=== PATIENT | male | born 1965 | race Caucasian/White ===

== ENCOUNTER 2016-10-11 07:44 | Day surgery (SDC) | payer OTHER ==
[~2016-10-11] VITALS: Ht 167.6 cm; Wt 70.7 kg
[~2016-10-11 07:44] MED LIST: AUG875 PO; INSU100I13 SC; Metformin Hcl PO; SULF1TAB31 PO
[2016-10-11 08:35] VITALS: Ht 167.6 cm; Wt 70.7 kg
[2016-10-11 08:39] VITALS: BP 126/76; PULSE 65; RESP 16
[2016-10-11] MEDS ORDERED: NOVO3I SC (09:07)
[2016-10-11] MEDS ORDERED: FENTAnyl 50 MCG/ML VIAL ONE (10:11)
[2016-10-11] MEDS ORDERED: MIDAZOLAM 1 MG/ML 2 ML INJ ONE (10:11)
[2016-10-11 10:30] VITALS: BP 101/63; PULSE 62; RESP 14
--- NOTE | 2016-10-12 05:00 | GILP ---
DATE OF PROCEDURE: 10/11/2016 NAME OF PROCEDURE: Colonoscopy. SURGEON: Cornelio Jacobo MD PREOPERATIVE DIAGNOSIS: Iron deficiency anemia. POSTOPERATIVE DIAGNOSES 1. Colonoscopy all the way to the cecum. 2. Internal hemorrhoids. 3. No colon neoplasm or any other bleeding lesion was identified. INDICATION FOR THE PROCEDURE: Mr. Adithya Orozco is a 51-year-old male patient who was noted to hav e iron deficiency anemia. The patient never had screening colonoscopy, so the patient was scheduled for colonoscopic examination for further evaluation. The procedure and possible complications were well explained to the patient, he understood and conse nted to the procedure. DESCRIPTION OF PROCEDURE: Under the influence of fentanyl and Versed, the colonoscope was carefully introduced in the rectum and under direct vision, it was advanced all the way to the cecum. FINDINGS: The patient had internal hemorrhoids. No colitis or neoplasm was identified. He tolerated the procedure very well and there was no complication from the procedure. At the end o f the procedure, he was awake with stable vital signs and he was discharged home to the care of his family. IMPRESSION: 1. Colonoscopy all the way to the cecum. 2. Internal hemorrhoids. 3. No colon neoplasm or any other bleeding lesion was identified. PLAN: Next screening colonoscopy in 10 years. Dictated By: CORNELIO BAILEY/KIKI Conf#: [id number] DID#: [id number]
== END 2016-10-11 10:46 | disposition home or self-care (01) ==
LOC: GIL 07:44
PROVIDERS: ATTEND Internal Medicine Gastroenterology
DX: D50.9 Iron deficiency anemia, unspecified (principal); K64.8 Other hemorrhoids; E11.9 Type 2 diabetes mellitus without complications
CPT/HCPCS: 45378; 82962; J2250; J3010

== ENCOUNTER 2017-01-16 19:32 | Inpatient (IN) | payer OTHER ==
[~2017-01-16] VITALS: Ht 170.2 cm; Wt 72.0 kg
[~2017-01-16 19:32] MED LIST changes: -AUG875 PO; -Metformin Hcl PO; +NOVO3I SC; -SULF1TAB31 PO
[2017-01-16 19:34] VITALS: Ht 170.2 cm; Wt 72.0 kg
[2017-01-16] MEDS ORDERED: PIPER-TAZO 3.375 GM IV (PMX) 100 ML IVPB STA (20:44)
[2017-01-16] MEDS ORDERED: SODIUM CHLORIDE 0.9% 1L BAG IV* STA (20:44)
[2017-01-16] MEDS ORDERED: VANCOMYCIN 1 GM (PMX) 250 ML IVPB ONE (21:00)
[2017-01-16 21:04] LABS: ADD SCAN DIFF NO
[2017-01-16 21:06] LABS: BASOPHILS % 0.4 % (0.0-2.0); EOSINOPHILS # 0.3 10^3/ul (0.0-0.5); EOSINOPHILS % 2.5 % (0.0-7.0); HEMATOCRIT 31.8 % (42.0-52.0); HEMOGLOBIN 10.6 g/dl (14.0-18.0); LYMPHOCYTES # 1.4 10^3/ul (0.8-2.9); LYMPHOCYTES % 13.3 % (15.0-51.0); MEAN CORPUSCULAR HEMOGLOBIN 28.1 pg (29.0-33.0); MEAN CORPUSCULAR HGB CONC 33.3 g/dl (32.0-37.0); MEAN CORPUSCULAR VOLUME 84.4 fl (82.0-101.0); MEAN PLATELET VOLUME 9.9 fl (7.4-10.4); MONOCYTE # 0.5 10^3/ul (0.3-0.9); MONOCYTES % 4.9 % (0.0-11.0); NEUTROPHIL # 8.2 10^3/ul (1.6-7.5); NEUTROPHILS % 78.5 % (39.0-77.0); PLATELET COUNT 385 10^3/UL (140-415); RED BLOOD COUNT 3.77 10^6/ul (4.70-6.10); RED CELL DISTRIBUTION WIDTH 12.8 % (11.5-14.5); WHITE BLOOD COUNT 10.4 10^3/ul (4.8-10.8)
[2017-01-16 21:13] LABS: ADD UMIC YES; URINE BILIRUBIN (Dip) NEGATIVE (NEGATIVE); URINE BLOOD (Dip) 2+ (NEGATIVE); URINE COLOR LT. YELLOW (YELLOW); URINE KETONES (Dip) NEGATIVE (NEGATIVE); URINE LEUKOCYTE ESTERASE (Dip) NEGATIVE (NEGATIVE); URINE NITRITE (Dip) NEGATIVE (NEGATIVE); URINE TOTAL PROTEIN (Dip) 1+ (NEGATIVE); URINE UROBILINOGEN (Dip) 0.2 E.U./dL (0.1-1.0)
[2017-01-16] MEDS ORDERED: METF500T4 PO (21:15)
[2017-01-16] MEDS ORDERED: INSU100I12 SQ (21:17)
[2017-01-16 21:19] LABS: INR 1.09; PARTIAL THROMBOPLASTIN TIME 35.9 Sec (25.0-35.0); PROTIME 14.1 Sec (12.2-14.2); PT RATIO 1.1
[2017-01-16 21:23] LABS: ALANINE AMINOTRANSFERASE 45 IU/L (13-69); ALBUMIN 3.9 g/dl (3.3-4.9); ALBUMIN/GLOBULIN RATIO 0.82; ALKALINE PHOSPHATASE 173 IU/L (42-121); ANION GAP 12 (8-16); ASPARTATE AMINO TRANSFERASE 25 IU/L (15-46); BILIRUBIN,INDIRECT 0.1 mg/dl (0-1.1); BILIRUBIN,TOTAL 0.1 mg/dl (0.2-1.3); BLOOD UREA NITROGEN 17 mg/dl (7-20); CALCIUM 9.4 mg/dl (8.4-10.2); CARBON DIOXIDE 29 mmol/L (21-31); CHLORIDE 96 mmol/L (97-110); CREATININE 0.79 mg/dl (0.61-1.24); GLUCOSE 226 mg/dl (70-220); POTASSIUM 4.3 mmol/L (3.5-5.1); SODIUM 133 mmol/L (135-144); TOTAL PROTEIN 8.6 g/dl (6.1-8.1); TRANSITIONAL EPI CELLS,URINE FEW
[2017-01-16] MEDS ORDERED: ACETAMINOPHEN 325 MG TAB PO PRN (21:30)
[2017-01-16] MEDS ORDERED: ONDANSETRON 4 MG INJ IV PRN (21:30)
[2017-01-16 21:35] LABS: TROPONIN-I < 0.012 ng/ml (0.00-0.12)
--- NOTE | 2017-01-16 21:41 | RADRPT ---
PROCEDURE: XR Chest. CLINICAL INDICATION: Possible sepsis TECHNIQUE: Single AP portable chest COMPARISON: 04/08/2015 Chest x-ray FINDINGS: The cardiomediastinal silhouette is within normal limits of size .. Atherosclerotic calcification of the aorta. The lungs are clear without pleural effusion or focal consolidation. No pneumothorax. The osseous structures and soft tissues are unremarkable. IMPRESSION: 1. No evidence for active cardiopulmonary disease. RPTAT:AAJJ Jenae Hernández Physician Date Time Electronically viewed and signed by Jenae Hernández Physician on 01/16/2017 21:40 SANTOSH/
--- NOTE | 2017-01-16 21:45 | RADRPT ---
PROCEDURE: XR Foot. CLINICAL INDICATION: Sepsis. Diabetic foot. TECHNIQUE: AP, lateral and oblique views of the right foot was obtained. The images were reviewed on a PACS workstation. COMPARISON: 03/07/2015 right foot FINDINGS: Amputation of the second toe at the proximal interphalangeal joint. Findings suggestive of chronic f racture deformity the base of the second proximal phalanx. Correlate clinically. Subcutaneous soft tissue lucency suggestive of ulcer at the first metatarsal phalangeal joint with deformity of the d istal phalanx and irregularity of the cortical margins of the joint suspicious for osteomyelitis. T he remaining bones and soft tissues of the right foot are unremarkable. IMPRESSION: 1. Degenerative changes in cortical irregularity of the first distal interphalangeal joint with subc utaneous soft tissue defect at this level suspicious for osteomyelitis. Correlate clinically. 2. Amputation of the second toe at the proximal interphalangeal joint with fracture deformity of th e base of the proximal phalanx which may be acute or chronic in nature. Correlate clinically. RPTAT:AAJJ Physician Constanza Date Time Electronically viewed and signed by Physician Constanza on 01/16/2017 21:45 SANTOSH/
--- NOTE | 2017-01-16 22:08 | ERA ---
ER Documentation Chief Complaint Date/Time DATE: 01/16/17 TIME: 22:05 Chief Complaint diabetic right and left foot HPI Patient is a 49-year-old male with diabetes who presents with a foot infection. The patient has bilateral ulcers to the feet as well as diabetes. He says "the right one is infected". He said that he has been on antibiotics since yesterday when his primary doctor gave him antibiotics. He does not know what antibiotic. He did see a glost kiln placer today Dr. De Los Santos who sent him to the emergency department for admission. He has redness to the top of the right foot as well which is warm to touch. Upon review of old medical records this is the patient's seventh visit to the ER since 2013. ROS All systems reviewed and are negative except as per history of present illness. Medications Home Meds Reported Medications Insulin Lispro (Humalog Kwikpen U-100) 100 Unit/1 Ml Insuln.pen, 10-12 UNIT SQ DAILY 01/16/17 Metformin* (Glucophage*) 500 Mg Tab, 500 MG PO WITH LUNCH DINNER, #60 TAB 01/16/17 Discontinued Reported Medications Insulin Aspart* (Novolog Insulin Pen*) 100 Unit/Ml Soln, 22 UNIT SC WITH BREAKFAST DINNE, EA 10/11/16 Discontinued Scripts Insuln Asp Prt/Insulin Aspart* (Novolog Mix 70-30 Flexpen*) 100 Unit/1 Ml Inj, 22 UNIT SC AC BREAKFAST DINNER, #1 BOT 4 Refills Prov:FEMI DESAI MD 04/11/15 Allergies Allergies: Coded Allergies: No Known Drug Allergies (Verified Allergy, Unknown, 01/16/17) PMhx/Soc History of Surgery: Yes (left big toe and right 2nd toe amputation) Anesthesia Reaction: No Hx Neurological Disorder: No Hx Respiratory Disorders: No Hx Cardiac Disorders: No Hx Psychiatric Problems: No Hx Miscellaneous Medical Probl: Yes (DIABETES) Hx Alcohol Use: No Hx Substance Use: No Hx Tobacco Use: No Smoking Status: Never smoker FmHx Family History: diabetes Physical Exam Vitals Vital Signs Date Time Temp Pulse Resp B/P Pulse Ox O2 Delivery O2 Flow Rate FiO2 01/16/17 19:34 99.3 104 20 129/63 98 Physical Exam Const: No acute distress Head: Atraumatic Eyes: Normal Conjunctiva ENT: Normal External Ears, Nose and Mouth. Neck: Full range of motion..~ No meningismus. Resp: Clear to auscultation bilaterally Cardio: Regular rate and rhythm, no murmurs Abd: Soft, non tender, non distended. Normal bowel sounds Skin: Multiple deep foot ulcers bilaterally with surrounding erythema to the right foot with cellulitis of the dorsum of the right foot Back: No midline or flank tenderness Ext: No cyanosis, or edema Neur: Awake and alert Psych: Normal Mood and Affect Result Diagram: 01/16/17204901/16/172049 Results 24 hrs Laboratory Tests Test 01/16/17 20:50 White Blood Count 10.410^3/ul Red Blood Count 3.7710^6/ul Hemoglobin 10.6g/dl Hematocrit 31.8% Mean Corpuscular Volume 84.4fl Mean Corpuscular Hemoglobin 28.1pg Mean Corpuscular Hemoglobin Concent 33.3g/dl Red Cell Distribution Width 12.8% Platelet Count 85500^3/UL Mean Platelet Volume 9.9fl Neutrophils % 78.5% Lymphocytes % 13.3% Monocytes % 4.9% Eosinophils % 2.5% Basophils % 0.4% Nucleated Red Blood Cells % 0.0/100WBC Neutrophils # 8.210^3/ul Lymphocytes # 1.410^3/ul Monocytes # 0.510^3/ul Eosinophils # 0.310^3/ul Basophils # 0.010^3/ul Nucleated Red Blood Cells # 0.010^3/ul Prothrombin Time 14.1Sec Prothrombin Time Ratio 1.1 INR International Normalized Ratio 1.09 Activated Partial Thromboplast Time 35.9Sec Urine Color LT. YELLOW Urine Clarity CLEAR Urine pH 5.5 Urine Specific [place] 1.025 Urine Ketones NEGATIVE Urine Nitrite NEGATIVE Urine Bilirubin NEGATIVE Urine Urobilinogen 0.2 E.U./dL Urine Leukocyte Esterase NEGATIVE Urine Microscopic RBC 5-10/HPF Urine Microscopic WBC 0-2/HPF Urine Transitional Epithelial Cells FEW Urine Hemoglobin 2+ Urine Glucose 0.25%% Urine Total Protein 1+ Sodium Level 133mmol/L Potassium Level 4.3mmol/L Chloride Level 96mmol/L Carbon Dioxide Level 29mmol/L Anion Gap 12 Blood Urea Nitrogen 17mg/dl Creatinine 0.79mg/dl Glucose Level 226mg/dl Lactic Acid Level 1.1mmol/L Calcium Level 9.4mg/dl Total Bilirubin 0.1mg/dl Direct Bilirubin 0.00mg/dl Indirect Bilirubin 0.1mg/dl Aspartate Amino Transf (AST/SGOT) 25IU/L Alanine Aminotransferase (ALT/SGPT) 45IU/L Alkaline Phosphatase 173IU/L Troponin I < 0.012ng/ml Total Protein 8.6g/dl Albumin 3.9g/dl Globulin 4.70g/dl Albumin/Globulin Ratio 0.82 Current Medications Medications (Trade) Dose Ordered Sig/Deisy Route PRN Reason Start Time Stop Time Status Last Admin Dose Admin Sodium Chloride 2230 ml 2,230 ml BOLUS OVER 2 HOURS STAT IV* 01/16/17 20:44 01/16/17 20:46 DC 01/16/17 21:12 Vancomycin HCl 250 ml @ 125 mls/hr ONCE ONCE IVPB 01/16/17 21:00 01/16/17 22:59 Piperacillin Sod/ Tazobactam Sod (Zosyn 3.375gm/ 100 ml (Pmx)) 100 ml @ 200 mls/hr ONCE STAT IVPB 01/16/17 20:44 01/16/17 21:13 DC 01/16/17 21:56 Ondansetron HCl (Zofran Inj) 4 mg BRIDGE ORDER PRN IV NAUSEA AND/OR VOMITING 01/16/17 21:30 01/17/17 21:29 Acetaminophen (Tylenol Tab) 650 mg ER BRIDGE PRN PO MILD PAIN/FEVER 01/16/17 21:30 01/17/17 21:29 Procedures/MDM X-ray shows osteomyelitis of the right foot per radiology. Chest x-ray shows no pneumonia per radiology. EKG read by me: Rate/Rhythm: Regular rate and rhythm at a rate of 93 Intervals: Normal Impression: No evidence of ischemia or arrhythmia Patient is a 51-year-old male with diabetes who presents with diabetic foot infection with cellulitis. The patient will need admission to the hospital and is at this point failed outpatient antibiotics. The patient will be given vancomycin and Zosyn empirically. The patient has anemia but no leukocytosis. At this point I doubt sepsis. I do believe the patient has osteomyelitis based on the x-ray and physical exam. The patient will be admitted to the care of Dr. Hsu from the panel team to a medical surgical bed. Departure Diagnosis: Primary Impression: Diabetic foot ulcer Qualified Code: E10.621 - Diabetic foot ulcer associated with type 1 diabetes mellitus, unspecified laterality, unspecified part of foot, unspecified ulcer stage Additional Impression: Osteomyelitis Qualified Code: M86.9 - Osteomyelitis of right foot, unspecified type Condition: LAURIE Mcfarlane MD Jan 16, 2017 22:08
[2017-01-17 10:30] VITALS: TEMP 97.1
[2017-01-17] MEDS ORDERED: INSULIN ASPART [NOVOLOG] 3 ML PEN SC SCH (12:00)
[2017-01-17 12:30] VITALS: PULSE 70
[2017-01-17] MEDS ORDERED: DEXTROSE 50% 50 ML SYRINGE IV PRN ×2 (12:30)
[2017-01-17] MEDS ORDERED: GLUCAGON 1 MG INJ IM PRN (12:30)
[2017-01-17] MEDS ORDERED: GLUCOSE GEL 15 GRAM TUBE BUCCAL PRN (12:30)
[2017-01-17] MEDS ORDERED: GLUCOSE GEL 15 GRAM TUBE PO PRN ×2 (12:30)
[2017-01-17] MEDS ORDERED: HYPOGLYCEMIA PROTOCOL when Glucose is <70 mg/dL or symptomatic <90 mg/dL. XX ONE (13:30)
[2017-01-17] MEDS ORDERED: BISACODYL 10 MG SUPP PR PRN (13:30)
[2017-01-17] MEDS ORDERED: ONDANSETRON 4 MG INJ IV PRN (13:30)
[2017-01-17] MEDS ORDERED: DOCUSATE SODIUM 100 MG CAP PO PRN (13:30)
[2017-01-17] MEDS ORDERED: HYDROCODONE/APAP (5/325) TAB PO PRN ×2 (13:30)
[2017-01-17] MEDS ORDERED: ACETAMINOPHEN 650 MG SUPP PR PRN (13:30)
[2017-01-17] MEDS ORDERED: Discontinue Glyburide, Glipizide, and/or Glimepiride prior to starting Insulin XX ONE (13:30)
[2017-01-17] MEDS ORDERED: ACETAMINOPHEN 325 MG TAB PO PRN (13:30)
[2017-01-17] MEDS ORDERED: NACL 0.9% 3 ML SYG IV SCH (13:30)
[2017-01-17] MEDS ORDERED: morphine 2 MG INJ IV PRN (13:30)
[2017-01-17] MEDS ORDERED: MAGNESIUM HYDROXIDE 30ML CUP PO PRN (13:30)
--- NOTE | 2017-01-17 16:50 | HP ---
Date/Time of Note Date/Time of Note DATE: 01/17/17 TIME: 16:43 Assessment/Plan VTE Prophylaxis VTE Prophylaxis Intervention: heparin Lines/Catheters IV [facility]from [facility] [place] [facility] Assessment/Plan Chief Complaint/Hosp Course Impression and plan 1. Suspect right foot first distal interphalangeal osteomyelitis. Infectious disease physician consulted. Continue on vancomycin for now. Camera Supervisor also consulted. Will get wound care consult to follow. 2. Uncontrolled diabetes. Follow-up on A1c. Will start patient on insulin regimen. Will get nurse informatics educator to follow. 3. Anemia. Likely of chronic disease. Follow-up on an iron level 4. Mild hyponatremia. Follow-up on level. Will start on fluids pending clinical course Admission process 40 minutes Discussed plan of care with Dr. Johnston transfer to Problems: HPI/ROS Admit Date/Time Admit Date/Time Jan 16, 2017 at 21:05 Hx of Present Illness Is a 51-year-old male with past medical history of diabetes as well as ulcerative wounds on bilateral lower extremities subsequently leading to left foot first toe amputation as well as right foot second toe amputation who is back again to [facility] secondary to ulceration of right foot first toe with suspicion of osteomyelitis. Patient is follow-up with his model maker fiberglass as outpatient Dr. De Los Santos who did refer him to [facility] for further evaluation. He of note was taking antibiotics with Keflex for 2 days duration with no improvement. He denies any pain or fevers associated with it. On further examination he did have further imaging of his right foot that did show him to have some degenerative changes in the cortical and first distal interphalangeal joint with subcutaneous soft tissue defect suspicious for osteomyelitis. Patient was noted with some anemia likely of chronic disease did have some hyponatremia with sodium 133. And also elevated glucose high as 241. Patient does report compliance to his home medication with his diabetic meds. He does report however her glucose levels are typically below 250. We will evaluate him for the aformentioned issues ROS 12 point review of systems obtained entirely negative except that mentioned in history present illness PMH/Family/Social Past Medical History Medical/surgical history diabetes as well as ulcerative wounds on bilateral lower extremities subsequently leading to left foot first toe amputation as well as right foot second toe amputation Family History Significant Family History: other (Mother and father: Diabetes) Social History Alcohol Use: none Smoking Status: Former smoker Drug Use: none Exam/Review of Systems Vital Signs Vitals Vital Signs Date Time Temp Pulse Resp B/P Pulse Ox O2 Delivery O2 Flow Rate FiO2 01/17/17 12:30 70 18 111/68 97 Room Air 01/17/17 10:30 97.1 Exam Constitutional: alert, oriented Psych: nl mood/affect Head: normocephalic Neck: non-tender, supple Respiratory: clear to auscultation, normal air movement Cardiovascular: regular rate and rhythm Gastrointestinal: non-tender, soft Extremities: other (Noted with amputation of left foot first toe and amputation of right foot second toe) Skin: other (Multiple ulcerations seen on bilateral feet and toes) Labs Result Diagram: 01/16/17204901/16/172049 Medications Medications Current Medications Miscellaneous Information 1 ea NOTE XX ; Start 01/17/17 at 12:30 Glucose (Glutose) 15 gm Q15M PRN PO DECREASED GLUCOSE; Start 01/17/17 at 12:30 Glucose (Glutose) 22.5 gm Q15M PRN PO DECREASED GLUCOSE; Start 01/17/17 at 12: 30 Dextrose (D50w Syringe) 25 ml Q15M PRN IV DECREASED GLUCOSE; Start 01/17/17 at 12:30 Dextrose (D50w Syringe) 50 ml Q15M PRN IV DECREASED GLUCOSE; Start 01/17/17 at 12:30 Glucagon (Glucagen) 1 mg Q15M PRN IM DECREASED GLUCOSE; Start 01/17/17 at 12:30 Glucose (Glutose) 15 gm Q15M PRN BUCCAL DECREASED GLUCOSE; Start 01/17/17 at 12 :30 Ondansetron HCl (Zofran Inj) 4 mg Q6H PRN IV NAUSEA AND/OR VOMITING; Start at 13:30 Acetaminophen (Tylenol Tab) 650 mg Q6H PRN PO PAIN LEVEL 1-3 OR FEVER; Start at 13:30 Acetaminophen (Tylenol Supp) 650 mg Q6H PRN [place] PAIN LEVEL 1-3 OR FEVER; Start 01/17/17 at 13:30 Acetaminophen/ Hydrocodone Bitart ([place] (5/325)) 1 tab Q6H PRN PO MODERATE PAIN LEVEL 4-6; Start 01/17/17 at 13:30 Acetaminophen/ Hydrocodone Bitart ([place] (5/325)) 2 tab Q6H PRN PO SEVERE PAIN LEVEL 7-10; Start 01/17/17 at 13:30 Morphine Sulfate (morphine) 2 mg Q4H PRN IV SEVERE PAIN LEVEL 7-10; Start 01/17 at 13:30 Docusate Sodium (Colace) 100 mg Q12H PRN PO CONSTIPATION; Start 01/17/17 at 13: 30 Magnesium Hydroxide (Milk Of Mag) 30 ml DAILY PRN PO CONSTIPATION; Start at 13:30 Bisacodyl (Dulcolax Supp) 10 mg DAILY PRN [place] CONSTIPATION; Start 01/17/17 at 13 :30 Heparin Sodium (Porcine) (Heparin (5000 Units/0.5 ml)) 5,000 unit Q12 SC ; Start 01/17/17 at 21:00 Insulin Glargine (Lantus) 10 unit DAILY@20 SC ; Start 01/17/17 at 20:00 Diagnostic Test (Pha) (Accu-Chek) 1 ea 02 XX ; Start 01/18/17 at 02:00 MANOHAR IZQUIERDO Jan 17, 2017 16:50
[2017-01-17] MEDS ORDERED: VANCOMYCIN IV PER PHARMACY XX SCH (17:00)
[2017-01-17] MEDS: INSULIN ASPART [NOVOLOG] 3 ML PEN SC SCH ×2 (17:25→20:37)
--- NOTE | 2017-01-17 17:43 | CONS ---
DATE OF ADMISSION: 01/16/2017 DATE OF CONSULTATION: 01/17/2017 TYPE OF CONSULTATION: Infectious Disease. REASON FOR CONSULTATION: Antibiotic management. HISTORY OF PRESENT ILLNESS: Adithya Orozco is a 51-year-old male with a history of diabetes mellitu s as well as ulcerative wounds on his lower extremities, which subsequently led to left foot first t oe amputation as well as right foot second toe amputation. The patient comes back to [facility] with ulceration of the right first toe with suspicion of osteomyelitis. He is followed by Dr. De Los Santos, his order fulfillment specialist, who referred him to [facility]. The patient was on Keflex for 2 day s' duration with no improvement. He denies any fever or chills. His right foot did show some degen erative changes at the cortical of his first distal interphalangeal joint with subcutaneous soft tis rosenda defects suspicious for osteomyelitis. The patient was noted to have anemia. He basically came in with a white count of 10.4, H and H of 10.6 and 31.8, platelet count 385,000. BUN and creatinine 17/0.79. Glucose of 226. PAST MEDICAL HISTORY: Operations as outlined. The patient is diabetic. He has ulcerative wounds o n his lower extremities. FAMILY HISTORY: Noncontributory. SOCIAL HISTORY: He is a former smoker. He does not drink or abuse drugs. ALLERGIES: NONE TO PENICILLIN, SULFA OR FOODS. MEDICATIONS: Per chart. REVIEW OF SYSTEMS: As per HPI. PHYSICAL EXAMINATION: GENERAL: The patient is a well-developed, well-nourished male, alert, responsive, in no acute distr ess. VITAL SIGNS: Stable. He is afebrile. SKIN: Without generalized rash. HEENT: Within normal limits. NECK: Supple. LYMPH NODES: None palpable. CHEST: Decreased breath sounds at the bases. HEART: Without murmur or gallop. ABDOMEN: Soft, nontender, without organosplenomegaly or masses. EXTREMITIES: Without cyanosis, clubbing. He has amputation of left first toe and amputation right second toe. He has multiple ulcerations on his feet bilaterally. IMPRESSION AND PLAN: A patient with diabetic feet and ulcerations. He is started on a combination of vancomycin and he also received 1 dose of Zosyn. We will continue him on vancomycin. Consider a dding Levaquin to his regimen. I will dictate my findings to the hospitalist. Dictated By: ROMI TAMAYO MD, JD/KIKI Conf#: [id number] DID#: [id number]
[2017-01-17] MEDS ORDERED: VANCOMYCIN 1.5 GM in SOD CHLORIDE 0.9% 250 ML IVPB SCH (18:30)
[2017-01-17] MEDS ORDERED: CEPH250C PO (19:07)
[2017-01-17] MEDS ORDERED: IBUP-1542 PO (19:08)
[2017-01-17 20:54] VITALS: BP 125/60; RESP 18
[2017-01-17] MEDS: INSULIN GLARGINE [LANtus] 3 ML PEN SC SCH (22:16)
[2017-01-17] MEDS: HEPARIN 5,000 UNIT/0.5 ML VIAL SC SCH (22:16)
[2017-01-18] MEDS: VANCOMYCIN 1 GM in NS 250 ML IVPB SCH ×4 (02:34→20:14)
[2017-01-18] MEDS: ACCUCHECK AT 2AM (Patients on SS coverage) XX SCH (02:34)
[2017-01-18 07:09] LABS: ALBUMIN/GLOBULIN RATIO 0.83; CALCIUM 9.1 mg/dl (8.4-10.2); CHOL/HDL RATIO 6.5 RATIO; CREATININE 0.64 mg/dl (0.61-1.24); MAGNESIUM 1.9 mg/dl (1.7-2.5); PHOSPHORUS 4.5 mg/dl (2.5-4.9); POTASSIUM 4.7 mmol/L (3.5-5.1); TOTAL PROTEIN 6.6 g/dl (6.1-8.1)
[2017-01-18 07:25] LABS: T3 UPTAKE 39.4 % (23.5-40.5)
[2017-01-18 07:39] LABS: THYROID STIMULATING HORMONE 1.01 MIU/L (0.465-4.680)
[2017-01-18] MEDS: INSULIN ASPART [NOVOLOG] 3 ML PEN SC SCH ×4 (08:00→20:53)
[2017-01-18] MEDS: HEPARIN 5,000 UNIT/0.5 ML VIAL SC SCH ×2 (08:41→20:52)
[2017-01-18 08:54] VITALS: BP 117/65; RESP 18
--- NOTE | 2017-01-18 10:25 | PN ---
Date/Time of Note Date/Time of Note DATE: 01/18/17 TIME: 10:20 Assessment/Plan VTE Prophylaxis VTE Prophylaxis Intervention: heparin Lines/Catheters IV C[facility]ter Type (from [facility]): Peripheral IV Assessment/Plan Chief Complaint/Hosp Course Impression and plan 1. Suspect right foot first distal interphalangeal osteomyelitis. Infectious disease physician consulted. Continue antibiotics. Await podiatry input. Wound care consult to follow 2. Uncontrolled diabetes. A1c noted at 10.5. Will start patient on insulin regimen. public health educator to follow 3. Anemia. Likely of chronic disease. Follow-up on an iron level 4. Mild hyponatremia. Follow-up on level. Will start on fluids pending clinical course Disposition and plan: Continue with analgesics. Continue on antibiotics. Await podiatry. Continue inpatient monitoring Discussed plan of care with Dr. Johnston Problems: Subjective 24 Hr Interval Summary Free Text/Dictation Patient resting at this time. No apparent distress. Comfortable at present Exam/Review of Systems Vital Signs Vitals Vital Signs Date Time Temp Pulse Resp B/P Pulse Ox O2 Delivery O2 Flow Rate FiO2 01/18/17 08:54 97.7 60 18 117/65 97 01/17/17 12:30 Room Air Intake and Output 01/17/17 01/17/17 01/18/17 15:00 23:00 07:00 Intake Total 850 ml 810 ml Output Total 450 ml 1200 ml Balance 400 ml -390 ml Exam Constitutional: alert, oriented, no apparent distress Psych: nl mood/affect Head: normocephalic Neck: non-tender, supple Respiratory: clear to auscultation, normal air movement Cardiovascular: regular rate and rhythm Gastrointestinal: non-tender, soft Extremities: other (Noted with amputation of left foot first toe and amputation of right foot second toe) unchanged. No apparent drainage seen Skin: other (Multiple ulcerations seen on bilateral feet and toes) slightly malodorous Results Result Diagram: 01/16/17204901/18/17 0535 Results 24 hrs Laboratory Tests Test 01/17/17 11:34 01/17/17 13:08 01/17/17 17:08 01/17/17 20:30 Bedside Glucose 229 H 220 183 192 Test 01/17/17 22:14 01/18/17 02:33 01/18/17 05:35 01/18/17 07:56 Bedside Glucose 187 123 95 Sodium Level 135 Potassium Level 4.7 Chloride Level 99 Carbon Dioxide Level 30 Anion Gap 11 Blood Urea Nitrogen 12 Creatinine 0.64 Glucose Level 107 # Hemoglobin A1c 10.5 H Calcium Level 9.1 Phosphorus Level 4.5 Magnesium Level 1.9 Total Bilirubin 0.0 L Direct Bilirubin 0.00 Indirect Bilirubin 0.0 Aspartate Amino Transf (AST/SGOT) 23 Alanine Aminotransferase (ALT/SGPT) 42 Alkaline Phosphatase 130 H Total Protein 6.6 # Albumin 3.0 L Globulin 3.60 H Albumin/Globulin Ratio 0.83 Triglycerides Level 104 Cholesterol Level 169 LDL Cholesterol, Calculated 122 HDL Cholesterol 26 L Cholesterol/HDL Ratio 6.5 Thyroid Stimulating Hormone (TSH) 1.010 Free Thyroxine Index 3.35 Thyroxine (T4) 8.5 Triiodothyronine (T3) Uptake 39.4 Medications Medications Current Medications Miscellaneous Information 1 ea NOTE XX ; Start 01/17/17 at 12:30 Glucose (Glutose) 15 gm Q15M PRN PO DECREASED GLUCOSE; Start 01/17/17 at 12:30 Glucose (Glutose) 22.5 gm Q15M PRN PO DECREASED GLUCOSE; Start 01/17/17 at 12: 30 Dextrose (D50w Syringe) 25 ml Q15M PRN IV DECREASED GLUCOSE; Start 01/17/17 at 12:30 Dextrose (D50w Syringe) 50 ml Q15M PRN IV DECREASED GLUCOSE; Start 01/17/17 at 12:30 Glucagon (Glucagen) 1 mg Q15M PRN IM DECREASED GLUCOSE; Start 01/17/17 at 12:30 Glucose (Glutose) 15 gm Q15M PRN BUCCAL DECREASED GLUCOSE; Start 01/17/17 at 12 :30 Ondansetron HCl (Zofran Inj) 4 mg Q6H PRN IV NAUSEA AND/OR VOMITING; Start at 13:30 Acetaminophen (Tylenol Tab) 650 mg Q6H PRN PO PAIN LEVEL 1-3 OR FEVER; Start at 13:30 Acetaminophen (Tylenol Supp) 650 mg Q6H PRN [place] PAIN LEVEL 1-3 OR FEVER; Start 01/17/17 at 13:30 Acetaminophen/ Hydrocodone Bitart ([place] (5/325)) 1 tab Q6H PRN PO MODERATE PAIN LEVEL 4-6; Start 01/17/17 at 13:30 Acetaminophen/ Hydrocodone Bitart ([place] (5/325)) 2 tab Q6H PRN PO SEVERE PAIN LEVEL 7-10; Start 01/17/17 at 13:30 Morphine Sulfate (morphine) 2 mg Q4H PRN IV SEVERE PAIN LEVEL 7-10; Start 01/17 at 13:30 Docusate Sodium (Colace) 100 mg Q12H PRN PO CONSTIPATION; Start 01/17/17 at 13: 30 Magnesium Hydroxide (Milk Of Mag) 30 ml DAILY PRN PO CONSTIPATION; Start at 13:30 Bisacodyl (Dulcolax Supp) 10 mg DAILY PRN [place] CONSTIPATION; Start 01/17/17 at 13 :30 Heparin Sodium (Porcine) (Heparin (5000 Units/0.5 ml)) 5,000 unit Q12 SC Last administered on 01/18/17 08:41; Admin Dose 5,000 UNIT; Start 01/17/17 at 21:00 Insulin Glargine (Lantus) 10 unit DAILY@20 SC Last administered on 01/17/17 22 :16; Admin Dose 10 UNIT; Start 01/17/17 at 20:00 Diagnostic Test (Pha) 1 ea 1 ea 02 XX Last administered on 01/18/17 02:34; Admin Dose 1 EA; Start 01/18/17 at 02:00 Vancomycin HCl (Vancocin) 250 ml @ 125 mls/hr Q8H IVPB Last administered on 02:34; Admin Dose 125 MLS/HR; Start 01/18/17 at 02:30 Miscellaneous Information (*Rx Drug Level Order Reminder*) VANCOMYCIN TROUGH AT 1,730 TODAY ONCE ONCE XX ; Start 01/18/17 at 17:30; Stop 01/18/17 at 17:31 MANOHAR IZQUIERDO Jan 18, 2017 10:25
[2017-01-18 11:33] LABS: IRON 29 ug/dl (35-150)
[2017-01-18 11:42] LABS: TOTAL IRON BINDING CAPACITY 191 ug/dl (241-421)
[2017-01-18 21:17] VITALS: BP 117/62; RESP 18
--- NOTE | 2017-01-18 21:19 | CONS ---
Date/Time of Note Date/Time of Note DATE: 01/18/17 TIME: 21:09 Assessment/Plan Assessment/Plan Chief Complaint/Hosp Course ID PROGRESS NOTE TOTAL ABX DAY #2 => Vanco IV #2 + Ceftriaxone #1 24H INTERVAL SUMMARY * No F/C/N/V/D BLEXT wounds failed OP PO ABX * XRAY: IMPRESSION: * 1. Degenerative changes in cortical irregularity of the first distal interphalangeal joint with subcutaneous soft tissue defect at this level suspicious for osteomyelitis. Correlate clinically. * 2. Amputation of the second toe at the proximal interphalangeal joint with fracture deformity of the base of the proximal phalanx which may be acute or chronic in nature. Correlate clinically. * 01/17/17 WOUND CX: GRAM STAIN Final POLYMORPH. LEUKOCYTE NONE SEEN GRAM POS COCCI IN PAIRS 1+ WOUND CULTURE Preliminary Culture too young to evaluate 01/16/17204901/18/17 0535 PHYSICAL EXAMINATION: GENERAL: 51 yo M, VSS, NAD, no fevers HEENT: Unremarkable NECK: Supple, trach midline CHEST: Equal chest rise bilaterally, without dyspnea on observation EXTREMITIES: Moves all extremities, BLEXT feet DSG C/D/I ID ASSESSMENT: 51 yo M admitted with: 1. Acute RIGHT diabetic foot cellulitis, ulcers, X-RAY w/ right foot first distal interphalangeal osteomyelitis. * GRAM STAIN Final POLYMORPH. LEUKOCYTE NONE SEEN GRAM POS COCCI IN PAIRS 1+ WOUND CULTURE Preliminary Culture too young to evaluate 2. Acute on chronic BLEXT diabetic foot wounds * Hx of left foot first toe amputation * Hx of right foot second toe amputation. 3. Diabetes 4. Diabetic neuropathy ()MRSA NARES -> Order pending INVASIVES: * PIV ABX ALLERGIES: KNDA CURRENT ABX: #2 => Vanco IV #2 + Ceftriaxone #1 ID RECOMMENDATIONS: 1. Started on Vanco + Cefrtriaxone for GPC pairs ?STREP ? 2. APC consult 3. He will need 6 weeks ABX to cover concern for osteomyelitis -> If MRSA, then 8 weeks . Problems: Consultation Date/Type/Reason Admit Date/Time Jan 16, 2017 at 21:05 Initial Consult Date Exam/Review of Systems Vital Signs Vitals Vital Signs Date Time Temp Pulse Resp B/P Pulse Ox O2 Delivery O2 Flow Rate FiO2 01/18/17 08:54 97.7 60 18 117/65 97 01/17/17 12:30 Room Air Intake and Output 01/17/17 01/17/17 01/18/17 15:00 23:00 07:00 Intake Total 850 ml 810 ml Output Total 450 ml 1200 ml Balance 400 ml -390 ml Results Result Diagram: 01/16/17204901/18/17 0535 Results 24 hrs Laboratory Tests Test 01/17/17 22:14 01/18/17 02:33 01/18/17 05:35 01/18/17 07:56 Bedside Glucose 187 123 95 Sodium Level 135 Potassium Level 4.7 Chloride Level 99 Carbon Dioxide Level 30 Anion Gap 11 Blood Urea Nitrogen 12 Creatinine 0.64 Glucose Level 107 # Hemoglobin A1c 10.5 H Calcium Level 9.1 Phosphorus Level 4.5 Magnesium Level 1.9 Iron Level 29 L Total Iron Binding Capacity 191 L Percent Iron Saturation 15 L Total Bilirubin 0.0 L Direct Bilirubin 0.00 Indirect Bilirubin 0.0 Aspartate Amino Transf (AST/SGOT) 23 Alanine Aminotransferase (ALT/SGPT) 42 Alkaline Phosphatase 130 H Total Protein 6.6 # Albumin 3.0 L Globulin 3.60 H Albumin/Globulin Ratio 0.83 Triglycerides Level 104 Cholesterol Level 169 LDL Cholesterol, Calculated 122 HDL Cholesterol 26 L Cholesterol/HDL Ratio 6.5 Thyroid Stimulating Hormone (TSH) 1.010 Free Thyroxine Index 3.35 Thyroxine (T4) 8.5 Triiodothyronine (T3) Uptake 39.4 Test 01/18/17 11:56 01/18/17 17:05 01/18/17 17:40 01/18/17 20:42 Bedside Glucose 179 152 183 Vancomycin Level Trough 13.8 Medications Medications Current Medications Miscellaneous Information 1 ea NOTE XX ; Start 01/17/17 at 12:30 Glucose (Glutose) 15 gm Q15M PRN PO DECREASED GLUCOSE; Start 01/17/17 at 12:30 Glucose (Glutose) 22.5 gm Q15M PRN PO DECREASED GLUCOSE; Start 01/17/17 at 12: 30 Dextrose (D50w Syringe) 25 ml Q15M PRN IV DECREASED GLUCOSE; Start 01/17/17 at 12:30 Dextrose (D50w Syringe) 50 ml Q15M PRN IV DECREASED GLUCOSE; Start 01/17/17 at 12:30 Glucagon (Glucagen) 1 mg Q15M PRN IM DECREASED GLUCOSE; Start 01/17/17 at 12:30 Glucose (Glutose) 15 gm Q15M PRN BUCCAL DECREASED GLUCOSE; Start 01/17/17 at 12 :30 Ondansetron HCl (Zofran Inj) 4 mg Q6H PRN IV NAUSEA AND/OR VOMITING; Start at 13:30 Acetaminophen (Tylenol Tab) 650 mg Q6H PRN PO PAIN LEVEL 1-3 OR FEVER; Start at 13:30 Acetaminophen (Tylenol Supp) 650 mg Q6H PRN [place] PAIN LEVEL 1-3 OR FEVER; Start 01/17/17 at 13:30 Acetaminophen/ Hydrocodone Bitart ([place] (5/325)) 1 tab Q6H PRN PO MODERATE PAIN LEVEL 4-6; Start 01/17/17 at 13:30 Acetaminophen/ Hydrocodone Bitart ([place] (5/325)) 2 tab Q6H PRN PO SEVERE PAIN LEVEL 7-10; Start 01/17/17 at 13:30 Morphine Sulfate (morphine) 2 mg Q4H PRN IV SEVERE PAIN LEVEL 7-10; Start 01/17 at 13:30 Docusate Sodium (Colace) 100 mg Q12H PRN PO CONSTIPATION; Start 01/17/17 at 13: 30 Magnesium Hydroxide (Milk Of Mag) 30 ml DAILY PRN PO CONSTIPATION; Start at 13:30 Bisacodyl (Dulcolax Supp) 10 mg DAILY PRN [place] CONSTIPATION; Start 01/17/17 at 13 :30 Heparin Sodium (Porcine) (Heparin (5000 Units/0.5 ml)) 5,000 unit Q12 SC Last administered on 01/18/17 20:52; Admin Dose 5,000 UNIT; Start 01/17/17 at 21:00 Insulin Glargine (Lantus) 10 unit DAILY@20 SC Last administered on 01/17/17 22 :16; Admin Dose 10 UNIT; Start 01/17/17 at 20:00 Diagnostic Test (Pha) 1 ea 1 ea 02 XX Last administered on 01/18/17 02:34; Admin Dose 1 EA; Start 01/18/17 at 02:00 Vancomycin HCl (Vancocin) 250 ml @ 125 mls/hr Q8H IVPB Last administered on 20:14; Admin Dose 125 MLS/HR; Start 01/18/17 at 02:30 JEANNETTE MOSLEY NP Jan 18, 2017 21:19
[2017-01-18] MEDS: INSULIN GLARGINE [LANtus] 3 ML PEN SC SCH (22:39)
[2017-01-18] MEDS: CEFTRIAXONE 2 GM/50 ML (PMX) 50 ML IVPB SCH (22:41)
[2017-01-19] MEDS: ACCUCHECK AT 2AM (Patients on SS coverage) XX SCH (02:00)
[2017-01-19] MEDS: VANCOMYCIN 1 GM in NS 250 ML IVPB SCH ×3 (04:05→20:06)
[2017-01-19 05:57] LABS: ADD SCAN DIFF NO
--- NOTE | 2017-01-19 06:10 | HP ---
DATE OF ADMISSION: 01/16/2017 VASCULAR SURGERY CONSULTATION Dear Doctors: Mr. Orozco is a 51-year-old gentleman with a history of bilateral diabetic foot ulcers in which jeremiah doe has undergone amputations of the right second toe at the tip and left first toe amputation. 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 Patient currently is being followed by our outpatient colleague, Dr. De Los Santos, who is his p odiatrist, and had sent him in for further evaluation. He has developed right lower extremity diabet ic foot infection and a first toe plantar ulcer with drainage. At the moment, the patient denies s hortness of breath, chest pain, nausea, vomiting, fever or chills. The patient has developed a Myra rcot foot of the bilateral lower extremities. Patient does mention that he is a bit limited with hi s lower extremities, that he is always on his feet and he feels that he has some limitations with hi s ambulation. REVIEW OF SYSTEMS: A 12-point review performed and negative except what is mentioned in the HPI. PAST MEDICAL HISTORY: Entails diabetes, hypertension, hypercholesterolemia, coronary artery disease , bilateral lower extremity atherosclerosis, bilateral nonhealing diabetic foot ulcers. PAST SURGICAL HISTORY: Left first toe amputation, right second toe amputation. FAMILY HISTORY: Diabetes and hypertension. SOCIAL HISTORY: Ex-smoker. Denies current tobacco, alcohol or illicit drug use. PHYSICAL EXAMINATION: GENERAL: Alert and oriented x3, no apparent distress. HEENT: Normocephalic, atraumatic. PERRLA, EOMI. Mucosa moist. Poor dentition. NECK: Supple. No carotid bruit. PULMONARY: Clear to auscultation bilaterally. No crackles. CARDIOVASCULAR: S1, S2 present. No murmurs. ABDOMEN: Soft, nontender, nondistended. Bowel sounds positive. LOWER EXTREMITIES: 1. Right lower extremity palpable femoral pulse, nonpalpable pedal pulse. Motor, sensory intact. Cap refill 3 seconds. There is a first toe plantar ulcer with surrounding erythema, Charcot foot a nd erythema on the dorsal aspect between the third and the fourth toes and second toe amputation of the tip aspect. 2. Left lower extremity palpable femoral pulse, nonpalpable pedal pulse. Motor, sensory intact. C apillary refill 3 seconds. First toe amputation. There is an ulcer of the second and third toe on the tips. There is Charcot foot. ASSESSMENT AND PLAN: Bilateral lower extremity atherosclerosis with bilateral foot ulcers. Right d iabetic foot infection. It seems the patient has a worsening of his diabetic foot ulcers with in li ght of his atherosclerotic disease, we will plan to obtain noninvasive vascular studies to evaluate his infrainguinal perfusion. Patient most likely has infrapopliteal disease as he has nonpalpable p edal pulses on the left and faint on the right. 1. Optimize vascular status (BP meds, diet, nutrition, exercise, sugar control, antiplatelets). 2. Continue our wound care per podiatry colleague's recommendation. 3. Patient will need to have eventual diabetic fitted shoes with offloading on his pressure points. 4. Discussed findings, plan and management with the patient and the daughter at the bedside with a certified econometrician and they understand. Thank you for allowing us to partake in the care of your patient. Please call with any questions. We will need case management to be involved as the patient will need some time off from work as to a llow his diabetic foot ulcers to heal. Dictated By: PNEG DIAZ/KIKI Conf#: [id number] DID#: [id number]
[2017-01-19 06:13] LABS: BASOPHILS % 0.4 % (0.0-2.0); EOSINOPHILS # 0.2 10^3/ul (0.0-0.5); EOSINOPHILS % 3.2 % (0.0-7.0); HEMATOCRIT 31.6 % (42.0-52.0); HEMOGLOBIN 10.3 g/dl (14.0-18.0); LYMPHOCYTES # 1.6 10^3/ul (0.8-2.9); LYMPHOCYTES % 22.6 % (15.0-51.0); MEAN CORPUSCULAR HEMOGLOBIN 27.5 pg (29.0-33.0); MEAN CORPUSCULAR HGB CONC 32.6 g/dl (32.0-37.0); MEAN CORPUSCULAR VOLUME 84.3 fl (82.0-101.0); MEAN PLATELET VOLUME 10.2 fl (7.4-10.4); MONOCYTE # 0.4 10^3/ul (0.3-0.9); MONOCYTES % 5.7 % (0.0-11.0); NEUTROPHIL # 4.6 10^3/ul (1.6-7.5); NEUTROPHILS % 67.8 % (39.0-77.0); PLATELET COUNT 372 10^3/UL (140-415); RED BLOOD COUNT 3.75 10^6/ul (4.70-6.10); RED CELL DISTRIBUTION WIDTH 12.8 % (11.5-14.5); WHITE BLOOD COUNT 6.9 10^3/ul (4.8-10.8)
[2017-01-19 06:35] LABS: CALCIUM 9.4 mg/dl (8.4-10.2); CREATININE 0.69 mg/dl (0.61-1.24); POTASSIUM 4.4 mmol/L (3.5-5.1)
[2017-01-19 08:00] VITALS: BP 109/61; RESP 20
[2017-01-19] MEDS: INSULIN ASPART [NOVOLOG] 3 ML PEN SC SCH ×4 (08:20→20:09)
[2017-01-19] MEDS: HEPARIN 5,000 UNIT/0.5 ML VIAL SC SCH ×2 (08:21→20:09)
--- NOTE | 2017-01-19 09:28 | PN ---
Date/Time of Note Date/Time of Note DATE: 01/19/17 TIME: 09:24 Assessment/Plan Lines/Catheters IV Catheter Type (from [facility]): Saline Lock [place] in Place (from [facility]): No Assessment/Plan Chief Complaint/Hosp Course -Bilateral lower extremity atherosclerosis with bilateral foot ulcer & Right diabetic foot infection. It seems the patient has developed worsening of his diabetic foot ulcers, we will plan to obtain noninvasive vascular studies to evaluate his infrainguinal perfusion. Patient most likely has infrapopliteal disease as he has nonpalpable pedal pulses on the left and faint on the right. -Optimize vascular status (BP meds, diet, nutrition, exercise, sugar control, antiplatelets). -Continue our wound care per podiatry colleague's recommendation. -Patient will need to have eventual diabetic fitted shoes with offloading on his pressure points. -We will need case management to be involved as the patient will need some time off from work as to allow his diabetic foot ulcers to heal. -Discussed findings, plan and management with the patient and the daughter at the bedside with a certified offensive coordinator and they understand. -Thank you for allowing us to partake in the care of your patient. Please call with any questions. Problems: Subjective 24 Hr Interval Summary no new vascular events overnight Exam/Review of Systems Vital Signs Vitals Vital Signs Date Time Temp Pulse Resp B/P Pulse Ox O2 Delivery O2 Flow Rate FiO2 01/19/17 08:00 97.5 68 20 109/61 98 01/17/17 12:30 Room Air Intake and Output 01/18/17 01/18/17 01/19/17 15:00 23:00 07:00 Intake Total 250 ml 690 ml 300 ml Output Total 1600 ml Balance 250 ml -910 ml 300 ml Exam Free Text/Dictation GENERAL: Alert and oriented x3, PULMONARY: Clear to auscultation bilaterally CARDIOVASCULAR: S1, S2 present ABDOMEN: Soft, nontender, nondistended. Bowel sounds positive. LOWER EXTREMITIES: -Right lower extremity palpable femoral pulse, nonpalpable pedal pulse. Motor, sensory intact. Cap refill 3 seconds. First toe plantar ulcer with surrounding erythema, Charcot foot and erythema on the dorsal aspect between the third and the fourth toes, second toe amputation of the distal aspect. -Left lower extremity palpable femoral pulse, nonpalpable pedal pulse. Motor, sensory intact. Capillary refill 3 seconds. First toe amputation site well healed. Ulcer of the second and third toe on the tips. Charcot foot. Results Result Diagram: 01/19/17 0440 01/19/17 0440 PENG GALARZA MD Jan 19, 2017 09:28
--- NOTE | 2017-01-19 13:57 | PN ---
Date/Time of Note Date/Time of Note DATE: 01/19/17 TIME: 13:53 Assessment/Plan VTE Prophylaxis VTE Prophylaxis Intervention: heparin Lines/Catheters [facility] Saline Lock Urinary Cath still in place: No Assessment/Plan Chief Complaint/Hosp Course Impression and plan 1. Suspect right foot first distal interphalangeal osteomyelitis. Infectious disease physician consulted. Continue antibiotics. cont with podiatry recs 2. Uncontrolled diabetes. A1c noted at 10.5. on insulin regimen. will adjust as needed 3. Anemia. with iron deficiency. start on iron 4. Mild hyponatremia. stable Disposition and plan: Continue with analgesics. Continue on antibiotics. follow up with podiatry recs. continue inpatient monitoring Discussed plan of care with Dr. Johnston Problems: Subjective 24 Hr Interval Summary Free Text/Dictation comfortable at present. no s/s of distress Exam/Review of Systems Vital Signs Vitals Vital Signs Date Time Temp Pulse Resp B/P Pulse Ox O2 Delivery O2 Flow Rate FiO2 01/19/17 08:00 97.5 68 20 109/61 98 01/17/17 12:30 Room Air Intake and Output 01/18/17 01/18/17 01/19/17 15:00 23:00 07:00 Intake Total 250 ml 690 ml 300 ml Output Total 1600 ml Balance 250 ml -910 ml 300 ml Exam Constitutional: no s/s of distress Psych: nl mood/affect Head: normocephalic Neck: non-tender, supple Respiratory: clear to auscultation, normal air movement Cardiovascular: regular rate and rhythm Gastrointestinal: non-tender, soft Extremities: other (Noted with amputation of left foot first toe and amputation of right foot second toe) unchanged. No apparent drainage seen Skin: other (Multiple ulcerations seen on bilateral feet and toes) unchanged Results Result Diagram: 01/19/17 0440 01/19/17 0440 Results 24 hrs Laboratory Tests Test 01/18/17 17:05 01/18/17 17:40 01/18/17 20:42 01/18/17 22:36 Bedside Glucose 152 183 209 Vancomycin Level Trough 13.8 Test 01/19/17 02:03 01/19/17 04:40 01/19/17 08:00 01/19/17 12:30 Bedside Glucose 209 157 238 H White Blood Count 6.9 # Red Blood Count 3.75 L Hemoglobin 10.3 L Hematocrit 31.6 L Mean Corpuscular Volume 84.3 Mean Corpuscular Hemoglobin 27.5 L Mean Corpuscular Hemoglobin Concent 32.6 Red Cell Distribution Width 12.8 Platelet Count 372 Mean Platelet Volume 10.2 Neutrophils % 67.8 Lymphocytes % 22.6 Monocytes % 5.7 Eosinophils % 3.2 Basophils % 0.4 Nucleated Red Blood Cells % 0.0 Neutrophils # 4.6 Lymphocytes # 1.6 Monocytes # 0.4 Eosinophils # 0.2 Basophils # 0.0 Nucleated Red Blood Cells # 0.0 Sodium Level 135 Potassium Level 4.4 Chloride Level 96 L Carbon Dioxide Level 30 Anion Gap 13 Blood Urea Nitrogen 15 Creatinine 0.69 Glucose Level 209 # Calcium Level 9.4 Medications Medications Current Medications Miscellaneous Information 1 ea NOTE XX ; Start 01/17/17 at 12:30 Glucose (Glutose) 15 gm Q15M PRN PO DECREASED GLUCOSE; Start 01/17/17 at 12:30 Glucose (Glutose) 22.5 gm Q15M PRN PO DECREASED GLUCOSE; Start 01/17/17 at 12: 30 Dextrose (D50w Syringe) 25 ml Q15M PRN IV DECREASED GLUCOSE; Start 01/17/17 at 12:30 Dextrose (D50w Syringe) 50 ml Q15M PRN IV DECREASED GLUCOSE; Start 01/17/17 at 12:30 Glucagon (Glucagen) 1 mg Q15M PRN IM DECREASED GLUCOSE; Start 01/17/17 at 12:30 Glucose (Glutose) 15 gm Q15M PRN BUCCAL DECREASED GLUCOSE; Start 01/17/17 at 12 :30 Ondansetron HCl (Zofran Inj) 4 mg Q6H PRN IV NAUSEA AND/OR VOMITING; Start at 13:30 Acetaminophen (Tylenol Tab) 650 mg Q6H PRN PO PAIN LEVEL 1-3 OR FEVER; Start at 13:30 Acetaminophen (Tylenol Supp) 650 mg Q6H PRN [place] PAIN LEVEL 1-3 OR FEVER; Start 01/17/17 at 13:30 Acetaminophen/ Hydrocodone Bitart ([place] (5/325)) 1 tab Q6H PRN PO MODERATE PAIN LEVEL 4-6; Start 01/17/17 at 13:30 Acetaminophen/ Hydrocodone Bitart ([place] (5/325)) 2 tab Q6H PRN PO SEVERE PAIN LEVEL 7-10; Start 01/17/17 at 13:30 Morphine Sulfate (morphine) 2 mg Q4H PRN IV SEVERE PAIN LEVEL 7-10; Start 01/17 at 13:30 Docusate Sodium (Colace) 100 mg Q12H PRN PO CONSTIPATION; Start 01/17/17 at 13: 30 Magnesium Hydroxide (Milk Of Mag) 30 ml DAILY PRN PO CONSTIPATION; Start at 13:30 Bisacodyl (Dulcolax Supp) 10 mg DAILY PRN [place] CONSTIPATION; Start 01/17/17 at 13 :30 Heparin Sodium (Porcine) (Heparin (5000 Units/0.5 ml)) 5,000 unit Q12 SC Last administered on 01/19/17 08:21; Admin Dose 5,000 UNIT; Start 01/17/17 at 21:00 Insulin Glargine (Lantus) 10 unit DAILY@20 SC Last administered on 01/18/17 22 :39; Admin Dose 10 UNIT; Start 01/17/17 at 20:00 Diagnostic Test (Pha) 1 ea 1 ea 02 XX Last administered on 01/19/17 02:00; Admin Dose 1 EA; Start 01/18/17 at 02:00 Ceftriaxone Sodium 50 ml @ 100 mls/hr Q24H IVPB Last administered on 22:41; Admin Dose 100 MLS/HR; Start 01/18/17 at 22:00 Vancomycin HCl (Vancocin) 250 ml @ 125 mls/hr Q8H IVPB Last administered on 12:37; Admin Dose 125 MLS/HR; Start 01/19/17 at 04:00 MANOHAR IZQUIERDO Jan 19, 2017 13:57
[2017-01-19] MEDS: INSULIN GLARGINE [LANtus] 3 ML PEN SC SCH (20:08)
[2017-01-19 20:12] VITALS: BP 108/56; RESP 21
--- NOTE | 2017-01-19 20:14 | RADRPT ---
PROCEDURE: US bilateral lower extremity arteries. CLINICAL INDICATION: Bilateral leg pain. Diabetic foot ulcer. Claudication that interferes signi ficantly with the patient's lifestyle. TECHNIQUE: Multiple longitudinal and transverse images of the bilateral lower extremity arteries w ere obtained with almaraz scale, pulsed Doppler, and color Doppler imaging. COMPARISON: No prior studies are available for comparison. FINDINGS: Right ANDROID PLATFORM DEVELOPER:68 cm/sec PSFA:77 cm/sec MSFA:64 cm/sec DSFA:82 cm/sec POP:65 cm/sec NEWSPAPER WRITER:133 cm/sec DPA:76 cm/sec Left ANDROID PLATFORM DEVELOPER:83 cm/sec PSFA:90 cm/sec MSFA:70 cm/sec DSFA:59 cm/sec POP:49 cm/sec NEWSPAPER WRITER:104 cm/sec DPA:106 cm/sec The right ankle-brachial index is 1.2 and the left ankle-brachial index is 1.2. There is normal triphasic flow throughout bilaterally. There is no plaque, stenosis, or occlusion. IMPRESSION: 1. Normal bilateral lower extremity arterial Doppler. RPTAT: QQ .Antwan Stallings MD, MD Date Time Electronically viewed and signed by .Antwan Stallings MD, on 01/19/2017 20:14 .R/
[2017-01-19] MEDS: FERROUS SULFATE (EC) 325 MG TAB PO SCH (21:04)
--- NOTE | 2017-01-19 21:09 | CONS ---
Date/Time of Note Date/Time of Note DATE: 01/18/17 TIME: 21:03 Assessment/Plan Assessment/Plan Problems: (1) Diabetes, polyneuropathy (2) Acquired absence of left great toe (3) Diabetic foot ulcer Status: Acute Qualifiers: Qualified Code: E10.621 - Diabetic foot ulcer associated with type 1 diabetes mellitus, unspecified laterality, unspecified part of foot, unspecified ulcer stage (4) Toe ulcer Status: Acute (5) Foot pain Status: Acute (6) Osteomyelitis Status: Acute Qualifiers: Qualified Code: M86.9 - Osteomyelitis of right foot, unspecified type Additional Assessment/Plan An MRI of the right foot is recommended. It will be reviewed when available. Thank you very much for the consultation. I will follow patient in-house. Consultation Date/Type/Reason Admit Date/Time Jan 16, 2017 at 21:05 Date of Consultation: Jan 11, 2017 Type of Consultation: Foot and ankle surgery Reason for Consultation Multiple open wounds of the right foot; suspicious for osteomyelitis Hx of Present Illness Thank you very much for involving me in the care of this patient. As you very well know this is a 51-year-old male patient with past medical history significant for diabetes, multiple ulcerations of both feet, status post left big toe amputation, right second toe amputation presents to [facility] emergency room and is admitted secondary to ulcerations of the right foot. There is suspicion for osteomyelitis and I have been contacted to consult on this patient. So far, is been on Keflex IV for 2-3 days with no improvement apparently patient apparently has been on Keflex for a couple of days with no improvement. Patient reports no fever, chills, nausea or vomiting. Patient denies trauma to his feet. Currently he is on IV antibiotics. Psychological: nl mood/affect Past Medical History As per history of present illness. Past Surgical History As per history of present illness. Social History As per history of present illness. Alcohol Use: none Smoking Status: Former smoker Drug Use: none Exam/Review of Systems Vital Signs Vitals Vital Signs Date Time Temp Pulse Resp B/P Pulse Ox O2 Delivery O2 Flow Rate FiO2 01/19/17 20:12 97.5 72 21 108/56 96 01/17/17 12:30 Room Air Intake and Output 01/18/17 01/18/17 01/19/17 15:00 23:00 07:00 Intake Total 250 ml 690 ml 300 ml Output Total 1600 ml Balance 250 ml -910 ml 300 ml Exam Patient is in no acute distress laying supine in bed. Multiple open wounds noted on the plantar aspect of right foot. Left foot is status post hallux amputation. There is no active pus and no bleeding noted from the right foot. The wound is 1.5 x 1 cm on the plantar aspect of the hallux with no foul odor. There is no surrounding erythema. There is forefoot edema noted. Labs reviewed. Protective sensation is decreased bilateral lower extremity. Foot x- ray shows degenerative changes and cortical irregularity of the first distal interphalangeal joint with subcutaneous soft tissue defect at this level suspicious for osteomyelitis. Date of x-ray is 01/16/2017. Results Result Diagram: 01/19/17 0440 01/19/17 0440 Results 24 hrs Laboratory Tests Test 01/18/17 22:36 01/19/17 02:03 01/19/17 04:40 01/19/17 08:00 Bedside Glucose 209 209 157 White Blood Count 6.9 # Red Blood Count 3.75 L Hemoglobin 10.3 L Hematocrit 31.6 L Mean Corpuscular Volume 84.3 Mean Corpuscular Hemoglobin 27.5 L Mean Corpuscular Hemoglobin Concent 32.6 Red Cell Distribution Width 12.8 Platelet Count 372 Mean Platelet Volume 10.2 Neutrophils % 67.8 Lymphocytes % 22.6 Monocytes % 5.7 Eosinophils % 3.2 Basophils % 0.4 Nucleated Red Blood Cells % 0.0 Neutrophils # 4.6 Lymphocytes # 1.6 Monocytes # 0.4 Eosinophils # 0.2 Basophils # 0.0 Nucleated Red Blood Cells # 0.0 Sodium Level 135 Potassium Level 4.4 Chloride Level 96 L Carbon Dioxide Level 30 Anion Gap 13 Blood Urea Nitrogen 15 Creatinine 0.69 Glucose Level 209 # Calcium Level 9.4 Test 01/19/17 12:30 01/19/17 17:20 01/19/17 20:03 Bedside Glucose 238 H 209 240 H Medications Medications Current Medications Miscellaneous Information 1 ea NOTE XX ; Start 01/17/17 at 12:30 Glucose (Glutose) 15 gm Q15M PRN PO DECREASED GLUCOSE; Start 01/17/17 at 12:30 Glucose (Glutose) 22.5 gm Q15M PRN PO DECREASED GLUCOSE; Start 01/17/17 at 12: 30 Dextrose (D50w Syringe) 25 ml Q15M PRN IV DECREASED GLUCOSE; Start 01/17/17 at 12:30 Dextrose (D50w Syringe) 50 ml Q15M PRN IV DECREASED GLUCOSE; Start 01/17/17 at 12:30 Glucagon (Glucagen) 1 mg Q15M PRN IM DECREASED GLUCOSE; Start 01/17/17 at 12:30 Glucose (Glutose) 15 gm Q15M PRN BUCCAL DECREASED GLUCOSE; Start 01/17/17 at 12 :30 Ondansetron HCl (Zofran Inj) 4 mg Q6H PRN IV NAUSEA AND/OR VOMITING; Start at 13:30 Acetaminophen (Tylenol Tab) 650 mg Q6H PRN PO PAIN LEVEL 1-3 OR FEVER; Start at 13:30 Acetaminophen (Tylenol Supp) 650 mg Q6H PRN [place] PAIN LEVEL 1-3 OR FEVER; Start 01/17/17 at 13:30 Acetaminophen/ Hydrocodone Bitart ([place] (5/325)) 1 tab Q6H PRN PO MODERATE PAIN LEVEL 4-6; Start 01/17/17 at 13:30 Acetaminophen/ Hydrocodone Bitart ([place] (5/325)) 2 tab Q6H PRN PO SEVERE PAIN LEVEL 7-10; Start 01/17/17 at 13:30 Morphine Sulfate (morphine) 2 mg Q4H PRN IV SEVERE PAIN LEVEL 7-10; Start 01/17 at 13:30 Docusate Sodium (Colace) 100 mg Q12H PRN PO CONSTIPATION; Start 01/17/17 at 13: 30 Magnesium Hydroxide (Milk Of Mag) 30 ml DAILY PRN PO CONSTIPATION; Start at 13:30 Bisacodyl (Dulcolax Supp) 10 mg DAILY PRN [place] CONSTIPATION; Start 01/17/17 at 13 :30 Heparin Sodium (Porcine) (Heparin (5000 Units/0.5 ml)) 5,000 unit Q12 SC Last administered on 01/19/17 20:09; Admin Dose 5,000 UNIT; Start 01/17/17 at 21:00 Insulin Glargine (Lantus) 10 unit DAILY@20 SC Last administered on 01/19/17 20 :08; Admin Dose 10 UNIT; Start 4/27/17 at 20:00 Diagnostic Test (Pha) 1 ea 1 ea 02 XX Last administered on 01/19/17 02:00; Admin Dose 1 EA; Start 01/18/17 at 02:00 Ceftriaxone Sodium 50 ml @ 100 mls/hr Q24H IVPB Last administered on 22:41; Admin Dose 100 MLS/HR; Start 01/18/17 at 22:00 Vancomycin HCl (Vancocin) 250 ml @ 125 mls/hr Q8H IVPB Last administered on 20:06; Admin Dose 125 MLS/HR; Start 01/19/17 at 04:00 Ferrous Sulfate (Ferrous Sulfate (Ec)) 325 mg TID PO ; Start 01/19/17 at 21:00 STEFANIA GARICA DPM Jan 19, 2017 21:09
[2017-01-19] MEDS: CEFTRIAXONE 2 GM/50 ML (PMX) 50 ML IVPB SCH (22:24)
--- NOTE | 2017-01-19 22:35 | CONS ---
Date/Time of Note Date/Time of Note DATE: 01/19/17 TIME: 22:29 Assessment/Plan Assessment/Plan Chief Complaint/Hosp Course ID PROGRESS NOTE TOTAL ABX DAY #3 => Vanco IV #3 + Ceftriaxone #2 24H INTERVAL SUMMARY * Resting comfortably listening to music, no c/o, No F/C/N/V/D => Admitted for BLEXT wounds failed OP PO ABX * Arterial Duplex BLEXT 01/19/17 IMPRESSION:1. Normal bilateral lower extremity arterial Doppler. * XRAY: IMPRESSION: * 1. Degenerative changes in cortical irregularity of the first distal interphalangeal joint with subcutaneous soft tissue defect at this level suspicious for osteomyelitis. Correlate clinically. * 2. Amputation of the second toe at the proximal interphalangeal joint with fracture deformity of the base of the proximal phalanx which may be acute or chronic in nature. Correlate clinically. * 01/17/17 WOUND CX: WOUND CULTURE Preliminary Organism 1 STAPHYLOCOCCUS AUREUS QUANTITY 1+ Organism 2 ENTEROCOCCUS SPECIES QUANTITY 1+ Organism 3 ALPHA HEMOLYTIC STREP SPP QUANTITY 2+ . VIRIDANS GROUP * 01/19/17 0440 01/19/17 0440 PHYSICAL EXAMINATION: GENERAL: 51 yo M, VSS, NAD, no fevers HEENT: Unremarkable NECK: Supple, trach midline CHEST: Equal chest rise bilaterally, without dyspnea on observation EXTREMITIES: Moves all extremities, BLEXT feet DSG C/D/I ID ASSESSMENT: 51 yo M admitted with: 1. Acute RIGHT diabetic foot cellulitis, ulcers, X-RAY w/ right foot first distal interphalangeal osteomyelitis. WOUND CULTURE Preliminary Organism 1 STAPHYLOCOCCUS AUREUS QUANTITY 1+ Organism 2 ENTEROCOCCUS SPECIES QUANTITY 1+ Organism 3 ALPHA HEMOLYTIC STREP SPP QUANTITY 2+ . VIRIDANS GROUP 2. Acute on chronic BLEXT diabetic foot wounds * Hx of left foot first toe amputation * Hx of right foot second toe amputation. 3. Diabetes 4. Diabetic neuropathy ()MRSA NARES -> Order pending INVASIVES: * PIV ABX ALLERGIES: KNDA CURRENT ABX: #3 => Vanco IV #3 + Ceftriaxone #2 ID RECOMMENDATIONS: 1. Started on Vanco + Cefrtriaxone -- f/u on final Enterococcus to ensure sensitive to Vanco 2. APC consult 3. He will need 6 weeks ABX to cover concern for osteomyelitis -> If MRSA, then 8 weeks . Problems: Consultation Date/Type/Reason Admit Date/Time Jan 16, 2017 at 21:05 Type of Consultation: ID Exam/Review of Systems Vital Signs Vitals Vital Signs Date Time Temp Pulse Resp B/P Pulse Ox O2 Delivery O2 Flow Rate FiO2 01/19/17 20:12 97.5 72 21 108/56 96 01/17/17 12:30 Room Air Intake and Output 01/18/17 01/18/17 01/19/17 15:00 23:00 07:00 Intake Total 250 ml 690 ml 300 ml Output Total 1600 ml Balance 250 ml -910 ml 300 ml Results Result Diagram: 01/19/17 0440 01/19/17 0440 Results 24 hrs Laboratory Tests Test 01/18/17 22:36 01/19/17 02:03 01/19/17 04:40 01/19/17 08:00 Bedside Glucose 209 209 157 White Blood Count 6.9 # Red Blood Count 3.75 L Hemoglobin 10.3 L Hematocrit 31.6 L Mean Corpuscular Volume 84.3 Mean Corpuscular Hemoglobin 27.5 L Mean Corpuscular Hemoglobin Concent 32.6 Red Cell Distribution Width 12.8 Platelet Count 372 Mean Platelet Volume 10.2 Neutrophils % 67.8 Lymphocytes % 22.6 Monocytes % 5.7 Eosinophils % 3.2 Basophils % 0.4 Nucleated Red Blood Cells % 0.0 Neutrophils # 4.6 Lymphocytes # 1.6 Monocytes # 0.4 Eosinophils # 0.2 Basophils # 0.0 Nucleated Red Blood Cells # 0.0 Sodium Level 135 Potassium Level 4.4 Chloride Level 96 L Carbon Dioxide Level 30 Anion Gap 13 Blood Urea Nitrogen 15 Creatinine 0.69 Glucose Level 209 # Calcium Level 9.4 Test 01/19/17 12:30 01/19/17 17:20 01/19/17 20:03 Bedside Glucose 238 H 209 240 H Medications Medications Current Medications Miscellaneous Information 1 ea NOTE XX ; Start 01/17/17 at 12:30 Glucose (Glutose) 15 gm Q15M PRN PO DECREASED GLUCOSE; Start 01/17/17 at 12:30 Glucose (Glutose) 22.5 gm Q15M PRN PO DECREASED GLUCOSE; Start 01/17/17 at 12: 30 Dextrose (D50w Syringe) 25 ml Q15M PRN IV DECREASED GLUCOSE; Start 01/17/17 at 12:30 Dextrose (D50w Syringe) 50 ml Q15M PRN IV DECREASED GLUCOSE; Start 01/17/17 at 12:30 Glucagon (Glucagen) 1 mg Q15M PRN IM DECREASED GLUCOSE; Start 01/17/17 at 12:30 Glucose (Glutose) 15 gm Q15M PRN BUCCAL DECREASED GLUCOSE; Start 01/17/17 at 12 :30 Ondansetron HCl (Zofran Inj) 4 mg Q6H PRN IV NAUSEA AND/OR VOMITING; Start at 13:30 Acetaminophen (Tylenol Tab) 650 mg Q6H PRN PO PAIN LEVEL 1-3 OR FEVER; Start at 13:30 Acetaminophen (Tylenol Supp) 650 mg Q6H PRN IN PAIN LEVEL 1-3 OR FEVER; Start 01/17/17 at 13:30 Acetaminophen/ Hydrocodone Bitart ([place] (5/325)) 1 tab Q6H PRN PO MODERATE PAIN LEVEL 4-6; Start 01/17/17 at 13:30 Acetaminophen/ Hydrocodone Bitart ([place] (5/325)) 2 tab Q6H PRN PO SEVERE PAIN LEVEL 7-10; Start 01/17/17 at 13:30 Morphine Sulfate (morphine) 2 mg Q4H PRN IV SEVERE PAIN LEVEL 7-10; Start 01/17 at 13:30 Docusate Sodium (Colace) 100 mg Q12H PRN PO CONSTIPATION; Start 01/17/17 at 13: 30 Magnesium Hydroxide (Milk Of Mag) 30 ml DAILY PRN PO CONSTIPATION; Start at 13:30 Bisacodyl (Dulcolax Supp) 10 mg DAILY PRN IN CONSTIPATION; Start 01/17/17 at 13 :30 Heparin Sodium (Porcine) (Heparin (5000 Units/0.5 ml)) 5,000 unit Q12 SC Last administered on 01/19/17 20:09; Admin Dose 5,000 UNIT; Start 01/17/17 at 21:00 Insulin Glargine (Lantus) 10 unit DAILY@20 SC Last administered on 01/19/17 20 :08; Admin Dose 10 UNIT; Start 01/17/17 at 20:00 Diagnostic Test (Pha) 1 ea 1 ea 02 XX Last administered on 01/19/17 02:00; Admin Dose 1 EA; Start 01/18/17 at 02:00 Ceftriaxone Sodium 50 ml @ 100 mls/hr Q24H IVPB Last administered on 22:24; Admin Dose 100 MLS/HR; Start 01/18/17 at 22:00 Vancomycin HCl (Vancocin) 250 ml @ 125 mls/hr Q8H IVPB Last administered on 20:06; Admin Dose 125 MLS/HR; Start 01/19/17 at 04:00 Ferrous Sulfate (Ferrous Sulfate (Ec)) 325 mg TID PO Last administered on 21:04; Admin Dose 325 MG; Start 01/19/17 at 21:00 JEANNETTE MOSLEY NP Jan 19, 2017 22:35
[2017-01-20] MEDS: ACCUCHECK AT 2AM (Patients on SS coverage) XX SCH (02:43)
[2017-01-20] MEDS: VANCOMYCIN 1 GM in NS 250 ML IVPB SCH ×3 (04:10→20:22)
[2017-01-20 06:08] LABS: ADD SCAN DIFF NO
[2017-01-20 06:14] LABS: BASOPHILS % 0.4 % (0.0-2.0); EOSINOPHILS # 0.3 10^3/ul (0.0-0.5); EOSINOPHILS % 3.8 % (0.0-7.0); HEMATOCRIT 33.4 % (42.0-52.0); HEMOGLOBIN 10.8 g/dl (14.0-18.0); LYMPHOCYTES # 1.7 10^3/ul (0.8-2.9); LYMPHOCYTES % 22.7 % (15.0-51.0); MEAN CORPUSCULAR HEMOGLOBIN 27.3 pg (29.0-33.0); MEAN CORPUSCULAR HGB CONC 32.3 g/dl (32.0-37.0); MEAN CORPUSCULAR VOLUME 84.6 fl (82.0-101.0); MEAN PLATELET VOLUME 10.1 fl (7.4-10.4); MONOCYTE # 0.5 10^3/ul (0.3-0.9); MONOCYTES % 6.8 % (0.0-11.0); NEUTROPHIL # 4.8 10^3/ul (1.6-7.5); NEUTROPHILS % 65.9 % (39.0-77.0); PLATELET COUNT 367 10^3/UL (140-415); RED BLOOD COUNT 3.95 10^6/ul (4.70-6.10); RED CELL DISTRIBUTION WIDTH 12.7 % (11.5-14.5); WHITE BLOOD COUNT 7.3 10^3/ul (4.8-10.8)
[2017-01-20 06:30] LABS: POTASSIUM 4.4 mmol/L (3.5-5.1)
[2017-01-20 06:33] LABS: CREATININE 0.82 mg/dl (0.61-1.24)
[2017-01-20 06:34] LABS: CALCIUM 9.4 mg/dl (8.4-10.2)
[2017-01-20 08:00] VITALS: BP 124/75; RESP 20
[2017-01-20] MEDS: FERROUS SULFATE (EC) 325 MG TAB PO SCH ×3 (08:17→20:22)
[2017-01-20] MEDS: INSULIN ASPART [NOVOLOG] 3 ML PEN SC SCH ×4 (08:18→20:27)
[2017-01-20] MEDS: HEPARIN 5,000 UNIT/0.5 ML VIAL SC SCH ×2 (08:19→20:25)
--- NOTE | 2017-01-20 10:52 | PN ---
Date/Time of Note Date/Time of Note DATE: 01/20/17 TIME: 10:50 Assessment/Plan VTE Prophylaxis VTE Prophylaxis Intervention: heparin Lines/Catheters IV [facility]ter Type (from [facility]): Saline Lock Urinary Cath still in place: No Assessment/Plan Chief Complaint/Hosp Course Impression and plan 1. Suspect right foot first distal interphalangeal osteomyelitis. Continue antibiotics. MRI of right lower extremity pending 2. Uncontrolled diabetes. A1c noted at 10.5. on insulin regimen. will adjust as needed 3. Anemia. with iron deficiency. start on iron 4. Mild hyponatremia. stable Disposition and plan: Continue with antibiotics. Follow-up on MRI. Continue in -house monitoring Discussed plan of care with Dr. Johnston Problems: Subjective 24 Hr Interval Summary Free Text/Dictation Resting at this time. No apparent distress seen. Exam/Review of Systems Vital Signs Vitals Vital Signs Date Time Temp Pulse Resp B/P Pulse Ox O2 Delivery O2 Flow Rate FiO2 01/20/17 08:00 97.6 61 20 124/75 97 01/17/17 12:30 Room Air Intake and Output 01/19/17 01/19/17 01/20/17 15:00 23:00 07:00 Intake Total 250 ml 1180 ml 690 ml Output Total 1100 ml 800 ml Balance 250 ml 80 ml -110 ml Exam Constitutional: no s/s of distress comfortable at present. Denies any pain Psych: nl mood/affect, no change Head: normocephalic Neck: non-tender, supple Respiratory: No wheezing or rhonchi Cardiovascular: Remains with regular rate Gastrointestinal: non-tender, soft Extremities: other (Noted with amputation of left foot first toe and amputation of right foot second toe) unchanged. No apparent drainage seen Skin: other (Multiple ulcerations seen on bilateral feet and toes) unchanged Results Result Diagram: 01/20/17 0530 01/20/17 0530 Results 24 hrs Laboratory Tests Test 01/19/17 12:30 01/19/17 17:20 01/19/17 20:03 01/20/17 01:49 Bedside Glucose 238 H 209 240 H 237 H Test 01/20/17 05:30 01/20/17 07:57 White Blood Count 7.3 Red Blood Count 3.95 L Hemoglobin 10.8 L Hematocrit 33.4 L Mean Corpuscular Volume 84.6 Mean Corpuscular Hemoglobin 27.3 L Mean Corpuscular Hemoglobin Concent 32.3 Red Cell Distribution Width 12.7 Platelet Count 367 Mean Platelet Volume 10.1 Neutrophils % 65.9 Lymphocytes % 22.7 Monocytes % 6.8 Eosinophils % 3.8 Basophils % 0.4 Nucleated Red Blood Cells % 0.0 Neutrophils # 4.8 Lymphocytes # 1.7 Monocytes # 0.5 Eosinophils # 0.3 Basophils # 0.0 Nucleated Red Blood Cells # 0.0 Sodium Level 137 Potassium Level 4.4 Chloride Level 95 L Carbon Dioxide Level 32 H Anion Gap 14 Blood Urea Nitrogen 17 Creatinine 0.82 Glucose Level 208 Calcium Level 9.4 Bedside Glucose 165 Medications Medications Current Medications Miscellaneous Information 1 ea NOTE XX ; Start 01/17/17 at 12:30 Glucose (Glutose) 15 gm Q15M PRN PO DECREASED GLUCOSE; Start 01/17/17 at 12:30 Glucose (Glutose) 22.5 gm Q15M PRN PO DECREASED GLUCOSE; Start 01/17/17 at 12: 30 Dextrose (D50w Syringe) 25 ml Q15M PRN IV DECREASED GLUCOSE; Start 01/17/17 at 12:30 Dextrose (D50w Syringe) 50 ml Q15M PRN IV DECREASED GLUCOSE; Start 01/17/17 at 12:30 Glucagon (Glucagen) 1 mg Q15M PRN IM DECREASED GLUCOSE; Start 01/17/17 at 12:30 Glucose (Glutose) 15 gm Q15M PRN BUCCAL DECREASED GLUCOSE; Start 01/17/17 at 12 :30 Ondansetron HCl (Zofran Inj) 4 mg Q6H PRN IV NAUSEA AND/OR VOMITING; Start at 13:30 Acetaminophen (Tylenol Tab) 650 mg Q6H PRN PO PAIN LEVEL 1-3 OR FEVER; Start at 13:30 Acetaminophen (Tylenol Supp) 650 mg Q6H PRN [place] PAIN LEVEL 1-3 OR FEVER; Start 01/17/17 at 13:30 Acetaminophen/ Hydrocodone Bitart ([place] (5/325)) 1 tab Q6H PRN PO MODERATE PAIN LEVEL 4-6; Start 01/17/17 at 13:30 Acetaminophen/ Hydrocodone Bitart ([place] (5/325)) 2 tab Q6H PRN PO SEVERE PAIN LEVEL 7-10; Start 01/17/17 at 13:30 Morphine Sulfate (morphine) 2 mg Q4H PRN IV SEVERE PAIN LEVEL 7-10; Start 01/17 at 13:30 Docusate Sodium (Colace) 100 mg Q12H PRN PO CONSTIPATION; Start 01/17/17 at 13: 30 Magnesium Hydroxide (Milk Of Mag) 30 ml DAILY PRN PO CONSTIPATION; Start at 13:30 Bisacodyl (Dulcolax Supp) 10 mg DAILY PRN [place] CONSTIPATION; Start 01/17/17 at 13 :30 Heparin Sodium (Porcine) (Heparin (5000 Units/0.5 ml)) 5,000 unit Q12 SC Last administered on 01/20/17 08:19; Admin Dose 5,000 UNIT; Start 01/17/17 at 21:00 Insulin Glargine (Lantus) 10 unit DAILY@20 SC Last administered on 01/19/17 20 :08; Admin Dose 10 UNIT; Start 01/17/17 at 20:00 Diagnostic Test (Pha) 1 ea 1 ea 02 XX Last administered on 01/20/17 02:43; Admin Dose 1 EA; Start 01/18/17 at 02:00 Ceftriaxone Sodium 50 ml @ 100 mls/hr Q24H IVPB Last administered on 22:24; Admin Dose 100 MLS/HR; Start 01/18/17 at 22:00 Vancomycin HCl (Vancocin) 250 ml @ 125 mls/hr Q8H IVPB Last administered on 04:10; Admin Dose 125 MLS/HR; Start 01/19/17 at 04:00 Ferrous Sulfate (Ferrous Sulfate (Ec)) 325 mg TID PO Last administered on 08:17; Admin Dose 325 MG; Start 01/19/17 at 21:00 MANOHAR IZQUIERDO Jan 20, 2017 10:52
--- NOTE | 2017-01-20 17:50 | CONS ---
Date/Time of Note Date/Time of Note DATE: 01/20/17 TIME: 17:45 Assessment/Plan Assessment/Plan Chief Complaint/Hosp Course ID PROGRESS NOTE TOTAL ABX DAY #4 => Vanco IV #4 + Ceftriaxone #3 24H INTERVAL SUMMARY * Resting comfortably listening to music, no c/o, No F/C/N/V/D => Admitted for BLEXT wounds failed OP PO ABX * Arterial Duplex BLEXT 01/19/17 IMPRESSION:1. Normal bilateral lower extremity arterial Doppler. * XRAY: IMPRESSION: * 1. Degenerative changes in cortical irregularity of the first distal interphalangeal joint with subcutaneous soft tissue defect at this level suspicious for osteomyelitis. Correlate clinically. * 2. Amputation of the second toe at the proximal interphalangeal joint with fracture deformity of the base of the proximal phalanx which may be acute or chronic in nature. Correlate clinically. * 01/17/17 WOUND CX: WOUND CULTURE WOUND CULTURE Final Organism 1 STAPHYLOCOCCUS AUREUS QUANTITY 1+ Organism 2 ENTEROCOCCUS SPECIES QUANTITY 1+ Organism 3 ALPHA HEMOLYTIC STREP SPP QUANTITY 2+ . VIRIDANS GROUP S AUREUS ENT SPS ALPHA HEMO M.I.C. RX M.I.C. RX M.I.C. RX --------- --- --------- --- --------- --- AMPICILLIN <=2 S CEFAZOLIN S CEFOTAXIME 0.19 S CEFOXITIN SCREEN NEG CIPROFLOXACIN <=0.5 S CLINDAMYCIN <=0.25 S DOXYCYCLINE S ERYTHROMYCIN <=0.25 S LEVOFLOXACIN <=0.12 S OXACILLIN 0.5 S PENICILLIN 0.064 S PENICILLIN-G >=0.5 R 2 S RIFAMPIN <=0.5 S VANCOMYCIN <=0.5 S 1 S <=0.5 S TRIMETHOPRIM/SULFAMETHOXAZOLE <=10 S PHYSICAL EXAMINATION: GENERAL: 51 yo M, VSS, NAD, no fevers HEENT: Unremarkable NECK: Supple, trach midline CHEST: Equal chest rise bilaterally, without dyspnea on observation EXTREMITIES: Moves all extremities, R-foot plantar ulcer, left foot ID ASSESSMENT: 51 yo M admitted with: 1. Acute RIGHT diabetic foot cellulitis, ulcers, X-RAY w/ right foot first distal interphalangeal osteomyelitis. WOUND CULTURE Preliminary Organism 1 STAPHYLOCOCCUS AUREUS QUANTITY 1+ Organism 2 ENTEROCOCCUS SPECIES QUANTITY 1+ Organism 3 ALPHA HEMOLYTIC STREP SPP QUANTITY 2+ . VIRIDANS GROUP 2. Acute on chronic BLEXT diabetic foot wounds * Hx of left foot first toe amputation * Hx of right foot second toe amputation. 3. Diabetes 4. Diabetic neuropathy ()MRSA NARES -> Order pending INVASIVES: * PIV ABX ALLERGIES: KNDA CURRENT ABX: #4 => Vanco IV #4 + Ceftriaxone #3 ID RECOMMENDATIONS: 1. Started on Vanco + Cefrtriaxone -- f/u on final Enterococcus sensitive to Vanco 2. APC consult 3. He will need 6 weeks ABX to cover concern for osteomyelitis . Problems: Consultation Date/Type/Reason Admit Date/Time Jan 16, 2017 at 21:05 Type of Consultation: ID Exam/Review of Systems Vital Signs Vitals Vital Signs Date Time Temp Pulse Resp B/P Pulse Ox O2 Delivery O2 Flow Rate FiO2 01/20/17 08:00 97.6 61 20 124/75 97 01/17/17 12:30 Room Air Intake and Output 01/19/17 01/19/17 01/20/17 15:00 23:00 07:00 Intake Total 250 ml 1180 ml 690 ml Output Total 1100 ml 800 ml Balance 250 ml 80 ml -110 ml Results Result Diagram: 01/20/1752901/20/1730 Results 24 hrs Laboratory Tests Test 01/19/17 20:03 01/20/17 01:49 01/20/17 05:30 01/20/17 07:57 Bedside Glucose 240 H 237 H 165 White Blood Count 7.3 Red Blood Count 3.95 L Hemoglobin 10.8 L Hematocrit 33.4 L Mean Corpuscular Volume 84.6 Mean Corpuscular Hemoglobin 27.3 L Mean Corpuscular Hemoglobin Concent 32.3 Red Cell Distribution Width 12.7 Platelet Count 367 Mean Platelet Volume 10.1 Neutrophils % 65.9 Lymphocytes % 22.7 Monocytes % 6.8 Eosinophils % 3.8 Basophils % 0.4 Nucleated Red Blood Cells % 0.0 Neutrophils # 4.8 Lymphocytes # 1.7 Monocytes # 0.5 Eosinophils # 0.3 Basophils # 0.0 Nucleated Red Blood Cells # 0.0 Sodium Level 137 Potassium Level 4.4 Chloride Level 95 L Carbon Dioxide Level 32 H Anion Gap 14 Blood Urea Nitrogen 17 Creatinine 0.82 Glucose Level 208 Calcium Level 9.4 Test 01/20/17 11:47 01/20/17 17:33 Bedside Glucose 204 208 Medications Medications Current Medications Miscellaneous Information 1 ea NOTE XX ; Start 01/17/17 at 12:30 Glucose (Glutose) 15 gm Q15M PRN PO DECREASED GLUCOSE; Start 01/17/17 at 12:30 Glucose (Glutose) 22.5 gm Q15M PRN PO DECREASED GLUCOSE; Start 01/17/17 at 12: 30 Dextrose (D50w Syringe) 25 ml Q15M PRN IV DECREASED GLUCOSE; Start 01/17/17 at 12:30 Dextrose (D50w Syringe) 50 ml Q15M PRN IV DECREASED GLUCOSE; Start 01/17/17 at 12:30 Glucagon (Glucagen) 1 mg Q15M PRN IM DECREASED GLUCOSE; Start 01/17/17 at 12:30 Glucose (Glutose) 15 gm Q15M PRN BUCCAL DECREASED GLUCOSE; Start 01/17/17 at 12 :30 Ondansetron HCl (Zofran Inj) 4 mg Q6H PRN IV NAUSEA AND/OR VOMITING; Start at 13:30 Acetaminophen (Tylenol Tab) 650 mg Q6H PRN PO PAIN LEVEL 1-3 OR FEVER; Start at 13:30 Acetaminophen (Tylenol Supp) 650 mg Q6H PRN [place] PAIN LEVEL 1-3 OR FEVER; Start 01/17/17 at 13:30 Acetaminophen/ Hydrocodone Bitart ([place] (5/325)) 1 tab Q6H PRN PO MODERATE PAIN LEVEL 4-6; Start 01/17/17 at 13:30 Acetaminophen/ Hydrocodone Bitart ([place] (5/325)) 2 tab Q6H PRN PO SEVERE PAIN LEVEL 7-10; Start 01/17/17 at 13:30 Morphine Sulfate (morphine) 2 mg Q4H PRN IV SEVERE PAIN LEVEL 7-10; Start 01/17 at 13:30 Docusate Sodium (Colace) 100 mg Q12H PRN PO CONSTIPATION; Start 01/17/17 at 13: 30 Magnesium Hydroxide (Milk Of Mag) 30 ml DAILY PRN PO CONSTIPATION; Start at 13:30 Bisacodyl (Dulcolax Supp) 10 mg DAILY PRN [place] CONSTIPATION; Start 01/17/17 at 13 :30 Heparin Sodium (Porcine) (Heparin (5000 Units/0.5 ml)) 5,000 unit Q12 SC Last administered on 01/20/17 08:19; Admin Dose 5,000 UNIT; Start 01/17/17 at 21:00 Insulin Glargine (Lantus) 10 unit DAILY@20 SC Last administered on 01/19/17 20 :08; Admin Dose 10 UNIT; Start 01/17/17 at 20:00 Diagnostic Test (Pha) 1 ea 1 ea 02 XX Last administered on 01/20/17 02:43; Admin Dose 1 EA; Start 01/18/17 at 02:00 Ceftriaxone Sodium 50 ml @ 100 mls/hr Q24H IVPB Last administered on 22:24; Admin Dose 100 MLS/HR; Start 01/18/17 at 22:00 Vancomycin HCl (Vancocin) 250 ml @ 125 mls/hr Q8H IVPB Last administered on 11:55; Admin Dose 125 MLS/HR; Start 01/19/17 at 04:00 Ferrous Sulfate (Ferrous Sulfate (Ec)) 325 mg TID PO Last administered on 11:56; Admin Dose 325 MG; Start 01/19/17 at 21:00 JEANNETTE MOSLEY NP Jan 20, 2017 17:50
[2017-01-20] MEDS: INSULIN GLARGINE [LANtus] 3 ML PEN SC SCH (20:26)
[2017-01-20 21:45] VITALS: BP 115/65; RESP 20
[2017-01-20] MEDS: CEFTRIAXONE 2 GM/50 ML (PMX) 50 ML IVPB SCH (22:39)
[2017-01-21] MEDS: ACCUCHECK AT 2AM (Patients on SS coverage) XX SCH (02:00)
[2017-01-21] MEDS: VANCOMYCIN 1 GM in NS 250 ML IVPB SCH ×3 (04:05→21:28)
[2017-01-21 06:14] LABS: ADD SCAN DIFF NO
[2017-01-21 06:31] LABS: BASOPHILS % 0.6 % (0.0-2.0); EOSINOPHILS # 0.2 10^3/ul (0.0-0.5); EOSINOPHILS % 3.2 % (0.0-7.0); HEMATOCRIT 32.9 % (42.0-52.0); HEMOGLOBIN 10.6 g/dl (14.0-18.0); LYMPHOCYTES # 1.7 10^3/ul (0.8-2.9); MEAN CORPUSCULAR HEMOGLOBIN 27.2 pg (29.0-33.0); MEAN CORPUSCULAR HGB CONC 32.2 g/dl (32.0-37.0); MEAN CORPUSCULAR VOLUME 84.6 fl (82.0-101.0); MEAN PLATELET VOLUME 9.9 fl (7.4-10.4); MONOCYTE # 0.4 10^3/ul (0.3-0.9); MONOCYTES % 5.5 % (0.0-11.0); NEUTROPHIL # 4.6 10^3/ul (1.6-7.5); NEUTROPHILS % 66.3 % (39.0-77.0); PLATELET COUNT 367 10^3/UL (140-415); RED BLOOD COUNT 3.89 10^6/ul (4.70-6.10); RED CELL DISTRIBUTION WIDTH 12.9 % (11.5-14.5); WHITE BLOOD COUNT 6.9 10^3/ul (4.8-10.8)
[2017-01-21 06:53] LABS: POTASSIUM 4.2 mmol/L (3.5-5.1)
[2017-01-21 06:55] LABS: CREATININE 0.75 mg/dl (0.61-1.24)
[2017-01-21 06:56] LABS: CALCIUM 9.3 mg/dl (8.4-10.2)
[2017-01-21 07:15] VITALS: BP 102/62; RESP 18
--- NOTE | 2017-01-21 07:50 | PN ---
Date/Time of Note Date/Time of Note DATE: 01/21/17 TIME: 07:47 Assessment/Plan Lines/Catheters IV C[facility]ter Type (from [facility]): Saline Lock [place] in Place (from [facility]): No Assessment/Plan Chief Complaint/Hosp Course -Bilateral lower extremity atherosclerosis with bilateral foot ulcer & Right diabetic foot infection. It seems the patient has developed worsening of his diabetic foot ulcers, we will plan to obtain noninvasive vascular studies to evaluate his infrainguinal perfusion demonstrated triphasic flow, however doesn' t necessarily correlate with the pedal pulses. Will plan to follow the wound healing closely and discuss with podiatry. If any concerns with delayed wound healing would recommend an Angiogram -Optimize vascular status (BP meds, diet, nutrition, exercise, sugar control, antiplatelets). -Continue our wound care per podiatry colleague's recommendation. -Patient will need to have eventual diabetic fitted shoes with offloading on his pressure points. -We will need case management to be involved as the patient will need some time off from work as to allow his diabetic foot ulcers to heal. -Discussed findings, plan and management with the patient and the daughter at the bedside with a certified sock ironer and they understand. -Thank you for allowing us to partake in the care of your patient. Please call with any questions. Problems: Subjective 24 Hr Interval Summary no new vascular events overnight Exam/Review of Systems Vital Signs Vitals Vital Signs Date Time Temp Pulse Resp B/P Pulse Ox O2 Delivery O2 Flow Rate FiO2 01/20/17 23:56 67 01/20/17 21:45 98.0 20 115/65 98 01/17/17 12:30 Room Air Intake and Output 01/20/17 01/20/17 01/21/17 15:00 23:00 07:00 Intake Total 250 ml 1210 ml 660 ml Output Total 700 ml Balance 250 ml 1210 ml -40 ml Exam Free Text/Dictation GENERAL: Alert and oriented x3, PULMONARY: Clear to auscultation bilaterally CARDIOVASCULAR: S1, S2 present ABDOMEN: Soft, nontender, nondistended. Bowel sounds positive. LOWER EXTREMITIES: -Right lower extremity palpable femoral pulse, nonpalpable pedal pulse. Motor, sensory intact. Cap refill 3 seconds. First toe plantar ulcer with surrounding erythema improving, Charcot foot and erythema on the dorsal aspect between the third and the fourth toes improving, second toe amputation of the distal aspect. -Left lower extremity palpable femoral pulse, nonpalpable pedal pulse. Motor, sensory intact. Capillary refill 3 seconds. First toe amputation site well healed. Ulcer of the second and third toe on the tips. Charcot foot. Results Result Diagram: 01/21/17 0533 01/21/17 0533 PENG GALARZA MD January 21, 2017 07:50
[2017-01-21] MEDS: INSULIN ASPART [NOVOLOG] 3 ML PEN SC SCH ×4 (08:00→21:30)
[2017-01-21] MEDS: FERROUS SULFATE (EC) 325 MG TAB PO SCH ×3 (08:40→21:25)
[2017-01-21] MEDS: HEPARIN 5,000 UNIT/0.5 ML VIAL SC SCH ×2 (08:45→21:29)
--- NOTE | 2017-01-21 09:01 | RADRPT ---
PROCEDURE: MRI OF THE RIGHT FOOT CLINICAL INDICATION: Right foot pain and swelling at first and second toe, concern for osteomyelitis TECHNIQUE: Multiple MRI images were obtained utilizing multiple sequences in multiple planes. Image s were interpreted on a high-resolution PACS system. COMPARISON: Radiographs of the right foot January 16, 2017 and radiographs of the right foot Septemb 2014 FINDINGS: There is extensive osteomyelitis of the residual second proximal phalanx as well as in the head of t he second metatarsal (axial 15 and sagittal 18) with the second metatarsophalangeal joint effusion, extensive surrounding cellulitic changes and phlegmon, and adjacent soft tissue gas. The second midd le and distal phalanges have been amputated. There is also osteomyelitis at the first proximal phalanx (sagittal 11) in the base of the first dis domenica phalanx (sagittal 13) with an adjacent skin ulceration and dorsal lateral subluxation of the dis domenica phalanx. There are moderate to severe degenerative changes at the first metatarsophalangeal join t. There is no evidence of osteomyelitis of the third, fourth, or fifth digits at this time. There is intrinsic foot muscle edema. There is high-grade tearing of the second flexor tendon (sagittal 16) with tendon retraction to the level of the metatarsal shaft. IMPRESSION: 1. Extensive osteomyelitis of the residual second proximal phalanx and second metatarsal head with s urrounding soft tissue swelling, phlegmonous changes, and soft tissue gas. 2. Osteomyelitis of the first proximal phalanx and base of the first distal phalanx with dorsal - la teral subluxation at the interphalangeal joint. 3. High-grade tearing of the second flexor digitorum tendon with retraction to the mid metatarsal. 4. Nonspecific intrinsic foot muscle atrophy and edema, query diabetic microangiopathy. 5. 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 RPTAT: UU .Daniel Zendejas MD, Date Time Electronically viewed and signed by .Daniel Zendejas MD, on 01/21/2017 09:01 .Pankaj/
--- NOTE | 2017-01-21 16:27 | PN ---
DATE: 01/21/2017 SUBJECTIVE: The patient is alert, sitting comfortably in bed. No fevers, no pain. WBC 6.9, no shift, no bands. BUN 16, creatinine 0.75. MICROBIOLOGY: Right foot wound culture growing Staphylococcus aureus, alpha hemolytic strep species and Enterococcus species. ANTIMICROBIALS: The patient is on: 1. Vancomycin. 2. Rocephin. PHYSICAL EXAMINATION: GENERAL: Well-developed, middle-aged man who is alert, in no distress. HEENT: Head atraumatic, normocephalic. Sclerae anicteric. Buccal mucosa dry. NECK: Supple, trachea midline. CHEST: Rise symmetrical. Breath sounds clear. HEART: S1, S2. ABDOMEN: Soft. Bowel tones present. EXTREMITIES: With right foot wounds on the sole and drainage present. ASSESSMENT: 1. Bilateral lower extremities diabetic ulceration with right foot osteomyelitis. 2. Diabetic neuropathy. 3. History of left big toe amputation right second toe amputation. PLAN: The patient is clinically stable. He is being followed by vascular and podiatry teams. His vancomycin level on January 18 was 13.8. We are going to discontinue Rocephin and keep him on vancomy rosalee as it covers all 3 bacteria that he is growing in his wound. Dictated By: OBINNA MIRAMONTES DRY CLEANER HAND for ROMI SMITH/KIKI Conf#: [id number] DID#: [id number]
--- NOTE | 2017-01-21 19:24 | PN ---
DATE: 01/21/2017 TIME: 12:30 p.m. SUBJECTIVE DATA: The patient complains of right lower extremity pain. OBJECTIVE DATA: VITAL SIGNS: Temperature 98.2, pulse is 60, respiratory rate 18, blood pressure 102/62, oxygen saturation 97% on room air. GENERAL: This is a well-built, well-nourished male patient lying in bed in no apparent distress. HEENT: Head normocephalic and atraumatic. Eyes: Anicteric sclerae. Conjunctivae clear. ENT: Nasal septum is midline. Oral mucosa is moist. NECK: Supple. No JVD noticed. RESPIRATORY: Bilaterally clear to auscultation. No adventitious breath sounds. No use of accessory muscles of respiration. CARDIAC: Regular rate and rhythm. S1, S2 heard. ABDOMEN: Soft, nontender and nondistended. Bowel sounds positive in all 4 quadrants. GENITOURINARY: Deferred. EXTREMITIES: No cyanosis, no clubbing. Right lower extremity, status post partial amputation of the second digit. Edema of the stump of the second digit with tenderness to touch. Bilateral lower extremity pedal pulses nonpalpable. There is an ulcer of the second and third toe on the tips with Charcot foot. NEUROLOGIC: The patient is awake, alert and oriented. Cranial nerves are grossly intact. LABORATORY AND DIAGNOSTIC DATA: WBC 6.9, hemoglobin 10.6, hematocrit 32.9, platelet count 367. Sodium 130, potassium 4.2, chloride 96, carbon dioxide 32, anion gap 14, BUN 16, creatinine 0.75, glucose 111, calcium 9.3. ASSESSMENT: 1. Right foot cellulitis with the foot MRI showing extensive osteomyelitis of the rest of the second proximal phalanx and second metatarsal head with surrounding soft tissue swelling along with osteomyelitis of the first proximal phalanx and base of the first distal phalanx with a dorsal-lateral subluxation at the interphalangeal joint. Continue antibiotics as per infectious disease. The patient being followed by podiatry and vascular surgery. Await further recommendations. 2. Type 2 diabetes mellitus. Uncontrolled. Hemoglobin A1c 10.5. Continue sliding scale insulin along with Lantus insulin. 3. Iron deficiency anemia. Continue iron supplements. 4. Fluid, electrolytes and nutrition. Carbohydrate controlled diet. 5. Deep venous thrombosis prophylaxis. Subcutaneous heparin. 6. Gastrointestinal prophylaxis. Not indicated. PLAN: Continue current management. Await further recommendations from consultants. The case was discussed with Dr. Johnston. JASMINA JOHNSTON MD, AM/KIKI Conf#: [id number] DID#: [id number] MTDD
[2017-01-21 20:29] VITALS: BP 103/61; RESP 18
[2017-01-21] MEDS: INSULIN GLARGINE [LANtus] 3 ML PEN SC SCH (21:30)
--- NOTE | 2017-01-21 23:31 | PN ---
Date/Time of Note Date/Time of Note DATE: 01/21/17 TIME: 23:30 Assessment/Plan Lines/Catheters IV [facility] (from [facility]): Saline Lock [place] in Place (from Nrs): No Assessment/Plan Problems: (1) Foot pain Status: Acute (2) Toe ulcer Status: Acute (3) Diabetic foot ulcer Status: Acute Qualifiers: Diabetic foot ulcer location: unspecified part of foot Diabetes mellitus type: type 1 Laterality: unspecified laterality Non-pressure ulcer stage: unspecified non-pressure ulcer stage Qualified Code: E10.621 - Diabetic foot ulcer associated with type 1 diabetes mellitus, unspecified laterality, unspecified part of foot, unspecified ulcer stage (4) Osteomyelitis Status: Acute Qualifiers: Osteomyelitis type: unspecified type Osteomyelitis location: foot Laterality: right Qualified Code: M86.9 - Osteomyelitis of right foot, unspecified type (5) Diabetes, polyneuropathy (6) Acquired absence of left great toe Assessment/Plan Patient will require IV antibiotics. I recommend hyperbaric oxygen treatment for the patient. May require surgery in the near future. A PICC line will be necessary with home health and IV antibiotic administration at home. Daily dressing changes is important and paramount. Patient must follow-up at the amputation prevention center. Exam/Review of Systems Vital Signs Vitals Vital Signs Date Time Temp Pulse Resp B/P Pulse Ox O2 Delivery O2 Flow Rate FiO2 01/21/17 20:29 98.0 69 18 103/61 97 01/17/17 12:30 Room Air Intake and Output 01/20/17 01/20/17 01/21/17 15:00 23:00 07:00 Intake Total 250 ml 1210 ml 660 ml Output Total 700 ml Balance 250 ml 1210 ml -40 ml Results Result Diagram: 01/21/17 0533 01/21/17 0533 STEFANIA GARCIA DPM January 21, 2017 23:31
[2017-01-22] MEDS: CEFTRIAXONE 2 GM/50 ML (PMX) 50 ML IVPB SCH (00:06)
[2017-01-22] MEDS: ACCUCHECK AT 2AM (Patients on SS coverage) XX SCH (02:00)
[2017-01-22] MEDS: VANCOMYCIN 1 GM in NS 250 ML IVPB SCH ×3 (04:16→20:35)
[2017-01-22 05:38] LABS: ADD SCAN DIFF NO
[2017-01-22 05:53] LABS: BASOPHILS % 0.4 % (0.0-2.0); EOSINOPHILS # 0.2 10^3/ul (0.0-0.5); HEMATOCRIT 34.8 % (42.0-52.0); HEMOGLOBIN 11.3 g/dl (14.0-18.0); LYMPHOCYTES # 1.7 10^3/ul (0.8-2.9); LYMPHOCYTES % 23.1 % (15.0-51.0); MEAN CORPUSCULAR HEMOGLOBIN 27.6 pg (29.0-33.0); MEAN CORPUSCULAR HGB CONC 32.5 g/dl (32.0-37.0); MEAN CORPUSCULAR VOLUME 84.9 fl (82.0-101.0); MEAN PLATELET VOLUME 10.1 fl (7.4-10.4); MONOCYTE # 0.4 10^3/ul (0.3-0.9); NEUTROPHIL # 5.2 10^3/ul (1.6-7.5); PLATELET COUNT 382 10^3/UL (140-415); WHITE BLOOD COUNT 7.5 10^3/ul (4.8-10.8)
[2017-01-22 06:17] LABS: CALCIUM 9.4 mg/dl (8.4-10.2); CREATININE 0.74 mg/dl (0.61-1.24); POTASSIUM 4.8 mmol/L (3.5-5.1)
[2017-01-22] MEDS: INSULIN ASPART [NOVOLOG] 3 ML PEN SC SCH ×5 (08:00→20:39)
[2017-01-22] MEDS: FERROUS SULFATE (EC) 325 MG TAB PO SCH ×3 (08:46→20:37)
[2017-01-22] MEDS: HEPARIN 5,000 UNIT/0.5 ML VIAL SC SCH ×2 (08:48→20:39)
[2017-01-22 08:49] VITALS: BP 101/59; RESP 20
--- NOTE | 2017-01-22 13:25 | PN ---
DATE: 01/22/2017 SUBJECTIVE: The patient is alert, feels good, looks comfortable, no fevers. MICROBIOLOGY: Wound culture growing alpha hemolytic strep species, Staphylococcus aureus and Entero coccus species. ANTIMICROBIALS: He is on IV vancomycin. PHYSICAL EXAMINATION: GENERAL: Well-developed, middle-aged man who is alert, in no distress. HEENT: Head atraumatic, normocephalic. Sclerae anicteric. Buccal mucosa pink. NECK: Supple. CHEST: Rise symmetrical. Breath sounds clear. HEART: S1, S2. ABDOMEN: Soft, bowel tones present. EXTREMITIES: Bilateral lower extremity chronic wounds with right foot drainage of the wound on his sole. ASSESSMENT: 1. Bilateral lower extremity diabetic ulcerations. 2. Right foot osteomyelitis. 3. Diabetic neuropathy. 4. History of left big toe and right second toe amputation. PLAN: The patient remains stable, podiatry on case. He is on appropriate antimicrobials. He will need a PICC line for long-term IV antibiotics, 6 to 8 weeks and follow with Am[facility] Prevention Ce nter. Dictated By: OBINNA MIRAMONTES PACKING TRACTOR MACHINE OPERATOR for ROMI SMITH/KIKI Conf#: [id number] DID#: [id number]
[2017-01-22] MEDS ORDERED: LIDOCAINE 1% (MPF) 5 ML VIAL SC ONE ×2 (13:30→18:00)
--- NOTE | 2017-01-22 14:53 | PN ---
Date/Time of Note Date/Time of Note DATE: 01/22/17 TIME: 14:47 Assessment/Plan VTE Prophylaxis VTE Prophylaxis Intervention: heparin Lines/Catheters IV [facility] Type (from [facility]): Saline Lock Urinary Cath still in place: No Assessment/Plan Assessment/Plan 1. Right foot cellulitis with the foot MRI showing extensive osteomyelitis of the rest of the second proximal phalanx and second metatarsal head with surrounding soft tissue swelling along with osteomyelitis of the first proximal phalanx and base of the first distal phalanx with a dorsal-lateral subluxation at the interphalangeal joint. Continue antibiotics as per infectious disease. The patient being followed by podiatry and vascular surgery. Await further recommendations. 2. Type 2 diabetes mellitus. adjust insulins 3. Iron deficiency anemia. Continue iron supplements. 4. Deep venous thrombosis prophylaxis. Subcutaneous heparin. Subjective 24 Hr Interval Summary Free Text/Dictation afebrile Exam/Review of Systems Vital Signs Vitals Vital Signs Date Time Temp Pulse Resp B/P Pulse Ox O2 Delivery O2 Flow Rate FiO2 01/22/17 08:49 97.8 65 20 101/59 98 Intake and Output 01/21/17 01/21/17 01/22/17 15:00 23:00 07:00 Intake Total 250 ml 810 ml 700 ml Output Total 1000 ml 950 ml Balance 250 ml -190 ml -250 ml Exam Constitutional: alert, oriented, well developed Psych: nl mood/affect, no complaints Head: atraumatic, normocephalic Eyes: EOMI, PERRL, nl conjunctiva, nl lids ENMT: nl external ears & nose, nl lips & teeth, nl nasal mucosa & septum Neck: non-tender, supple Respiratory: clear to auscultation, normal air movement, No congested cough, No crackles/rales, No diminished breath sounds, No intercostal retraction, No labored breathing, No other, No respirations, No tactile fremitus, No wheezing Cardiovascular: nl pulses, regular rate and rhythm, No S3, No S4, No bruits, No diastolic murmur, No edema, No gallop, No irregular rhythm, No jugular venous distention (JVD), No murmurs/extra sounds, No other, No rub, No systolic murmur Gastrointestinal: nl liver, spleen, non-tender, soft, No ascites, No bowel sounds, No distended, No firm, No hepatomegaly, No mass , No other, No rebound or guarding, No splenomegaly, No surgical scars, No tender Musculoskeletal: nl extremities to inspection Extremities: other (Status post partial amputation of the second digit. Edema of the stump of the second digit with tenderness to touch. Bilateral lower extremity pedal pulses nonpalpable. There is an ulcer of the second and third toe on the tips with Charcot foot. ) Neurological: FIRE SPRINKLER FITTER II-XII intact, nl mental status, nl speech, nl strength Results Result Diagram: 01/22/17 0435 01/22/17 0435 Results 24 hrs Laboratory Tests Test 01/21/17 17:08 01/21/17 18:52 01/21/17 21:24 01/22/17 03:03 Bedside Glucose 166 231 H 244 H Vancomycin Level Trough 17.2 Test 01/22/17 04:35 01/22/17 07:41 01/22/17 12:01 White Blood Count 7.5 Red Blood Count 4.10 L Hemoglobin 11.3 L Hematocrit 34.8 L Mean Corpuscular Volume 84.9 Mean Corpuscular Hemoglobin 27.6 L Mean Corpuscular Hemoglobin Concent 32.5 Red Cell Distribution Width 13.0 Platelet Count 382 Mean Platelet Volume 10.1 Neutrophils % 69.0 Lymphocytes % 23.1 Monocytes % 5.0 Eosinophils % 2.0 Basophils % 0.4 Nucleated Red Blood Cells % 0.0 Neutrophils # 5.2 Lymphocytes # 1.7 Monocytes # 0.4 Eosinophils # 0.2 Basophils # 0.0 Nucleated Red Blood Cells # 0.0 Sodium Level 135 Potassium Level 4.8 Chloride Level 97 Carbon Dioxide Level 32 H Anion Gap 11 Blood Urea Nitrogen 18 Creatinine 0.74 Glucose Level 173 Calcium Level 9.4 Magnesium Level 1.9 Vitamin D 1,25-Dihydroxy 14.7 L Bedside Glucose 130 206 Medications Medications Current Medications Miscellaneous Information 1 ea NOTE XX ; Start 01/17/17 at 12:30 Glucose (Glutose) 15 gm Q15M PRN PO DECREASED GLUCOSE; Start 01/17/17 at 12:30 Glucose (Glutose) 22.5 gm Q15M PRN PO DECREASED GLUCOSE; Start 01/17/17 at 12: 30 Dextrose (D50w Syringe) 25 ml Q15M PRN IV DECREASED GLUCOSE; Start 01/17/17 at 12:30 Dextrose (D50w Syringe) 50 ml Q15M PRN IV DECREASED GLUCOSE; Start 01/17/17 at 12:30 Glucagon (Glucagen) 1 mg Q15M PRN IM DECREASED GLUCOSE; Start 01/17/17 at 12:30 Glucose (Glutose) 15 gm Q15M PRN BUCCAL DECREASED GLUCOSE; Start 01/17/17 at 12 :30 Ondansetron HCl (Zofran Inj) 4 mg Q6H PRN IV NAUSEA AND/OR VOMITING; Start at 13:30 Acetaminophen (Tylenol Tab) 650 mg Q6H PRN PO PAIN LEVEL 1-3 OR FEVER; Start at 13:30 Acetaminophen (Tylenol Supp) 650 mg Q6H PRN [place] PAIN LEVEL 1-3 OR FEVER; Start 01/17/17 at 13:30 Acetaminophen/ Hydrocodone Bitart ([place] (5/325)) 1 tab Q6H PRN PO MODERATE PAIN LEVEL 4-6; Start 01/17/17 at 13:30 Acetaminophen/ Hydrocodone Bitart ([place] (5/325)) 2 tab Q6H PRN PO SEVERE PAIN LEVEL 7-10; Start 01/17/17 at 13:30 Morphine Sulfate (morphine) 2 mg Q4H PRN IV SEVERE PAIN LEVEL 7-10; Start 01/17 at 13:30 Docusate Sodium (Colace) 100 mg Q12H PRN PO CONSTIPATION; Start 01/17/17 at 13: 30 Magnesium Hydroxide (Milk Of Mag) 30 ml DAILY PRN PO CONSTIPATION; Start at 13:30 Bisacodyl (Dulcolax Supp) 10 mg DAILY PRN [place] CONSTIPATION; Start 01/17/17 at 13 :30 Heparin Sodium (Porcine) (Heparin (5000 Units/0.5 ml)) 5,000 unit Q12 SC Last administered on 01/22/17 08:48; Admin Dose 5,000 UNIT; Start 01/17/17 at 21:00 Insulin Glargine (Lantus) 10 unit DAILY@20 SC Last administered on 01/21/17 21: 30; Admin Dose 10 UNIT; Start 01/17/17 at 20:00 Diagnostic Test (Pha) 1 ea 1 ea 02 XX Last administered on 01/20/17 02:43; Admin Dose 1 EA; Start 01/18/17 at 02:00 Vancomycin HCl (Vancocin) 250 ml @ 125 mls/hr Q8H IVPB Last administered on 12:49; Admin Dose 125 MLS/HR; Start 01/19/17 at 04:00 Ferrous Sulfate (Ferrous Sulfate (Ec)) 325 mg TID PO Last administered on 12:49; Admin Dose 325 MG; Start 01/19/17 at 21:00 DAVID POE MD January 22, 2017 14:53
[2017-01-22] MEDS: SOD CHLORIDE 0.9% 100 ML ONE (18:15)
[2017-01-22 20:15] VITALS: BP 121/76; RESP 18
--- NOTE | 2017-01-22 20:19 | RADRPT ---
PROCEDURE: Ultrasound guidance for placement of needle in left upper extremity vein. CLINICAL INDICATION: PICC placement. TECHNIQUE: Limited sonography of the left upper extremity was performed. Ultrasound images were recorded and st ored in the patient's medical record. COMPARISON: Chest radiograph of the same day. FINDINGS: The ultrasound images demonstrate a patent left upper extremity vein. The PICC line was inserted by the PICC line nurse. IMPRESSION: 1. Ultrasound guidance for a needle placement in a left upper extremity vein. 2. The visualized left upper extremity vein is patent. RPTAT: QQ .Massiel Emery MD, Date Time Electronically viewed and signed by .Massiel Emery MD, on 01/22/2017 20:18 .N/
--- NOTE | 2017-01-22 20:22 | RADRPT ---
PROCEDURE: XR Chest. CLINICAL INDICATION: PICC line placement. TECHNIQUE: Frontal view chest x-ray. COMPARISON: 04/08/2017. FINDINGS: Left-sided upper extremity PICC is in place, terminating at the atria-caval junction. The cardiomediastinal silhouette is unremarkable. No pneumothorax, pleural effusion or consolidation is seen. No acute osseous abnormality is noted. IMPRESSION: 1. Left-sided upper extremity PICC is in place, terminating at the atria-caval junction. 2. No acute cardiopulmonary abnormality. RPTAT: QQ .Massiel Emery MD, Date Time Electronically viewed and signed by .Massiel Emery MD, on 01/22/2017 20:22 .N/
[2017-01-22] MEDS: INSULIN GLARGINE [LANtus] 3 ML PEN SC SCH (20:38)
[2017-01-23] MEDS: ACCUCHECK AT 2AM (Patients on SS coverage) XX SCH ×2 (02:00→20:24)
[2017-01-23] MEDS: VANCOMYCIN 1 GM in NS 250 ML IVPB SCH ×3 (04:26→20:24)
[2017-01-23 05:03] LABS: ADD SCAN DIFF NO
[2017-01-23 05:24] LABS: BASOPHILS % 0.6 % (0.0-2.0); EOSINOPHILS # 0.1 10^3/ul (0.0-0.5); EOSINOPHILS % 2.1 % (0.0-7.0); HEMATOCRIT 32.3 % (42.0-52.0); HEMOGLOBIN 10.6 g/dl (14.0-18.0); LYMPHOCYTES # 1.9 10^3/ul (0.8-2.9); MEAN CORPUSCULAR HEMOGLOBIN 27.7 pg (29.0-33.0); MEAN CORPUSCULAR HGB CONC 32.8 g/dl (32.0-37.0); MEAN CORPUSCULAR VOLUME 84.3 fl (82.0-101.0); MEAN PLATELET VOLUME 9.8 fl (7.4-10.4); MONOCYTE # 0.4 10^3/ul (0.3-0.9); MONOCYTES % 5.4 % (0.0-11.0); NEUTROPHIL # 4.2 10^3/ul (1.6-7.5); NEUTROPHILS % 62.4 % (39.0-77.0); PLATELET COUNT 362 10^3/UL (140-415); RED BLOOD COUNT 3.83 10^6/ul (4.70-6.10); WHITE BLOOD COUNT 6.7 10^3/ul (4.8-10.8)
[2017-01-23 05:47] LABS: POTASSIUM 4.1 mmol/L (3.5-5.1)
[2017-01-23 05:50] LABS: CREATININE 0.7 mg/dl (0.61-1.24)
[2017-01-23 05:51] LABS: CALCIUM 9.2 mg/dl (8.4-10.2)
[2017-01-23 07:20] VITALS: BP 109/67; RESP 16
[2017-01-23] MEDS: INSULIN ASPART [NOVOLOG] 3 ML PEN SC SCH ×7 (08:00→20:24)
[2017-01-23] MEDS: FERROUS SULFATE (EC) 325 MG TAB PO SCH ×3 (08:39→20:24)
[2017-01-23] MEDS: HEPARIN 5,000 UNIT/0.5 ML VIAL SC SCH ×2 (08:41→20:26)
--- NOTE | 2017-01-23 13:50 | CONS ---
Date/Time of Note Date/Time of Note DATE: 01/23/17 TIME: 13:49 Assessment/Plan Assessment/Plan Chief Complaint/Hosp Course SUBJECTIVE: The patient is alert, feels good, looks comfortable, no fevers. MICROBIOLOGY: Wound culture growing alpha hemolytic strep species, Staphylococcus aureus and Enterococcus species. ANTIMICROBIALS: IV vancomycin. PHYSICAL EXAMINATION: GENERAL: Well-developed, middle-aged man who is alert, in no distress. HEENT: Head atraumatic, normocephalic. Sclerae anicteric. Buccal mucosa pink. NECK: Supple. CHEST: Rise symmetrical. Breath sounds clear. HEART: S1, S2. ABDOMEN: Soft, bowel tones present. EXTREMITIES: Bilateral lower extremity chronic wounds with right foot drainage of the wound on his sole. ASSESSMENT: 1. Bilateral lower extremity diabetic ulcerations. 2. Right foot osteomyelitis. 3. Diabetic neuropathy. 4. History of left big toe and right second toe amputation. PLAN: The patient remains stable, s/p PICC, continue antibiotics for 6 to 8 weeks and follow with [facility]. [facility] staff Problems: Consultation Date/Type/Reason Admit Date/Time Jan 16, 2017 at 21:05 Initial Consult Date 01/11/17 Type of Consultation: ID Exam/Review of Systems Vital Signs Vitals Vital Signs Date Time Temp Pulse Resp B/P Pulse Ox O2 Delivery O2 Flow Rate FiO2 01/23/17 07:20 97.8 69 16 109/67 95 Intake and Output 01/22/17 01/22/17 01/23/17 15:00 23:00 07:00 Intake Total 250 ml 850 ml 720 ml Output Total 1000 ml 500 ml Balance 250 ml -150 ml 220 ml Results Result Diagram: 01/23/17 0430 01/23/17 0430 Results 24 hrs Laboratory Tests Test 01/22/17 16:58 01/22/17 20:32 01/23/17 02:37 01/23/17 04:30 Bedside Glucose 163 196 186 White Blood Count 6.7 Red Blood Count 3.83 L Hemoglobin 10.6 L Hematocrit 32.3 L Mean Corpuscular Volume 84.3 Mean Corpuscular Hemoglobin 27.7 L Mean Corpuscular Hemoglobin Concent 32.8 Red Cell Distribution Width 13.0 Platelet Count 362 Mean Platelet Volume 9.8 Neutrophils % 62.4 Lymphocytes % 29.0 Monocytes % 5.4 Eosinophils % 2.1 Basophils % 0.6 Nucleated Red Blood Cells % 0.0 Neutrophils # 4.2 Lymphocytes # 1.9 Monocytes # 0.4 Eosinophils # 0.1 Basophils # 0.0 Nucleated Red Blood Cells # 0.0 Sodium Level 137 Potassium Level 4.1 Chloride Level 96 L Carbon Dioxide Level 29 Anion Gap 16 Blood Urea Nitrogen 21 H Creatinine 0.70 Glucose Level 191 Calcium Level 9.2 Magnesium Level 1.8 Test 01/23/17 08:04 01/23/17 12:03 Bedside Glucose 137 160 Medications Medications Current Medications Miscellaneous Information 1 ea NOTE XX ; Start 01/17/17 at 12:30 Glucose (Glutose) 15 gm Q15M PRN PO DECREASED GLUCOSE; Start 01/17/17 at 12:30 Glucose (Glutose) 22.5 gm Q15M PRN PO DECREASED GLUCOSE; Start 01/17/17 at 12: 30 Dextrose (D50w Syringe) 25 ml Q15M PRN IV DECREASED GLUCOSE; Start 01/17/17 at 12:30 Dextrose (D50w Syringe) 50 ml Q15M PRN IV DECREASED GLUCOSE; Start 01/17/17 at 12:30 Glucagon (Glucagen) 1 mg Q15M PRN IM DECREASED GLUCOSE; Start 01/17/17 at 12:30 Glucose (Glutose) 15 gm Q15M PRN BUCCAL DECREASED GLUCOSE; Start 01/17/17 at 12 :30 Ondansetron HCl (Zofran Inj) 4 mg Q6H PRN IV NAUSEA AND/OR VOMITING; Start at 13:30 Acetaminophen (Tylenol Tab) 650 mg Q6H PRN PO PAIN LEVEL 1-3 OR FEVER; Start at 13:30 Acetaminophen (Tylenol Supp) 650 mg Q6H PRN [place] PAIN LEVEL 1-3 OR FEVER; Start 01/17/17 at 13:30 Acetaminophen/ Hydrocodone Bitart ([place] (5/325)) 1 tab Q6H PRN PO MODERATE PAIN LEVEL 4-6; Start 01/17/17 at 13:30 Acetaminophen/ Hydrocodone Bitart ([place] (5/325)) 2 tab Q6H PRN PO SEVERE PAIN LEVEL 7-10; Start 01/17/17 at 13:30 Morphine Sulfate (morphine) 2 mg Q4H PRN IV SEVERE PAIN LEVEL 7-10; Start 01/17 at 13:30 Docusate Sodium (Colace) 100 mg Q12H PRN PO CONSTIPATION; Start 01/17/17 at 13: 30 Magnesium Hydroxide (Milk Of Mag) 30 ml DAILY PRN PO CONSTIPATION; Start at 13:30 Bisacodyl (Dulcolax Supp) 10 mg DAILY PRN [place] CONSTIPATION; Start 01/17/17 at 13 :30 Heparin Sodium (Porcine) (Heparin (5000 Units/0.5 ml)) 5,000 unit Q12 SC Last administered on 01/23/17 08:41; Admin Dose 5,000 UNIT; Start 01/17/17 at 21:00 Diagnostic Test (Pha) 1 ea 1 ea 02 XX Last administered on 01/20/17 02:43; Admin Dose 1 EA; Start 01/18/17 at 02:00 Vancomycin HCl (Vancocin) 250 ml @ 125 mls/hr Q8H IVPB Last administered on 12:15; Admin Dose 125 MLS/HR; Start 01/19/17 at 04:00 Ferrous Sulfate (Ferrous Sulfate (Ec)) 325 mg TID PO Last administered on 12:14; Admin Dose 325 MG; Start 01/19/17 at 21:00 Insulin Glargine (Lantus) 16 unit DAILY@20 SC Last administered on 01/22/17 20: 38; Admin Dose 16 UNIT; Start 01/22/17 at 20:00 IV Flush (NS 10 ml) 10 ml PRN PRN IV IV PROTOCOL; Start 01/22/17 at 19:00 Miscellaneous Information (*Rx Drug Level Order Reminder*) VANCOMYCIN TROUGH 01/23 AT 1900 ONCE ONCE XX ; Start 01/23/17 at 19:00; Stop 01/23/17 at 19:01 OBINNA MIRAMONTES NP January 23, 2017 13:50
[2017-01-23] MEDS ORDERED: NOVO3I SC ×2 (15:26)
[2017-01-23] MEDS ORDERED: FER325 PO (15:26)
[2017-01-23] MEDS ORDERED: LANT3I SC (15:26)
[2017-01-23] MEDS ORDERED: VANC1.5P12 IV (15:52)
--- NOTE | 2017-01-23 15:55 | DS ---
Date/Time of Note Date/Time of Note DATE: 01/23/17 TIME: 15:53 Discharge Summary Admission/Discharge Info Admit Date/Time Jan 16, 2017 at 21:05 Discharge Date/Time Final Diagnosis 1. Right foot cellulitis with the foot MRI showing extensive osteomyelitis of the rest of the second proximal phalanx and second metatarsal head with surrounding soft tissue swelling along with osteomyelitis of the first proximal phalanx and base of the first distal phalanx with a dorsal-lateral subluxation at the interphalangeal joint. vancomycin iv for 4-6 weeks, follow up with podiatry 2. Type 2 diabetes mellitus. on insulins 3. Iron deficiency anemia. Continue iron supplements. Patient Condition: Stable Hx of Present Illness 51-year-old male with past medical history of diabetes as well as ulcerative wounds on bilateral lower extremities subsequently leading to left foot first toe amputation as well as right foot second toe amputation who is back again to [facility] secondary to ulceration of right foot first toe with suspicion of osteomyelitis. Patient is follow-up with his costuming supervisor as outpatient Dr. De Los Santos who did refer him to [facility] for further evaluation. He of note was taking antibiotics with Keflex for 2 days duration with no improvement. He denies any pain or fevers associated with it. On further examination he did have further imaging of his right foot that did show him to have some degenerative changes in the cortical and first distal interphalangeal joint with subcutaneous soft tissue defect suspicious for osteomyelitis. Patient was noted with some anemia likely of chronic disease did have some hyponatremia with sodium 133. And also elevated glucose high as 241. Patient does report compliance to his home medication with his diabetic meds. He does report however her glucose levels are typically below 250. We will evaluate him for the aformentioned issues Hospital Course Right foot cellulitis with the foot MRI showing extensive osteomyelitis of the rest of the second proximal phalanx and second metatarsal head with surrounding soft tissue swelling along with osteomyelitis of the first proximal phalanx and base of the first distal phalanx with a dorsal-lateral subluxation at the interphalangeal joint. vancomycin iv for 4-6 weeks with home health. Pharmacy to adjust dosage. Follow up with podiatry Home Meds Active Scripts Vancomycin HCl in Dextrose 5 % (Vancomycin 1.5 Gram/250 ml-D5w) 1.5 Gm/250 Ml Plast..bag, 1.5 GM IV BID for 42 Days Prov:DAVID POE MD 01/23/17 Ferrous Sulfate* (Ferrous Sulfate*) 325 Mg Tabec, 325 MG PO TID for 30 Days, TAB Prov:DAVID POE MD 01/23/17 Insulin Aspart* (Novolog Insulin Pen*) 100 Unit/Ml Soln, 5 UNIT SC WITH MEALS for 30 Days Prov:DAVID POE MD 01/23/17 Insulin Aspart* (Novolog Insulin Pen*) 100 Unit/Ml Soln, 0 UNIT SC WITH MEALS BEDTIME for 30 Days Prov:DAVID POE MD 01/23/17 Insulin Glargine* (Lantus*) 100 Unit/Ml Soln, 16 UNIT SC DAILY@20 for 30 Days Prov:DAVID POE MD 01/23/17 Reported Medications Ibuprofen* (Ibuprofen*) 600 Mg Tablet, 600 MG PO Q8 Y for PAIN, TAB 01/17/17 Metformin* (Glucophage*) 500 Mg Tab, 500 MG PO BID, TAB 01/16/17 Discontinued Reported Medications Cephalexin* (Cephalexin*) 250 Mg Capsule, 500 MG PO TID, #28 CAP 01/17/17 Insulin Lispro (Humalog Kwikpen U-100) 100 Unit/1 Ml Insuln.pen, 10-12 UNIT SQ DAILY 01/16/17 Insulin Aspart* (Novolog Insulin Pen*) 100 Unit/Ml Soln, 22 UNIT SC WITH BREAKFAST DINNE, EA 10/11/16 Discontinued Scripts Insuln Asp Prt/Insulin Aspart* (Novolog Mix 70-30 Flexpen*) 100 Unit/1 Ml Inj, 22 UNIT SC AC BREAKFAST DINNER, #1 BOT 4 Refills Prov:FEMI DESAI MD 04/11/15 Follow-up Plan Dr. Welch in 1-2 weeks Pending Labs Laboratory Tests Test 01/22/17 16:58 01/22/17 20:32 01/23/17 02:37 01/23/17 04:30 Bedside Glucose 163mg/dL (70-220) 196mg/dL (70-220) 186mg/dL (70-220) White Blood Count 6.710^3/ul (4.8-10.8) Red Blood Count 3.8310^6/ul (4.70-6.10) Hemoglobin 10.6g/dl (14.0-18.0) Hematocrit 32.3% (42.0-52.0) Mean Corpuscular Volume 84.3fl (82.0-101.0) Mean Corpuscular Hemoglobin 27.7pg (29.0-33.0) Mean Corpuscular Hemoglobin Concent 32.8g/dl (32.0-37.0) Red Cell Distribution Width 13.0% (11.5-14.5) Platelet Count 12569^3/UL (140-415) Mean Platelet Volume 9.8fl (7.4-10.4) Neutrophils % 62.4% (39.0-77.0) Lymphocytes % 29.0% (15.0-51.0) Monocytes % 5.4% (0.0-11.0) Eosinophils % 2.1% (0.0-7.0) Basophils % 0.6% (0.0-2.0) Nucleated Red Blood Cells % 0.0/100WBC (0.0-0.0) Neutrophils # 4.210^3/ul (1.6-7.5) Lymphocytes # 1.910^3/ul (0.8-2.9) Monocytes # 0.410^3/ul (0.3-0.9) Eosinophils # 0.110^3/ul (0.0-0.5) Basophils # 0.010^3/ul (0.0-0.1) Nucleated Red Blood Cells # 0.010^3/ul (0.0-0.0) Sodium Level 137mmol/L (135-144) Potassium Level 4.1mmol/L (3.5-5.1) Chloride Level 96mmol/L (97-110) Carbon Dioxide Level 29mmol/L (21-31) Anion Gap 16 (8-16) Blood Urea Nitrogen 21mg/dl (7-20) Creatinine 0.70mg/dl (0.61-1.24) Glucose Level 191mg/dl (70-220) Calcium Level 9.2mg/dl (8.4-10.2) Magnesium Level 1.8mg/dl (1.7-2.5) Test 01/23/17 08:04 01/23/17 12:03 Bedside Glucose 137mg/dL (70-220) 160mg/dL (70-220) DAVID POE MD January 23, 2017 15:55
[2017-01-23] MEDS: SOD CHLORIDE 0.9% 100 ML ONE (16:09)
[2017-01-23 19:50] VITALS: BP 114/72; RESP 19
[2017-01-23] MEDS: INSULIN GLARGINE [LANtus] 3 ML PEN SC SCH (20:26)
[2017-01-23] MEDS ORDERED: VANCOMYCIN 1.5 GM in SOD CHLORIDE 0.9% 250 ML IVPB SCH (21:00)
[2017-01-24] MEDS ORDERED: VANCOMYCIN 1.5 GM in SOD CHLORIDE 0.9% 250 ML IVPB SCH (09:00)
== END 2017-01-23 23:02 | disposition home health service (06) | DRG 540 ==
LOC: E/R 19:32 → PP2 21:05
PROVIDERS: ADMIT Internal Medicine; ATTEND Internal Medicine
PROC: 02HV33Z Insertion of Infusion Device into Superior Vena Cava, Percutaneous Approach (ICD-10-PCS; principal; 2017-01-22)
DX: M86.8X7 Other osteomyelitis, ankle and foot (principal); L97.419 Non-pressure chronic ulcer of right heel and midfoot with unspecified severity; A52.16 Charcot's arthropathy (tabetic); E11.40 Type 2 diabetes mellitus with diabetic neuropathy, unspecified; E11.65 Type 2 diabetes mellitus with hyperglycemia; E87.1 Hypo-osmolality and hyponatremia; E11.621 Type 2 diabetes mellitus with foot ulcer; D50.9 Iron deficiency anemia, unspecified; Z89.412 Acquired absence of left great toe; Z87.891 Personal history of nicotine dependence; E78.00 Pure hypercholesterolemia, unspecified; I25.10 Atherosclerotic heart disease of native coronary artery without angina pectoris; Z22.322 Carrier or suspected carrier of Methicillin resistant Staphylococcus aureus; Z79.4 Long term (current) use of insulin
CPT/HCPCS: 36415; 36569; 71010; 73630; 73718; 76937; 80048; 80053; 80061; 80202; 81001; 81003; 82306; 82652; 82962; 83036; 83540; 83605; 83735; 84100; 84436; 84443; 84479; 84484; 85025; 85610; 85730; 87040; 87070; 87081; 87086; 93005; 93922; 96372; 96374; 96375; J1644; J1815; J2543; J3370; J7030; J7050

== ENCOUNTER 2017-07-03 20:56 | Inpatient (IN) | payer MEDICAID, OTHER ==
[~2017-07-03] VITALS: Ht 172.7 cm; Wt 76.3 kg
[~2017-07-03 20:56] MED LIST changes: +FER325 PO; +IBUP-1542 PO; -INSU100I13 SC; +LANT3I SC; +METF500T4 PO; +VANC1.5P12 IV
[2017-07-04 01:15] LABS: BASOPHILS % 0.4 % (0.0-2.0); EOSINOPHILS # 0.2 10^3/ul (0.0-0.5); HEMATOCRIT 32.4 % (42.0-52.0); HEMOGLOBIN 11.2 g/dl (14.0-18.0); LYMPHOCYTES # 2.2 10^3/ul (0.8-2.9); LYMPHOCYTES % 29.3 % (15.0-51.0); MEAN CORPUSCULAR HEMOGLOBIN 29.8 pg (29.0-33.0); MEAN CORPUSCULAR HGB CONC 34.6 g/dl (32.0-37.0); MEAN CORPUSCULAR VOLUME 86.2 fl (82.0-101.0); MONOCYTE # 0.5 10^3/ul (0.3-0.9); MONOCYTES % 6.2 % (0.0-11.0); NEUTROPHIL # 4.7 10^3/ul (1.6-7.5); NEUTROPHILS % 61.8 % (39.0-77.0); PLATELET COUNT 222 10^3/UL (140-415); RED BLOOD COUNT 3.76 10^6/ul (4.70-6.10); WHITE BLOOD COUNT 7.6 10^3/ul (4.8-10.8)
[2017-07-04 01:48] LABS: ALBUMIN 4.5 g/dl (3.3-4.9); ALBUMIN/GLOBULIN RATIO 1.25; BILIRUBIN,INDIRECT 0.2 mg/dl (0-1.1); BILIRUBIN,TOTAL 0.2 mg/dl (0.2-1.3); CALCIUM 9.2 mg/dl (8.4-10.2); CREATININE 1.1 mg/dl (0.61-1.24); POTASSIUM 4.7 mmol/L (3.5-5.1); TOTAL PROTEIN 8.1 g/dl (6.1-8.1)
--- NOTE | 2017-07-04 02:30 | RADRPT ---
PROCEDURE: X-ray bilateral feet. CLINICAL INDICATION: Bilateral foot pain. TECHNIQUE: 3 views right foot and 3 views left foot COMPARISON: 03/07/2015. FINDINGS: RIGHT FOOT: Deformity in the distal phalanx of the right great toe and interval resorption of the s econd toe of the right foot, and these findings compatible with chronic osteomyelitis. Recommend MRI examination to exclude active osteomyelitis. LEFT FOOT: Resorption at the proximal phalanx of the left great toe, resorption at the tip of the le ft second toe, resorption of the distal left third toe and resorption of the tip of the left fifth t oe. IMPRESSION: 1. Osseous deformities and resorption at the first and second toes of the right foot, suggesting ost eomyelitis, and recommend MRI examination to exclude active osteomyelitis. 2. Osseous deformities and resorption at the toes of the left foot, suggesting osteomyelitis, and re commend MRI examination to exclude active osteomyelitis. RPTAT: [facility] Physician Hanny Date Time Electronically viewed and signed by Physician Hanny on 07/04/2017 02:30 /
[2017-07-04] MEDS ORDERED: SODIUM CHLORIDE 0.9% 1L BAG IV* STA (02:39)
[2017-07-04] MEDS ORDERED: CEFTRIAXONE 1 GM/50 ML (PMX) 50 ML IVPB ONE (02:39)
[2017-07-04] MEDS ORDERED: SOD CHLORIDE 0.9% 1,000 ML IV SCH (02:43)
--- NOTE | 2017-07-04 02:47 | ERA ---
ER Documentation Chief Complaint Date/Time DATE: 07/04/17 TIME: 02:45 Chief Complaint RIGHT BIG TOE WOUND. HX DIABETES HPI This is a 51-year-old male with history of diabetes and previous osteomyelitis who presents to the emergency room for evaluation of right foot pain. The patient states that he has had an ulcer on the right foot and denies any fevers but came to the ER for evaluation of the pain. Denies any aggravating or relieving factors for her symptoms at this time he does state that his grocery clerk selling is Dr. Welch. ROS All systems reviewed and are negative except as per history of present illness. Medications Home Meds Active Scripts Vancomycin HCl in Dextrose 5 % (Vancomycin 1.5 Gram/250 ml-D5w) 1.5 Gm/250 Ml Plast..bag, 1.5 GM IV BID for 42 Days Prov:DAVID POE MD 01/23/17 Ferrous Sulfate* (Ferrous Sulfate*) 325 Mg Tabec, 325 MG PO TID for 30 Days, TAB Prov:DAVID POE MD 01/23/17 Insulin Aspart* (Novolog Insulin Pen*) 100 Unit/Ml Soln, 5 UNIT SC WITH MEALS for 30 Days Prov:DAVID POE MD 01/23/17 Insulin Aspart* (Novolog Insulin Pen*) 100 Unit/Ml Soln, 0 UNIT SC WITH MEALS BEDTIME for 30 Days Prov:DAVID POE MD 01/23/17 Insulin Glargine* (Lantus*) 100 Unit/Ml Soln, 16 UNIT SC DAILY@20 for 30 Days Prov:DAVID POE MD 01/23/17 Reported Medications Ibuprofen* (Ibuprofen*) 600 Mg Tablet, 600 MG PO Q8 Y for PAIN, TAB 01/17/17 Metformin* (Glucophage*) 500 Mg Tab, 500 MG PO BID, TAB 01/16/17 Allergies Allergies: Coded Allergies: No Known Drug Allergies (Verified Allergy, Unknown, 01/16/17) PMhx/Soc History of Surgery: Yes (right 2nd toe amputation 2015,left great toe amputation 2011) Anesthesia Reaction: No Hx Neurological Disorder: No Hx Respiratory Disorders: No Hx Cardiac Disorders: No Hx Psychiatric Problems: No Hx Miscellaneous Medical Probl: Yes (DM, diabetic foot ulcers) Hx Alcohol Use: No Hx Substance Use: No Hx Tobacco Use: No Smoking Status: Never smoker Physical Exam Vitals Vital Signs Date Time Temp Pulse Resp B/P Pulse Ox O2 Delivery O2 Flow Rate FiO2 07/03/17 21:11 79 20 123/64 99 Physical Exam INITIAL VITAL SIGNS: Reviewed by me GENERAL: The patient is well developed and appropriate for usual state of health in no apparent distress HEENT: Pupils equal, round, and reactive to light. EOMI. There is no scleral icterus. NECK: C-spine is soft and supple, there is no meningismus. There is no cervical lymphadenopathy. LUNGS: Clear to auscultation bilaterally. There are no rales, wheezes or rhonchi. HEART: Regular rate and rhythm, no murmurs, clicks, rubs or gallops. ABDOMEN: Soft, non-tender, non-distended. There are bowel sounds in all four quadrants. No rebound or guarding. EXTREMITIES: There is no peripheral cyanosis or edema. No focal swelling or erythema. NEUROLOGICAL: The patient moves all four extremities with 5/5 strength. Cranial nerves II - XII are intact. Normal gait. Alert and oriented SKIN: Lesion on right toe, mild erythema, there is no apparent rash or petechiae. HEME/LYMPHATIC: There is no evidence of excessive bruising or lymphedema. PSYCHIATRIC: The patient does not appear anxious or depressed. Result Diagram: 07/04/175 07/04/175 Results 24 hrs Laboratory Tests Test 07/04/17 00:45 White Blood Count 7.610^3/ul Red Blood Count 3.7610^6/ul Hemoglobin 11.2g/dl Hematocrit 32.4% Mean Corpuscular Volume 86.2fl Mean Corpuscular Hemoglobin 29.8pg Mean Corpuscular Hemoglobin Concent 34.6g/dl Red Cell Distribution Width 13.0% Platelet Count 21173^3/UL Mean Platelet Volume 10.0fl Neutrophils % 61.8% Lymphocytes % 29.3% Monocytes % 6.2% Eosinophils % 2.0% Basophils % 0.4% Nucleated Red Blood Cells % 0.0/100WBC Neutrophils # 4.710^3/ul Lymphocytes # 2.210^3/ul Monocytes # 0.510^3/ul Eosinophils # 0.210^3/ul Basophils # 0.010^3/ul Nucleated Red Blood Cells # 0.010^3/ul Sodium Level 136mmol/L Potassium Level 4.7mmol/L Chloride Level 97mmol/L Carbon Dioxide Level 31mmol/L Anion Gap 13 Blood Urea Nitrogen 26mg/dl Creatinine 1.10mg/dl Glucose Level 290mg/dl Calcium Level 9.2mg/dl Total Bilirubin 0.2mg/dl Direct Bilirubin 0.00mg/dl Indirect Bilirubin 0.2mg/dl Aspartate Amino Transf (AST/SGOT) 20IU/L Alanine Aminotransferase (ALT/SGPT) 36IU/L Alkaline Phosphatase 100IU/L Total Protein 8.1g/dl Albumin 4.5g/dl Globulin 3.60g/dl Albumin/Globulin Ratio 1.25 Current Medications Medications (Trade) Dose Ordered Sig/Deisy Route PRN Reason Start Time Stop Time Status Last Admin Dose Admin Sodium Chloride 2000 ml 2,000 ml BOLUS OVER 2 HOURS STAT IV* 07/04/17 02:39 07/04/17 02:40 UNV Vancomycin HCl 250 ml @ 125 mls/hr ONCE ONCE IVPB 07/04/17 03:00 07/04/17 04:59 UNV Ceftriaxone Sodium 50 ml @ 100 mls/hr ONCE STAT IVPB 07/04/17 02:39 07/04/17 03:08 UNV Sodium Chloride (NS) 1,000 ml @ 80 mls/hr [id number] IV 07/04/17 02:43 07/04/17 15:12 Ondansetron HCl (Zofran Inj) 4 mg BRIDGE ORDER PRN IV NAUSEA AND/OR VOMITING 07/04/17 03:00 07/05/17 02:59 Acetaminophen (Tylenol Tab) 650 mg ER BRIDGE PRN PO MILD PAIN/FEVER 07/04/17 03:00 07/05/17 02:59 Procedures/MDM X-ray Foot 3V Interpreted by me: Bones: Osteomyelitis Joints: No dislocation Foreign body: None This 51-year-old male presents to the ER for evaluation of right foot pain. He does have a history of chronic osteomyelitis. The patient had an ulcerative lesion on the foot and lab work was obtained. He is afebrile with no white count. I did contact his grocery clerk selling who states this patient should be admitted with IV antibiotics. Blood cultures obtained and the patient was started on vancomycin and Rocephin. He will be admitted on the [facility] floor under the care of her panel physician Dr. welch Departure Diagnosis: Primary Impression: Osteomyelitis Additional Impressions: Non-pressure chronic ulcer of other part of right foot with necrosis of bone Foot pain Diabetic foot ulcer Condition: Stable KATHIA DALLAS DO Jul 04, 2017 02:47
[2017-07-04] MEDS ORDERED: ONDANSETRON 4 MG INJ IV PRN ×2 (03:00→06:00)
[2017-07-04] MEDS ORDERED: VANCOMYCIN 1 GM (PMX) 250 ML IVPB ONE (03:00)
[2017-07-04] MEDS ORDERED: ACETAMINOPHEN 325 MG TAB PO PRN ×2 (03:00→06:00)
[2017-07-04 04:28] VITALS: TEMP 97.5
[2017-07-04 05:39] VITALS: Ht 172.7 cm; Wt 76.3 kg
[2017-07-04] MEDS ORDERED: NACL 0.9% 3 ML SYG IV SCH (06:00)
[2017-07-04] MEDS ORDERED: morphine 2 MG INJ IV PRN (06:00)
[2017-07-04] MEDS ORDERED: VANCOMYCIN IV PER PHARMACY XX SCH (06:00)
[2017-07-04] MEDS ORDERED: GLUCAGON 1 MG INJ IM PRN (06:15)
[2017-07-04] MEDS ORDERED: GLUCOSE GEL 15 GRAM TUBE BUCCAL PRN (06:15)
[2017-07-04] MEDS ORDERED: GLUCOSE GEL 15 GRAM TUBE PO PRN ×2 (06:15)
[2017-07-04] MEDS ORDERED: DEXTROSE 50% 50 ML SYRINGE IV PRN ×2 (06:15)
[2017-07-04] MEDS ORDERED: INSULIN ASPART [NOVOLOG] 3 ML PEN SC SCH (07:50)
--- NOTE | 2017-07-04 07:57 | HP ---
Date/Time of Note Date/Time of Note DATE: 07/04/17 TIME: 07:52 Assessment/Plan VTE Prophylaxis VTE Prophylaxis Intervention: heparin Lines/Catheters IV Catheter Type (from Nrs): Saline Lock Assessment/Plan Assessment/Plan 1. Bilateral foot diabetic foot ulcer with osteomyelitis -IV antibiotic -Consider MRI, but will leave the decision up to his street superintendent 2. Type 2 diabetes -Insulin while in-house 3. History of iron deficiency anemia -Hemoglobin stable -Continue ferrous sulfate HPI/ROS Admit Date/Time Admit Date/Time Jul 04, 2017 at 02:44 Hx of Present Illness This is a 51-year-old male with a history of type 2 diabetes, iron deficiency anemia, bilateral foods osteo-. Patient stated that he noted progressively worsening ulcer on the right great toe as well as on the left second and fifth toes. Patient has a history of left great toe amputation about 4 5 years ago. He denies pain on his fluids saying that it is actually pretty much numb. Per ER physician, his street superintendent Dr. Welch he wanted him to be admitted for IV antibiotic and further workup. Bilateral x-ray of the food in the ER showed likely osteomyelitis of the right first and second toe as well as the left toes as well PMH/Family/Social Social History Smoking Status: Never smoker Exam/Review of Systems Vital Signs Vitals Vital Signs Date Time Temp Pulse Resp B/P Pulse Ox O2 Delivery O2 Flow Rate FiO2 07/04/17 04:28 97.5 74 16 108/62 98 Room Air Exam Constitutional: alert, oriented, well developed Head: atraumatic, normocephalic Eyes: EOMI, PERRL Respiratory: clear to auscultation, normal air movement Cardiovascular: nl pulses, regular rate and rhythm Gastrointestinal: non-tender, soft Extremities: other (There is an open ulcer on the plantar aspect of the right great toe and the left fifth toe. There is also probable dry ulcer on the left second toe. Left great toe is amputated) Labs Result Diagram: 07/04/175 07/04/17 0045 Medications Medications Current Medications Sodium Chloride (NS) 1,000 ml @ 80 mls/hr [id number] IV Last administered on t 05:54; Admin Dose 80 MLS/HR; Start 07/04/17 at 02:43; Stop 07/04/17 at 15:12 Ondansetron HCl (Zofran Inj) 4 mg Q6H PRN IV NAUSEA AND/OR VOMITING; Start 09/08 at 06:00 Acetaminophen (Tylenol Tab) 650 mg Q6H PRN PO PAIN LEVEL 1-3 OR FEVER; Start 07/04/17 at 06:00 Morphine Sulfate (morphine) 2 mg Q4H PRN IV PAIN LEVEL 7-10; Start 07/04/17 at 06:00 Heparin Sodium (Porcine) 5000 unit 5,000 unit Q12 SC ; Start 07/04/17 at 09:00 Cefepime HCl (Maxipime 1gm/50 ml (Pmx)) 50 ml @ 100 mls/hr Q12 IVPB ; Start at 09:00 Ferrous Sulfate (Ferrous Sulfate (Ec)) 325 mg TID PO ; Start 07/04/17 at 09:00 Insulin Glargine (Lantus) 16 unit DAILY@20 SC ; Start 07/04/17 at 20:00 Diagnostic Test (Pha) (Accu-Chek) 1 ea 02 XX ; Start 07/05/17 at 02:00 Miscellaneous Information 1 ea NOTE XX ; Start 07/04/17 at 06:15 Glucose (Glutose) 15 gm Q15M PRN PO DECREASED GLUCOSE; Start 07/04/17 at 06:15 Glucose (Glutose) 22.5 gm Q15M PRN PO DECREASED GLUCOSE; Start 07/04/17 at 06: 15 Dextrose (D50w Syringe) 25 ml Q15M PRN IV DECREASED GLUCOSE; Start 07/04/17 at 06:15 Dextrose (D50w Syringe) 50 ml Q15M PRN IV DECREASED GLUCOSE; Start 07/04/17 at 06:15 Glucagon (Glucagen) 1 mg Q15M PRN IM DECREASED GLUCOSE; Start 07/04/17 at 06: 15 Glucose 15 gm 15 gm Q15M PRN BUCCAL DECREASED GLUCOSE; Start 07/04/17 at 06:15 Vancomycin HCl/ Sodium Chloride (Vancocin/NS) 250 ml @ 83.333 mls/ hr Q12H IVPB ; Start 07/04/17 at 15:00 MARY MAGALLANES MD Jul 04, 2017 07:57
[2017-07-04 08:00] VITALS: BP 119/70; RESP 16
[2017-07-04] MEDS: INSULIN ASPART [NOVOLOG] 3 ML PEN SC SCH ×6 (08:00→21:00)
[2017-07-04] MEDS: FERROUS SULFATE (EC) 325 MG TAB PO SCH ×3 (08:21→20:29)
[2017-07-04] MEDS: CEFEPIME 1GM/50 ML (PMX) 50 ML IVPB SCH ×2 (08:21→20:34)
[2017-07-04] MEDS: HEPARIN 5,000 UNIT/0.5 ML VIAL SC SCH ×2 (08:27→20:32)
[2017-07-04 13:06] VITALS: BP 116/68; RESP 1
--- NOTE | 2017-07-04 13:38 | CONS ---
Date/Time of Note Date/Time of Note DATE: 07/04/17 TIME: 13:27 Assessment/Plan Assessment/Plan Additional Assessment/Plan Osteomyelitis bilateral lower extremities AODM Peripheral neuropathy ASCVD Anemia Will follow for now continue current rx and adjust if/when interventions Consultation Date/Type/Reason Admit Date/Time Jul 04, 2017 at 02:44 Type of Consultation: Pain Management Hx of Present Illness Pleasant 51 yo male with a history of type 2 diabetes and bilateral lower extremity osteo. Patient states he has very little pain at this time decreasing as his diabetes progressed. He does not take any opioids at home or in the recent past. There is no history of drug abuse in the past, he does not drink alcohol, appears unkempt or insists on any pain meds at this time. However he may haev some surgical intervention therefore I was asked to see patient before the fact. Constitutional: No chills, No diaphoresis, No disoriented, No febrile, No improved, No no complaints, No other, No poor po, No requiring IVF, No requiring O2 Eyes: No discharge, No no complaints, No other, No pain, No redness, No visual change ENT: No bleeding, No congestion, No discharge, No dysphagia, No no complaints, No other, No pain, No sore throat Cardiovascular: No chest pain, No edema, No lightheadedness, No no complaints, No orthopenea, No other, No palpitations, No paroxysmal nocturnal dyspnea Gastrointestinal: No blood, No constipation, No decreased appetite, No diarrhea , No flatus, No nausea, No no complaints, No other, No pain, No passing stool, No vomiting Social History Smoking Status: Never smoker Exam/Review of Systems Vital Signs Vitals Vital Signs Date Time Temp Pulse Resp B/P Pulse Ox O2 Delivery O2 Flow Rate FiO2 07/04/17 08:00 98.3 66 16 119/70 98 07/04/17 04:28 Room Air Exam Constitutional: alert, oriented, well developed Psych: No anxiety, No confusion, No depression, No nl mood/affect, No no complaints, No other, No suicidal Head: atraumatic, normocephalic Neck: non-tender, supple Respiratory: clear to auscultation, normal air movement Cardiovascular: nl pulses, regular rate and rhythm Neurological: SLURRY CONTROL TENDER II-XII intact, nl mental status, nl speech, nl strength Results Result Diagram: 10/12/17 0045 07/04/17 0045 Results 24 hrs Laboratory Tests Test 07/04/17 00:45 07/04/17 12:27 White Blood Count 7.6 Red Blood Count 3.76 L Hemoglobin 11.2 L Hematocrit 32.4 L Mean Corpuscular Volume 86.2 Mean Corpuscular Hemoglobin 29.8 Mean Corpuscular Hemoglobin Concent 34.6 Red Cell Distribution Width 13.0 Platelet Count 222 # Mean Platelet Volume 10.0 Neutrophils % 61.8 Lymphocytes % 29.3 Monocytes % 6.2 Eosinophils % 2.0 Basophils % 0.4 Nucleated Red Blood Cells % 0.0 Neutrophils # 4.7 Lymphocytes # 2.2 Monocytes # 0.5 Eosinophils # 0.2 Basophils # 0.0 Nucleated Red Blood Cells # 0.0 Sodium Level 136 Potassium Level 4.7 Chloride Level 97 Carbon Dioxide Level 31 Anion Gap 13 Blood Urea Nitrogen 26 H Creatinine 1.10 Glucose Level 290 H Calcium Level 9.2 Total Bilirubin 0.2 Direct Bilirubin 0.00 Indirect Bilirubin 0.2 Aspartate Amino Transf (AST/SGOT) 20 Alanine Aminotransferase (ALT/SGPT) 36 Alkaline Phosphatase 100 Total Protein 8.1 Albumin 4.5 Globulin 3.60 H Albumin/Globulin Ratio 1.25 Bedside Glucose 186 Medications Medications Current Medications Sodium Chloride (NS) 1,000 ml @ 80 mls/hr [id number] IV Last administered on 05:54; Admin Dose 80 MLS/HR; Start 07/04/17 at 02:43; Stop 07/04/17 at 15:12 Ondansetron HCl (Zofran Inj) 4 mg Q6H PRN IV NAUSEA AND/OR VOMITING; Start 09/08 at 06:00 Acetaminophen (Tylenol Tab) 650 mg Q6H PRN PO PAIN LEVEL 1-3 OR FEVER; Start 07/04/17 at 06:00 Morphine Sulfate (morphine) 2 mg Q4H PRN IV PAIN LEVEL 7-10; Start 07/04/17 at 06:00 Heparin Sodium (Porcine) 5000 unit 5,000 unit Q12 SC Last administered on 07/04 08:27; Admin Dose 5,000 UNIT; Start 07/04/17 at 09:00 Cefepime HCl (Maxipime 1gm/50 ml (Pmx)) 50 ml @ 100 mls/hr Q12 IVPB Last administered on 07/04/17t 08:21; Admin Dose 100 MLS/HR; Start 07/04/17 at 09: 00 Ferrous Sulfate (Ferrous Sulfate (Ec)) 325 mg TID PO Last administered on 07/04t 12:28; Admin Dose 325 MG; Start 07/04/17 at 09:00 Insulin Glargine (Lantus) 16 unit DAILY@20 SC ; Start 07/04/17 at 20:00 Diagnostic Test (Pha) (Accu-Chek) 1 ea 02 XX ; Start 07/05/17 at 02:00 Miscellaneous Information 1 ea NOTE XX ; Start 07/04/17 at 06:15 Glucose (Glutose) 15 gm Q15M PRN PO DECREASED GLUCOSE; Start 07/04/17 at 06:15 Glucose (Glutose) 22.5 gm Q15M PRN PO DECREASED GLUCOSE; Start 07/04/17 at 06: 15 Dextrose (D50w Syringe) 25 ml Q15M PRN IV DECREASED GLUCOSE; Start 07/04/17 at 06:15 Dextrose (D50w Syringe) 50 ml Q15M PRN IV DECREASED GLUCOSE; Start 07/04/17 at 06:15 Glucagon (Glucagen) 1 mg Q15M PRN IM DECREASED GLUCOSE; Start 07/04/17 at 06: 15 Glucose 15 gm 15 gm Q15M PRN BUCCAL DECREASED GLUCOSE; Start 07/04/17 at 06:15 Vancomycin HCl/ Sodium Chloride (Vancocin/NS) 250 ml @ 83.333 mls/ hr Q12H IVPB ; Start 07/04/17 at 15:00 Influenza Virus Vaccine (Fluzone) 0.5 ml ONCE ONCE IM* ; Start 07/05/17 at 09: 00; Stop 07/05/17 at 09:01 KATIANA SALTER Jul 04, 2017 13:38
--- NOTE | 2017-07-04 14:55 | CONS ---
DATE OF ADMISSION: 07/04/2017 DATE OF CONSULTATION: 07/04/2017 INFECTIOUS DISEASE CONSULTATION REASON FOR CONSULTATION: Antibiotic management. HISTORY OF PRESENT ILLNESS: Adithya Orozco is a 51-year-old male with numerous problems who comes i n with bilateral osteomyelitis and is being seen for antibiotic management. His past problems inclu de: 1. Adult-onset diabetes mellitus. 2. Iron deficiency anemia. 3. Bilateral diabetic foot ulcers with osteomyelitis. Patient denies pain. He notes that he has had progressively worsening ulcers on the right great toe as well as on the left second and fifth toes. History of left great toe amputation about 4 to [address] Welch admitted him to the hospital. Bilateral x-rays of the foot in the ER showed li shekhar osteomyelitis of the right foot, right first and second toe as well as left toes. On admission , his white count was 7.6, H and H of 11.2 and 32.4, platelet count 222,000. BUN and creatinine 26/ 1.1. Random glucose is 290. PAST MEDICAL HISTORY: Operations as outlined. FAMILY HISTORY: Noncontributory. SOCIAL HISTORY: He does not smoke, drink or abuse drugs. ALLERGIES: NONE TO PENICILLIN, SULFA OR FOODS. MEDICATIONS: Per chart. REVIEW OF SYSTEMS: Noncontributory. PHYSICAL EXAMINATION: GENERAL: The patient is a well-developed, well-nourished male, alert, responsive, in no acute distr ess. VITAL SIGNS: Stable. He is afebrile. SKIN: Without generalized rash. HEENT: Within normal limits. NECK: Supple. LYMPH NODES: None palpable. CHEST: Decreased breath sounds at the bases. HEART: Without murmur or gallop. ABDOMEN: Soft, nontender, without organosplenomegaly or masses. EXTREMITIES: There is an open ulcer on the plantar aspect of the right great toe and left fifth toe . There is also a dry ulceration left second toe. The left great toe is amputated. IMPRESSION AND PLAN: The patient comes in with bilateral osteomyelitis. He was started on vancomyc in and cefepime. I think an MRI was not done and should be done. The x-rays themselves suggest ost eomyelitis and recommended MRI examination. Dr. Welch to see the patient. I will dictate my findi ngs to the hospitalist and Dr. Samm Welch. Dictated By: ROMI TAMAYO MD, JD/KIKI Conf#: [id number] [facility]#: [id number]
[2017-07-04] MEDS: VANCOMYCIN 1.25 GM in SOD CHLORIDE 0.9% 250 ML IVPB SCH (15:00)
[2017-07-04 19:25] VITALS: BP 96/51; RESP 18
[2017-07-04] MEDS: INSULIN GLARGINE [LANtus] 3 ML PEN SC SCH (20:33)
[2017-07-04] MEDS: ACCU-CHEK XX SCH (21:59)
[2017-07-05] MEDS ORDERED: ACCU-CHEK XX SCH (02:00)
[2017-07-05 02:15] VITALS: BP 104/57; RESP 18
[2017-07-05] MEDS: VANCOMYCIN 1.25 GM in SOD CHLORIDE 0.9% 250 ML IVPB SCH ×2 (03:05→14:56)
[2017-07-05 05:13] LABS: BASOPHILS % 0.6 % (0.0-2.0); EOSINOPHILS # 0.1 10^3/ul (0.0-0.5); EOSINOPHILS % 2.6 % (0.0-7.0); HEMATOCRIT 31.1 % (42.0-52.0); HEMOGLOBIN 10.3 g/dl (14.0-18.0); LYMPHOCYTES # 1.6 10^3/ul (0.8-2.9); LYMPHOCYTES % 29.6 % (15.0-51.0); MEAN CORPUSCULAR HEMOGLOBIN 28.6 pg (29.0-33.0); MEAN CORPUSCULAR HGB CONC 33.1 g/dl (32.0-37.0); MEAN CORPUSCULAR VOLUME 86.4 fl (82.0-101.0); MEAN PLATELET VOLUME 10.2 fl (7.4-10.4); MONOCYTE # 0.4 10^3/ul (0.3-0.9); MONOCYTES % 6.9 % (0.0-11.0); NEUTROPHIL # 3.2 10^3/ul (1.6-7.5); NEUTROPHILS % 60.1 % (39.0-77.0); PLATELET COUNT 207 10^3/UL (140-415); RED CELL DISTRIBUTION WIDTH 13.2 % (11.5-14.5); WHITE BLOOD COUNT 5.3 10^3/ul (4.8-10.8)
[2017-07-05 05:48] LABS: ALBUMIN 3.5 g/dl (3.3-4.9); BILIRUBIN,INDIRECT 0.1 mg/dl (0-1.1); BILIRUBIN,TOTAL 0.1 mg/dl (0.2-1.3); CALCIUM 9.2 mg/dl (8.4-10.2); CHOL/HDL RATIO 5.5 RATIO; CREATININE 0.92 mg/dl (0.61-1.24); MAGNESIUM 1.9 mg/dl (1.7-2.5); POTASSIUM 4.8 mmol/L (3.5-5.1)
[2017-07-05 07:42] VITALS: BP 94/50; RESP 19
[2017-07-05] MEDS ORDERED: INFLUENZA VIRUS VACCINE 0.5 ML (DISPENSING) IM* ONE (09:00)
[2017-07-05] MEDS: FERROUS SULFATE (EC) 325 MG TAB PO SCH ×3 (09:13→20:35)
[2017-07-05] MEDS: CEFEPIME 1GM/50 ML (PMX) 50 ML IVPB SCH ×2 (09:15→20:32)
[2017-07-05] MEDS: HEPARIN 5,000 UNIT/0.5 ML VIAL SC SCH ×2 (09:16→20:41)
[2017-07-05] MEDS: INSULIN ASPART [NOVOLOG] 3 ML PEN SC SCH ×7 (09:42→20:39)
--- NOTE | 2017-07-05 09:57 | PN ---
Date/Time of Note Date/Time of Note DATE: 07/05/17 TIME: 09:51 Assessment/Plan VTE Prophylaxis VTE Prophylaxis Intervention: heparin Lines/Catheters IV [facility]from [facility] Saline Lock Assessment/Plan Chief Complaint/Hosp Course 51-year-old male with history of diabetes, admitted with worsening ulcers on the right great toe, left second and fifth toes. 1. Bilateral diabetic foot ulcers with osteomyelitis. -ID evaluation appreciated. Proceed with bilateral foot MRI. -Holly broad-spectrum IV antibiotics and follow-up cultures. -Follow-up with podiatry recommendations. 2. Type 2 diabetes, poorly controlled. A1c 10.3. -Continue with Accu-Cheks/ISS/Lantus and pre-meal aspart. -DM education. 3. Anemia, chronic. -Continue with iron supplementation. Obtain iron panel and titrate dose as indicated. 4. Hypercholesterolemia. -Start statin therapy. HSQ prophylaxis. Plan: Follow-up with ID and podiatry recommendation. Follow-up with MRI findings. Patient was seen in collaboration with . Problems: Subjective 24 Hr Interval Summary Free Text/Dictation Patient with no acute overnight episodes. No fever or chills. Exam/Review of Systems Vital Signs Vitals Vital Signs Date Time Temp Pulse Resp B/P Pulse Ox O2 Delivery O2 Flow Rate FiO2 07/05/17 07:42 98.4 69 19 94/50 97 07/04/17 04:28 Room Air Intake and Output 07/04/17 07/04/17 07/05/17 15:00 23:00 07:00 Intake Total 50 ml 700 ml 1150 ml Output Total 700 ml 1250 ml Balance 50 ml 0 ml -100 ml Exam General: Well developed,adequately built, not in any acute distress . HEENT: Normocephalic, Atraumatic, No laceration or hematoma; Eyes: PEERL, Conjunctiva clear, Anicteric sclera Neck: Supple without any lymphadenopathy, nontender, no JVD, no carotid bruits, trachea midline, no thyromegaly Cardiac: S1, S2 auscultated, regular rhythm and rate, no mumurs or gallop Pulmonary: Normal respiratory effort. Chest clear to auscultation bilaterally, no adventitious breath sounds GI: Abdomen normal to inspection. Soft, non tender, non- distended, no masses, no rebound tenderness or guarding. Bowel sounds active on all four quadrants Genitourinary: Deferred Extremities: Open ulcer on the plantar aspect of the right great toe and left fifth toe. Dry ulceration left second toe. Missing left great toe. No cyanosis, clubbing, or edema. Pulses [2+] bilaterally. Full ROM on all four extremities. No focal weakness appreciated. Neurologic: Alert to person, place, time, and situation. Affect appropriate, intact sensation. Skin: Clean,dry, and intact. No ecchymosis, no rashes, or lesions Results Result Diagram: 07/05/170 07/05/17429 Results 24 hrs Laboratory Tests Test 07/04/17 12:27 07/04/17 17:25 07/04/17 20:27 07/05/17 04:30 Bedside Glucose 186 102 126 White Blood Count 5.3 # Red Blood Count 3.60 L Hemoglobin 10.3 L Hematocrit 31.1 L Mean Corpuscular Volume 86.4 Mean Corpuscular Hemoglobin 28.6 L Mean Corpuscular Hemoglobin Concent 33.1 Red Cell Distribution Width 13.2 Platelet Count 207 Mean Platelet Volume 10.2 Neutrophils % 60.1 Lymphocytes % 29.6 Monocytes % 6.9 Eosinophils % 2.6 Basophils % 0.6 Nucleated Red Blood Cells % 0.0 Neutrophils # 3.2 Lymphocytes # 1.6 Monocytes # 0.4 Eosinophils # 0.1 Basophils # 0.0 Nucleated Red Blood Cells # 0.0 Sodium Level 138 Potassium Level 4.8 Chloride Level 102 Carbon Dioxide Level 31 Anion Gap 10 Blood Urea Nitrogen 15 # Creatinine 0.92 Glucose Level 104 # Hemoglobin A1c 10.3 H Calcium Level 9.2 Magnesium Level 1.9 Total Bilirubin 0.1 L Direct Bilirubin 0.00 Indirect Bilirubin 0.1 Aspartate Amino Transf (AST/SGOT) 22 Alanine Aminotransferase (ALT/SGPT) 34 Alkaline Phosphatase 84 Total Protein 7.0 # Albumin 3.5 # Globulin 3.50 H Albumin/Globulin Ratio 1.00 Triglycerides Level 218 H Cholesterol Level 217 H LDL Cholesterol, Calculated 134 HDL Cholesterol 39 Cholesterol/HDL Ratio 5.5 Test 07/05/17 08:31 Bedside Glucose 161 Medications Medications Current Medications Ondansetron HCl (Zofran Inj) 4 mg Q6H PRN IV NAUSEA AND/OR VOMITING; Start 09/08 at 06:00 Acetaminophen (Tylenol Tab) 650 mg Q6H PRN PO PAIN LEVEL 1-3 OR FEVER; Start 07/04/17 at 06:00 Morphine Sulfate (morphine) 2 mg Q4H PRN IV PAIN LEVEL 7-10; Start 07/04/17 at 06:00 Heparin Sodium (Porcine) 5000 unit 5,000 unit Q12 SC Last administered on 07/05 09:16; Admin Dose 5,000 UNIT; Start 07/04/17 at 09:00 Cefepime HCl (Maxipime 1gm/50 ml (Pmx)) 50 ml @ 100 mls/hr Q12 IVPB Last administered on 07/05/17 09:15; Admin Dose 100 MLS/HR; Start 07/04/17 at 09: 00 Ferrous Sulfate (Ferrous Sulfate (Ec)) 325 mg TID PO Last administered on 07/05 09:13; Admin Dose 325 MG; Start 07/04/17 at 09:00 Insulin Glargine (Lantus) 16 unit DAILY@20 SC Last administered on 07/04/17 20:33; Admin Dose 16 UNIT; Start 07/04/17 at 20:00 Diagnostic Test (Pha) (Accu-Chek) 1 ea 02 XX ; Start 07/05/17 at 02:00 Miscellaneous Information 1 ea NOTE XX ; Start 07/04/17 at 06:15 Glucose (Glutose) 15 gm Q15M PRN PO DECREASED GLUCOSE; Start 07/04/17 at 06:15 Glucose (Glutose) 22.5 gm Q15M PRN PO DECREASED GLUCOSE; Start 07/04/17 at 06: 15 Dextrose (D50w Syringe) 25 ml Q15M PRN IV DECREASED GLUCOSE; Start 07/04/17 at 06:15 Dextrose (D50w Syringe) 50 ml Q15M PRN IV DECREASED GLUCOSE; Start 07/04/17 at 06:15 Glucagon (Glucagen) 1 mg Q15M PRN IM DECREASED GLUCOSE; Start 07/04/17 at 06: 15 Glucose 15 gm 15 gm Q15M PRN BUCCAL DECREASED GLUCOSE; Start 07/04/17 at 06:15 Vancomycin HCl/ Sodium Chloride (Vancocin/NS) 250 ml @ 83.333 mls/ hr Q12H IVPB Last administered on 07/05/17 03:05; Admin Dose 83.333 MLS/HR; Start at 15:00 ANNE MARIE JOSHI NP Jul 05, 2017 09:57
[2017-07-05 14:00] VITALS: BP 109/62; RESP 18
[2017-07-05 20:15] VITALS: BP 104/64; RESP 18
[2017-07-05] MEDS: ATORVASTATIN 10 MG TAB PO SCH (20:35)
[2017-07-05] MEDS: INSULIN GLARGINE [LANtus] 3 ML PEN SC SCH (20:40)
[2017-07-06 02:00] VITALS: BP 103/62; RESP 18
[2017-07-06] MEDS: ACCU-CHEK XX SCH (02:00)
[2017-07-06 02:18] LABS: BASOPHILS % 0.6 % (0.0-2.0); EOSINOPHILS # 0.1 10^3/ul (0.0-0.5); EOSINOPHILS % 2.6 % (0.0-7.0); HEMATOCRIT 32.7 % (42.0-52.0); HEMOGLOBIN 11.4 g/dl (14.0-18.0); LYMPHOCYTES # 1.6 10^3/ul (0.8-2.9); LYMPHOCYTES % 32.3 % (15.0-51.0); MEAN CORPUSCULAR HGB CONC 34.9 g/dl (32.0-37.0); MEAN CORPUSCULAR VOLUME 86.1 fl (82.0-101.0); MEAN PLATELET VOLUME 9.5 fl (7.4-10.4); MONOCYTE # 0.4 10^3/ul (0.3-0.9); MONOCYTES % 7.5 % (0.0-11.0); NEUTROPHIL # 2.9 10^3/ul (1.6-7.5); NEUTROPHILS % 56.8 % (39.0-77.0); PLATELET COUNT 223 10^3/UL (140-415); RED CELL DISTRIBUTION WIDTH 13.2 % (11.5-14.5); WHITE BLOOD COUNT 5.1 10^3/ul (4.8-10.8)
[2017-07-06 02:20] VITALS: BP 134/75; RESP 18
[2017-07-06 02:47] LABS: CALCIUM 9.3 mg/dl (8.4-10.2); CREATININE 1.1 mg/dl (0.61-1.24); POTASSIUM 4.2 mmol/L (3.5-5.1)
[2017-07-06] MEDS: VANCOMYCIN 1 GM in NS 250 ML IVPB SCH ×2 (04:53→17:45)
--- NOTE | 2017-07-06 07:37 | RADRPT ---
PROCEDURE: MRI OF THE RIGHT FOOT. CLINICAL INDICATION: Osteomyelitis. Right foot and toe infection with pain and swelling, history of second toe removal 1 year ago. History of diabetes.. TECHNIQUE: Multiple MRI images of the right foot were obtained in multiple planes utilizing multip le pulse sequences. Images were interpreted on the high-resolution PACS system. COMPARISON: 01/20/2017 FINDINGS: 1st ray: There is similar appearance of the osteomyelitis involving the first distal phalanx and of the first proximal phalanx extending across the interphalangeal joint. There is dorsal lateral sublu xation of the distal phalanx relative to the proximal phalanx. Adjacent skin ulcer is noted along th e plantar medial aspect of the first toe. There is no drainable abscess although a small amount of f luid edema is noted under the skin ulcer adjacent to the medial aspect of the interphalangeal joint. There is partial thickness chondral loss with small areas of high-grade chondral loss and osseous sp urring within the first metatarsophalangeal joint. There are also erosive changes within the first m etatarsal head with mild marrow edema. There is no significant joint effusion. 2nd ray: There is progression of osteomyelitis within the second proximal phalanx stump post amputat ion of the middle and distal phalanges with increased bony destructive changes and abnormal marrow s ignal. The osteomyelitis also extends into the second metatarsal with increased bony destructive dwayne nges within the distal second metatarsal and abnormal marrow signal extending to the base of the sec ond metatarsal. There is decreased subcutaneous gas adjacent to the proximal phalanx with a small am ount of adjacent loculated fluid. 3rd ray through 5th ray: There is mild cortical irregularity with decreased marrow edema within the adjacent third proximal phalanx base which may be from prior osteomyelitis. No other areas of osteom yelitis are noted. Hammertoe deformity at the metatarsophalangeal joints is noted. MIDFOOT: The tarsometatarsal joints are intact. The Lisfranc's ligament is intact. Other findings: There is scarring of the second digit flexor tendons from postsurgical changes. Ther e is fatty atrophy of the muscles around the foot. RPTAT: EE IMPRESSION: 1. Progression of the osteomyelitis involving the second digit with increased bony destructive herrera es within the proximal phalanx and distal metatarsal post amputation of the middle and distal phalan ges with abnormal marrow signal. Decreased subcutaneous gas within small amount of adjacent loculate d fluid but no large drainable abscess. 2. Similar appearance of the osteomyelitis involving the first distal and proximal phalanges with an adjacent skin ulcer. 3. Improvement of the osteomyelitis within the third proximal phalanx with decreased marrow edema. .Jasmin Layne MD, Date Time Electronically viewed and signed by .Jasmin Layne MD, on 07/06/2017 07:42 .T/
[2017-07-06 08:00] VITALS: BP 104/55; RESP 18
--- NOTE | 2017-07-06 08:00 | RADRPT ---
PROCEDURE: MRI OF THE LEFT FOOT. CLINICAL INDICATION: Osteomyelitis. History of left second toe infection and swelling. Left big toe amputation 1 year ago. TECHNIQUE: Multiple MRI images of the left foot were obtained in multiple planes utilizing multipl e pulse sequences. Images were interpreted on the high-resolution PACS system. COMPARISON: 07/04/2017 radiographs FINDINGS: 1st ray: Postsurgical changes of amputation of the first distal phalanx and a portion of the proxima l phalanx is noted. There is mild tapering of the first proximal phalanx with mild cortical irregula rity at the tip of the proximal phalanx but no significant bone marrow edema, surrounding soft tissu e edema or abnormal marrow signal to suggest acute osteomyelitis. There is high-grade chondral loss at the first metatarsophalangeal joint with osseous spurring. There is deformity of the first metata rsal neck which may be from prior trauma or postsurgical change. 2nd ray: There is cortical irregularity within the tip of the second distal phalanx from chronic ost eomyelitis. No significant bone marrow edema or adjacent soft tissue edema is present. There is deformity of the second metatarsophalangeal joint with osseous spurring and flattening of t he metatarsal head. There is partial thickness chondral loss with a small joint effusion. There is t hickening and scarring of the medial/lateral collateral ligaments and capsular components of the sec ond metatarsophalangeal joint. There is degeneration and tearing of the plantar plate. 3rd ray through 5th ray: There is micro metallic artifact adjacent to the soft tissues between the s econd and third and third and fourth digits. There is blunting and cortical irregularity of the thir d proximal phalanx with subluxation at the proximal interphalangeal joint. There is also suggestion of a amputation or resorption of the third distal phalanx. There is cortical irregularity with bone marrow edema and abnormal dark T1 signal within the third d istal phalanx in keeping with osteomyelitis with an adjacent skin ulcer. MIDFOOT: The tarsometatarsal joints are intact. The Lisfranc's ligament is intact. Other findings: There is no discrete Newton's neuroma. The flexor and extensor tendons around the foot are unremarkable. There is fatty atrophy of the musc les around the foot. RPTAT: EE IMPRESSION: 1. Osteomyelitis within the fifth distal phalanx with abnormal marrow signal/marrow edema with an ad jacent skin ulcer. 2. Post amputation of the first distal phalanx and a portion of the first proximal phalanx without e vidence of acute osteomyelitis. 3. Cortical irregularity and blunting of the second distal phalanx from chronic osteomyelitis. 4. Degenerative changes within the second metatarsophalangeal joint with bony remodelling, osseous s purring, and a joint effusion with synovitis with degeneration/tearing of the plantar plate. 5. Abnormal appearance of the third proximal phalanx with subluxation at the proximal interphalangea l joint and nonvisualization of the distal phalanx which may be from chronic osteomyelitis with ampu tation or bony resorption. .Jasmin Layne MD, Date Time Electronically viewed and signed by .Jasmin Layne MD, on 07/06/2017 08:06 .T/
[2017-07-06] MEDS: FERROUS SULFATE (EC) 325 MG TAB PO SCH ×3 (08:58→20:18)
[2017-07-06] MEDS ORDERED: INFLUENZA VIRUS VACCINE 0.5 ML (DISPENSING) IM* ONE (09:00)
[2017-07-06] MEDS: HEPARIN 5,000 UNIT/0.5 ML VIAL SC SCH ×2 (09:04→20:22)
[2017-07-06] MEDS: INSULIN ASPART [NOVOLOG] 3 ML PEN SC SCH ×7 (09:05→20:22)
[2017-07-06] MEDS: CEFEPIME 1GM/50 ML (PMX) 50 ML IVPB SCH ×2 (09:06→20:29)
--- NOTE | 2017-07-06 10:11 | PN ---
Date/Time of Note Date/Time of Note DATE: 07/06/17 TIME: 10:04 Assessment/Plan VTE Prophylaxis VTE Prophylaxis Intervention: heparin Lines/Catheters IV C[facility]ter Type (from [facility]): Peripheral IV Urinary Cath still in place: No Assessment/Plan Chief Complaint/Hosp Course 51-year-old male with history of diabetes, admitted with worsening ulcers on the right great toe, left second and fifth toes. 1. Bilateral diabetic foot ulcers with osteomyelitis.MRI with Osteomyelitis within the left fifth distal phalanx ,Right first and progression to second digit. -ID evaluation appreciated. Proceed with bilateral foot MRI. -Continue broad-spectrum IV antibiotics and follow-up cultures. -Follow-up with ID/podiatry recommendations. 2. Type 2 diabetes, poorly controlled. A1c 10.3. -Continue with Accu-Cheks/ISS/Lantus and pre-meal aspart. -DM education. 3. Anemia, chronic. -Continue with iron supplementation. F/u iron panel and titrate dose as indicated. 4. Hypercholesterolemia. -On statin therapy. 5. 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 Plan:Podiatry consult has been requested and pending. Follow-up with ID and podiatry recommendation. Patient was seen in collaboration with . Problems: Subjective 24 Hr Interval Summary Free Text/Dictation Patient with no acute overnight episodes. Remains afebrile. Exam/Review of Systems Vital Signs Vitals Vital Signs Date Time Temp Pulse Resp B/P Pulse Ox O2 Delivery O2 Flow Rate FiO2 07/06/17 08:00 97.9 64 18 104/55 97 07/04/17 04:28 Room Air Intake and Output 07/05/17 07/05/17 07/06/17 15:00 23:00 07:00 Intake Total 50 ml 1500 ml 1210 ml Output Total 1200 ml Balance 50 ml 1500 ml 10 ml Exam General: Well developed,adequately built, not in any acute distress . HEENT: Normocephalic, Atraumatic, No laceration or hematoma; Eyes: PEERL, Conjunctiva clear, Anicteric sclera Neck: Supple without any lymphadenopathy, nontender, no JVD, no carotid bruits, trachea midline, no thyromegaly Cardiac: S1, S2 auscultated, regular rhythm and rate, no mumurs or gallop Pulmonary: Normal respiratory effort. Chest clear to auscultation bilaterally, no adventitious breath sounds GI: Abdomen normal to inspection. Soft, non tender, non- distended, no masses, no rebound tenderness or guarding. Bowel sounds active on all four quadrants Genitourinary: Deferred Extremities: Open ulcer on the plantar aspect of the right great toe and left fifth toe. Dry ulceration left second toe. Missing left great toe. No cyanosis, clubbing, or edema. Pulses [2+] bilaterally. Full ROM on all four extremities. No focal weakness appreciated. Neurologic: Alert to person, place, time, and situation. Affect appropriate, intact sensation. Skin: Clean,dry, and intact. No ecchymosis, no rashes, or lesions Results Result Diagram: 07/06/17 0201 07/06/17 0201 Results 24 hrs Laboratory Tests Test 07/05/17 12:35 07/05/17 17:52 07/05/17 20:37 07/06/17 02:01 Bedside Glucose 107 95 305 H White Blood Count 5.1 Red Blood Count 3.80 L Hemoglobin 11.4 L Hematocrit 32.7 L Mean Corpuscular Volume 86.1 Mean Corpuscular Hemoglobin 30.0 Mean Corpuscular Hemoglobin Concent 34.9 Red Cell Distribution Width 13.2 Platelet Count 223 Mean Platelet Volume 9.5 Neutrophils % 56.8 Lymphocytes % 32.3 Monocytes % 7.5 Eosinophils % 2.6 Basophils % 0.6 Nucleated Red Blood Cells % 0.0 Neutrophils # 2.9 Lymphocytes # 1.6 Monocytes # 0.4 Eosinophils # 0.1 Basophils # 0.0 Nucleated Red Blood Cells # 0.0 Sodium Level 140 Potassium Level 4.2 Chloride Level 102 Carbon Dioxide Level 30 Anion Gap 12 Blood Urea Nitrogen 19 Creatinine 1.10 Glucose Level 96 Calcium Level 9.3 Vancomycin Level Trough 19.3 Test 07/06/17 02:57 07/06/17 08:46 Bedside Glucose 119 148 Medications Medications Current Medications Ondansetron HCl (Zofran Inj) 4 mg Q6H PRN IV NAUSEA AND/OR VOMITING; Start 09/08 at 06:00 Acetaminophen (Tylenol Tab) 650 mg Q6H PRN PO PAIN LEVEL 1-3 OR FEVER; Start 07/04/17 at 06:00 Morphine Sulfate (morphine) 2 mg Q4H PRN IV PAIN LEVEL 7-10; Start 07/04/17 at 06:00 Heparin Sodium (Porcine) 5000 unit 5,000 unit Q12 SC Last administered on 07/06 09:04; Admin Dose 5,000 UNIT; Start 07/04/17 at 09:00 Cefepime HCl (Maxipime 1gm/50 ml (Pmx)) 50 ml @ 100 mls/hr Q12 IVPB Last administered on 07/06/17 09:06; Admin Dose 100 MLS/HR; Start 07/04/17 at 09: 00 Ferrous Sulfate (Ferrous Sulfate (Ec)) 325 mg TID PO Last administered on 07/06 08:58; Admin Dose 325 MG; Start 07/04/17 at 09:00 Insulin Glargine (Lantus) 16 unit DAILY@20 SC Last administered on 07/05/17 20:40; Admin Dose 16 UNIT; Start 07/04/17 at 20:00 Diagnostic Test (Pha) (Accu-Chek) 1 ea 02 XX ; Start 07/05/17 at 02:00 Miscellaneous Information 1 ea NOTE XX ; Start 07/04/17 at 06:15 Glucose (Glutose) 15 gm Q15M PRN PO DECREASED GLUCOSE; Start 07/04/17 at 06:15 Glucose (Glutose) 22.5 gm Q15M PRN PO DECREASED GLUCOSE; Start 07/04/17 at 06: 15 Dextrose (D50w Syringe) 25 ml Q15M PRN IV DECREASED GLUCOSE; Start 07/04/17 at 06:15 Dextrose (D50w Syringe) 50 ml Q15M PRN IV DECREASED GLUCOSE; Start 07/04/17 at 06:15 Glucagon (Glucagen) 1 mg Q15M PRN IM DECREASED GLUCOSE; Start 07/04/17 at 06: 15 Glucose (Glutose) 15 gm Q15M PRN BUCCAL DECREASED GLUCOSE; Start 07/04/17 at 06:15 Atorvastatin Calcium 10 mg 10 mg HS PO Last administered on 07/05/17 20:35; Admin Dose 10 MG; Start 07/05/17 at 21:00 Vancomycin HCl (Vancocin) 250 ml @ 125 mls/hr Q12H IVPB Last administered on 07/06/17 04:53; Admin Dose 125 MLS/HR; Start 07/06/17 at 05:00 ANNE MARIE JOSHI NP Jul 06, 2017 10:11
--- NOTE | 2017-07-06 11:22 | CONS ---
Date/Time of Note Date/Time of Note DATE: 07/06/17 TIME: 11:22 Assessment/Plan Assessment/Plan Chief Complaint/Hosp Course ID PROGRESS NOTE CURRENT ABX: DAY # => Vanco IV + Cefepime 24H INTERVAL SUMMARY * A/A/O, no fevers, VSS * c/o pain in bilateral feet - hx of partial amputation bilaterally * MRI LEFT FOOT 07/05/17 IMPRESSION: * 1. Osteomyelitis within the fifth distal phalanx with abnormal marrow signal/ marrow edema with an adjacent skin ulcer. * 2. Post amputation of the first distal phalanx and a portion of the first proximal phalanx without evidence of acute osteomyelitis. * 3. Cortical irregularity and blunting of the second distal phalanx from chronic osteomyelitis. * 4. Degenerative changes within the second metatarsophalangeal joint with bony remodelling, osseous spurring, and a joint effusion with synovitis with degeneration/tearing of the plantar plate. * 5. Abnormal appearance of the third proximal phalanx with subluxation at the proximal interphalangeal joint and nonvisualization of the distal phalanx which may be from chronic osteomyelitis with amputation or bony resorption. * MRI RIGHT FOOT 07/05/17: IMPRESSION: * 1. Progression of the osteomyelitis involving the second digit with increased bony destructive changes within the proximal phalanx and distal metatarsal post amputation of the middle and distal phalanges with abnormal marrow signal. Decreased subcutaneous gas within small amount of adjacent loculated fluid but no large drainable abscess. * 2. Similar appearance of the osteomyelitis involving the first distal and proximal phalanges with an adjacent skin ulcer. * 3. Improvement of the osteomyelitis within the third proximal phalanx with decreased marrow edema. Physical Exam Physical Exam Constitutional: VSS, NAD HEENT: Unremarkable Neck: Supple, full ROM Respiratory: Equal chest rise bilaterally, without dyspnea on observation Cardiovascular: nl pulse Gastrointestinal: Soft, NT Extremities: Warm, foot ulcers open to airs Neurological: nl mental status, nl speech, nl strength ID ASSESSMENT 51 yo M admit with: 1. Bilateral foot diabetic foot ulcers with bilateral osteomyelitis as described per MRI results from 07/05/17 2. Type 2 diabetes 3. Diabetic peripheral neuropathy 4. History of iron deficiency anemia ABX ALLERGIES: KNDA CURRENT ABX: DAY # => Vanco IV + Cefepime ID RECOMMENDATIONS 1. Continue current ABX -- anticipate minimum 6 weeks 2. Check MRSA Nares. . Problems: Consultation Date/Type/Reason Admit Date/Time Jul 04, 2017 at 02:44 Initial Consult Date Type of Consultation: ID Exam/Review of Systems Vital Signs Vitals Vital Signs Date Time Temp Pulse Resp B/P Pulse Ox O2 Delivery O2 Flow Rate FiO2 07/06/17 08:00 97.9 64 18 104/55 97 07/04/17 04:28 Room Air Intake and Output 07/05/17 07/05/17 07/06/17 15:00 23:00 07:00 Intake Total 50 ml 1500 ml 1210 ml Output Total 1200 ml Balance 50 ml 1500 ml 10 ml Results Result Diagram: 07/06/17 0201 07/06/17 0201 Results 24 hrs Laboratory Tests Test 07/05/17 12:35 07/05/17 17:52 07/05/17 20:37 07/06/17 02:01 Bedside Glucose 107 95 305 H White Blood Count 5.1 Red Blood Count 3.80 L Hemoglobin 11.4 L Hematocrit 32.7 L Mean Corpuscular Volume 86.1 Mean Corpuscular Hemoglobin 30.0 Mean Corpuscular Hemoglobin Concent 34.9 Red Cell Distribution Width 13.2 Platelet Count 223 Mean Platelet Volume 9.5 Neutrophils % 56.8 Lymphocytes % 32.3 Monocytes % 7.5 Eosinophils % 2.6 Basophils % 0.6 Nucleated Red Blood Cells % 0.0 Neutrophils # 2.9 Lymphocytes # 1.6 Monocytes # 0.4 Eosinophils # 0.1 Basophils # 0.0 Nucleated Red Blood Cells # 0.0 Sodium Level 140 Potassium Level 4.2 Chloride Level 102 Carbon Dioxide Level 30 Anion Gap 12 Blood Urea Nitrogen 19 Creatinine 1.10 Glucose Level 96 Calcium Level 9.3 Vancomycin Level Trough 19.3 Test 07/06/17 02:57 07/06/17 08:46 Bedside Glucose 119 148 Medications Medications Current Medications Ondansetron HCl (Zofran Inj) 4 mg Q6H PRN IV NAUSEA AND/OR VOMITING; Start 09/08 at 06:00 Acetaminophen (Tylenol Tab) 650 mg Q6H PRN PO PAIN LEVEL 1-3 OR FEVER; Start 07/04/17 at 06:00 Morphine Sulfate (morphine) 2 mg Q4H PRN IV PAIN LEVEL 7-10; Start 07/04/17 at 06:00 Heparin Sodium (Porcine) 5000 unit 5,000 unit Q12 SC Last administered on 07/06 09:04; Admin Dose 5,000 UNIT; Start 07/04/17 at 09:00 Cefepime HCl (Maxipime 1gm/50 ml (Pmx)) 50 ml @ 100 mls/hr Q12 IVPB Last administered on 07/06/17 09:06; Admin Dose 100 MLS/HR; Start 07/04/17 at 09: 00 Ferrous Sulfate (Ferrous Sulfate (Ec)) 325 mg TID PO Last administered on 07/06 08:58; Admin Dose 325 MG; Start 07/04/17 at 09:00 Insulin Glargine (Lantus) 16 unit DAILY@20 SC Last administered on 07/05/17 20:40; Admin Dose 16 UNIT; Start 07/04/17 at 20:00 Diagnostic Test (Pha) (Accu-Chek) 1 ea 02 XX ; Start 07/05/17 at 02:00 Miscellaneous Information 1 ea NOTE XX ; Start 07/04/17 at 06:15 Glucose (Glutose) 15 gm Q15M PRN PO DECREASED GLUCOSE; Start 07/04/17 at 06:15 Glucose (Glutose) 22.5 gm Q15M PRN PO DECREASED GLUCOSE; Start 07/04/17 at 06: 15 Dextrose (D50w Syringe) 25 ml Q15M PRN IV DECREASED GLUCOSE; Start 07/04/17 at 06:15 Dextrose (D50w Syringe) 50 ml Q15M PRN IV DECREASED GLUCOSE; Start 07/04/17 at 06:15 Glucagon (Glucagen) 1 mg Q15M PRN IM DECREASED GLUCOSE; Start 07/04/17 at 06: 15 Glucose (Glutose) 15 gm Q15M PRN BUCCAL DECREASED GLUCOSE; Start 07/04/17 at 06:15 Atorvastatin Calcium 10 mg 10 mg HS PO Last administered on 07/05/17 20:35; Admin Dose 10 MG; Start 07/05/17 at 21:00 Vancomycin HCl (Vancocin) 250 ml @ 125 mls/hr Q12H IVPB Last administered on 07/06/17 04:53; Admin Dose 125 MLS/HR; Start 07/06/17 at 05:00 JEANNETTE MOSLEY NP Jul 06, 2017 11:22
[2017-07-06 13:02] LABS: IRON 67 ug/dl (35-150)
[2017-07-06 13:12] LABS: TOTAL IRON BINDING CAPACITY 264 ug/dl (241-421)
[2017-07-06 13:25] VITALS: BP 115/76; RESP 18
[2017-07-06 19:35] VITALS: BP 94/60; RESP 16
[2017-07-06] MEDS: ATORVASTATIN 10 MG TAB PO SCH (20:19)
[2017-07-06] MEDS: INSULIN GLARGINE [LANtus] 3 ML PEN SC SCH (20:23)
[2017-07-07 01:45] VITALS: BP 91/54; RESP 18
[2017-07-07] MEDS: ACCU-CHEK XX SCH (02:00)
[2017-07-07] MEDS: VANCOMYCIN 1 GM in NS 250 ML IVPB SCH ×2 (05:41→17:19)
[2017-07-07 06:06] LABS: BASOPHILS % 0.4 % (0.0-2.0); EOSINOPHILS # 0.1 10^3/ul (0.0-0.5); EOSINOPHILS % 2.6 % (0.0-7.0); HEMATOCRIT 34.1 % (42.0-52.0); HEMOGLOBIN 11.4 g/dl (14.0-18.0); LYMPHOCYTES # 1.7 10^3/ul (0.8-2.9); LYMPHOCYTES % 34.2 % (15.0-51.0); MEAN CORPUSCULAR HEMOGLOBIN 28.9 pg (29.0-33.0); MEAN CORPUSCULAR HGB CONC 33.4 g/dl (32.0-37.0); MEAN CORPUSCULAR VOLUME 86.5 fl (82.0-101.0); MEAN PLATELET VOLUME 10.1 fl (7.4-10.4); MONOCYTE # 0.3 10^3/ul (0.3-0.9); MONOCYTES % 6.9 % (0.0-11.0); NEUTROPHIL # 2.7 10^3/ul (1.6-7.5); NEUTROPHILS % 55.7 % (39.0-77.0); PLATELET COUNT 217 10^3/UL (140-415); RED BLOOD COUNT 3.94 10^6/ul (4.70-6.10); RED CELL DISTRIBUTION WIDTH 13.2 % (11.5-14.5); WHITE BLOOD COUNT 4.9 10^3/ul (4.8-10.8)
[2017-07-07 06:41] LABS: CALCIUM 9.2 mg/dl (8.4-10.2); CREATININE 0.92 mg/dl (0.61-1.24); POTASSIUM 4.2 mmol/L (3.5-5.1)
[2017-07-07] MEDS: INSULIN ASPART [NOVOLOG] 3 ML PEN SC SCH ×7 (07:50→21:00)
[2017-07-07 07:51] VITALS: BP 114/68; RESP 18
[2017-07-07] MEDS: FERROUS SULFATE (EC) 325 MG TAB PO SCH (08:49)
[2017-07-07] MEDS: CEFEPIME 1GM/50 ML (PMX) 50 ML IVPB SCH ×2 (08:49→21:17)
[2017-07-07] MEDS: HEPARIN 5,000 UNIT/0.5 ML VIAL SC SCH ×2 (09:00→21:12)
--- NOTE | 2017-07-07 09:38 | PN ---
Date/Time of Note Date/Time of Note DATE: 07/07/17 TIME: 09:34 Assessment/Plan VTE Prophylaxis VTE Prophylaxis Intervention: heparin Lines/Catheters IV [facility] ([facility] Peripheral IV Urinary Cath still in place: No Assessment/Plan Chief Complaint/Hosp Course 51-year-old male with history of diabetes, admitted with worsening ulcers on the right great toe, left second and fifth toes. 1. Bilateral diabetic foot ulcers with osteomyelitis.MRI with Osteomyelitis within the left fifth distal phalanx ,Right first and progression to second digit. -Continue broad-spectrum IV antibiotics,local care, and follow-up final cultures- so far negative. -Follow-up with ID/podiatry recommendations. 2. Type 2 diabetes, poorly controlled. A1c 10.3. Patient with good glycemic control. -Continue with Accu-Cheks/ISS/Lantus and pre-meal aspart. -DM education. 3. Anemia, chronic. Stable H&H. - Patient with normal iron panel and does not require any further iron supplementation. 4. Hypercholesterolemia. -On statin therapy. 5. 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 Plan:Podiatry consult has been requested and pending. Continue wound care. Follow-up with ID and podiatry recommendation. Patient was seen in collaboration with . Problems: Subjective 24 Hr Interval Summary Free Text/Dictation No acute overnight episodes. Patient remains afebrile. Pending podiatry evaluation. Exam/Review of Systems Vital Signs Vitals Vital Signs Date Time Temp Pulse Resp B/P Pulse Ox O2 Delivery O2 Flow Rate FiO2 07/07/17 07:51 98.2 62 18 114/68 95 07/04/17 04:28 Room Air Intake and Output 07/06/17 07/06/17 07/07/17 15:00 23:00 07:00 Intake Total 1380 ml 960 ml Output Total 1350 ml 1400 ml Balance 30 ml -440 ml Exam General: Well developed,adequately built, not in any acute distress . HEENT: Normocephalic, Atraumatic, No laceration or hematoma; Eyes: PEERL, Conjunctiva clear, Anicteric sclera Neck: Supple without any lymphadenopathy, nontender, no JVD, no carotid bruits, trachea midline, no thyromegaly Cardiac: S1, S2 auscultated, regular rhythm and rate, no mumurs or gallop Pulmonary: Normal respiratory effort. Chest clear to auscultation bilaterally, no adventitious breath sounds GI: Abdomen normal to inspection. Soft, non tender, non- distended, no masses, no rebound tenderness or guarding. Bowel sounds active on all four quadrants Genitourinary: Deferred Extremities: Open ulcer on the plantar aspect of the right great toe and left fifth toe. Dry ulceration left second toe. Missing left great toe. No cyanosis, clubbing, or edema. Pulses [2+] bilaterally. Full ROM on all four extremities. No focal weakness appreciated. Neurologic: Alert to person, place, time, and situation. Affect appropriate, intact sensation. Skin: Clean,dry, and intact. No ecchymosis, no rashes, or lesions Results Result Diagram: 07/07/17 0438 07/07/17 0438 Results 24 hrs Laboratory Tests Test 07/06/17 10:55 07/06/17 13:01 07/06/17 17:44 07/06/17 20:22 Iron Level 67 Total Iron Binding Capacity 264 Percent Iron Saturation 25 Bedside Glucose 243 H 111 102 Test 07/07/17 04:38 07/07/17 08:44 White Blood Count 4.9 Red Blood Count 3.94 L Hemoglobin 11.4 L Hematocrit 34.1 L Mean Corpuscular Volume 86.5 Mean Corpuscular Hemoglobin 28.9 L Mean Corpuscular Hemoglobin Concent 33.4 Red Cell Distribution Width 13.2 Platelet Count 217 Mean Platelet Volume 10.1 Neutrophils % 55.7 Lymphocytes % 34.2 Monocytes % 6.9 Eosinophils % 2.6 Basophils % 0.4 Nucleated Red Blood Cells % 0.0 Neutrophils # 2.7 Lymphocytes # 1.7 Monocytes # 0.3 Eosinophils # 0.1 Basophils # 0.0 Nucleated Red Blood Cells # 0.0 Sodium Level 138 Potassium Level 4.2 Chloride Level 101 Carbon Dioxide Level 28 Anion Gap 13 Blood Urea Nitrogen 23 H Creatinine 0.92 Glucose Level 175 Calcium Level 9.2 Bedside Glucose 134 Medications Medications Current Medications Ondansetron HCl (Zofran Inj) 4 mg Q6H PRN IV NAUSEA AND/OR VOMITING; Start 09/08 at 06:00 Acetaminophen (Tylenol Tab) 650 mg Q6H PRN PO PAIN LEVEL 1-3 OR FEVER; Start 07/04/17 at 06:00 Morphine Sulfate (morphine) 2 mg Q4H PRN IV PAIN LEVEL 7-10; Start 07/04/17 at 06:00 Heparin Sodium (Porcine) 5000 unit 5,000 unit Q12 SC Last administered on 07/07 09:00; Admin Dose 5,000 UNIT; Start 07/04/17 at 09:00 Cefepime HCl (Maxipime 1gm/50 ml (Pmx)) 50 ml @ 100 mls/hr Q12 IVPB Last administered on 07/07/17 08:49; Admin Dose 100 MLS/HR; Start 07/04/17 at 09: 00 Ferrous Sulfate (Ferrous Sulfate (Ec)) 325 mg TID PO Last administered on 07/07 08:49; Admin Dose 325 MG; Start 07/04/17 at 09:00 Insulin Glargine (Lantus) 16 unit DAILY@20 SC Last administered on 07/06/17 20:23; Admin Dose 16 UNIT; Start 07/04/17 at 20:00 Diagnostic Test (Pha) (Accu-Chek) 1 ea 02 XX ; Start 07/05/17 at 02:00 Miscellaneous Information 1 ea NOTE XX ; Start 07/04/17 at 06:15 Glucose (Glutose) 15 gm Q15M PRN PO DECREASED GLUCOSE; Start 07/04/17 at 06:15 Glucose (Glutose) 22.5 gm Q15M PRN PO DECREASED GLUCOSE; Start 07/04/17 at 06: 15 Dextrose (D50w Syringe) 25 ml Q15M PRN IV DECREASED GLUCOSE; Start 07/04/17 at 06:15 Dextrose (D50w Syringe) 50 ml Q15M PRN IV DECREASED GLUCOSE; Start 07/04/17 at 06:15 Glucagon (Glucagen) 1 mg Q15M PRN IM DECREASED GLUCOSE; Start 07/04/17 at 06: 15 Glucose (Glutose) 15 gm Q15M PRN BUCCAL DECREASED GLUCOSE; Start 07/04/17 at 06:15 Atorvastatin Calcium 10 mg 10 mg HS PO Last administered on 07/06/17 20:19; Admin Dose 10 MG; Start 07/05/17 at 21:00 Vancomycin HCl (Vancocin) 250 ml @ 125 mls/hr Q12H IVPB Last administered on 07/07/17t 05:41; Admin Dose 125 MLS/HR; Start 07/06/17 at 05:00 Miscellaneous Information (*Rx Drug Level Order Reminder*) VANCOMYCIN TROUGH AT 1600 ONCE ONCE XX ; Start 07/07/17 at 16:00; Stop 07/07/17 at 16:01 ANNE MARIE JOSHI NP Jul 07, 2017 09:38
[2017-07-07 14:00] VITALS: BP 96/60; RESP 18
--- NOTE | 2017-07-07 14:13 | CONS ---
Date/Time of Note Date/Time of Note DATE: 07/07/17 TIME: 14:11 Assessment/Plan Assessment/Plan Chief Complaint/Hosp Course ID PROGRESS NOTE CURRENT ABX: DAY #4 => Vanco IV + Cefepime 24H INTERVAL SUMMARY * Pending podiatry consult next week, continues on ABX, no fevers, VSS * c/o pain in bilateral feet - hx of partial amputation bilaterally * MRI LEFT FOOT 07/05/17 IMPRESSION: * 1. Osteomyelitis within the fifth distal phalanx with abnormal marrow signal/ marrow edema with an adjacent skin ulcer. * 2. Post amputation of the first distal phalanx and a portion of the first proximal phalanx without evidence of acute osteomyelitis. * 3. Cortical irregularity and blunting of the second distal phalanx from chronic osteomyelitis. * 4. Degenerative changes within the second metatarsophalangeal joint with bony remodelling, osseous spurring, and a joint effusion with synovitis with degeneration/tearing of the plantar plate. * 5. Abnormal appearance of the third proximal phalanx with subluxation at the proximal interphalangeal joint and nonvisualization of the distal phalanx which may be from chronic osteomyelitis with amputation or bony resorption. * MRI RIGHT FOOT 07/05/17: IMPRESSION: * 1. Progression of the osteomyelitis involving the second digit with increased bony destructive changes within the proximal phalanx and distal metatarsal post amputation of the middle and distal phalanges with abnormal marrow signal. Decreased subcutaneous gas within small amount of adjacent loculated fluid but no large drainable abscess. * 2. Similar appearance of the osteomyelitis involving the first distal and proximal phalanges with an adjacent skin ulcer. * 3. Improvement of the osteomyelitis within the third proximal phalanx with decreased marrow edema. Physical Exam Physical Exam Constitutional: VSS, NAD HEENT: Unremarkable Neck: Supple, full ROM Respiratory: Equal chest rise bilaterally, without dyspnea on observation Cardiovascular: nl pulse Gastrointestinal: Soft, NT Extremities: Warm, foot ulcers open to airs Neurological: nl mental status, nl speech, nl strength ID ASSESSMENT 51 yo M admit with: 1. Bilateral foot diabetic foot ulcers with bilateral osteomyelitis as described per MRI results from 07/05/17 2. Type 2 diabetes 3. Diabetic peripheral neuropathy 4. History of iron deficiency anemia ABX ALLERGIES: KNDA CURRENT ABX: DAY #4 => Vanco IV + Cefepime ID RECOMMENDATIONS 1. Continue current ABX -- anticipate minimum 6 weeks 2. Check MRSA Nares. 3. Awaiting podiatry consult recommendations after the weekend. . Problems: Consultation Date/Type/Reason Admit Date/Time Jul 04, 2017 at 02:44 Type of Consultation: ID Exam/Review of Systems Vital Signs Vitals Vital Signs Date Time Temp Pulse Resp B/P Pulse Ox O2 Delivery O2 Flow Rate FiO2 07/07/17 07:51 98.2 62 18 114/68 95 07/04/17 04:28 Room Air Intake and Output 07/06/17 07/06/17 07/07/17 15:00 23:00 07:00 Intake Total 1380 ml 960 ml Output Total 1350 ml 1400 ml Balance 30 ml -440 ml Results Result Diagram: 07/07/17 0438 07/07/17 0438 Results 24 hrs Laboratory Tests Test 07/06/17 17:44 07/06/17 20:22 07/07/17 04:38 07/07/17 08:44 Bedside Glucose 111 102 134 White Blood Count 4.9 Red Blood Count 3.94 L Hemoglobin 11.4 L Hematocrit 34.1 L Mean Corpuscular Volume 86.5 Mean Corpuscular Hemoglobin 28.9 L Mean Corpuscular Hemoglobin Concent 33.4 Red Cell Distribution Width 13.2 Platelet Count 217 Mean Platelet Volume 10.1 Neutrophils % 55.7 Lymphocytes % 34.2 Monocytes % 6.9 Eosinophils % 2.6 Basophils % 0.4 Nucleated Red Blood Cells % 0.0 Neutrophils # 2.7 Lymphocytes # 1.7 Monocytes # 0.3 Eosinophils # 0.1 Basophils # 0.0 Nucleated Red Blood Cells # 0.0 Sodium Level 138 Potassium Level 4.2 Chloride Level 101 Carbon Dioxide Level 28 Anion Gap 13 Blood Urea Nitrogen 23 H Creatinine 0.92 Glucose Level 175 Calcium Level 9.2 Test 07/07/17 12:36 Bedside Glucose 264 H Medications Medications Current Medications Ondansetron HCl (Zofran Inj) 4 mg Q6H PRN IV NAUSEA AND/OR VOMITING; Start 09/08 at 06:00 Acetaminophen (Tylenol Tab) 650 mg Q6H PRN PO PAIN LEVEL 1-3 OR FEVER; Start 07/04/17 at 06:00 Morphine Sulfate (morphine) 2 mg Q4H PRN IV PAIN LEVEL 7-10; Start 07/04/17 at 06:00 Heparin Sodium (Porcine) 5000 unit 5,000 unit Q12 SC Last administered on 07/07 09:00; Admin Dose 5,000 UNIT; Start 07/04/17 at 09:00 Cefepime HCl (Maxipime 1gm/50 ml (Pmx)) 50 ml @ 100 mls/hr Q12 IVPB Last administered on 07/07/17 08:49; Admin Dose 100 MLS/HR; Start 07/04/17 at 09: 00 Insulin Glargine (Lantus) 16 unit DAILY@20 SC Last administered on 07/06/17 20:23; Admin Dose 16 UNIT; Start 07/04/17 at 20:00 Diagnostic Test (Pha) (Accu-Chek) 1 ea 02 XX ; Start 07/05/17 at 02:00 Miscellaneous Information 1 ea NOTE XX ; Start 07/04/17 at 06:15 Glucose (Glutose) 15 gm Q15M PRN PO DECREASED GLUCOSE; Start 07/04/17 at 06:15 Glucose (Glutose) 22.5 gm Q15M PRN PO DECREASED GLUCOSE; Start 07/04/17 at 06: 15 Dextrose (D50w Syringe) 25 ml Q15M PRN IV DECREASED GLUCOSE; Start 07/04/17 at 06:15 Dextrose (D50w Syringe) 50 ml Q15M PRN IV DECREASED GLUCOSE; Start 07/04/17 at 06:15 Glucagon (Glucagen) 1 mg Q15M PRN IM DECREASED GLUCOSE; Start 07/04/17 at 06: 15 Glucose (Glutose) 15 gm Q15M PRN BUCCAL DECREASED GLUCOSE; Start 07/04/17 at 06:15 Atorvastatin Calcium 10 mg 10 mg HS PO Last administered on 07/06/17 20:19; Admin Dose 10 MG; Start 07/05/17 at 21:00 Vancomycin HCl (Vancocin) 250 ml @ 125 mls/hr Q12H IVPB Last administered on 07/07/17 05:41; Admin Dose 125 MLS/HR; Start 07/06/17 at 05:00 Miscellaneous Information (*Rx Drug Level Order Reminder*) VANCOMYCIN TROUGH 10 / 15 AT 1600 ONCE ONCE XX ; Start 07/07/17 at 16:00; Stop 07/07/17 at 16:01 JEANNETTE MOSLEY NP Jul 07, 2017 14:13
--- NOTE | 2017-07-07 16:06 | CONS ---
DATE OF ADMISSION: 07/04/2017 DATE OF CONSULTATION: 07/07/2017 VASCULAR SURGERY CONSULTATION Dear Doctors: Mr. Orozco is a 51-year-old gentleman known to our vascular surgery service as he has been evalua chhaya by us at [facility] secondary to bilateral lower extremity atherosclerosis, wh o presented with new onset of bilateral lower extremity foot ulcers of the right first toe and the l eft fifth toe and second toe, for which required admission and to be started on IV antibiotics. At the moment, the patient denies shortness of breath, chest pain, nausea, vomiting, fever or chills. It seems the patient has been trying to be compliant with his medical status of diabetes and hyperte nsion and his local wound care. Otherwise denies current rest pain or discomfort. PAST MEDICAL HISTORY: Entails type 2 diabetes, iron deficiency anemia, bilateral lower extremity os teomyelitis, bilateral lower extremity atherosclerosis with ulcers, hypertension and hypercholestero lemia. PAST SURGICAL HISTORY: Left first toe amputation and right second toe amputation, and multiple debr idements of the foot. SOCIAL HISTORY: Denies tobacco, alcohol or illicit drug use. FAMILY HISTORY: Positive for hypertension, diabetes. PHYSICAL EXAMINATION: GENERAL: Alert and oriented x3, no apparent distress. HEENT: Normocephalic, atraumatic. PERRLA, EOMI. Mucosa moist. NECK: Supple. No carotid bruit. PULMONARY: Clear to auscultation bilaterally. No crackles. CARDIOVASCULAR: S1, S2 present. No murmurs. ABDOMEN: Soft, nontender, nondistended. Bowel sounds positive. EXTREMITIES: Right lower extremity: Palpable femoral pulse, nonpalpable pedal pulse. Motor, sensory intact. Ca pillary refill 3 seconds. There is a previous second toe amputation site that is well healed. The first toe has an ulcer on the plantar aspect with some surrounding erythema and some fibrinous tissu e. Left lower extremity: Palpable femoral pulse, nonpalpable pedal pulse. Motor, sensory intact. Cap refill 3 to 4 seconds. Previous left first toe amputation site that is well healed. Left fifth to e ulcer without any surrounding erythema and some fibrinous tissue in the wound. ASSESSMENT AND PLAN: 1. Bilateral lower extremity atherosclerosis with bilateral lower extremity diabetic foot ulcers: It seems the patient's diabetic foot ulcers have worsened, in which he has redeveloped a diabetic fo ot infection with worsening of his ulcers. From a vascular surgery standpoint, the patient has had previous noninvasive vascular studies of the lower extremities that demonstrated calcified disease i n his tibial vessels. We will plan to obtain a new ultrasound as the previous one was back in December . The patient may require further evaluation with an angiogram and possible intervention, as the pa tient does not have palpable pedal pulses. 2. Optimize vascular status (BP meds, diet, nutrition, exercise, sugar control, antiplatelets). 3. Discussed findings, plan and management with the patient with a certified mergers and acquisitions consultant and he deedee escobar. 4. Continue local wound care per our podiatry colleagues. Thank you for allowing us to partake in the care of your patient. Please call with any questions. Dictated By: PENG DIAZ/KIKI Conf#: [id number] DID#: [id number]
--- NOTE | 2017-07-07 16:33 | RADRPT ---
PROCEDURE: US Lower extremity arterial. CLINICAL INDICATION: Bilateral lower extremity pain. Ulcers. TECHNIQUE: Multiple sonographic images of the bilateral lower extremity arteries were obtained uti lizing almaraz scale, color-flow and doppler imaging. COMPARISON: 01/19/2017 FINDINGS: There is no significant calcific plaque. Velocities and waveforms were obtained as described below. RIGHT LEG: Right common femoral artery: 83 cm/s; triphasic waveforms Right proximal superficial femoral artery: 91 cm/s; triphasic waveforms Right mid superficial femoral artery: 65 cm/s; triphasic waveforms Right distal superficial femoral artery: 47 cm/s; triphasic waveforms Right popliteal artery: 42 cm/s; triphasic waveforms Right posterior tibial artery: 70 cm/s; triphasic waveforms Right dorsalis pedis artery: 19 cm/s; triphasic waveforms LEFT LEG: Left common femoral artery: 69 cm/s; triphasic waveforms Left proximal superficial femoral artery: 78 cm/s; triphasic waveforms Left mid superficial femoral artery: 87 cm/s; triphasic waveforms Left distal superficial femoral artery: 58 cm/s; triphasic waveforms Left popliteal artery: 39 cm/s; triphasic waveforms Left posterior tibial artery: 80 cm/s; triphasic waveforms Left dorsalis pedis artery: 30 cm/s; triphasic waveforms IMPRESSION: No significant arterial stenosis in either leg. RPTAT:AAJJ Physician Kimberly Date Time Electronically viewed and signed by Physician Kimberly on 07/07/2017 16:33 /
[2017-07-07 19:30] VITALS: BP 103/65; RESP 20
[2017-07-07] MEDS ORDERED: FERROUS SULFATE (EC) 325 MG TAB PO SCH (21:00)
[2017-07-07] MEDS: ATORVASTATIN 10 MG TAB PO SCH (21:08)
[2017-07-07] MEDS: INSULIN GLARGINE [LANtus] 3 ML PEN SC SCH (21:12)
[2017-07-08] MEDS: ACCU-CHEK XX SCH (02:00)
[2017-07-08] MEDS: VANCOMYCIN 1 GM in NS 250 ML IVPB SCH ×2 (05:13→17:23)
[2017-07-08 06:34] LABS: CALCIUM 9.6 mg/dl (8.4-10.2); CREATININE 0.94 mg/dl (0.61-1.24); POTASSIUM 4.3 mmol/L (3.5-5.1)
[2017-07-08 07:35] VITALS: BP 92/55; RESP 19
[2017-07-08 07:45] LABS: BASOPHILS % 0.7 % (0.0-2.0); EOSINOPHILS # 0.2 10^3/ul (0.0-0.5); EOSINOPHILS % 2.8 % (0.0-7.0); HEMATOCRIT 34.9 % (42.0-52.0); LYMPHOCYTES # 1.8 10^3/ul (0.8-2.9); LYMPHOCYTES % 29.8 % (15.0-51.0); MEAN CORPUSCULAR HEMOGLOBIN 30.1 pg (29.0-33.0); MEAN CORPUSCULAR HGB CONC 34.4 g/dl (32.0-37.0); MEAN CORPUSCULAR VOLUME 87.5 fl (82.0-101.0); MEAN PLATELET VOLUME 10.2 fl (7.4-10.4); MONOCYTE # 0.4 10^3/ul (0.3-0.9); MONOCYTES % 6.8 % (0.0-11.0); NEUTROPHIL # 3.6 10^3/ul (1.6-7.5); NEUTROPHILS % 59.6 % (39.0-77.0); PLATELET COUNT 218 10^3/UL (140-415); RED BLOOD COUNT 3.99 10^6/ul (4.70-6.10); RED CELL DISTRIBUTION WIDTH 13.2 % (11.5-14.5); WHITE BLOOD COUNT 6.1 10^3/ul (4.8-10.8)
--- NOTE | 2017-07-08 07:54 | PN ---
DATE: 07/05/2017 SUBJECTIVE: No acute changes. The patient is alert, feels good, looks comfortable, no fevers, no p ain. WBC 5.3, no shift, no bands. BUN 15, creatinine 0.92. ANTIMICROBIALS: 1. Vancomycin. 2. Cefepime. PHYSICAL EXAMINATION: GENERAL: Well-developed, middle-aged man in no distress. HEENT: Head atraumatic, normocephalic. Sclerae anicteric. Buccal mucosa pink. NECK: Supple. CHEST: Rise symmetrical. Breath sounds clear. HEART: S1, S2. ABDOMEN: Soft, bowel tones present. EXTREMITIES: Bilateral toe wounds on the bottom. ASSESSMENT: 1. Bilateral lower extremity osteomyelitis of the toes. 2. Diabetes mellitus, poorly controlled. 3. Anemia. PLAN: The patient remains stable, covered with broad spectrum antibiotics, pending MRI. Consider p odiatry evaluation. Dictated By: OBINNA MIRAMONTES YARN MERCERIZER OPERATOR HELPER for ROMI SMITH/KIKI Conf#: [id number] DID#: [id number]
--- NOTE | 2017-07-08 08:57 | PN ---
Date/Time of Note Date/Time of Note DATE: 07/08/17 TIME: 08:54 Assessment/Plan VTE Prophylaxis VTE Prophylaxis Intervention: heparin Lines/Catheters IV C[facility]ter Type (from [facility]): Peripheral IV Urinary Cath still in place: No Assessment/Plan Chief Complaint/Hosp Course 51-year-old male with history of diabetes, admitted with worsening ulcers on the right great toe, left second and fifth toes. 1. Bilateral diabetic foot ulcers with osteomyelitis.MRI with Osteomyelitis within the left fifth distal phalanx ,Right first and progression to second digit. Arterial Studies with no significant stenosis. -Continue broad-spectrum IV antibiotics,local care, and follow-up final cultures- so far negative. -Follow-up with ID/podiatry/vascular recommendations. 2. Type 2 diabetes, poorly controlled. A1c 10.3. -Continue with Accu-Cheks/ISS/Lantus and pre-meal aspart. -DM education. 3. Anemia, chronic. Stable H&H. - Patient with normal iron panel and does not require any further iron supplementation. 4. Hypercholesterolemia. -On statin therapy. 5. 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 Plan:Podiatry consult has been requested and pending. Continue wound care. Follow-up with ID/Vascular and podiatry recommendation. Proceed with PICC line insertion with anticipation of long-term IV antibiotics. Patient was seen in collaboration with Problems: Subjective 24 Hr Interval Summary Free Text/Dictation No acute overnight episodes. Exam/Review of Systems Vital Signs Vitals Vital Signs Date Time Temp Pulse Resp B/P Pulse Ox O2 Delivery O2 Flow Rate FiO2 07/08/17 07:35 98.0 69 19 92/55 98 Intake and Output 07/07/17 07/07/17 07/08/17 15:00 23:00 07:00 Intake Total 300 ml 1200 ml 400 ml Output Total 1100 ml 700 ml Balance 300 ml 100 ml -300 ml Exam General: Well developed,adequately built, not in any acute distress . HEENT: Normocephalic, Atraumatic, No laceration or hematoma; Eyes: PEERL, Conjunctiva clear, Anicteric sclera Neck: Supple without any lymphadenopathy, nontender, no JVD, no carotid bruits, trachea midline, no thyromegaly Cardiac: S1, S2 auscultated, regular rhythm and rate, no mumurs or gallop Pulmonary: Normal respiratory effort. Chest clear to auscultation bilaterally, no adventitious breath sounds GI: Abdomen normal to inspection. Soft, non tender, non- distended, no masses, no rebound tenderness or guarding. Bowel sounds active on all four quadrants Genitourinary: Deferred Extremities: Open ulcer on the plantar aspect of the right great toe and left fifth toe. Dry ulceration left second toe. Missing left great toe. No cyanosis, clubbing, or edema. Pulses [1+] bilaterally. Full ROM on all four extremities. No focal weakness appreciated. Neurologic: Alert to person, place, time, and situation. Affect appropriate, intact sensation. Skin: Clean,dry, and intact. No ecchymosis, no rashes, or lesions Results Result Diagram: 07/08/17 0445 07/08/17 0445 Results 24 hrs Laboratory Tests Test 07/07/17 12:36 07/07/17 16:07 07/07/17 17:35 07/07/17 21:09 Bedside Glucose 264 H 147 134 Vancomycin Level Trough 13.9 Test 07/08/17 04:45 White Blood Count 6.1 # Red Blood Count 3.99 L Hemoglobin 12.0 L Hematocrit 34.9 L Mean Corpuscular Volume 87.5 Mean Corpuscular Hemoglobin 30.1 Mean Corpuscular Hemoglobin Concent 34.4 Red Cell Distribution Width 13.2 Platelet Count 218 Mean Platelet Volume 10.2 Neutrophils % 59.6 Lymphocytes % 29.8 Monocytes % 6.8 Eosinophils % 2.8 Basophils % 0.7 Nucleated Red Blood Cells % 0.0 Neutrophils # 3.6 Lymphocytes # 1.8 Monocytes # 0.4 Eosinophils # 0.2 Basophils # 0.0 Nucleated Red Blood Cells # 0.0 Sodium Level 139 Potassium Level 4.3 Chloride Level 102 Carbon Dioxide Level 29 Anion Gap 12 Blood Urea Nitrogen 21 H Creatinine 0.94 Glucose Level 127 # Calcium Level 9.6 Medications Medications Current Medications Ondansetron HCl (Zofran Inj) 4 mg Q6H PRN IV NAUSEA AND/OR VOMITING; Start 09/08 at 06:00 Acetaminophen (Tylenol Tab) 650 mg Q6H PRN PO PAIN LEVEL 1-3 OR FEVER; Start 07/04/17 at 06:00 Morphine Sulfate (morphine) 2 mg Q4H PRN IV PAIN LEVEL 7-10; Start 07/04/17 at 06:00 Heparin Sodium (Porcine) 5000 unit 5,000 unit Q12 SC Last administered on 07/07 21:12; Admin Dose 5,000 UNIT; Start 07/04/17 at 09:00 Cefepime HCl (Maxipime 1gm/50 ml (Pmx)) 50 ml @ 100 mls/hr Q12 IVPB Last administered on 07/07/17 21:17; Admin Dose 100 MLS/HR; Start 07/04/17 at 09: 00 Insulin Glargine (Lantus) 16 unit DAILY@20 SC Last administered on 07/07/17 21:12; Admin Dose 16 UNIT; Start 07/04/17 at 20:00 Diagnostic Test (Pha) (Accu-Chek) 1 ea 02 XX ; Start 07/05/17 at 02:00 Miscellaneous Information 1 ea NOTE XX ; Start 07/04/17 at 06:15 Glucose (Glutose) 15 gm Q15M PRN PO DECREASED GLUCOSE; Start 07/04/17 at 06:15 Glucose (Glutose) 22.5 gm Q15M PRN PO DECREASED GLUCOSE; Start 07/04/17 at 06: 15 Dextrose (D50w Syringe) 25 ml Q15M PRN IV DECREASED GLUCOSE; Start 07/04/17 at 06:15 Dextrose (D50w Syringe) 50 ml Q15M PRN IV DECREASED GLUCOSE; Start 07/04/17 at 06:15 Glucagon (Glucagen) 1 mg Q15M PRN IM DECREASED GLUCOSE; Start 07/04/17 at 06: 15 Glucose (Glutose) 15 gm Q15M PRN BUCCAL DECREASED GLUCOSE; Start 07/04/17 at 06:15 Atorvastatin Calcium 10 mg 10 mg HS PO Last administered on 07/07/17 21:08; Admin Dose 10 MG; Start 07/05/17 at 21:00 Vancomycin HCl (Vancocin) 250 ml @ 125 mls/hr Q12H IVPB Last administered on 07/08/17 05:13; Admin Dose 125 MLS/HR; Start 07/06/17 at 05:00 ANNE MARIE JOSHI NP Jul 08, 2017 08:57
[2017-07-08] MEDS: INSULIN ASPART [NOVOLOG] 3 ML PEN SC SCH ×7 (09:21→21:00)
[2017-07-08] MEDS: HEPARIN 5,000 UNIT/0.5 ML VIAL SC SCH ×2 (09:21→21:09)
[2017-07-08] MEDS: CEFEPIME 1GM/50 ML (PMX) 50 ML IVPB SCH (09:25)
[2017-07-08] MEDS ORDERED: LIDOCAINE 1% (MPF) 5 ML VIAL SC ONE (09:30)
--- NOTE | 2017-07-08 11:09 | RADRPT ---
PROCEDURE: US guidance for PICC line CLINICAL INDICATION: PICC line placement TECHNIQUE: Multiple real-time images were acquired of the patient's arm utilizing a high resolutio n transducer. This was performed by the PICC line nurse for venous access. COMPARISON: None FINDINGS: Ultrasound guidance for PICC line placement. IMPRESSION: Ultrasound guidance for PICC line placement. RPTAT: AA .Joselito Harman MD, MD Date Time Electronically viewed and signed by .Joselito Harman MD, on 07/08/2017 11:09 .S/
--- NOTE | 2017-07-08 11:09 | RADRPT ---
PROCEDURE: XR Chest. CLINICAL INDICATION: PICC line placement TECHNIQUE: Single frontal view of the chest was obtained COMPARISON: CR CHEST 04/08/2015 FINDINGS: There is a new left-sided PICC line in place with its tip overlying the cavoatrial junction. The heart, mediastinum, and lungs are unchanged. The heart is normal in size. There is mild elevation of the right diaphragm. Lungs are clear. RPTAT: AA IMPRESSION: New PICC line in appropriate position. .Joselito Harman MD, MD Date Time Electronically viewed and signed by .Joselito Harman MD, MD on 07/08/2017 11:08 .S/
[2017-07-08] MEDS ORDERED: SOD CHLORIDE 0.9% 100 ML ONE (13:08)
[2017-07-08] MEDS ORDERED: LEVOFLOXACIN 500 MG TAB PO ONE (13:30)
[2017-07-08 14:00] VITALS: BP 101/71; RESP 18
--- NOTE | 2017-07-08 15:02 | CONS ---
Date/Time of Note Date/Time of Note DATE: 07/08/17 TIME: 14:55 Consultation Date/Type/Reason Admit Date/Time Jul 04, 2017 at 02:44 Initial Consult Date SUBJECTIVE: 51 y/o male being treated for BLE osteo. Tolerating IV antbx well and daily wound care. No acute changes. He is awake,alert, feels good, looks comfortable. Denies fevers, pain. VS: 92/55 P: 69 R:19 T: 98.0 SO2:98% LABS: WBC 6.1 H&H: 12.0/34.9. BUN-21, creatinine 0.94 ANTIMICROBIALS: 1. Vancomycin. 2. Cefepime.- D/C. Start PO Levaquin. PHYSICAL EXAMINATION: GENERAL: Well-developed, middle-aged man in no distress. HEENT: Head atraumatic, normocephalic. Sclerae anicteric. Buccal mucosa pink. NECK: Supple. CHEST: Rise symmetrical. Breath sounds clear. HEART: S1, S2. ABDOMEN: Soft, bowel tones present. EXTREMITIES: Bilateral toe wounds on the bottom. ASSESSMENT: 1. Bilateral lower extremity osteomyelitis of the toes. 2. Diabetes mellitus, poorly controlled. 3. Anemia. PLAN: The patient remains stable. Continue with IV Vanco. D/C Cefepime and start PO Levaquin. Will need long therapy x6wks. Awaiting Podiatry eval. Type of Consultation: ID Exam/Review of Systems Vital Signs Vitals Vital Signs Date Time Temp Pulse Resp B/P Pulse Ox O2 Delivery O2 Flow Rate FiO2 07/08/17 07:35 98.0 69 19 92/55 98 Intake and Output 07/07/17 07/07/17 07/08/17 15:00 23:00 07:00 Intake Total 300 ml 1200 ml 400 ml Output Total 1100 ml 700 ml Balance 300 ml 100 ml -300 ml Results Result Diagram: 07/08/17 0445 07/08/17 0445 Results 24 hrs Laboratory Tests Test 07/07/17 16:07 07/07/17 17:35 07/07/17 21:09 07/08/17 04:45 Vancomycin Level Trough 13.9 Bedside Glucose 147 134 White Blood Count 6.1 # Red Blood Count 3.99 L Hemoglobin 12.0 L Hematocrit 34.9 L Mean Corpuscular Volume 87.5 Mean Corpuscular Hemoglobin 30.1 Mean Corpuscular Hemoglobin Concent 34.4 Red Cell Distribution Width 13.2 Platelet Count 218 Mean Platelet Volume 10.2 Neutrophils % 59.6 Lymphocytes % 29.8 Monocytes % 6.8 Eosinophils % 2.8 Basophils % 0.7 Nucleated Red Blood Cells % 0.0 Neutrophils # 3.6 Lymphocytes # 1.8 Monocytes # 0.4 Eosinophils # 0.2 Basophils # 0.0 Nucleated Red Blood Cells # 0.0 Sodium Level 139 Potassium Level 4.3 Chloride Level 102 Carbon Dioxide Level 29 Anion Gap 12 Blood Urea Nitrogen 21 H Creatinine 0.94 Glucose Level 127 # Calcium Level 9.6 Test 07/08/17 09:06 07/08/17 12:47 Bedside Glucose 231 H 252 H Medications Medications Current Medications Ondansetron HCl (Zofran Inj) 4 mg Q6H PRN IV NAUSEA AND/OR VOMITING; Start 09/08 at 06:00 Acetaminophen (Tylenol Tab) 650 mg Q6H PRN PO PAIN LEVEL 1-3 OR FEVER; Start 07/04/17 at 06:00 Morphine Sulfate (morphine) 2 mg Q4H PRN IV PAIN LEVEL 7-10; Start 07/04/17 at 06:00 Heparin Sodium (Porcine) (Heparin (5000 Units/0.5 ml)) 5,000 unit Q12 SC Last administered on 07/08/17 09:21; Admin Dose 5,000 UNIT; Start 07/04/17 at 09: 00 Insulin Glargine (Lantus) 16 unit DAILY@20 SC Last administered on 07/07/17 21:12; Admin Dose 16 UNIT; Start 07/04/17 at 20:00 Diagnostic Test (Pha) (Accu-Chek) 1 ea 02 XX ; Start 07/05/17 at 02:00 Miscellaneous Information 1 ea NOTE XX ; Start 07/04/17 at 06:15 Glucose (Glutose) 15 gm Q15M PRN PO DECREASED GLUCOSE; Start 07/04/17 at 06:15 Glucose (Glutose) 22.5 gm Q15M PRN PO DECREASED GLUCOSE; Start 07/04/17 at 06: 15 Dextrose (D50w Syringe) 25 ml Q15M PRN IV DECREASED GLUCOSE; Start 07/04/17 at 06:15 Dextrose (D50w Syringe) 50 ml Q15M PRN IV DECREASED GLUCOSE; Start 07/04/17 at 06:15 Glucagon (Glucagen) 1 mg Q15M PRN IM DECREASED GLUCOSE; Start 07/04/17 at 06: 15 Glucose (Glutose) 15 gm Q15M PRN BUCCAL DECREASED GLUCOSE; Start 07/04/17 at 06:15 Atorvastatin Calcium 10 mg 10 mg HS PO Last administered on 07/07/17 21:08; Admin Dose 10 MG; Start 07/05/17 at 21:00 Vancomycin HCl (Vancocin) 250 ml @ 125 mls/hr Q12H IVPB Last administered on 07/08/17 05:13; Admin Dose 125 MLS/HR; Start 07/06/17 at 05:00 IV Flush (NS 10 ml) 10 ml PRN PRN IV IV PROTOCOL; Start 07/08/17 at 11:30 Levofloxacin (Levaquin) 500 mg DAILY@06 PO ; Start 07/09/17 at 06:00 WILLIAM JOHN Jul 08, 2017 15:02
--- NOTE | 2017-07-08 18:23 | CONS ---
Date/Time of Note Date/Time of Note DATE: 07/06/17 TIME: 18:22 Assessment/Plan Assessment/Plan Problems: (1) Toe ulcer Status: Acute (2) Diabetes, polyneuropathy (3) Acquired absence of left great toe (4) Bunion (5) Hammertoe (6) Foot pain Status: Acute (7) Osteomyelitis Status: Acute (8) Diabetic foot ulcer Status: Acute (9) Non-pressure chronic ulcer of other part of right foot with necrosis of bone Additional Assessment/Plan Patient has had poor compliance with his medical care throughout the clinic and is now in the hospital with worsening of his condition. He has osteomyelitis of both feet and a chronic open wound on the right hallux and fifth toe on the left foot. Patient has had multiple amputations of toes in the past and his prognosis is guarded at this time. He is at high risk for limb loss. I would like him to continue IV antibiotics and we will monitor him. At this time, I do not recommend any type of surgery for him. He needs to have offloading of his right foot and I need him to increase his compliance in regards to his medical care. I have discussed this with him on multiple occasions in the past both in the clinic and now in the hospital setting. Daily dressing change bilateral feet. Nonweightbearing for now. Patient will be followed. Thank you again for involving me in the care of this patient. If you have any questions regarding this case, please feel free to contact me at pager: or reach me at mobile: [phone]. Consultation Date/Type/Reason Admit Date/Time Jul 04, 2017 at 02:44 Date of Consultation: Jul 06, 2017 Type of Consultation: Foot and ankle surgery Reason for Consultation Open wound right big toe and left fifth toe Hx of Present Illness Thank you very much for involving me in the care of this patient. As you very well know this is a 51-year-old male patient with multiple medical problems including diabetes mellitus type 2 with peripheral neuropathy and peripheral vascular disease, iron deficiency anemia who presented to the emergency room because he noted worsening ulcer on his right big toe. Patient has been seen and cared for the amputation prevention center and has been battling an open wound on the right big toe for a long time. Patient's compliance is under question and is a contributing factor to his condition getting worse. I was consulted to evaluate and treat. Patient denies any pain in his feet today and reports no fever, chills, nausea or vomiting. Patient has been placed on IV antibiotics from the emergency room. Bilateral x-ray of the food in the ER showed likely osteomyelitis of the right first and second toe as well as the left toes as well 12 point review of systems was done. Pertinent positives as per HPI. Constitutional: No chills, No diaphoresis, No disoriented, No febrile, No improved, No no complaints, No other, No poor po, No requiring IVF, No requiring O2 Eyes: No discharge, No no complaints, No other, No pain, No redness, No visual change ENT: No bleeding, No congestion, No discharge, No dysphagia, No no complaints, No other, No pain, No sore throat Cardiovascular: No chest pain, No edema, No lightheadedness, No no complaints, No orthopenea, No other, No palpitations, No paroxysmal nocturnal dyspnea Gastrointestinal: No blood, No constipation, No decreased appetite, No diarrhea , No flatus, No nausea, No no complaints, No other, No pain, No passing stool, No vomiting Psychological: No anxiety, No confusion, No depression, No nl mood/affect, No no complaints, No other, No suicidal Social History Smoking Status: Never smoker Exam/Review of Systems Vital Signs Vitals Vital Signs Date Time Temp Pulse Resp B/P Pulse Ox O2 Delivery O2 Flow Rate FiO2 07/08/17 14:00 98.0 61 18 101/71 97 Intake and Output 07/07/17 07/07/17 07/08/17 15:00 23:00 07:00 Intake Total 300 ml 1200 ml 400 ml Output Total 1100 ml 700 ml Balance 300 ml 100 ml -300 ml Exam Patient is in no acute distress laying supine in bed. Bandages were removed from the right big toe. Patient has an open wound on the plantar aspect of the right big toe with hyperextension at the interphalangeal joint. The base of the wound is 100% red granulation tissue surrounded by hyperkeratotic skin. The wound edge is sloping and there is no malodor present. There is mild edema and erythema of the big toe noted. No pus present in the wound does not probe to bone. Patient has contracted toes. Protective sensation is decreased to sharp, dull, vibratory and temperature stimuli. Labs reviewed. MRI of the right foot shows progression post amputation of the middle and distal phalanges with abnormal marrow signal. of osteomyelitis involving the second digit with increased bone destructive changes within the proximal phalanx and distal metatarsal there is similar appearance of osteomyelitis involving the first distal and proximal phalanges with an adjacent skin ulceration. Improvement of the osteomyelitis within the third proximal phalanx with decreased marrow edema noted. MRI of the left foot shows osteomyelitis within the fifth distal phalanx with abnormal marrow signal and marrow edema and adjacent skin ulceration. Post amputation of the first digit distal phalanx and a portion of the first proximal phalanx without evidence of acute osteomyelitis. There is cortical irregularity with blunting of the second distal phalanx from chronic osteomyelitis. Degenerative changes with the second metatarsophalangeal joints with bony remodeling noted as well. Results Result Diagram: 07/08/17 0445 07/08/17 0445 Results 24 hrs Laboratory Tests Test 07/07/17 21:09 07/08/17 04:45 07/08/17 09:06 07/08/17 12:47 Bedside Glucose 134 231 H 252 H White Blood Count 6.1 # Red Blood Count 3.99 L Hemoglobin 12.0 L Hematocrit 34.9 L Mean Corpuscular Volume 87.5 Mean Corpuscular Hemoglobin 30.1 Mean Corpuscular Hemoglobin Concent 34.4 Red Cell Distribution Width 13.2 Platelet Count 218 Mean Platelet Volume 10.2 Neutrophils % 59.6 Lymphocytes % 29.8 Monocytes % 6.8 Eosinophils % 2.8 Basophils % 0.7 Nucleated Red Blood Cells % 0.0 Neutrophils # 3.6 Lymphocytes # 1.8 Monocytes # 0.4 Eosinophils # 0.2 Basophils # 0.0 Nucleated Red Blood Cells # 0.0 Sodium Level 139 Potassium Level 4.3 Chloride Level 102 Carbon Dioxide Level 29 Anion Gap 12 Blood Urea Nitrogen 21 H Creatinine 0.94 Glucose Level 127 # Calcium Level 9.6 Test 07/08/17 17:29 Bedside Glucose 134 Medications Medications Current Medications Ondansetron HCl (Zofran Inj) 4 mg Q6H PRN IV NAUSEA AND/OR VOMITING; Start 09/08 at 06:00 Acetaminophen (Tylenol Tab) 650 mg Q6H PRN PO PAIN LEVEL 1-3 OR FEVER; Start 07/04/17 at 06:00 Morphine Sulfate (morphine) 2 mg Q4H PRN IV PAIN LEVEL 7-10; Start 07/04/17 at 06:00 Heparin Sodium (Porcine) (Heparin (5000 Units/0.5 ml)) 5,000 unit Q12 SC Last administered on 07/08/17 09:21; Admin Dose 5,000 UNIT; Start 07/04/17 at 09: 00 Insulin Glargine (Lantus) 16 unit DAILY@20 SC Last administered on 07/07/17 21:12; Admin Dose 16 UNIT; Start 07/04/17 at 20:00 Diagnostic Test (Pha) (Accu-Chek) 1 ea 02 XX ; Start 07/05/17 at 02:00 Miscellaneous Information 1 ea NOTE XX ; Start 07/04/17 at 06:15 Glucose (Glutose) 15 gm Q15M PRN PO DECREASED GLUCOSE; Start 07/04/17 at 06:15 Glucose (Glutose) 22.5 gm Q15M PRN PO DECREASED GLUCOSE; Start 07/04/17 at 06: 15 Dextrose (D50w Syringe) 25 ml Q15M PRN IV DECREASED GLUCOSE; Start 07/04/17 at 06:15 Dextrose (D50w Syringe) 50 ml Q15M PRN IV DECREASED GLUCOSE; Start 07/04/17 at 06:15 Glucagon (Glucagen) 1 mg Q15M PRN IM DECREASED GLUCOSE; Start 07/04/17 at 06: 15 Glucose (Glutose) 15 gm Q15M PRN BUCCAL DECREASED GLUCOSE; Start 07/04/17 at 06:15 Atorvastatin Calcium 10 mg 10 mg HS PO Last administered on 07/07/17 21:08; Admin Dose 10 MG; Start 07/05/17 at 21:00 Vancomycin HCl (Vancocin) 250 ml @ 125 mls/hr Q12H IVPB Last administered on 07/08/17 17:23; Admin Dose 125 MLS/HR; Start 07/06/17 at 05:00 IV Flush (NS 10 ml) 10 ml PRN PRN IV IV PROTOCOL; Start 07/08/17 at 11:30 Levofloxacin (Levaquin) 500 mg DAILY@06 PO ; Start 07/09/17 at 06:00 STEFANIA GARCIA DPM Jul 08, 2017 18:23
--- NOTE | 2017-07-08 18:24 | PN ---
Date/Time of Note Date/Time of Note DATE: 07/08/17 TIME: 18:23 Assessment/Plan Lines/Catheters IV Catheter Type (from Nrs): PICC Line Naranjo in Place (from Nrsg): No Assessment/Plan Problems: (1) Toe ulcer Status: Acute (2) Diabetes, polyneuropathy (3) Acquired absence of left great toe (4) Bunion (5) Hammertoe (6) Foot pain Status: Acute (7) Osteomyelitis Status: Acute (8) Diabetic foot ulcer Status: Acute (9) Non-pressure chronic ulcer of other part of right foot with necrosis of bone Assessment/Plan I have discussed and counseled patient extensively on his current condition. His prognosis continues to be poor secondary to his poor compliance. At this time, I do not recommend surgery for the patient. I would like him to continue IV antibiotics. Patient has a PICC line and will require visiting nurse service for delivery and administration of his antibiotics. Another option for the patient is to be placed in a alf facility as to increase compliance with his treatment regimen. Partial weightbearing right foot with postop shoe allowed. Physical therapy to evaluate for gait training. Daily dressing change right big toe. Left foot pain Betadine left fifth toe. Patient may be discharged as per foot and ankle surgery and follow-up at the amputation prevention center. Patient will be followed in-house. Subjective 24 Hr Interval Summary Patient was seen today at bedside. He reports no pain in both of his feet. He denies fever and chills and reports no chest pain or shortness of breath. Patient has been noted to walk around in the hospital hallways full weightbearing and at times without bandaging. Nursing has informed me that the bandaging that they do apply usually comes off. Constitutional: no complaints Pain Control: well controlled Exam/Review of Systems Vital Signs Vitals Vital Signs Date Time Temp Pulse Resp B/P Pulse Ox O2 Delivery O2 Flow Rate FiO2 07/08/17 20:21 98.0 72 19 110/64 96 Intake and Output 07/07/17 07/07/17 07/08/17 15:00 23:00 07:00 Intake Total 300 ml 1200 ml 400 ml Output Total 1100 ml 700 ml Balance 300 ml 100 ml -300 ml Exam Free Text/Dictation Patient is laying supine in bed in no acute distress. Patient is on IV antibiotics. There are no bandaging noted on both feet. Patient has an open wound on the plantar aspect of the right hallux which appears to be dry with 100 % red granulation tissue at the base and sloping wound edge. There is hyperkeratotic skin surrounding the wound on the right foot. No pus and no bleeding noted. There is no edema of the lower extremity at this time bilaterally. There is no erythema noted and no malodor present. Labs reviewed. Results Result Diagram: 07/08/17 0445 07/08/17 0445 STEFANIA GARCIA DPM Jul 08, 2017 18:24
[2017-07-08 20:21] VITALS: BP 110/64; RESP 19
[2017-07-08] MEDS: ATORVASTATIN 10 MG TAB PO SCH (21:01)
[2017-07-08] MEDS: INSULIN GLARGINE [LANtus] 3 ML PEN SC SCH (21:06)
[2017-07-09] MEDS: ACCU-CHEK XX SCH (01:33)
[2017-07-09 02:52] VITALS: BP 106/51; RESP 19
[2017-07-09] MEDS: VANCOMYCIN 1 GM in NS 250 ML IVPB SCH ×2 (04:42→16:29)
[2017-07-09 05:28] LABS: BASOPHILS % 0.5 % (0.0-2.0); EOSINOPHILS # 0.2 10^3/ul (0.0-0.5); EOSINOPHILS % 2.7 % (0.0-7.0); HEMATOCRIT 34.3 % (42.0-52.0); HEMOGLOBIN 11.5 g/dl (14.0-18.0); LYMPHOCYTES # 1.6 10^3/ul (0.8-2.9); MEAN CORPUSCULAR HEMOGLOBIN 28.9 pg (29.0-33.0); MEAN CORPUSCULAR HGB CONC 33.5 g/dl (32.0-37.0); MEAN CORPUSCULAR VOLUME 86.2 fl (82.0-101.0); MEAN PLATELET VOLUME 9.8 fl (7.4-10.4); MONOCYTE # 0.3 10^3/ul (0.3-0.9); MONOCYTES % 6.2 % (0.0-11.0); NEUTROPHIL # 3.4 10^3/ul (1.6-7.5); NEUTROPHILS % 61.2 % (39.0-77.0); PLATELET COUNT 190 10^3/UL (140-415); RED BLOOD COUNT 3.98 10^6/ul (4.70-6.10); RED CELL DISTRIBUTION WIDTH 13.2 % (11.5-14.5); WHITE BLOOD COUNT 5.5 10^3/ul (4.8-10.8)
[2017-07-09] MEDS: LEVOFLOXACIN 500 MG TAB PO SCH (05:35)
[2017-07-09 05:46] LABS: CALCIUM 9.5 mg/dl (8.4-10.2); CREATININE 0.84 mg/dl (0.61-1.24)
[2017-07-09] MEDS: INSULIN ASPART [NOVOLOG] 3 ML PEN SC SCH ×7 (07:50→21:26)
[2017-07-09 08:00] VITALS: BP 105/55; RESP 16
[2017-07-09] MEDS: HEPARIN 5,000 UNIT/0.5 ML VIAL SC SCH ×2 (09:08→21:22)
--- NOTE | 2017-07-09 09:17 | PDOCDIS ---
Discharge Instructions CONDITION Patient Condition: Stable HOME CARE INSTRUCTIONS: Special Diet: Carbohydrate controlled, low-cholesterol diet FOLLOW UP/APPOINTMENTS Follow-up Plan 1. Follow-up with and Dr. Mccall at amputation prevention clinic every week [address] [place], [place] [id number] Office 2.Follow up with primary care physician in 1 week If you don't have one please let someone know, we can give you resources that may help you pick one. You may also call your insurance company to assign one to you. Review your medication list with your nurse before leaving and if you need new prescriptions please let your nurse know. I may have made changes to your home medications or given you new prescriptions, please let your primary doctor know as well. Stay compliant with your medications and report any side effects to your PCP or pharmacist. Return to the ER if you have any concerns and cannot reach your doctors or call your insurance company, they usually have a nurse that can help you. 3. Call 911 or go to the nearest emergency room if experiencing loss of consciousness, dizziness, chest pain, shortness of breath, vomiting/abdominal pain, speech difficulties, motor weakness or any unusual symptoms. Additional instructions. Partial weightbearing right foot with postop shoe allowed. Daily dressing change right big toe. ANNE MARIE JOSHI NP Jul 09, 2017 09:17
[2017-07-09] MEDS ORDERED: LEVO500T72 PO (09:22)
[2017-07-09] MEDS ORDERED: DAPT500V5 IVPB (09:22)
[2017-07-09] MEDS ORDERED: ATOR10TA65 PO (09:22)
[2017-07-09] MEDS ORDERED: MTF1000T PO (09:27)
--- NOTE | 2017-07-09 13:23 | DS ---
Date/Time of Note Date/Time of Note DATE: 07/09/17 TIME: 13:20 Discharge Summary Admission/Discharge Info Admit Date/Time Jul 04, 2017 at 02:44 Discharge Date/Time Addendum Later the day (07/09/2017), patient was reevaluated by vascular colleagues and determined that he would benefit from vascular intervention in-house and therefore discharge was canceled and decided to keep patient in-house for vascular intervention. Noted 07/10/2017 at 0908 Discharge Diagnosis 1. Bilateral diabetic foot ulcers with osteomyelitis.MRI with Osteomyelitis within the left fifth distal phalanx ,Right first and progression to second digit. On 6 weeks antibiotic regimen. 2. Type 2 diabetes, poorly controlled. A1c 10.3. 3. Anemia, chronic. 4. Hypercholesterolemia. 5. 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 Monique, ID Procedures 07/06/2017. MRI left foot. IMPRESSION: 1. Osteomyelitis within the fifth distal phalanx with abnormal marrow signal/ marrow edema with an adjacent skin ulcer. 2. Post amputation of the first distal phalanx and a portion of the first proximal phalanx without evidence of acute osteomyelitis. 3. Cortical irregularity and blunting of the second distal phalanx from chronic osteomyelitis. 4. Degenerative changes within the second metatarsophalangeal joint with bony remodelling, osseous spurring, and a joint effusion with synovitis with degeneration/tearing of the plantar plate. 5. Abnormal appearance of the third proximal phalanx with subluxation at the proximal interphalangeal joint and nonvisualization of the distal phalanx which may be from chronic osteomyelitis with amputation or bony resorption. 07/06/2017. MRI right foot. IMPRESSION: 1. Progression of the osteomyelitis involving the second digit with increased bony destructive changes within the proximal phalanx and distal metatarsal post amputation of the middle and distal phalanges with abnormal marrow signal. Decreased subcutaneous gas within small amount of adjacent loculated fluid but no large drainable abscess. 2. Similar appearance of the osteomyelitis involving the first distal and proximal phalanges with an adjacent skin ulcer. 3. Improvement of the osteomyelitis within the third proximal phalanx with decreased marrow edema. 2016. Ultrasound-guided PICC line insertion on left upper extremity. Hospital Course This is a 51-year-old male with a past medical history of type 2 diabetes, peripheral vascular disease, iron deficiency anemia, anemia, peripheral neuropathy, osteomyelitis of bilateral foot, left great toe amputation who presented to the emergency room with progressive worsening of right great toe and left second and fifth toe ulcers. Patient was admitted for further workup. He was continued on broad-spectrum IV antibiotics. Blood sugar was managed on insulin in-house. Patient had A1c 10.3. Blood cultures remained negative. MRI consistent with osteomyelitis of e left fifth distal phalanx ,Right first and progression to second dig. Patient was seen and evaluated by infectious disease and podiatry colleagues. Previous studies without any stenosis. Patient also had vascular evaluation and he had negative arterial studies for stenosis. As per podiatry evaluation, recommendation was to continue IV antibiotics for 6 weeks with outpatient follow-up at wound care clinic. After discussion with ID colleagues, patient was recommended to continue Levaquin and Vancomycin for which pharmacy will dose it for 6 weeks. Patient is also instructed on offloading of right foot and allowed to have partial weightbearing right foot with postoperative shoes. He was also recommended on daily dressing change. Case management was called for arranging home health nurse for providing wound care as well as IV antibiotics. At this time, patient is feeling back to baseline. His labs and vital signs remained stable. Disposition: Patient will be discharged home with home health nurse for IV as well as wound care services. Patient verbalized discharge instructions. Approximately 60 minutes was spent in coordinating the discharge on this patient. Patient was seen in collaboration with . Home Meds Active Scripts Metformin* (Glucophage*) 1,000 Mg Tablet, 1000 MG PO WITH BREAKFAST DINNE, #60 TAB Prov:JOSHI,ANNE MARIE V. SCADA OPERATOR 07/09/17 Atorvastatin (Atorvastatin) 10 Mg Tablet, 10 MG PO HS, #30 TAB Prov:JOSHI,ANNE MARIE V. SCADA OPERATOR 07/09/17 Daptomycin (Cubicin) 500 Mg Vial, 500 MG IVPB Q24H for 42 Days, #42 VIAL Prov:JOSHIMARCIALA V. SCADA OPERATOR 07/09/17 Levofloxacin* (Levaquin*) 500 Mg Tablet, 500 MG PO DAILY@06, #42 TAB Stop date 08/20/2017 Prov:JOSHIANNE MARIE V. SCADA OPERATOR 07/09/17 Ferrous Sulfate* (Ferrous Sulfate*) 325 Mg Tabec, 325 MG PO TID for 30 Days, TAB Prov:DAVID POE MD 01/23/17 Insulin Aspart* (Novolog Insulin Pen*) 100 Unit/Ml Soln, 5 UNIT SC WITH MEALS for 30 Days Prov:DAVID POE MD 01/23/17 Insulin Glargine* (Lantus*) 100 Unit/Ml Soln, 16 UNIT SC DAILY@20 for 30 Days Prov:DAVID POE MD 01/23/17 Reported Medications Ibuprofen* (Ibuprofen*) 600 Mg Tablet, 600 MG PO Q8 Y for PAIN, TAB 01/17/17 Discontinued Reported Medications Metformin* (Glucophage*) 500 Mg Tab, 500 MG PO BID, TAB 01/16/17 Discontinued Scripts Vancomycin HCl in Dextrose 5 % (Vancomycin 1.5 Gram/250 ml-D5w) 1.5 Gm/250 Ml Plast..bag, 1.5 GM IV BID for 42 Days Prov:DAVID POE MD 01/23/17 Insulin Aspart* (Novolog Insulin Pen*) 100 Unit/Ml Soln, 0 UNIT SC WITH MEALS BEDTIME for 30 Days Prov:DAVID POE MD 01/23/17 Follow-up Plan 1. Follow-up with and Dr. Mccall at amputation prevention clinic every week [address] [place] [address] Office 2.Follow up with primary care physician in 1 week If you don't have one please let someone know, we can give you resources that may help you pick one. You may also call your insurance company to assign one to you. Review your medication list with your nurse before leaving and if you need new prescriptions please let your nurse know. I may have made changes to your home medications or given you new prescriptions, please let your primary doctor know as well. Stay compliant with your medications and report any side effects to your PCP or pharmacist. Return to the ER if you have any concerns and cannot reach your doctors or call your insurance company, they usually have a nurse that can help you. 3. Call 911 or go to the nearest emergency room if experiencing loss of consciousness, dizziness, chest pain, shortness of breath, vomiting/abdominal pain, speech difficulties, motor weakness or any unusual symptoms. Additional instructions. Partial weightbearing right foot with postop shoe allowed. Daily dressing change right big toe. Primary Care Provider Zakia Raphael DO Pending Labs Laboratory Tests Test 07/08/17 17:29 07/08/17 20:58 07/09/17 04:57 07/09/17 09:02 Bedside Glucose 134mg/dL (70-220) 149mg/dL (70-220) 113mg/dL (70-220) White Blood Count 5.510^3/ul (4.8-10.8) Red Blood Count 3.9810^6/ul (4.70-6.10) Hemoglobin 11.5g/dl (14.0-18.0) Hematocrit 34.3% (42.0-52.0) Mean Corpuscular Volume 86.2fl (82.0-101.0) Mean Corpuscular Hemoglobin 28.9pg (29.0-33.0) Mean Corpuscular Hemoglobin Concent 33.5g/dl (32.0-37.0) Red Cell Distribution Width 13.2% (11.5-14.5) Platelet Count 98451^3/UL (140-415) Mean Platelet Volume 9.8fl (7.4-10.4) Neutrophils % 61.2% (39.0-77.0) Lymphocytes % 29.0% (15.0-51.0) Monocytes % 6.2% (0.0-11.0) Eosinophils % 2.7% (0.0-7.0) Basophils % 0.5% (0.0-2.0) Nucleated Red Blood Cells % 0.0/100WBC (0.0-0.0) Neutrophils # 3.410^3/ul (1.6-7.5) Lymphocytes # 1.610^3/ul (0.8-2.9) Monocytes # 0.310^3/ul (0.3-0.9) Eosinophils # 0.210^3/ul (0.0-0.5) Basophils # 0.010^3/ul (0.0-0.1) Nucleated Red Blood Cells # 0.010^3/ul (0.0-0.0) Sodium Level 140mmol/L (135-144) Potassium Level 4.0mmol/L (3.5-5.1) Chloride Level 103mmol/L (97-110) Carbon Dioxide Level 28mmol/L (21-31) Anion Gap 13 (8-16) Blood Urea Nitrogen 21mg/dl (7-20) Creatinine 0.84mg/dl (0.61-1.24) Glucose Level 113mg/dl (70-220) Calcium Level 9.5mg/dl (8.4-10.2) Test 07/09/17 12:32 Bedside Glucose 155mg/dL (70-220) ANNE MARIE JOSHI V. SCADA OPERATOR Jul 09, 2017 13:23
--- NOTE | 2017-07-09 13:44 | CONS ---
Date/Time of Note Date/Time of Note DATE: 07/09/17 TIME: 13:43 Consult Date/Type/Reason Admit Date/Time Jul 04, 2017 at 02:44 Initial Consult Date 07/06/17 Type of Consultation: id Objective Vital Signs Date Time Temp Pulse Resp B/P Pulse Ox O2 Delivery O2 Flow Rate FiO2 07/09/17 08:00 97.9 77 16 105/55 100 Intake and Output 07/08/17 07/08/17 07/09/17 15:00 23:00 07:00 Intake Total 300 ml 1110 ml 900 ml Output Total 800 ml 700 ml Balance 300 ml 310 ml 200 ml Results/Medications Result Diagram: 07/09/17 0457 07/09/17 0457 Results 24 hrs Laboratory Tests Test 07/08/17 17:29 07/08/17 20:58 07/09/17 04:57 07/09/17 09:02 Bedside Glucose 134 149 113 White Blood Count 5.5 Red Blood Count 3.98 L Hemoglobin 11.5 L Hematocrit 34.3 L Mean Corpuscular Volume 86.2 Mean Corpuscular Hemoglobin 28.9 L Mean Corpuscular Hemoglobin Concent 33.5 Red Cell Distribution Width 13.2 Platelet Count 190 Mean Platelet Volume 9.8 Neutrophils % 61.2 Lymphocytes % 29.0 Monocytes % 6.2 Eosinophils % 2.7 Basophils % 0.5 Nucleated Red Blood Cells % 0.0 Neutrophils # 3.4 Lymphocytes # 1.6 Monocytes # 0.3 Eosinophils # 0.2 Basophils # 0.0 Nucleated Red Blood Cells # 0.0 Sodium Level 140 Potassium Level 4.0 Chloride Level 103 Carbon Dioxide Level 28 Anion Gap 13 Blood Urea Nitrogen 21 H Creatinine 0.84 Glucose Level 113 Calcium Level 9.5 Test 07/09/17 12:32 Bedside Glucose 155 Medications Current Medications Ondansetron HCl (Zofran Inj) 4 mg Q6H PRN IV NAUSEA AND/OR VOMITING; Start 09/08 at 06:00 Acetaminophen (Tylenol Tab) 650 mg Q6H PRN PO PAIN LEVEL 1-3 OR FEVER; Start 07/04/17 at 06:00 Morphine Sulfate (morphine) 2 mg Q4H PRN IV PAIN LEVEL 7-10; Start 07/04/17 at 06:00 Heparin Sodium (Porcine) (Heparin (5000 Units/0.5 ml)) 5,000 unit Q12 SC Last administered on 07/09/17 09:08; Admin Dose 5,000 UNIT; Start 07/04/17 at 09: 00 Insulin Glargine (Lantus) 16 unit DAILY@20 SC Last administered on 07/08/17 21:06; Admin Dose 16 UNIT; Start 07/04/17 at 20:00 Diagnostic Test (Pha) (Accu-Chek) 1 ea 02 XX ; Start 07/05/17 at 02:00 Miscellaneous Information 1 ea NOTE XX ; Start 07/04/17 at 06:15 Glucose (Glutose) 15 gm Q15M PRN PO DECREASED GLUCOSE; Start 07/04/17 at 06:15 Glucose (Glutose) 22.5 gm Q15M PRN PO DECREASED GLUCOSE; Start 07/04/17 at 06: 15 Dextrose (D50w Syringe) 25 ml Q15M PRN IV DECREASED GLUCOSE; Start 07/04/17 at 06:15 Dextrose (D50w Syringe) 50 ml Q15M PRN IV DECREASED GLUCOSE; Start 07/04/17 at 06:15 Glucagon (Glucagen) 1 mg Q15M PRN IM DECREASED GLUCOSE; Start 07/04/17 at 06: 15 Glucose (Glutose) 15 gm Q15M PRN BUCCAL DECREASED GLUCOSE; Start 07/04/17 at 06:15 Atorvastatin Calcium 10 mg 10 mg HS PO Last administered on 07/08/17 21:01; Admin Dose 10 MG; Start 07/05/17 at 21:00 Vancomycin HCl (Vancocin) 250 ml @ 125 mls/hr Q12H IVPB Last administered on 07/09/17 04:42; Admin Dose 125 MLS/HR; Start 07/06/17 at 05:00 IV Flush (NS 10 ml) 10 ml PRN PRN IV IV PROTOCOL; Start 07/08/17 at 11:30 Levofloxacin (Levaquin) 500 mg DAILY@06 PO Last administered on 07/09/17 05: 35; Admin Dose 500 MG; Start 07/09/17 at 06:00 Assessment/Plan Chief Complaint/Hosp Course SUBJECTIVE: No acute changes. The patient is alert, feels good, looks comfortable, no fevers, no pain. ANTIMICROBIALS: 1. Vancomycin. 2. Levaquin. PHYSICAL EXAMINATION: GENERAL: Well-developed, middle-aged man in no distress. HEENT: Head atraumatic, normocephalic. Sclerae anicteric. Buccal mucosa pink. NECK: Supple. CHEST: Rise symmetrical. Breath sounds clear. HEART: S1, S2. ABDOMEN: Soft, bowel tones present. EXTREMITIES: Bilateral toe wounds on the bottom. ASSESSMENT: 1. Bilateral lower extremity osteomyelitis. 2. Diabetes mellitus, poorly controlled. 3. Anemia. PLAN: The patient remains stable, podiatry rec-s noted, ok dc on Daptomycin and Levaquin for 6 weeks Problems: OBINNA MIRAMONTES NP Jul 09, 2017 13:44
[2017-07-09 14:09] VITALS: BP 94/64; RESP 16
--- NOTE | 2017-07-09 20:27 | PN ---
Date/Time of Note Date/Time of Note DATE: 07/09/17 TIME: 20:19 Assessment/Plan Lines/Catheters IV Catheter Type (from [facility]): PICC Line Naranjo in Place (from [facility]): No Assessment/Plan Chief Complaint/Hosp Course -Bilateral lower extremity atherosclerosis with bilateral lower extremity diabetic foot ulcers: It seems the patient's diabetic foot ulcers have worsened , in which he has redeveloped a diabetic foot infection with worsening of his ulcers. From a vascular surgery standpoint, the patient noninvasive vascular studies of the lower extremities demonstrated calcified disease in his tibial vessels. Will plan to obtain an angiogram and possible intervention, as the patient does not have palpable pedal pulses. -Will obtain vein mapping -Optimize vascular status (BP meds, diet, nutrition, exercise, sugar control, antiplatelets). 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 -Continue local wound care per our podiatry colleagues. -Thank you for allowing us to partake in the care of your patient. Please call with any questions. Problems: Subjective 24 Hr Interval Summary no new vascular events overnight Exam/Review of Systems Vital Signs Vitals Vital Signs Date Time Temp Pulse Resp B/P Pulse Ox O2 Delivery O2 Flow Rate FiO2 07/09/17 14:09 98.8 72 16 94/64 97 Intake and Output 07/08/17 07/08/17 07/09/17 15:00 23:00 07:00 Intake Total 300 ml 1110 ml 900 ml Output Total 800 ml 700 ml Balance 300 ml 310 ml 200 ml Exam Free Text/Dictation GENERAL: Alert and oriented x3 PULMONARY: Clear to auscultation bilaterally CARDIOVASCULAR: S1, S2 present ABDOMEN: Soft, nontender, nondistended. Bowel sounds positive. EXTREMITIES: Right lower extremity: Palpable femoral pulse, nonpalpable pedal pulse. Motor/ sensory intact. Capillary refill 3 seconds. Previous second toe amputation site well healed. First toe with ulcer on the plantar aspect with surrounding erythema and fibrinous tissue. Left lower extremity: Palpable femoral pulse, nonpalpable pedal pulse. Motor/ sensory intact. Cap refill 3 to 4 seconds. Previous first toe amputation site well healed. Fifth toe ulcer without any surrounding erythema and some fibrinous tissue in the wound. Results Result Diagram: 07/09/17 [id number] PENG GALARZA MD Jul 09, 2017 20:27
[2017-07-09 20:33] VITALS: BP 102/56; RESP 18
[2017-07-09] MEDS: ATORVASTATIN 10 MG TAB PO SCH (21:13)
[2017-07-09] MEDS: INSULIN GLARGINE [LANtus] 3 ML PEN SC SCH (21:18)
--- NOTE | 2017-07-09 23:05 | PN ---
Date/Time of Note Date/Time of Note DATE: 07/09/17 TIME: 23:01 Assessment/Plan Lines/Catheters IV Catheter Type (from [facility]rs[facility]): PICC Line Naranjo in Place (from [facility]): No Assessment/Plan Problems: (1) Toe ulcer Status: Acute (2) Diabetes, polyneuropathy (3) Acquired absence of left great toe (4) Bunion (5) Hammertoe (6) Blurred vision (7) Foot pain Status: Acute (8) Osteomyelitis Status: Acute (9) Diabetic foot ulcer Status: Acute (10) Non-pressure chronic ulcer of other part of right foot with necrosis of bone Assessment/Plan Discussed case with vascular surgery in great detail. I am not recommending any surgery for his right foot during this admission. Vascular plan appreciated. Will follow patient in house. Thank you again for involving me in the care of this patient. If you have any questions regarding this case, please feel free to contact me at pager: or reach me at mobile: [phone]. Subjective 24 Hr Interval Summary Patient was seen at bedside. Patient is in no acute distress. Denies overnight adverse events. Denies fever, chills, nausea or vomiting. Reports bandages are being changed daily. Denies recent trauma. Constitutional: no complaints Pain Control: well controlled Exam/Review of Systems Vital Signs Vitals Vital Signs Date Time Temp Pulse Resp B/P Pulse Ox O2 Delivery O2 Flow Rate FiO2 07/09/17 20:33 98.5 69 18 102/56 96 Intake and Output 07/08/17 07/08/17 07/09/17 15:00 23:00 07:00 Intake Total 300 ml 1110 ml 900 ml Output Total 800 ml 700 ml Balance 300 ml 310 ml 200 ml Exam Free Text/Dictation GENERAL: Patient is in no acute distress; supine in bed VASC: weak DP/PT b/l; no edema of legs; delayed CFT; normal TG NEURO: decreased sensation to sharp, dull, vib and temp stimuli; nrml DTRs DERM: open wound plantar right hallux->unchanged; 100% RGT with no sign of infection and no malodor; left foot dry excoriation noted ORTHO: contracted toes; right hallux interphalangeus; "tender" to palpation IMAGING: reviewed LABS: reviewed Results Result Diagram: 07/09/17 0457 07/09/17 0457 STEFANIA GARCIA DPM Jul 09, 2017 23:05
[2017-07-10] MEDS: ACCU-CHEK XX SCH (02:26)
[2017-07-10 02:36] VITALS: BP 101/51; RESP 18
[2017-07-10] MEDS: VANCOMYCIN 1 GM in NS 250 ML IVPB SCH ×2 (04:35→17:10)
[2017-07-10] MEDS: LEVOFLOXACIN 500 MG TAB PO SCH (05:33)
[2017-07-10] MEDS: INSULIN ASPART [NOVOLOG] 3 ML PEN SC SCH ×7 (07:50→20:46)
[2017-07-10 07:58] VITALS: BP 108/69; RESP 18
[2017-07-10] MEDS: HEPARIN 5,000 UNIT/0.5 ML VIAL SC SCH ×2 (08:07→20:45)
--- NOTE | 2017-07-10 09:15 | PN ---
Date/Time of Note Date/Time of Note DATE: 07/10/17 TIME: 09:11 Assessment/Plan VTE Prophylaxis VTE Prophylaxis Intervention: heparin Lines/Catheters IV [facility] Type [facility] PICC Line Central line still needed: Yes Urinary Cath still in place: No Assessment/Plan Chief Complaint/Hosp Course 51-year-old male with history of diabetes, admitted with worsening ulcers on the right great toe, left second and fifth toes. 1. Bilateral diabetic foot ulcers with osteomyelitis.MRI with Osteomyelitis within the left fifth distal phalanx ,Right first and progression to second digit. Arterial Studies with no significant stenosis. -Podiatry evaluation greatly appreciated and did not recommend any surgical approach at this time. At this time, recommendation is to continue with 6 weeks IV antibiotics and outpatient follow-up. 2. Type 2 diabetes, poorly controlled. A1c 10.3. -Continue with Accu-Cheks/ISS/Lantus and pre-meal aspart. -DM education. 3. Anemia, chronic. Stable H&H. - Patient with normal iron panel and does not require any further iron supplementation. 4. Hypercholesterolemia. -On statin therapy. 5. 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 -Patient is for vascular intervention today. -Continue optimization of vascular status with diet, blood pressure management, diabetes management and statin. 6. 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 Plan: Follow-up with vascular recommendation postoperatively. As per podiatry, there is no plan for surgical intervention for his diabetic ulcer and recommendation is to continue medical management with long-term antibiotics. Patient was seen in collaboration with Problems: Subjective 24 Hr Interval Summary Free Text/Dictation As per vascular colleagues, patient would benefit from further vascular intervention as inpatient as he is also noncompliant with outpatient follow- ups. Therefore discharge was canceled and patient was kept in house. Exam/Review of Systems Vital Signs Vitals Vital Signs Date Time Temp Pulse Resp B/P Pulse Ox O2 Delivery O2 Flow Rate FiO2 07/10/17 07:58 98.5 69 18 108/69 98 Intake and Output 07/09/17 07/09/17 07/10/17 15:00 23:00 07:00 Intake Total 1010 ml 900 ml Output Total 1000 ml Balance 1010 ml -100 ml Exam General: Well developed,adequately built, not in any acute distress . HEENT: Normocephalic, Atraumatic, No laceration or hematoma; Eyes: PEERL, Conjunctiva clear, Anicteric sclera Neck: Supple without any lymphadenopathy, nontender, no JVD, no carotid bruits, trachea midline, no thyromegaly Cardiac: S1, S2 auscultated, regular rhythm and rate, no mumurs or gallop Pulmonary: Normal respiratory effort. Chest clear to auscultation bilaterally, no adventitious breath sounds GI: Abdomen normal to inspection. Soft, non tender, non- distended, no masses, no rebound tenderness or guarding. Bowel sounds active on all four quadrants Genitourinary: Deferred Extremities: Open ulcer on the plantar aspect of the right great toe and left fifth toe. Dry ulceration left second toe. Missing left great toe. No cyanosis, clubbing, or edema. Pulses [1+] bilaterally. Full ROM on all four extremities. No focal weakness appreciated. Neurologic: Alert to person, place, time, and situation. Affect appropriate, intact sensation. Skin: Clean,dry, and intact. No ecchymosis, no rashes, or lesions Results Result Diagram: 07/09/17 0457 07/09/17 0457 Results 24 hrs Laboratory Tests Test 07/09/17 12:32 07/09/17 17:18 07/09/17 21:12 07/10/17 02:24 Bedside Glucose 155 143 202 165 Test 07/10/17 08:42 Bedside Glucose 107 Medications Medications Current Medications Ondansetron HCl (Zofran Inj) 4 mg Q6H PRN IV NAUSEA AND/OR VOMITING; Start 09/08 at 06:00 Acetaminophen (Tylenol Tab) 650 mg Q6H PRN PO PAIN LEVEL 1-3 OR FEVER; Start 07/04/17 at 06:00 Morphine Sulfate (morphine) 2 mg Q4H PRN IV PAIN LEVEL 7-10; Start 07/04/17 at 06:00 Heparin Sodium (Porcine) (Heparin (5000 Units/0.5 ml)) 5,000 unit Q12 SC Last administered on 07/09/17 21:22; Admin Dose 5,000 UNIT; Start 07/04/17 at 09: 00 Insulin Glargine (Lantus) 16 unit DAILY@20 SC Last administered on 07/09/17 21:18; Admin Dose 16 UNIT; Start 07/04/17 at 20:00 Diagnostic Test (Pha) (Accu-Chek) 1 ea 02 XX Last administered on 07/10/17 02 :26; Admin Dose 1 EA; Start 07/05/17 at 02:00 Miscellaneous Information 1 ea NOTE XX ; Start 07/04/17 at 06:15 Glucose (Glutose) 15 gm Q15M PRN PO DECREASED GLUCOSE; Start 07/04/17 at 06:15 Glucose (Glutose) 22.5 gm Q15M PRN PO DECREASED GLUCOSE; Start 07/04/17 at 06: 15 Dextrose (D50w Syringe) 25 ml Q15M PRN IV DECREASED GLUCOSE; Start 07/04/17 at 06:15 Dextrose (D50w Syringe) 50 ml Q15M PRN IV DECREASED GLUCOSE; Start 07/04/17 at 06:15 Glucagon (Glucagen) 1 mg Q15M PRN IM DECREASED GLUCOSE; Start 07/04/17 at 06: 15 Glucose (Glutose) 15 gm Q15M PRN BUCCAL DECREASED GLUCOSE; Start 07/04/17 at 06:15 Atorvastatin Calcium 10 mg 10 mg HS PO Last administered on 07/09/17 21:13; Admin Dose 10 MG; Start 07/05/17 at 21:00 Vancomycin HCl (Vancocin) 250 ml @ 125 mls/hr Q12H IVPB Last administered on 07/10/17 04:35; Admin Dose 125 MLS/HR; Start 07/06/17 at 05:00 IV Flush (NS 10 ml) 10 ml PRN PRN IV IV PROTOCOL; Start 07/08/17 at 11:30 Levofloxacin (Levaquin) 500 mg DAILY@06 PO Last administered on 07/10/17 05: 33; Admin Dose 500 MG; Start 07/09/17 at 06:00 ANNE MARIE JOSHI NP Jul 10, 2017 09:14
--- NOTE | 2017-07-10 12:39 | CONS ---
Date/Time of Note Date/Time of Note DATE: 07/10/17 TIME: 12:39 Consult Date/Type/Reason Admit Date/Time Jul 04, 2017 at 02:44 Initial Consult Date 07/06/17 Type of Consultation: id Objective Vital Signs Date Time Temp Pulse Resp B/P Pulse Ox O2 Delivery O2 Flow Rate FiO2 07/10/17 07:58 98.5 69 18 108/69 98 Intake and Output 07/09/17 07/09/17 07/10/17 15:00 23:00 07:00 Intake Total 1010 ml 900 ml Output Total 1000 ml Balance 1010 ml -100 ml Results/Medications Result Diagram: 07/09/17 0457 07/09/17 0457 Results 24 hrs Laboratory Tests Test 07/09/17 17:18 07/09/17 21:12 07/10/17 02:24 07/10/17 08:42 Bedside Glucose 143 202 165 107 Test 07/10/17 12:16 Bedside Glucose 110 Medications Current Medications Ondansetron HCl (Zofran Inj) 4 mg Q6H PRN IV NAUSEA AND/OR VOMITING; Start 09/08 at 06:00 Acetaminophen (Tylenol Tab) 650 mg Q6H PRN PO PAIN LEVEL 1-3 OR FEVER; Start 07/04/17 at 06:00 Morphine Sulfate (morphine) 2 mg Q4H PRN IV PAIN LEVEL 7-10; Start 07/04/17 at 06:00 Heparin Sodium (Porcine) (Heparin (5000 Units/0.5 ml)) 5,000 unit Q12 SC Last administered on 07/09/17 21:22; Admin Dose 5,000 UNIT; Start 07/04/17 at 09: 00 Insulin Glargine (Lantus) 16 unit DAILY@20 SC Last administered on 07/09/17 21:18; Admin Dose 16 UNIT; Start 07/04/17 at 20:00 Diagnostic Test (Pha) (Accu-Chek) 1 ea 02 XX Last administered on 07/10/17 02 :26; Admin Dose 1 EA; Start 07/05/17 at 02:00 Miscellaneous Information 1 ea NOTE XX ; Start 07/04/17 at 06:15 Glucose (Glutose) 15 gm Q15M PRN PO DECREASED GLUCOSE; Start 07/04/17 at 06:15 Glucose (Glutose) 22.5 gm Q15M PRN PO DECREASED GLUCOSE; Start 07/04/17 at 06: 15 Dextrose (D50w Syringe) 25 ml Q15M PRN IV DECREASED GLUCOSE; Start 07/04/17 at 06:15 Dextrose (D50w Syringe) 50 ml Q15M PRN IV DECREASED GLUCOSE; Start 07/04/17 at 06:15 Glucagon (Glucagen) 1 mg Q15M PRN IM DECREASED GLUCOSE; Start 07/04/17 at 06: 15 Glucose (Glutose) 15 gm Q15M PRN BUCCAL DECREASED GLUCOSE; Start 07/04/17 at 06:15 Atorvastatin Calcium 10 mg 10 mg HS PO Last administered on 07/09/17 21:13; Admin Dose 10 MG; Start 07/05/17 at 21:00 Vancomycin HCl (Vancocin) 250 ml @ 125 mls/hr Q12H IVPB Last administered on 07/10/17 04:35; Admin Dose 125 MLS/HR; Start 07/06/17 at 05:00 IV Flush (NS 10 ml) 10 ml PRN PRN IV IV PROTOCOL; Start 07/08/17 at 11:30 Levofloxacin (Levaquin) 500 mg DAILY@06 PO Last administered on 07/10/17 05: 33; Admin Dose 500 MG; Start 07/09/17 at 06:00 Miscellaneous Information (*Rx Drug Level Order Reminder*) VANCOMYCIN TROUGH AT 1600 ONCE ONCE XX ; Start 07/11/17 at 16:00; Stop 07/11/17 at 16:01 Assessment/Plan Chief Complaint/Hosp Course SUBJECTIVE: No acute changes. The patient is alert, feels good, looks comfortable, no fevers, no pain. ANTIMICROBIALS: 1. Vancomycin. 2. Levaquin. PHYSICAL EXAMINATION: GENERAL: Well-developed, middle-aged man in no distress. HEENT: Head atraumatic, normocephalic. Sclerae anicteric. Buccal mucosa pink. NECK: Supple. CHEST: Rise symmetrical. Breath sounds clear. HEART: S1, S2. ABDOMEN: Soft, bowel tones present. EXTREMITIES: Bilateral toe wounds on the bottom. ASSESSMENT: 1. Bilateral lower extremity osteomyelitis. 2. Diabetes mellitus, poorly controlled. 3. Anemia. PLAN: The patient remains stable, podiatry rec-s noted, ok dc on Daptomycin or Vanco and Levaquin for 6 weeks Problems: OBINNA MIRAMONTES NP Jul 10, 2017 12:39
[2017-07-10 14:40] VITALS: BP 111/69; RESP 18
[2017-07-10 19:23] VITALS: BP 123/79; RESP 16
[2017-07-10] MEDS: INSULIN GLARGINE [LANtus] 3 ML PEN SC SCH (19:50)
[2017-07-10] MEDS: ATORVASTATIN 10 MG TAB PO SCH (20:45)
--- NOTE | 2017-07-10 22:58 | RADRPT ---
PROCEDURE: Bilateral lower extremity venous mapping. CLINICAL INDICATION: Bilateral lower extremity ulcers. TECHNIQUE: The greater saphenous vein was evaluated bilaterally with ultrasound in the axial and s agittal planes. Diameter of the veins were determined as indicated below. COMPARISON: No prior studies are available for comparison. FINDINGS: Right greater saphenous vein: At groin: 0.45 cm. Upper thigh: 0.15 cm. Mid thigh: 0.19 cm. Noncompressible. Lower thigh: 0.09 cm. At knee: 0.11 cm. Upper calf: 0.17 cm. Mid calf: 0.08 cm. Ankle: 0.11 cm. Left greater saphenous vein: At groin: 0.30 cm. Upper thigh: 0.25 cm. Mid thigh: 0.08 cm. Lower thigh: 0.07 cm. At knee: 0.08 cm. Upper calf: 0.08 cm. Mid calf: 0.02 cm. Ankle: 0.08 cm. There is thrombus in the right mid greater saphenous vein with lack of compressibility. The greater saphenous veins otherwise demonstrate normal compressibility with no thrombus or occlusion. IMPRESSION: 1. Diameter of greater saphenous veins as indicated above. 2. Thrombus in the right mid greater saphenous vein. 3. Otherwise normal study with no other thrombus visualized. RPTAT: QQ .Antwan Stallings MD, Date Time Electronically viewed and signed by .Antwan Stallings MD, on 07/10/2017 22:58 .R/
[2017-07-11 01:43] VITALS: BP 98/56; RESP 18
[2017-07-11] MEDS: ACCU-CHEK XX SCH (02:00)
[2017-07-11] MEDS: LEVOFLOXACIN 500 MG TAB PO SCH (05:05)
[2017-07-11] MEDS: VANCOMYCIN 1 GM in NS 250 ML IVPB SCH ×2 (05:05→19:36)
[2017-07-11] MEDS: INSULIN ASPART [NOVOLOG] 3 ML PEN SC SCH ×7 (07:50→20:08)
[2017-07-11 08:00] VITALS: BP 99/60; RESP 19
[2017-07-11] MEDS: HEPARIN 5,000 UNIT/0.5 ML VIAL SC SCH ×2 (08:42→19:52)
--- NOTE | 2017-07-11 10:20 | PN ---
Date/Time of Note Date/Time of Note DATE: 07/11/17 TIME: : Assessment/Plan VTE Prophylaxis VTE Prophylaxis Intervention: heparin Lines/Catheters IV [facility] Type (from [facility] PICC Line Central line still needed: Yes Assessment/Plan Chief Complaint/Hosp Course 51-year-old male with history of diabetes, admitted with worsening ulcers on the right great toe, left second and fifth toes. 1. Bilateral diabetic foot ulcers with osteomyelitis.MRI with Osteomyelitis within the left fifth distal phalanx ,Right first and progression to second digit. Arterial Studies with no significant stenosis. -Podiatry evaluation greatly appreciated and did not recommend any surgical approach at this time. At this time, recommendation is to continue with 6 weeks IV antibiotics and outpatient follow-up. 2. Type 2 diabetes, poorly controlled. A1c 10.3. -Continue with Accu-Cheks/ISS/Lantus and pre-meal aspart. -DM education. 3. Anemia, chronic. Stable H&H. - Patient with normal iron panel and does not require any further iron supplementation. 4. Hypercholesterolemia. -On statin therapy. 5. 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 -Patient is for vascular intervention today. -Add Plavix per vascular recs.Continue optimization of vascular status with diet , blood pressure management, diabetes management and statin. 6. 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 Plan: Follow-up with vascular recommendation postoperatively. As per podiatry, there is no plan for surgical intervention for his diabetic ulcer and recommendation is to continue medical management with long-term antibiotics. Patient was seen in collaboration with Problems: Subjective 24 Hr Interval Summary Free Text/Dictation Hospital vascular, due to scheduling difficulties, vascular intervention was re- planned for today. Patient doing well. Exam/Review of Systems Vital Signs Vitals Vital Signs Date Time Temp Pulse Resp B/P Pulse Ox O2 Delivery O2 Flow Rate FiO2 07/11/17 08:00 98.1 60 19 99/60 99 Intake and Output 07/10/17 07/10/17 07/11/17 14:59 22:59 06:59 Intake Total 250 ml 750 ml Output Total 1200 ml 900 ml Balance -950 ml -150 ml Exam General: Well developed,adequately built, not in any acute distress . HEENT: Normocephalic, Atraumatic, No laceration or hematoma; Eyes: PEERL, Conjunctiva clear, Anicteric sclera Neck: Supple without any lymphadenopathy, nontender, no JVD, no carotid bruits, trachea midline, no thyromegaly Cardiac: S1, S2 auscultated, regular rhythm and rate, no mumurs or gallop Pulmonary: Normal respiratory effort. Chest clear to auscultation bilaterally, no adventitious breath sounds GI: Abdomen normal to inspection. Soft, non tender, non- distended, no masses, no rebound tenderness or guarding. Bowel sounds active on all four quadrants Genitourinary: Deferred Extremities: Open ulcer on the plantar aspect of the right great toe and left fifth toe. Dry ulceration left second toe. Missing left great toe. No cyanosis, clubbing, or edema. Pulses [1+] bilaterally. Full ROM on all four extremities. No focal weakness appreciated. Neurologic: Alert to person, place, time, and situation. Affect appropriate, intact sensation. Skin: Clean,dry, and intact. No ecchymosis, no rashes, or lesions Results Result Diagram: 07/09/17 0457 07/09/17 0457 Results 24 hrs Laboratory Tests Test 07/10/17 12:16 07/10/17 17:10 07/10/17 19:46 07/11/17 08:37 Bedside Glucose 110 92 78 106 Medications Medications Current Medications Ondansetron HCl (Zofran Inj) 4 mg Q6H PRN IV NAUSEA AND/OR VOMITING; Start 09/08 at 06:00 Acetaminophen (Tylenol Tab) 650 mg Q6H PRN PO PAIN LEVEL 1-3 OR FEVER; Start 07/04/17 at 06:00 Morphine Sulfate (morphine) 2 mg Q4H PRN IV PAIN LEVEL 7-10; Start 07/04/17 at 06:00 Heparin Sodium (Porcine) (Heparin (5000 Units/0.5 ml)) 5,000 unit Q12 SC Last administered on 07/10/17 20:45; Admin Dose 5,000 UNIT; Start 07/04/17 at 09: 00 Insulin Glargine (Lantus) 16 unit DAILY@20 SC Last administered on 07/10/17 19:50; Admin Dose 16 UNIT; Start 07/04/17 at 20:00 Diagnostic Test (Pha) (Accu-Chek) 1 ea 02 XX Last administered on 07/10/17 02 :26; Admin Dose 1 EA; Start 07/05/17 at 02:00 Miscellaneous Information 1 ea NOTE XX ; Start 07/04/17 at 06:15 Glucose (Glutose) 15 gm Q15M PRN PO DECREASED GLUCOSE; Start 07/04/17 at 06:15 Glucose (Glutose) 22.5 gm Q15M PRN PO DECREASED GLUCOSE; Start 07/04/17 at 06: 15 Dextrose (D50w Syringe) 25 ml Q15M PRN IV DECREASED GLUCOSE; Start 07/04/17 at 06:15 Dextrose (D50w Syringe) 50 ml Q15M PRN IV DECREASED GLUCOSE; Start 07/04/17 at 06:15 Glucagon (Glucagen) 1 mg Q15M PRN IM DECREASED GLUCOSE; Start 07/04/17 at 06: 15 Glucose (Glutose) 15 gm Q15M PRN BUCCAL DECREASED GLUCOSE; Start 07/04/17 at 06:15 Atorvastatin Calcium 10 mg 10 mg HS PO Last administered on 07/10/17 20:45; Admin Dose 10 MG; Start 07/05/17 at 21:00 Vancomycin HCl (Vancocin) 250 ml @ 125 mls/hr Q12H IVPB Last administered on 07/11/17 05:05; Admin Dose 125 MLS/HR; Start 07/06/17 at 05:00 IV Flush (NS 10 ml) 10 ml PRN PRN IV IV PROTOCOL; Start 07/08/17 at 11:30 Levofloxacin (Levaquin) 500 mg DAILY@06 PO Last administered on 07/11/17 05: 05; Admin Dose 500 MG; Start 07/09/17 at 06:00 Miscellaneous Information (*Rx Drug Level Order Reminder*) VANCOMYCIN TROUGH AT 1600 ONCE ONCE XX ; Start 07/11/17 at 16:00; Stop 07/11/17 at 16:01 ANNE MARIE JOSHI NP Jul 11, 2017 10:20
[2017-07-11] MEDS ORDERED: SOD CHLORIDE 0.9% 1,000 ML IV SCH (11:30)
[2017-07-11] MEDS: CLOPIDOGREL 75 MG TAB PO SCH (11:30)
[2017-07-11 12:33] VITALS: BP 124/77; RESP 14
--- NOTE | 2017-07-11 13:41 | CONS ---
Date/Time of Note Date/Time of Note DATE: 07/11/17 TIME: 13:40 Consult Date/Type/Reason Admit Date/Time Jul 04, 2017 at 02:44 Initial Consult Date 07/06/17 Type of Consultation: id Objective Vital Signs Date Time Temp Pulse Resp B/P Pulse Ox O2 Delivery O2 Flow Rate FiO2 07/11/17 12:33 98.2 62 14 124/77 98 Intake and Output 07/10/17 07/10/17 07/11/17 15:00 23:00 07:00 Intake Total 250 ml 750 ml Output Total 1200 ml 900 ml Balance -950 ml -150 ml Results/Medications Result Diagram: 07/09/17 0457 07/09/17 0457 Results 24 hrs Laboratory Tests Test 07/10/17 17:10 07/10/17 19:46 07/11/17 08:37 07/11/17 12:52 Bedside Glucose 92 78 106 161 Medications Current Medications Ondansetron HCl (Zofran Inj) 4 mg Q6H PRN IV NAUSEA AND/OR VOMITING; Start 09/08 at 06:00 Acetaminophen (Tylenol Tab) 650 mg Q6H PRN PO PAIN LEVEL 1-3 OR FEVER; Start 07/04/17 at 06:00 Morphine Sulfate (morphine) 2 mg Q4H PRN IV PAIN LEVEL 7-10; Start 07/04/17 at 06:00 Heparin Sodium (Porcine) (Heparin (5000 Units/0.5 ml)) 5,000 unit Q12 SC Last administered on 07/10/17 20:45; Admin Dose 5,000 UNIT; Start 07/04/17 at 09: 00 Insulin Glargine (Lantus) 16 unit DAILY@20 SC Last administered on 07/10/17 19:50; Admin Dose 16 UNIT; Start 07/04/17 at 20:00 Diagnostic Test (Pha) (Accu-Chek) 1 ea 02 XX Last administered on 07/10/17 02 :26; Admin Dose 1 EA; Start 07/05/17 at 02:00 Miscellaneous Information 1 ea NOTE XX ; Start 07/04/17 at 06:15 Glucose (Glutose) 15 gm Q15M PRN PO DECREASED GLUCOSE; Start 07/04/17 at 06:15 Glucose (Glutose) 22.5 gm Q15M PRN PO DECREASED GLUCOSE; Start 07/04/17 at 06: 15 Dextrose (D50w Syringe) 25 ml Q15M PRN IV DECREASED GLUCOSE; Start 07/04/17 at 06:15 Dextrose (D50w Syringe) 50 ml Q15M PRN IV DECREASED GLUCOSE; Start 07/04/17 at 06:15 Glucagon (Glucagen) 1 mg Q15M PRN IM DECREASED GLUCOSE; Start 07/04/17 at 06: 15 Glucose (Glutose) 15 gm Q15M PRN BUCCAL DECREASED GLUCOSE; Start 07/04/17 at 06:15 Atorvastatin Calcium 10 mg 10 mg HS PO Last administered on 07/10/17 20:45; Admin Dose 10 MG; Start 07/05/17 at 21:00 Vancomycin HCl (Vancocin) 250 ml @ 125 mls/hr Q12H IVPB Last administered on 07/11/17 05:05; Admin Dose 125 MLS/HR; Start 07/06/17 at 05:00 IV Flush (NS 10 ml) 10 ml PRN PRN IV IV PROTOCOL; Start 07/08/17 at 11:30 Levofloxacin (Levaquin) 500 mg DAILY@06 PO Last administered on 07/11/17 05: 05; Admin Dose 500 MG; Start 07/09/17 at 06:00 Miscellaneous Information (*Rx Drug Level Order Reminder*) VANCOMYCIN TROUGH AT 1600 ONCE ONCE XX ; Start 07/11/17 at 16:00; Stop 07/11/17 at 16:01 Clopidogrel Bisulfate 75 mg 75 mg DAILY PO ; Start 07/11/17 at 11:30 Sodium Chloride (NS) 1,000 ml @ 75 mls/hr [id number] IV Last administered on 11:49; Admin Dose 75 MLS/HR; Start 07/11/17 at 11:30 Assessment/Plan Chief Complaint/Hosp Course SUBJECTIVE: No acute changes. The patient is alert, feels good, no fevers/n/v/ d, no pain. ANTIMICROBIALS: 1. Vancomycin. 2. Levaquin. PHYSICAL EXAMINATION: GENERAL: Well-developed, middle-aged man in no distress. HEENT: Head atraumatic, normocephalic. Sclerae anicteric. Buccal mucosa pink. NECK: Supple. CHEST: Rise symmetrical. Breath sounds clear. HEART: S1, S2. ABDOMEN: Soft, bowel tones present. EXTREMITIES: Bilateral toe wounds on the bottom. ASSESSMENT: 1. Bilateral lower extremity osteomyelitis. 2. Diabetes mellitus, poorly controlled. 3. Anemia. 4. RLE DVT PLAN: The patient remains stable, pending dc on current abx for 6 weeks, f/u podiatry/vascular rec-s [facility] staff Problems: OBINNA MIRAMONTES NP Jul 11, 2017 13:41
[2017-07-11] MEDS ORDERED: HEPARIN 1000 UNITS/NS (A-LINE) 1,000 ML ONE (17:53)
[2017-07-11] MEDS ORDERED: HEPARIN 1000 UNITS/ML 10 ML INJ ONE (17:53)
[2017-07-11] MEDS ORDERED: LIDOCAINE 1% (MDV) 20 ML INJ ONE (17:53)
[2017-07-11] MEDS ORDERED: IODIXANOL LOCM 100 ML BTL ONE (17:53)
[2017-07-11] MEDS ORDERED: MIDAZOLAM 1 MG/ML 2 ML INJ ONE (17:54)
[2017-07-11] MEDS ORDERED: FENTAnyl 50 MCG/ML VIAL ONE (17:54)
[2017-07-11] MEDS ORDERED: SOD CHLORIDE 0.45% 1,000 ML IV SCH (18:46)
--- NOTE | 2017-07-11 18:59 | SIPON ---
Date/Time of Note Date/Time of Note DATE: 07/11/17 TIME: 18:58 Operative Report Preoperative Diagnosis BLE NON-HEALING ULCERS Postoperative Diagnosis SAME Operation/Procedure Performed AORTOILIAC ANGIOGRAM WITH BLE ANGIOGRAM Surgeon see signature line manufacturing assistant NONE Anesthesia: moderate sedation Estimated blood loss: minimal Transfusion Required none Specimen NONE Grafts/Implants none Complications none PENG GALARZA MD Jul 11, 2017 18:59
[2017-07-11] MEDS ORDERED: ONDANSETRON 4 MG INJ IV PRN (19:00)
[2017-07-11 20:01] VITALS: BP 99/64; RESP 22
[2017-07-11] MEDS: ATORVASTATIN 10 MG TAB PO SCH (20:05)
[2017-07-11] MEDS: INSULIN GLARGINE [LANtus] 3 ML PEN SC SCH (20:07)
--- NOTE | 2017-07-11 20:25 | OPR ---
DATE OF OPERATION: 07/11/2017 SURGEON: Dino Mccall MD. PREOPERATIVE DIAGNOSIS: Bilateral lower extremity nonhealing ulcers. POSTOPERATIVE DIAGNOSIS: Bilateral lower extremity nonhealing ulcers. ANESTHESIA: Local with sedation. ESTIMATED BLOOD LOSS: Minimal. COMPLICATIONS: None. HEPARIN: None. CONTRAST: As recorded. ACCESS: Left common femoral artery 5-Italian sheath. CLOSURE: Manual compression Angio-Seal closure device. SEDATION: Under physician supervision, moderate sedation with fentanyl and Versed was administered intravenously under continuous monitoring by the interventional team and attending physician. Pulse oximeter, heart rate and blood pressures were continuously monitored by the interventional surgeon. The physician's spent time was 20 minutes of [id number] sedation time with the patient. INDICATIONS: This is a 51-year-old gentleman who presented with history of bilateral lower extremit y atherosclerosis with nonhealing ulcers that he has had for extended period of time with previous t oe amputations. His noninvasive vascular studies identified patient having calcified tibial vessels with triphasic flow; however, there was concern below the ankle. The patient did have questionable pedal disease and the fact that he has had nonhealing ulcers despite local wound care and diabetic foot care. Based on these findings, it was decided after discussion with alternatives, risk and robbie efits with the patient, to pursue angiogram of the lower extremities. The patient was informed of a lternatives, risks and benefits but not limited to bleeding, thrombosis, embolization, myocardial in farction, , stroke, device malfunction, infection, nephrotoxicity, and limb loss, and the patie nt has agreed to proceed. This defers diagnostic angiogram in this clinical setting. PROCEDURE: 1. Ultrasound-guided axis of the left common femoral artery. 2. Introduction of catheter and aorta. 3. Aortoiliac angiogram. 4. Third order selection of the right common femoral artery. 5. Right lower extremity angiogram. 6. Left lower extremity angiogram. FINDINGS: 1. Bilateral renal arteries are patent. Infrarenal aorta is patent. 2. Bilateral common iliac artery, internal iliac artery and external iliac arteries are patent. 3. Right common femoral artery is patent. 4. Right superficial femoral artery is patent on the distal aspect of this area of mild to moderate stenosis, but non-flow limiting. 5. Left profunda femoral artery is patent. 6. Left above-knee popliteal artery is patent. 7. Left at-knee popliteal artery is patent. 8. The right below-knee popliteal artery is patent. 9. Right anterior tibial artery is patent and becomes diminutive towards the ankle. 10. Right tibioperoneal trunk is patent. 11. Right posterior tibial artery is patent all the way down and the main runoff to the foot. 12. Right peroneal artery is patent to the ankle, where it becomes diminutive. 13. Right lateral and medial plantar arteries are patent. 14. Right common plantar is patent. 15. Right dorsalis pedis artery is not well visualized distally with mild to moderate disease. 16. Left common femoral artery is patent. 17. Left superficial femoral artery is patent. 18. Left profunda femoral artery is patent. 19. Left above-knee popliteal artery is patent. 20. Left at-knee popliteal artery is patent. 21. Left below-knee popliteal artery is patent. 22. Left anterior tibial artery is patent in the proximal aspect and it becomes diminutive towards t he ankle. 23. Left tibioperoneal trunk is patent. 24. The left posterior artery is patent all the way down to the common plantar artery as the main ru noff. 25. Left peroneal is patent down to the ankle where it becomes diminutive in size. 26. Left common plantar artery is patent. 27. Left medial and lateral plantar arteries are not well visualized secondary to contrast dosing. DESCRIPTION OF PROCEDURE: The patient was brought into the angio suite and positioned in supine pos ition on the fluoroscopic table. Sedation was administered without any complications. Left groin w as then shaved, prepped and draped in the usual standard sterile fashion. Time out and appropriate site was marked and confirmed. Local anesthesia was then infiltrated in the region of the left comm on femoral artery. The artery was then cannulated with a micro access needle under ultrasound zhao nce and a guidewire was then advanced into the iliac artery under fluoroscopic guidance. The needle was then removed and a microcatheter was placed. Bentson wire was then passed into the infrarenal aorta under fluoroscopic guidance followed by a short 5-Italian sheath over the wire. The sheath was then appropriately flushed with heparinized saline solution. Omniflush catheter was then passed in to the suprarenal aorta and aortoiliac angiogram was then performed. Findings are noted above. At this point, the Omniflush catheter was then used to select right common femoral artery in a third or yusra selection and a right lower extremity angiogram was performed. Findings are noted above. At th is point, it was identified the patient has inline flow from the common femoral artery all the way d own to the foot with posterior tibial artery being the main runoff, therefore catheter was removed a nd angiogram of the left lower extremity was performed via the 5-Italian sheath. Angiogram findings are noted above. It was also determined the patient has inline flow all the way down to the foot vi a the posterior tibial artery and no further intervention would be needed. At this point, all shashi ters, wires, sheaths were removed. The patient tolerated procedure well and Angio-Seal closure lisbet ce was used to deploy in the left common femoral artery. The patient tolerated procedure well and w as taken to the postanesthesia care unit in stable condition. PLAN: Essentially, the patient has inline flow from the common femoral artery all the way down to t he toes. The patient would require more aggressive wound care management and treatment and diabetic education, diabetic foot care. Vascular surgery will follow from our standpoint with his progress. Dictated By: DINO DIAZ/KIKI Conf#: [id number] DID#: [id number]
[2017-07-12] VITALS: BP 105/70; PULSE 78; RESP 18
[2017-07-12] MEDS: ACCU-CHEK XX SCH (01:26)
[2017-07-12 02:08] VITALS: BP 100/66; RESP 17
[2017-07-12 04:00] VITALS: BP 95/62; PULSE 69; RESP 18
[2017-07-12] MEDS: LEVOFLOXACIN 500 MG TAB PO SCH (04:35)
[2017-07-12 06:08] LABS: BASOPHILS % 0.6 % (0.0-2.0); EOSINOPHILS # 0.2 10^3/ul (0.0-0.5); EOSINOPHILS % 3.6 % (0.0-7.0); HEMATOCRIT 34.2 % (42.0-52.0); HEMOGLOBIN 11.4 g/dl (14.0-18.0); LYMPHOCYTES # 1.6 10^3/ul (0.8-2.9); LYMPHOCYTES % 32.9 % (15.0-51.0); MEAN CORPUSCULAR HGB CONC 33.3 g/dl (32.0-37.0); MEAN PLATELET VOLUME 9.9 fl (7.4-10.4); MONOCYTE # 0.3 10^3/ul (0.3-0.9); MONOCYTES % 7.1 % (0.0-11.0); NEUTROPHIL # 2.7 10^3/ul (1.6-7.5); NEUTROPHILS % 55.6 % (39.0-77.0); PLATELET COUNT 176 10^3/UL (140-415); RED BLOOD COUNT 3.93 10^6/ul (4.70-6.10); RED CELL DISTRIBUTION WIDTH 13.5 % (11.5-14.5); WHITE BLOOD COUNT 4.8 10^3/ul (4.8-10.8)
[2017-07-12 07:00] VITALS: BP 111/71; RESP 16
[2017-07-12 07:05] LABS: CALCIUM 9.3 mg/dl (8.4-10.2); CREATININE 0.99 mg/dl (0.61-1.24); MAGNESIUM 1.8 mg/dl (1.7-2.5); POTASSIUM 4.1 mmol/L (3.5-5.1)
[2017-07-12] MEDS: INSULIN ASPART [NOVOLOG] 3 ML PEN SC SCH ×7 (07:50→20:53)
[2017-07-12] MEDS: VANCOMYCIN 1.25 GM in SOD CHLORIDE 0.9% 250 ML IVPB SCH ×2 (08:21→17:13)
[2017-07-12] MEDS: HEPARIN 5,000 UNIT/0.5 ML VIAL SC SCH ×2 (08:38→20:53)
[2017-07-12] MEDS: CLOPIDOGREL 75 MG TAB PO SCH ×2 (09:49→09:55)
[2017-07-12] MEDS ORDERED: CLOP75TA28 PO (09:58)
[2017-07-12] MEDS ORDERED: POVI1MED TP (10:00)
--- NOTE | 2017-07-12 10:09 | DS ---
Date/Time of Note Date/Time of Note DATE: 07/12/17 TIME: 10:01 Discharge Summary Admission/Discharge Info Admit Date/Time Jul 04, 2017 at 02:44 Discharge Date/Time Discharge Diagnosis 1. Bilateral diabetic foot ulcers with osteomyelitis.MRI with Osteomyelitis within the left fifth distal phalanx ,Right first and progression to second digit. On 6 weeks antibiotic regimen. 2. Type 2 diabetes, poorly controlled. A1c 10.3. 3. Anemia, chronic. 4. Hypercholesterolemia. 5. 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 Status post AORTOILIAC ANGIOGRAM WITH BLE ANGIOGRAM 6. 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 Monique, ID Dr. Mccall, vascular Procedures 07/06/2017. MRI left foot. IMPRESSION: 1. Osteomyelitis within the fifth distal phalanx with abnormal marrow signal/ marrow edema with an adjacent skin ulcer. 2. Post amputation of the first distal phalanx and a portion of the first proximal phalanx without evidence of acute osteomyelitis. 3. Cortical irregularity and blunting of the second distal phalanx from chronic osteomyelitis. 4. Degenerative changes within the second metatarsophalangeal joint with bony remodelling, osseous spurring, and a joint effusion with synovitis with degeneration/tearing of the plantar plate. 5. Abnormal appearance of the third proximal phalanx with subluxation at the proximal interphalangeal joint and nonvisualization of the distal phalanx which may be from chronic osteomyelitis with amputation or bony resorption. 07/06/2017. MRI right foot. IMPRESSION: 1. Progression of the osteomyelitis involving the second digit with increased bony destructive changes within the proximal phalanx and distal metatarsal post amputation of the middle and distal phalanges with abnormal marrow signal. Decreased subcutaneous gas within small amount of adjacent loculated fluid but no large drainable abscess. 2. Similar appearance of the osteomyelitis involving the first distal and proximal phalanges with an adjacent skin ulcer. 3. Improvement of the osteomyelitis within the third proximal phalanx with decreased marrow edema. 2016. Ultrasound-guided PICC line insertion on left upper extremity. 07/11/2017: Operation performed: PROCEDURE: 1. Ultrasound-guided axis of the left common femoral artery. 2. Introduction of catheter and aorta. 3. Aortoiliac angiogram. 4. Third order selection of the right common femoral artery. 5. Right lower extremity angiogram. 6. Left lower extremity angiogram. FINDINGS: 1. Bilateral renal arteries are patent. Infrarenal aorta is patent. 2. Bilateral common iliac artery, internal iliac artery and external iliac arteries are patent. 3. Right common femoral artery is patent. 4. Right superficial femoral artery is patent on the distal aspect of this area of mild to moderate stenosis, but non-flow limiting. 5. Left profunda femoral artery is patent. 6. Left above-knee popliteal artery is patent. 7. Left at-knee popliteal artery is patent. 8. The right below-knee popliteal artery is patent. 9. Right anterior tibial artery is patent and becomes diminutive towards the ankle. 10. Right tibioperoneal trunk is patent. 11. Right posterior tibial artery is patent all the way down and the main runoff to the foot. 12. Right peroneal artery is patent to the ankle, where it becomes diminutive. 13. Right lateral and medial plantar arteries are patent. 14. Right common plantar is patent. 15. Right dorsalis pedis artery is not well visualized distally with mild to moderate disease. 16. Left common femoral artery is patent. 17. Left superficial femoral artery is patent. 18. Left profunda femoral artery is patent. 19. Left above-knee popliteal artery is patent. 20. Left at-knee popliteal artery is patent. 21. Left below-knee popliteal artery is patent. 22. Left anterior tibial artery is patent in the proximal aspect and it becomes diminutive towards the ankle. 23. Left tibioperoneal trunk is patent. 24. The left posterior artery is patent all the way down to the common plantar artery as the main runoff. 25. Left peroneal is patent down to the ankle where it becomes diminutive in size. 26. Left common plantar artery is patent. 27. Left medial and lateral plantar arteries are not well visualized secondary to contrast dosing. Hx of Present Illness This is a 51-year-old male with a past medical history of type 2 diabetes, peripheral vascular disease, iron deficiency anemia, anemia, peripheral neuropathy, osteomyelitis of bilateral foot, left great toe amputation who presented to the emergency room with progressive worsening of right great toe and left second and fifth toe ulcers. Patient was admitted for further workup. Hospital Course He was continued on broad-spectrum IV antibiotics. Blood sugar was managed on insulin in-house. Patient had A1c 10.3. Blood cultures remained negative. MRI consistent with osteomyelitis of e left fifth distal phalanx ,Right first and progression to second dig. Patient was seen and evaluated by infectious disease and podiatry colleagues. Previous studies without any stenosis. Patient also had vascular evaluation and he had negative arterial studies for stenosis. As per podiatry evaluation, recommendation was to continue IV antibiotics for 6 weeks with outpatient follow-up at wound care clinic. After discussion with ID colleagues, patient was recommended to continue Levaquin and Vancomycin for which pharmacy will dose it for 6 weeks. Patient is also instructed on offloading of right foot and allowed to have partial weightbearing right foot with postoperative shoes. He was also recommended on daily dressing change. Patient was also evaluated by vascular colleagues and on 07/11/2017, patient had bilateral lower extremity and aortoiliac angiogram. As per findings, patient had in-line flow from the common femoral artery all the way down to the toes. Recommendation was wound care management, Plavix indefinite course, diabetic management and foot care. Overall, patient had an uneventful stay at [facility]. Case management was called for arranging home health nurse for providing wound care as well as IV antibiotics. At this time, patient is feeling back to baseline. His labs and vital signs remained stable. Disposition: Patient will be discharged home with home health nurse for IV as well as wound care services. Patient was provided with front wheeled walker, postoperative shoes. He was also instructed to follow-up with amputation prevention clinic for podiatry and vascular follow-up. Patient verbalized discharge instructions. Discharge medications were electronically transmitted to preferred pharmacy on file. Approximately 60 minutes was spent in coordinating the discharge on this patient. Patient was seen in collaboration with . Home Meds Active Scripts Povidone-Iodine (Betadine) 1 Each Med..swab, 1 EACH TP DAILY, #30 STICK Apply to bilateral foot ulcers. Okay to substitute with Betadine cleansing solution. Prov:JOSHI,ANNE MARIE V. COMMUNITY HE[employer] OUTREACH WORKER 07/12/17 Clopidogrel Bisulfate (Clopidogrel) 75 Mg Tablet, 75 MG PO DAILY, #30 TAB Prov:JOSHI,ANNE MARIE V. COMM[employer] OUTREACH WORKER 07/12/17 Metformin* (Glucophage*) 1,000 Mg Tablet, 1000 MG PO WITH BREAKFAST DINNE, #60 TAB Prov:JOSHI,ANNE MARIE V. COMM[employer] OUTREACH WORKER 07/09/17 Atorvastatin (Atorvastatin) 10 Mg Tablet, 10 MG PO HS, #30 TAB Prov:JOSHI,ANNE MARIE V. COMMUNITY [employer] OUTREACH WORKER 07/09/17 Daptomycin (Cubicin) 500 Mg Vial, 500 MG IVPB Q24H for 42 Days, #42 VIAL Prov:JOSHI,ANNE MARIE V. COMMUNITY [employer] OUTREACH WORKER 07/09/17 Levofloxacin* (Levaquin*) 500 Mg Tablet, 500 MG PO DAILY@06, #42 TAB Stop date 08/20/2017 Prov:JOSHI,ANNE MARIE V. COMM[employer]ITY [employer] OUTREACH WORKER 07/09/17 Ferrous Sulfate* (Ferrous Sulfate*) 325 Mg Tabec, 325 MG PO TID for 30 Days, TAB Prov:DAVID POE MD 01/23/17 Insulin Aspart* (Novolog Insulin Pen*) 100 Unit/Ml Soln, 5 UNIT SC WITH MEALS for 30 Days Prov:DAVID POE MD 01/23/17 Insulin Glargine* (Lantus*) 100 Unit/Ml Soln, 16 UNIT SC DAILY@20 for 30 Days Prov:DAVID POE MD 01/23/17 Reported Medications Ibuprofen* (Ibuprofen*) 600 Mg Tablet, 600 MG PO Q8 Y for PAIN, TAB 01/17/17 Discontinued Reported Medications Metformin* (Glucophage*) 500 Mg Tab, 500 MG PO BID, TAB 01/16/17 Discontinued Scripts Vancomycin HCl in Dextrose 5 % (Vancomycin 1.5 Gram/250 ml-D5w) 1.5 Gm/250 Ml Plast..bag, 1.5 GM IV BID for 42 Days Prov:DAVID POE MD 01/23/17 Insulin Aspart* (Novolog Insulin Pen*) 100 Unit/Ml Soln, 0 UNIT SC WITH MEALS BEDTIME for 30 Days Prov:DAVID POE MD 01/23/17 Follow-up Plan 1. Follow-up with and Dr. Mccall at amputation prevention clinic every week [id number] [id number] Office 2.Follow up with primary care physician in 1 week If you don't have one please let someone know, we can give you resources that may help you pick one. You may also call your insurance company to assign one to you. Review your medication list with your nurse before leaving and if you need new prescriptions please let your nurse know. I may have made changes to your home medications or given you new prescriptions, please let your primary doctor know as well. Stay compliant with your medications and report any side effects to your PCP or pharmacist. Return to the ER if you have any concerns and cannot reach your doctors or call your insurance company, they usually have a nurse that can help you. 3. Call 911 or go to the nearest emergency room if experiencing loss of consciousness, dizziness, chest pain, shortness of breath, vomiting/abdominal pain, speech difficulties, motor weakness or any unusual symptoms. Additional instructions. Partial weightbearing right foot with postop shoe allowed. Daily dressing change right big toe. Primary Care Provider Zakia Raphael, DO Pending Labs Laboratory Tests Test 07/11/17 12:52 07/11/17 16:10 07/11/17 16:40 07/11/17 19:14 Bedside Glucose 161mg/dL (70-220) 136mg/dL (70-220) 110mg/dL (70-220) Vancomycin Level Trough 11.4ug/ml (10.0-20.0) Test 07/12/17 00:58 07/12/17 04:35 07/12/17 04:36 07/12/17 08:25 Bedside Glucose 113mg/dL (70-220) 116mg/dL (70-220) White Blood Count 4.810^3/ul (4.8-10.8) Red Blood Count 3.9310^6/ul (4.70-6.10) Hemoglobin 11.4g/dl (14.0-18.0) Hematocrit 34.2% (42.0-52.0) Mean Corpuscular Volume 87.0fl (82.0-101.0) Mean Corpuscular Hemoglobin 29.0pg (29.0-33.0) Mean Corpuscular Hemoglobin Concent 33.3g/dl (32.0-37.0) Red Cell Distribution Width 13.5% (11.5-14.5) Platelet Count 29586^3/UL (140-415) Mean Platelet Volume 9.9fl (7.4-10.4) Neutrophils % 55.6% (39.0-77.0) Lymphocytes % 32.9% (15.0-51.0) Monocytes % 7.1% (0.0-11.0) Eosinophils % 3.6% (0.0-7.0) Basophils % 0.6% (0.0-2.0) Nucleated Red Blood Cells % 0.0/100WBC (0.0-0.0) Neutrophils # 2.710^3/ul (1.6-7.5) Lymphocytes # 1.610^3/ul (0.8-2.9) Monocytes # 0.310^3/ul (0.3-0.9) Eosinophils # 0.210^3/ul (0.0-0.5) Basophils # 0.010^3/ul (0.0-0.1) Nucleated Red Blood Cells # 0.010^3/ul (0.0-0.0) Sodium Level 139mmol/L (135-144) Potassium Level 4.1mmol/L (3.5-5.1) Chloride Level 99mmol/L (97-110) Carbon Dioxide Level 30mmol/L (21-31) Anion Gap 14 (8-16) Blood Urea Nitrogen 18mg/dl (7-20) Creatinine 0.99mg/dl (0.61-1.24) Glucose Level 142mg/dl (70-220) Calcium Level 9.3mg/dl (8.4-10.2) Magnesium Level 1.8mg/dl (1.7-2.5) ANNE MARIE JOSHI NP Jul 12, 2017 10:09
--- NOTE | 2017-07-12 12:27 | CONS ---
Date/Time of Note Date/Time of Note DATE: 07/12/17 TIME: 12:26 Consult Date/Type/Reason Admit Date/Time Jul 04, 2017 at 02:44 Initial Consult Date 07/06/17 Type of Consultation: id Objective Vital Signs Date Time Temp Pulse Resp B/P Pulse Ox O2 Delivery O2 Flow Rate FiO2 07/12/17 07:00 97.5 60 16 111/71 98 07/12/17 04:00 Room Air Intake and Output 07/11/17 07/11/17 07/12/17 15:00 23:00 07:00 Intake Total 250 ml 1325 ml 1925 ml Output Total 900 ml 1220 ml Balance 250 ml 425 ml 705 ml Results/Medications Result Diagram: 07/12/17 0435 07/12/17 0436 Results 24 hrs Laboratory Tests Test 07/11/17 12:52 07/11/17 16:10 07/11/17 16:40 07/11/17 19:14 Bedside Glucose 161 136 110 Vancomycin Level Trough 11.4 Test 07/12/17 00:58 07/12/17 04:35 07/12/17 04:36 07/12/17 08:25 Bedside Glucose 113 116 White Blood Count 4.8 Red Blood Count 3.93 L Hemoglobin 11.4 L Hematocrit 34.2 L Mean Corpuscular Volume 87.0 Mean Corpuscular Hemoglobin 29.0 Mean Corpuscular Hemoglobin Concent 33.3 Red Cell Distribution Width 13.5 Platelet Count 176 Mean Platelet Volume 9.9 Neutrophils % 55.6 Lymphocytes % 32.9 Monocytes % 7.1 Eosinophils % 3.6 Basophils % 0.6 Nucleated Red Blood Cells % 0.0 Neutrophils # 2.7 Lymphocytes # 1.6 Monocytes # 0.3 Eosinophils # 0.2 Basophils # 0.0 Nucleated Red Blood Cells # 0.0 Sodium Level 139 Potassium Level 4.1 Chloride Level 99 Carbon Dioxide Level 30 Anion Gap 14 Blood Urea Nitrogen 18 Creatinine 0.99 Glucose Level 142 Calcium Level 9.3 Magnesium Level 1.8 Medications Current Medications Acetaminophen (Tylenol Tab) 650 mg Q6H PRN PO PAIN LEVEL 1-3 OR FEVER; Start 07/04/17 at 06:00 Morphine Sulfate (morphine) 2 mg Q4H PRN IV PAIN LEVEL 7-10; Start 07/04/17 at 06:00 Heparin Sodium (Porcine) (Heparin (5000 Units/0.5 ml)) 5,000 unit Q12 SC Last administered on 07/12/17 08:38; Admin Dose 5,000 UNIT; Start 07/04/17 at 09: 00 Insulin Glargine (Lantus) 16 unit DAILY@20 SC Last administered on 07/11/17 20:07; Admin Dose 16 UNIT; Start 07/04/17 at 20:00 Diagnostic Test (Pha) (Accu-Chek) 1 ea 02 XX Last administered on 07/10/17 02 :26; Admin Dose 1 EA; Start 07/05/17 at 02:00 Miscellaneous Information 1 ea NOTE XX ; Start 07/04/17 at 06:15 Glucose (Glutose) 15 gm Q15M PRN PO DECREASED GLUCOSE; Start 07/04/17 at 06:15 Glucose (Glutose) 22.5 gm Q15M PRN PO DECREASED GLUCOSE; Start 07/04/17 at 06: 15 Dextrose (D50w Syringe) 25 ml Q15M PRN IV DECREASED GLUCOSE; Start 07/04/17 at 06:15 Dextrose (D50w Syringe) 50 ml Q15M PRN IV DECREASED GLUCOSE; Start 07/04/17 at 06:15 Glucagon (Glucagen) 1 mg Q15M PRN IM DECREASED GLUCOSE; Start 07/04/17 at 06: 15 Glucose (Glutose) 15 gm Q15M PRN BUCCAL DECREASED GLUCOSE; Start 07/04/17 at 06:15 Atorvastatin Calcium (Lipitor) 10 mg HS PO Last administered on 07/11/17 20: 05; Admin Dose 10 MG; Start 07/05/17 at 21:00 IV Flush (NS 10 ml) 10 ml PRN PRN IV IV PROTOCOL; Start 07/08/17 at 11:30 Levofloxacin (Levaquin) 500 mg DAILY@06 PO Last administered on 07/12/17 04: 35; Admin Dose 500 MG; Start 07/09/17 at 06:00 Clopidogrel Bisulfate (plaVIX) 75 mg DAILY PO Last administered on 07/12/17 09:55; Admin Dose 75 MG; Start 07/11/17 at 11:30 Ondansetron HCl 4 mg 4 mg Q4H PRN IV NAUSEA AND/OR VOMITING; Start 07/11/17 at 19:00 Vancomycin HCl/ Sodium Chloride (Vancocin/NS) 250 ml @ 83.333 mls/ hr Q12H IVPB Last administered on 07/12/17t 08:21; Admin Dose 83.333 MLS/HR; Start at 08:00 Assessment/Plan Chief Complaint/Hosp Course SUBJECTIVE: No acute changes. The patient is alert, feels good, no fevers/n/v/ d, no pain. ANTIMICROBIALS: 1. Vancomycin. 2. Levaquin. PHYSICAL EXAMINATION: GENERAL: Well-developed, middle-aged man in no distress. HEENT: Head atraumatic, normocephalic. Sclerae anicteric. Buccal mucosa pink. NECK: Supple. CHEST: Rise symmetrical. Breath sounds clear. HEART: S1, S2. ABDOMEN: Soft, bowel tones present. EXTREMITIES: Bilateral toe wounds on the bottom. ASSESSMENT: 1. Bilateral lower extremity osteomyelitis. 2. Diabetes mellitus, poorly controlled. 3. Anemia. 4. RLE DVT PLAN: The patient remains stable, pending dc, abx for 6 weeks, f/u podiatry/ vascular rec-s [facility] staff Problems: OBINNA MIRAMONTES NP Jul 12, 2017 12:27
[2017-07-12 14:00] VITALS: BP 111/69; RESP 18
[2017-07-12 19:30] VITALS: BP 103/64; RESP 22
[2017-07-12] MEDS: ATORVASTATIN 10 MG TAB PO SCH (20:47)
[2017-07-12] MEDS: INSULIN GLARGINE [LANtus] 3 ML PEN SC SCH (20:52)
== END 2017-07-12 21:45 | disposition home health service (06) | DRG 638 ==
LOC: FTE 20:56 → MS1 07-04 02:44
PROVIDERS: ADMIT Internal Medicine; ATTEND Internal Medicine
PROC: 3E0234Z Introduction of Serum, Toxoid and Vaccine into Muscle, Percutaneous Approach (ICD-10-PCS; 2017-07-07)
PROC: B41D1ZZ Fluoroscopy of Aorta and Bilateral Lower Extremity Arteries using Low Osmolar Contrast (ICD-10-PCS; principal; 2017-07-11 18:30)
DX: E11.69 Type 2 diabetes mellitus with other specified complication (principal); M86.172 Other acute osteomyelitis, left ankle and foot; M86.171 Other acute osteomyelitis, right ankle and foot; E11.42 Type 2 diabetes mellitus with diabetic polyneuropathy; E11.51 Type 2 diabetes mellitus with diabetic peripheral angiopathy without gangrene; I82.401 Acute embolism and thrombosis of unspecified deep veins of right lower extremity; I70.235 Atherosclerosis of native arteries of right leg with ulceration of other part of foot; L97.519 Non-pressure chronic ulcer of other part of right foot with unspecified severity; L97.529 Non-pressure chronic ulcer of other part of left foot with unspecified severity; D50.9 Iron deficiency anemia, unspecified; E11.65 Type 2 diabetes mellitus with hyperglycemia; Z23 Encounter for immunization; I70.245 Atherosclerosis of native arteries of left leg with ulceration of other part of foot; H53.8 Other visual disturbances; D64.9 Anemia, unspecified; E11.621 Type 2 diabetes mellitus with foot ulcer; E78.00 Pure hypercholesterolemia, unspecified; Z79.4 Long term (current) use of insulin; Z89.421 Acquired absence of other right toe(s); Z89.412 Acquired absence of left great toe; Z83.3 Family history of diabetes mellitus; Z82.49 Family history of ischemic heart disease and other diseases of the circulatory system
CPT/HCPCS: 36415; 36569; 71010; 73718; 75630; 76937; 80048; 80053; 80061; 80202; 82962; 83036; 83540; 83735; 85025; 87040; 87081; 90686; 93922; 93970; 96374; 96375; 97110; 97116; 97161; 97530; C1760; C1887; C1894; J0692; J0696; J1644; J1815; J2250; J3010; J3370; J7030; J7050; L3260-LT; Q9967

== ENCOUNTER 2017-07-13 20:56 | Emergency (ER) | payer MEDICAID, OTHER ==
[~2017-07-13] VITALS: Ht 175.3 cm; Wt 73.0 kg
[~2017-07-13 20:56] MED LIST changes: +ATOR10TA65 PO; +CLOP75TA28 PO; +DAPT500V5 IVPB; +LEVO500T72 PO; -METF500T4 PO; +MTF1000T PO; +POVI1MED TP; -VANC1.5P12 IV
[2017-07-13 21:13] VITALS: Ht 175.3 cm; Wt 73.0 kg
[2017-07-13 22:19] LABS: BASOPHILS % 0.4 % (0.0-2.0); EOSINOPHILS # 0.2 10^3/ul (0.0-0.5); EOSINOPHILS % 2.5 % (0.0-7.0); HEMATOCRIT 34.4 % (42.0-52.0); HEMOGLOBIN 11.5 g/dl (14.0-18.0); LYMPHOCYTES # 1.8 10^3/ul (0.8-2.9); LYMPHOCYTES % 25.7 % (15.0-51.0); MEAN CORPUSCULAR HEMOGLOBIN 28.9 pg (29.0-33.0); MEAN CORPUSCULAR HGB CONC 33.4 g/dl (32.0-37.0); MEAN CORPUSCULAR VOLUME 86.4 fl (82.0-101.0); MONOCYTE # 0.4 10^3/ul (0.3-0.9); MONOCYTES % 5.3 % (0.0-11.0); NEUTROPHIL # 4.7 10^3/ul (1.6-7.5); NEUTROPHILS % 65.7 % (39.0-77.0); PLATELET COUNT 167 10^3/UL (140-415); RED BLOOD COUNT 3.98 10^6/ul (4.70-6.10); RED CELL DISTRIBUTION WIDTH 13.4 % (11.5-14.5); WHITE BLOOD COUNT 7.2 10^3/ul (4.8-10.8)
[2017-07-13 22:34] LABS: INR 0.99; PROTIME 13.1 Sec (12.2-14.2)
[2017-07-13 22:39] LABS: ALBUMIN/GLOBULIN RATIO 1.05; BILIRUBIN,INDIRECT 0.2 mg/dl (0-1.1); BILIRUBIN,TOTAL 0.2 mg/dl (0.2-1.3); CALCIUM 9.6 mg/dl (8.4-10.2); CREATININE 1.09 mg/dl (0.61-1.24); POTASSIUM 4.4 mmol/L (3.5-5.1); TOTAL PROTEIN 7.8 g/dl (6.1-8.1)
[2017-07-13] MEDS ORDERED: SOD CHLORIDE 0.9% 100 ML ONE (22:52)
[2017-07-13] MEDS ORDERED: IODIXANOL LOCM 100 ML BTL ONE (22:52)
--- NOTE | 2017-07-13 23:59 | RADRPT ---
PROCEDURE: CT angiogram runoff of the lower extremities CLINICAL INDICATION: Left lower extremity pain TECHNIQUE: CT angiogram runoff of the inferior pelvis and lower extremities from the acetabulum to the toes is performed following the uneventful intravenous injection of 100 cc Visipaque 320. The exam is reconstructed at 2.5 mm intervals with coronal and sagittal reformatted images also submitte d to the PACS for review. Coronal and sagittal MIP are obtained. 3-D post processing reconstruction series are not obtained. One or more of the following dose reduction techniques were used: Automated exposure control, adjustment of the mA and/or kV according to patient size, use of iterative recons truction technique. CTDI= 78.85 mGy; DLP= 598.61 mGy-cm COMPARISON: Arterial ultrasound 07/07/2017 FINDINGS: ARTERIAL FINDINGS: Iliac systems: External iliac arteries: Normal enhancement is identified in the distal external iliac without evid ence of stenosis, occlusion or contrast extravasation. Lower extremities: Left: Normal enhancement of the common femoral and profunda femoral arteries is present. There is de pendent is soft tissue swelling overlying the common femoral artery suggesting recent procedure with out evidence of organized hematoma or pseudoaneurysm. Some reactive type lymph node prominence in th e left inguinal region is present. There is normal enhancement of the superficial femoral arteries a nd in the segment. The popliteal artery is patent. A normal three-vessel runoff is seen with normal enhancement of the anterior tibial, posterior tibial and peroneal arteries. There is no evidence of occlusion or obvious stenosis involving the foot vessels NON ARTERIAL FINDINGS: Some bony irregularity involving the foot most pronounced in the great toe and second digits suggest possible neuropathic changes. The remaining osseous structures of the lower extremity are unremarka ble. No pathology is seen RPTAT:HJJR IMPRESSION: 1. Normal CT angiogram of the left lower extremity without occlusion or segmental stenosis. 2. Soft tissue swelling overlying the left common femoral artery within the subcutaneous fat possibl y from recent procedure without evidence of pseudoaneurysm. 3. Changes of the left great toe and second metatarsal phalangeal joint suggest possible neuropathic arthropathy in the proper clinical setting. Scott Nguyễn, Physician Date Time Electronically viewed and signed by Scott Nguyễn Physician on 07/13/2017 23:59 /
[2017-07-14 00:17] VITALS: BP 102/56; PULSE 89; RESP 16
--- NOTE | 2017-07-14 01:14 | ERD ---
ER Documentation Chief Complaint Chief Complaint bib self, cc: left pelvic pain / abscess, picc line left upper arm HPI This is a 51-year-old male who was recently admitted earlier this month and discharged yesterday for osteomyelitis and had an operative aortoiliac angiogram few days ago presents to the ED Complaining of left extremity pain at the site where he had the insertion for the angiogram probe. Patient has a PICC line in. Patient denies any fevers. ROS All systems reviewed and are negative except as per history of present illness. Medications Home Meds Active Scripts Povidone-Iodine (Betadine) 1 Each Med..swab, 1 EACH TP DAILY, #30 STICK Apply to bilateral foot ulcers. Okay to substitute with Betadine cleansing solution. Prov:ANNE MARIE JOSHI NP 07/12/17 Clopidogrel Bisulfate (Clopidogrel) 75 Mg Tablet, 75 MG PO DAILY, #30 TAB Prov:ANNE MARIE JOSHI NP 07/12/17 Metformin* (Glucophage*) 1,000 Mg Tablet, 1000 MG PO WITH BREAKFAST DINNE, #60 TAB Prov:ANNE MARIE JOSHI NP 07/09/17 Atorvastatin (Atorvastatin) 10 Mg Tablet, 10 MG PO HS, #30 TAB Prov:MARCIAL JOSHIA Tayler MILTON 07/09/17 Daptomycin (Cubicin) 500 Mg Vial, 500 MG IVPB Q24H for 42 Days, #42 VIAL Prov:ANNE MARIE JOSHI NP 07/09/17 Levofloxacin* (Levaquin*) 500 Mg Tablet, 500 MG PO DAILY@06, #42 TAB Stop date 08/20/2017 Prov:ANNE MARIE JOSHI NP 07/09/17 Ferrous Sulfate* (Ferrous Sulfate*) 325 Mg Tabec, 325 MG PO TID for 30 Days, TAB Prov:DAVID POE MD 01/23/17 Insulin Aspart* (Novolog Insulin Pen*) 100 Unit/Ml Soln, 5 UNIT SC WITH MEALS for 30 Days Prov:DAVID POE MD 01/23/17 Insulin Glargine* (Lantus*) 100 Unit/Ml Soln, 16 UNIT SC DAILY@20 for 30 Days Prov:DAVID POE MD 01/23/17 Reported Medications Ibuprofen* (Ibuprofen*) 600 Mg Tablet, 600 MG PO Q8 Y for PAIN, TAB 01/17/17 Discontinued Reported Medications Metformin* (Glucophage*) 500 Mg Tab, 500 MG PO BID, TAB 01/16/17 Discontinued Scripts Vancomycin HCl in Dextrose 5 % (Vancomycin 1.5 Gram/250 ml-D5w) 1.5 Gm/250 Ml Plast..bag, 1.5 GM IV BID for 42 Days Prov:DAVID POE MD 01/23/17 Insulin Aspart* (Novolog Insulin Pen*) 100 Unit/Ml Soln, 0 UNIT SC WITH MEALS BEDTIME for 30 Days Prov:DAVID POE MD 01/23/17 Allergies Allergies: Coded Allergies: No Known Drug Allergies (Verified Allergy, Unknown, 01/16/17) PMhx/Soc History of Surgery: Yes Anesthesia Reaction: No Hx Neurological Disorder: No Hx Respiratory Disorders: No Hx Cardiac Disorders: No Hx Psychiatric Problems: No Hx Miscellaneous Medical Probl: Yes (osteomyelitis, L big toe amputation, DM, PICC line L arm) Hx Alcohol Use: Yes Hx Substance Use: No Hx Tobacco Use: No Smoking Status: Former smoker Physical Exam Vitals Vital Signs Date Time Temp Pulse Resp B/P Pulse Ox O2 Delivery O2 Flow Rate FiO2 07/14/17 00:17 89 16 102/56 98 Room Air 07/13/17 21:13 98.5 98 18 97/72 100 Physical Exam Const: WDWN Head: Atraumatic Eyes: Normal Conjunctiva ENT: Normal External Ears, Nose and Mouth. Neck: Full range of motion..~ No meningismus. Resp: Clear to auscultation bilaterally Cardio: Regular rate and rhythm, no murmurs Abd: Soft, non tender, non distended. Normal bowel sounds Skin: No petechiae or rashes. picc line placed left upper ext tegaderm left groin, No evidence of erythema, induration or purulence Back: No midline or flank tenderness Ext: No cyanosis, or edema Neur: Awake and alert Psych: Normal Mood and Affect Result Diagram: 07/13/17220207/13/172202 Results 24 hrs Laboratory Tests Test 07/13/17 22:03 White Blood Count 7.210^3/ul Red Blood Count 3.9810^6/ul Hemoglobin 11.5g/dl Hematocrit 34.4% Mean Corpuscular Volume 86.4fl Mean Corpuscular Hemoglobin 28.9pg Mean Corpuscular Hemoglobin Concent 33.4g/dl Red Cell Distribution Width 13.4% Platelet Count 42227^3/UL Mean Platelet Volume 10.0fl Neutrophils % 65.7% Lymphocytes % 25.7% Monocytes % 5.3% Eosinophils % 2.5% Basophils % 0.4% Nucleated Red Blood Cells % 0.0/100WBC Neutrophils # 4.710^3/ul Lymphocytes # 1.810^3/ul Monocytes # 0.410^3/ul Eosinophils # 0.210^3/ul Basophils # 0.010^3/ul Nucleated Red Blood Cells # 0.010^3/ul Prothrombin Time 13.1Sec Prothrombin Time Ratio 1.0 INR International Normalized Ratio 0.99 Activated Partial Thromboplast Time 32.0Sec Sodium Level 138mmol/L Potassium Level 4.4mmol/L Chloride Level 100mmol/L Carbon Dioxide Level 28mmol/L Anion Gap 14 Blood Urea Nitrogen 27mg/dl Creatinine 1.09mg/dl Glucose Level 223mg/dl Calcium Level 9.6mg/dl Total Bilirubin 0.2mg/dl Direct Bilirubin 0.00mg/dl Indirect Bilirubin 0.2mg/dl Aspartate Amino Transf (AST/SGOT) 32IU/L Alanine Aminotransferase (ALT/SGPT) 49IU/L Alkaline Phosphatase 73IU/L Total Protein 7.8g/dl Albumin 4.0g/dl Globulin 3.80g/dl Albumin/Globulin Ratio 1.05 Current Medications Medications (Trade) Dose Ordered Sig/Deisy Route PRN Reason Start Time Stop Time Status Last Admin Dose Admin IV Flush 10 ml 10 ml STK-MED ONCE .ROUTE 07/13/17 22:52 07/13/17 22:53 DC 07/13/17 23:23 Sodium Chloride (NS) 100 ml @ ud STK-MED ONCE .ROUTE 07/13/17 22:52 07/13/17 22:53 DC 07/13/17 23:25 Iodixanol (Visipaque Locm) 100 ml STK-MED ONCE .ROUTE 07/13/17 22:52 07/13/17 22:53 DC 07/13/17 23:25 Procedures/MDM This is a 51-year-old male who was recently admitted earlier this month and discharged yesterday for osteomyelitis and had an operative aortoiliac angiogram few days ago presents to the ED Complaining of left extremity pain at the site where he had the insertion for the angiogram probe. Patient has a PICC line in. Patient appears well and stable. I have consulted my supervising physician Dr. Antoine truong who suggested for a CTA of the left lower extremity. Radiologist stated 1. Normal CT angiogram of the left lower extremity without occlusion or segmental stenosis. 2. Soft tissue swelling overlying the left common femoral artery within the subcutaneous fat possibly from recent procedure without evidence of pseudoaneurysm. 3. Changes of the left great toe and second metatarsal phalangeal joint suggest possible neuropathic arthropathy in the proper clinical setting. Patient stable to be discharged home to follow-up with primary care physician. Discussed return to the ER for any worsening signs symptoms Departure Diagnosis: Primary Impression: Leg pain Condition: Stable Patient Instructions: Peripheral Angiography, Computed Tomography Angiography ( CTA) Additional Instructions: Visite a giron toby murphy para un EXAMEN.Regrese a estas instalaciones si no se mejora elizabet esperbamos o elizabet le dijimos. Regrese a estas instalaciones si no se mejora elizabet esperbamos o elizabet le dijimos. TONYA CABRERA PA-C Jul 14, 2017 01:14
== END 2017-07-14 00:21 | disposition home or self-care (01) ==
LOC: FTE 20:56
DX: M79.605 Pain in left leg (principal); E11.9 Type 2 diabetes mellitus without complications; Z79.4 Long term (current) use of insulin; Z79.84 Long term (current) use of oral hypoglycemic drugs; Z87.891 Personal history of nicotine dependence
CPT/HCPCS: 36415; 73706; 80053; 85025; 85610; 85730; Q9967; Z7502; Z7610

== ENCOUNTER 2017-08-20 15:28 | Emergency (ER) | payer OTHER ==
[~2017-08-20] VITALS: Ht 162.6 cm; Wt 74.0 kg
[2017-08-20 15:40] VITALS: Ht 162.6 cm; Wt 74.0 kg
[2017-08-20 20:01] VITALS: TEMP 98.2
--- NOTE | 2017-08-20 22:18 | ERD ---
ER Documentation Chief Complaint Chief Complaint DIZZINESS WAS SENT BY THE PMD HPI 51-year-old male with a history of diabetes presenting to the ER with complaints of dizziness. He was recently diagnosed with osteomyelitis and finished his IV antibiotics today. He denies any increasing pain or fever. After he injected Humalog insulin this morning around 10 AM, he states he started feeling dizzy which is why he came into the ER. Currently he denies any dizziness, headache, nausea, chest pain. ROS All systems reviewed and are negative except as per history of present illness. Medications Home Meds Active Scripts Povidone-Iodine (Betadine) 1 Each Med..swab, 1 EACH TP DAILY, #30 STICK Apply to bilateral foot ulcers. Okay to substitute with Betadine cleansing solution. Prov:ANNE MARIE JOSHI NP 07/12/17 Clopidogrel Bisulfate (Clopidogrel) 75 Mg Tablet, 75 MG PO DAILY, #30 TAB Prov:ANNE MARIE JOSHI NP 07/12/17 Metformin* (Glucophage*) 1,000 Mg Tablet, 1000 MG PO WITH BREAKFAST DINNE, #60 TAB Prov:ANNE MARIE JOSHI NP 07/09/17 Atorvastatin (Atorvastatin) 10 Mg Tablet, 10 MG PO HS, #30 TAB Prov:ANNE MARIE JOSHI NP 07/09/17 Daptomycin (Cubicin) 500 Mg Vial, 500 MG IVPB Q24H for 42 Days, #42 VIAL Prov:ANNE MARIE JOSHI NP 07/09/17 Levofloxacin* (Levaquin*) 500 Mg Tablet, 500 MG PO DAILY@06, #42 TAB Stop date 08/20/2017 Prov:ANNE MARIE JOSHI NP 07/09/17 Ferrous Sulfate* (Ferrous Sulfate*) 325 Mg Tabec, 325 MG PO TID for 30 Days, TAB Prov:DAVID POE MD 01/23/17 Insulin Aspart* (Novolog Insulin Pen*) 100 Unit/Ml Soln, 5 UNIT SC WITH MEALS for 30 Days Prov:DAVID POE MD 01/23/17 Insulin Glargine* (Lantus*) 100 Unit/Ml Soln, 16 UNIT SC DAILY@20 for 30 Days Prov:DAVID POE MD 01/23/17 Reported Medications Ibuprofen* (Ibuprofen*) 600 Mg Tablet, 600 MG PO Q8 Y for PAIN, TAB 01/17/17 Allergies Allergies: Coded Allergies: No Known Drug Allergies (Verified Allergy, Unknown, 01/16/17) PMhx/Soc Medical and Surgical Hx: pt denies Medical Hx, pt denies Surgical Hx History of Surgery: Yes Anesthesia Reaction: No Hx Neurological Disorder: No Hx Respiratory Disorders: No Hx Cardiac Disorders: No Hx Psychiatric Problems: No Hx Miscellaneous Medical Probl: Yes (osteomyelitis, L big toe amputation, DM, PICC line L arm) Hx Alcohol Use: Yes Hx Substance Use: No Hx Tobacco Use: No Smoking Status: Never smoker FmHx Family History: No coronary disease Physical Exam Vitals Vital Signs Date Time Temp Pulse Resp B/P Pulse Ox O2 Delivery O2 Flow Rate FiO2 08/20/17 22:27 61 14 135/88 100 Room Air 08/20/17 20:01 98.2 74 16 109/79 99 Room Air 08/20/17 15:40 96.9 73 18 134/82 99 Physical Exam Const: Well-appearing, no apparent distress, no diaphoresis Head: Atraumatic Eyes: Normal Conjunctiva, PERRLA, EOMI, no nystagmus ENT: Normal External Ears, Nose and Mouth. Neck: Full range of motion..~ No meningismus. Resp: Clear to auscultation bilaterally Cardio: Regular rate and rhythm, no murmurs. 2+ distal pulses Abd: Soft, non tender, non distended. Normal bowel sounds Skin: No petechiae or rashes Back: No midline or flank tenderness Ext: No cyanosis, or edema Neur: Awake and alert, oriented 3, cranial nerves intact, strength and sensations intact in all 4 extremities, normal gait. Psych: Normal Mood and Affect Results 24 hrs Laboratory Tests Test 08/20/17 15:46 Bedside Glucose 245mg/dL [facility] Patient is presenting with complaints of dizziness after using his insulin. His Accu-Chek was over 200 and there was no signs of hypoglycemia. At the time of my evaluation, the patient's vitals were all within normal limits. He was completely asymptomatic with no complaints. At this time I do not think the patient needs any further workup and is stable for discharge with continued outpatient follow-up. I have a low suspicion for an acute emergent etiology of his dizziness. Return precautions were discussed. Patient feels comfortable going home at this time. Departure Diagnosis: Primary Impression: Dizziness Condition: Stable RAFAEL CABRERA MD Aug 20, 2017 22:18
[2017-08-20 22:27] VITALS: BP 135/88; PULSE 61; RESP 14
== END 2017-08-20 22:27 | disposition home or self-care (01) ==
LOC: E/R 15:28
DX: R42 Dizziness and giddiness (principal); E11.9 Type 2 diabetes mellitus without complications; Z79.84 Long term (current) use of oral hypoglycemic drugs; Z79.4 Long term (current) use of insulin; Z79.01 Long term (current) use of anticoagulants
CPT/HCPCS: 82962; Z7502; 99282

== ENCOUNTER 2018-11-24 10:28 | Emergency (ER) | payer SELFPAY ==
[~2018-11-24] VITALS: Ht 172.7 cm; Wt 70.0 kg
[~2018-11-24 10:28] MED LIST changes: +LEVO500T48 PO; -LEVO500T72 PO
[2018-11-24 10:33] VITALS: Ht 172.7 cm; Wt 70.0 kg
[2018-11-24] MEDS ORDERED: CLIN300C10 PO (12:47)
--- NOTE | 2018-11-24 12:58 | ERD ---
ER Documentation Chief Complaint Chief Complaint Complains of left foot pain after a nail stick yesterday HPI Patient is a 53-year-old male with a past medical history of DM, chronic osteom yelitis, foot ulcers, presents the ER for concerns of left foot pain times 1 day. Patient states yesterday he stepped on a nail. He states he developed a sore to the bottom of his foot. Patient states he remove the nail in its entirety. Patient states he put "rhiannon." Patient denies any fevers or chills. Patient states he has been taking his insulin at night daily. Patient does not recall his last tetanus vaccination. Patient denies any nausea, vomiting, abdominal pain, chest pain, shortness of breath or LOC. ROS All systems reviewed and are negative except as per history of present illness. Medications Home Meds Active Scripts Clindamycin Hcl* (Clindamycin Hcl*) 300 Mg Capsule, 300 MG PO TID for 10 Days, CAP Prov:AURELIO BESS PA-C 11/24/18 Povidone-Iodine (Betadine) 1 Each Med..swab, 1 EACH TP DAILY, #30 STICK Apply to bilateral foot ulcers. Okay to substitute with Betadine cleansing solution. Prov:ANNE MARIE JOSHI V. MEDICAL CLAIMS ASSISTANT 07/12/17 Clopidogrel Bisulfate (Clopidogrel) 75 Mg Tablet, 75 MG PO DAILY, #30 TAB Prov:ANNE MARIE JOSHI V. MEDICAL CLAIMS ASSISTANT 07/12/17 Metformin* (Glucophage*) 1,000 Mg Tablet, 1000 MG PO WITH BREAKFAST DINNE, #60 TAB Prov:ANNE MARIE JOSHI V. MEDICAL CLAIMS ASSISTANT 07/09/17 Atorvastatin (Atorvastatin) 10 Mg Tablet, 10 MG PO HS, #30 TAB Prov:MARCIAL JOSHIA V. MEDICAL CLAIMS ASSISTANT 07/09/17 Daptomycin (Cubicin) 500 Mg Vial, 500 MG IVPB Q24H for 42 Days, #42 VIAL Prov:ANNE MARIE JOSHI V. MEDICAL CLAIMS ASSISTANT 07/09/17 Levofloxacin* (Levaquin*) 500 Mg Tablet, 500 MG PO DAILY@06, #42 TAB Stop date 08/20/2017 Prov:ANNE MARIE JOSHI V. MEDICAL CLAIMS ASSISTANT 07/09/17 Ferrous Sulfate* (Ferrous Sulfate*) 325 Mg Tabec, 325 MG PO TID for 30 Days, TAB Prov:DAVID POE MD 01/23/17 Insulin Aspart* (Novolog Insulin Pen*) 100 Unit/Ml Soln, 5 UNIT SC WITH MEALS for 30 Days Prov:DAVID POE MD 01/23/17 Insulin Glargine* (Lantus*) 100 Unit/Ml Soln, 16 UNIT SC DAILY@20 for 30 Days Prov:DAVID POE MD 01/23/17 Reported Medications Ibuprofen* (Ibuprofen*) 600 Mg Tablet, 600 MG PO Q8 PRN for PAIN, TAB 01/17/17 Allergies Allergies: Coded Allergies: No Known Drug Allergies (Verified Allergy, Unknown, 01/16/17) PMhx/Soc History of Surgery: Yes Anesthesia Reaction: No Hx Neurological Disorder: No Hx Respiratory Disorders: No Hx Cardiac Disorders: No Hx Psychiatric Problems: No Hx Miscellaneous Medical Probl: Yes (osteomyelitis, L big toe amputation, DM, PICC line L arm) Hx Alcohol Use: Yes Hx Substance Use: No Hx Tobacco Use: No Smoking Status: Current some day smoker FmHx Family History: diabetes Physical Exam Vitals Vital Signs Date Temp Pulse Resp B/P (MAP) Pulse Ox O2 O2 Flow FiO2 Time Delivery Rate 11/24/18 98.9 87 20 135/60 97 10:33 (85) Physical Exam GENERAL:Disheveled male. Appears in no acute distress. Speaking in full sentences HEAD: Normocephalic, atraumatic. EYES: Pupils are equally reactive bilaterally. EOMs grossly intact. No c onjunctival erythema. NECK: Supple. No meningismus. Normal range of motion of the neck. LUNG: No respiratory distress EXTREMITIES: Equal pulses bilaterally. No peripheral clubbing, cyanosis or edema. No unilateral leg swelling. NEUROLOGIC: Alert and oriented. Moving all four extremities without any difficulty. Normal speech. Steady gait. LLE: Rhiannon dye noted on the bottom of the foot. Chronic toe deformities noted. Superficial 1.5 cm round appearing ulceration noted to the ball of the foot. No deep structures visualized. No active bleeding or discharge. Wound is dry. No discharge. No warmth. No surrounding erythema or swelling. Decreased sensation to light touch noted throughout the foot. Able to dorsiflex and plantarflex without any difficulty. 2+ DP and DT pulses. Results 24 hrs Current Medications Medications Dose Sig/Deisy Start Time Status Last (Trade) Ordered Route PRN Stop Time Admin Dose Reason Admin Diphtheria/ 0.5 ml ONCE ONCE 11/24/18 Tetanus/Acell IM* 13:00 11/24/18 Pertussis 13:01 (Adacel) Procedures/MDM MEDICAL DECISION MAKING: This is a 53-year-old male with a past medical history of DM, chronic osteomyelitis, numerous foot ulcers, presents the ER for concerns of left foot pain times 1 day. Patient states his pain started after he stepped on a nail yesterday. Vital signs were reviewed. Patient was afebrile. On exam, patient was noted to have a superficial ulceration approximately 1.5 cm round. No visualization of deep structures noted. No discharge or bleeding. Wound is dry. Discussed case with supervising physician Dr. Conway, who also evaluated the patient. He agreed that wound is likely chronic. Patient will be discharged with antibiotics and advised to follow-up with the amputation prevention center. Patient was given Tdap vaccination here as he was unsure when his last Tdap was. At this time, patient presentation is most consistent with full ulceration. Low suspicion for fracture, dislocation, retained foreign body, acute osteomyelitis, deep space infection. Patient was nontoxic, [id number] prior to discharge. PRESCRIPTIONS: Clindamycin DISCHARGE: At this time, patient is stable for discharge and outpatient management.I have instructed the patient to follow-up with his/her primary care physician in 1-2 days. I have discussed with the patient the possibility of needing to see an medical lab specialist for further workup and imaging if the pain persists. I have instructed the patient to promptly return to the ER for any new or worsening symptoms including increased pain, swelling, redness, warmth or fever. The patient and/or family expressed understanding of and agreement with this plan. All questions were answered. Home care instructions were provided. Disclaimer: Inadvertent spelling and grammatical errors are likely due to EHR/dictation software use and do not reflect on the overall quality of patient care. Also, please note that the electronic time recorded on this note does not necessarily reflect the actual time of the patient encounter. Departure Diagnosis: Primary Impression: Foot ulcer Laterality: left Non-pressure ulcer stage: unspecified non-pressure ulcer stage Qualified Codes: L97.529 - Non-pressure chronic ulcer of other part of left foot with unspecified severity Additional Impressions: Personal history of diabetic foot ulcer Diabetes, polyneuropathy Diabetes mellitus type: other specified (including WALT) Qualified Codes: E13.42 - Other specified diabetes mellitus with diabetic polyneuropathy Condition: Fair Patient Instructions: Diabetic Foot Ulcers Referrals: [facility] Additional Instructions: Follow-up with the amputation prevention clinic. AURELIO BESS PA-C Nov 24, 2018 12:58
[2018-11-24] MEDS ORDERED: DIPHTH/TET/ACEL PERTUSS (ADULT) 0.5 ML VIAL IM* ONE (13:00)
[2018-11-24 13:23] VITALS: BP 132/62; PULSE 68; RESP 18
== END 2018-11-24 13:33 | disposition home or self-care (01) ==
LOC: FTE 10:28
DX: L97.529 Non-pressure chronic ulcer of other part of left foot with unspecified severity (principal); E13.42 Other specified diabetes mellitus with diabetic polyneuropathy; F17.210 Nicotine dependence, cigarettes, uncomplicated; Z79.01 Long term (current) use of anticoagulants; Z23 Encounter for immunization; Z79.4 Long term (current) use of insulin
CPT/HCPCS: 90471; 90715

== ENCOUNTER 2018-11-27 13:48 | Inpatient (IN) | payer MEDICAID ==
[~2018-11-27] VITALS: Ht 172.7 cm; Wt 76.5 kg
[~2018-11-27 13:48] MED LIST changes: +CLIN300C10 PO
[2018-11-27] MEDS ORDERED: SODIUM CHLORIDE 0.9% 1L BAG IV* STA (14:25)
[2018-11-27] MEDS ORDERED: INSU300I SQ (16:00)
[2018-11-27] MEDS ORDERED: CEFEPIME 1GM/50 ML (PMX) 50 ML IVPB ONE (16:00)
[2018-11-27] MEDS ORDERED: VANCOMYCIN 1 GM (PMX) 250 ML IVPB ONE (16:00)
--- NOTE | 2018-11-27 17:26 | HP ---
Date/Time of Note Date/Time of Note DATE: 11/27/18 TIME: 17:26 Assessment/Plan VTE Prophylaxis SCD applied (from Nsg): Yes Pharmacological prophylaxis: NA/contraindicated Pharm contraindication: surgical contra Lines/Catheters IV Catheter Type (from Nrsg): Saline Lock Assessment/Plan Assessment/Plan 1. Sepsis secondary to left foot infection - most likely secondary to contaminated nail - Xray shows soft tissue infection and will order MRI to rule out OM - Dr. Welch consulted for further recommendations - ID consulted for antibiotic management - ESR noted to be elevated - Will start empiric antibiotics - IVF and pain control 2. Diabetes Mellitus - Will check A1c - Continue home Lantus 15 units am and pm - ISS and accuchecks 3. Hyponatremia - corrected for glucose is 134 4. Anemia - will check iron levels 5. Diet - carb controlled 6. Disposition - Admit to med/surg for treatment of sepsis secondary to L foot infection Result Diagram: 11/27/18 1429 11/27/18 1429 Results 24hrs Laboratory Tests Test 11/27/18 14:19 11/27/18 14:29 11/27/18 14:32 POC Venous Lactate 1.5 White Blood Count 13.0 #H Red Blood Count 3.59 L Hemoglobin 10.4 L Hematocrit 30.6 L Mean Corpuscular Volume 85.2 Mean Corpuscular Hemoglobin 29.0 Mean Corpuscular Hemoglobin Concent 34.0 Red Cell Distribution Width 12.6 Platelet Count 215 # Mean Platelet Volume 10.4 Immature Granulocytes % 0.700 H Neutrophils % 84.5 H Lymphocytes % 8.4 L Monocytes % 5.9 Eosinophils % 0.3 Basophils % 0.2 Nucleated Red Blood Cells % 0.0 Immature Granulocytes # 0.090 H Neutrophils # 11.0 H Lymphocytes # 1.1 Monocytes # 0.8 Eosinophils # 0.0 Basophils # 0.0 Nucleated Red Blood Cells # 0.0 Erythrocyte Sedimentation Rate 60 H Prothrombin Time 14.0 Prothrombin Time Ratio 1.1 INR International Normalized Ratio 1.07 Activated Partial Thromboplast Time 36.8 H Sodium Level 129 L Potassium Level 4.5 Chloride Level 93 L Carbon Dioxide Level 29 Anion Gap 7 Blood Urea Nitrogen 15 Creatinine 1.03 Est Glomerular Filtrat Rate mL/min > 60 Glucose Level 413 *H Calcium Level 8.7 Total Bilirubin 0.5 Direct Bilirubin 0.00 Indirect Bilirubin 0.5 Aspartate Amino Transf (AST/SGOT) 23 Alanine Aminotransferase (ALT/SGPT) 24 Alkaline Phosphatase 89 C-Reactive Protein 20.7 H Total Protein 7.1 Albumin 3.7 Globulin 3.40 H Albumin/Globulin Ratio 1.08 Urine Color YELLOW Urine Clarity CLEAR Urine pH 6.0 Urine Specific [place] 1.025 Urine Ketones NEGATIVE Urine Nitrite NEGATIVE Urine Bilirubin NEGATIVE Urine Urobilinogen NEGATIVE Urine Leukocyte Esterase NEGATIVE Urine Microscopic RBC 18 H Urine Microscopic WBC 1 Urine Hemoglobin 2+ H Urine Glucose 3+ H Urine Total Protein 1+ H HPI/ROS Admit Date/Time Admit Date/Time 11/27/18 1730 Hx of Present Illness 53 yo M with PMH DM and diabetic neuropathy presented to ED with worsening swelling of left foot. Patient admits to stepping on a nail on 11/24 and presented to the ED. He was discharged from the ED with PO antibiotics and was keeping the wound clean. Patient developed fevers and worsening swelling with erythema of the entire foot. He states he is unable to really feet any pain given neuropathy. He usually follows with Dr. Welch but has not seen him in almost 9 months. He tried to see him in the office today but states he was not available. Patient admits to having a "hole" in his right great toe that he was keeping clean and dry but has not been good about the care recently and has opened up again. Patient denies any chest pain, shortness of breath, nausea, vomiting, dizziness, or abdominal issues. In the ED, patient was found febrile and Xrays revealed soft tissue swelling with questionable OM. ROS All 12 systems reviewed and pertinent positives as per HPI. All others negative. Constitutional: febrile; No chills, No fatigue, No nausea Eyes: No discharge ENT: No congestion Respiratory: No cough, No shortness of breath, No sputum, No wheezing Cardiovascular: No chest pain, No edema, No lightheadedness, No palpitations Gastrointestinal: No pain, No constipation, No diarrhea, No nausea, No vomiting Genitourinary: no complaints Musculoskeletal: no complaints Skin: erythema, laceration, skin lesions Neurologic: No confusion, No focal-weakness, No syncope Endocrine: no complaints Lymphatic: no complaints Psychological: nl mood/affect Immunologic: no complaints PMH/Family/Social Past Medical History Medical History: diabetes Medications Current Medications Vancomycin HCl 250 ml @ 125 mls/hr ONCE ONCE IVPB Last administered on 11/27/18at 16:55; Admin Dose 125 MLS/HR; Start 11/27/18 at 16:00; Stop 11/27/18 at 17:59 Ondansetron HCl (Zofran Inj) 4 mg BRIDGE ORDER PRN IV NAUSEA/VOMITING; Start 11/27/18 at 17:30; Stop 11/28/18 at 17:29; Status UNV Acetaminophen (Tylenol Tab) 650 mg ER BRIDGE PRN PO .MILD PAIN 1-3 OR TEMP; Start 11/27/18 at 17:30; Stop 11/28/18 at 17:29; Status UNV Sodium Chloride 1,000 ml @ 100 mls/hr Q10H IV ; Start 11/27/18 at 17:19; Stop 11/28/18 at 05:18; Status UNV IV Flush (NS 3 ml) 3 ml PER PROTOCOL IV ; Start 11/27/18 at 17:30; Status UNV Ondansetron HCl (Zofran Inj) 4 mg Q6H PRN IV NAUSEA/VOMITING; Start 11/27/18 at 17:30; Status UNV Acetaminophen (Tylenol Tab) 650 mg Q6H PRN PO .PAIN 1-3 OR TEMP; Start 11/27/18 at 17:30; Status UNV Acetaminophen/ Hydrocodone Bitart ([place] (5/325)) 1 tab Q6H PRN PO .MOD PAIN 4- 6; Start 11/27/18 at 17:30; Status UNV Morphine Sulfate (morphine) 2 mg Q4H PRN IV .SEVERE PAIN 7-10; Start 11/27/18 at 17:30; Status UNV Docusate Sodium (Colace) 100 mg Q12H PRN PO .CONSTIPATION; Start 11/27/18 at 17:30; Status UNV Magnesium Hydroxide (Milk Of Mag) 30 ml DAILY PRN PO .CONSTIPATION; Start 11/27/18 at 17:30; Status UNV Famotidine (Pepcid) 20 mg Q12 PO ; Start 11/27/18 at 21:00; Status UNV Miscellaneous Information (* Miscellaneous Pharmacy Order) Discontinue current oral sulfonylur... ONCE ONCE XX ; Start 11/27/18 at 17:30; Stop 11/27/18 at 17:31; Status UNV Miscellaneous Information (* Miscellaneous Pharmacy Order) HYPOGLYCEMIA PROTOCOL w... ONCE ONCE XX ; Start 11/27/18 at 17:30; Stop 11/27/18 at 17:31; Status UNV Insulin Aspart (Novolog Insulin Pen) NOVOLOG *MILD* ALGORITHM WITH MEALS BEDTIME SC ; Start 11/27/18 at 18:00; Status UNV Miscellaneous Information (* Miscellaneous Pharmacy Order) Discontinue all previ... ONCE ONCE XX ; Start 11/27/18 at 17:30; Stop 11/27/18 at 17:31; Status UNV Vancomycin HCl (Vanco Iv Per Pharmacy) VANCOMYCIN PER PHARMACY PER PROTOCOL XX ; Start 11/27/18 at 17:30; Status UNV Piperacillin Sod/ Tazobactam Sod 100 ml @ 25 mls/hr TID@02,10,18 IVPB ; Start 11/27/18 at 18:00; Status UNV Coded Allergies: No Known Drug Allergies (Verified Allergy, Unknown, 11/27/18) Past Surgical History Past Surgical Hx: other (amputation left great toe and right 4th toe) Family History Significant Family History: no pertinent family hx, other Social History Alcohol Use: rarely Smoking Status: Former smoker Drug Use: none Exam/Review of Systems Vital Signs Vitals Vital Signs Date Temp Pulse Resp B/P (MAP) Pulse Ox O2 O2 Flow FiO2 Time Delivery Rate 11/27/18 88 17 115/78 99 Room Air 17:02 (90) 11/27/18 101.5 13:54 Exam Exam General: Patient is pleasant gentleman, laying in bed and answers questions. no acute distress Head: Normocephalic atraumatic Eyes: EOMI, pupils reactive to light Neck: Supple, nontender, midline Respiratory: Clear to auscultation bilaterally. no wheezing or rhonchi Cardiovascular: S1, S2, regular rate and rhythm, no obvious murmurs Gastrointestinal: soft,nontender to palpation, nondistended, bowel sounds heard. no rebound or guarding Neurological: Moves all extremities spontaneously. no focal deficits. motor and sensory intact Skin: erythema, warmth and swelling L foot. nontender to touch. no discharge appreciate. Areas of purple discoloration (pt claims he put a special ointment on area) Additional Comments Home medications reviewed PROCEDURE: XR Left Foot. CLINICAL INDICATION: Foot ulcer TECHNIQUE: AP, lateral and oblique views of the left foot was obtained. The images were reviewed on a PACS workstation. COMPARISON: MR 07/05/2017; DR FOOT 07/04/2017; DR FOOT 01/16/2017; CR FEET 06/09/2015; CR FOOT 03/07/2015 FINDINGS: Chronic appearing erosive changes of the great toe with amputation of the distal phalanx. There is also amputation of the third toe middle and distal phalanges. Chronic appearing erosive changes are also present at the second MTP joint. Forefoot predominant soft tissue swelling. Calcaneal spurs. IMPRESSION: Chronic appearing erosive changes of the forefoot which appears similar compared to prior MRI from 07/05/2017. Consider MRI for evaluation of superimposed acute osteomyelitis. Forefoot soft tissue swelling without evidence of soft tissue gas. RPTAT:AAJJ Physician Tae Date Time Electronically viewed and signed by Maco Kevin Physician on 11/27/2018 16:08 PROCEDURE: XR Chest. CLINICAL INDICATION: chest pain TECHNIQUE: Single frontal view of the chest was obtained COMPARISON: CR CHEST 04/08/2015 FINDINGS: The heart and mediastinum are within normal limits. The lungs are clear. There is no pleural effusion or pneumothorax. RPTAT: AA IMPRESSION: No acute disease. .Joselito Harman MD, MD Date Time Electronically viewed and signed by .Joselito Harman MD, MD on 11/27/2018 14:47 KAREN CANTRELL MD Nov 27, 2018 17:26
[2018-11-27] MEDS ORDERED: ONDANSETRON 4 MG INJ IV PRN ×2 (17:30)
[2018-11-27] MEDS ORDERED: NACL 0.9% 3 ML SYG IV SCH (17:30)
[2018-11-27] MEDS ORDERED: morphine 2 MG INJ IV PRN (17:30)
[2018-11-27] MEDS ORDERED: VANCOMYCIN IV PER PHARMACY XX SCH (17:30)
[2018-11-27] MEDS ORDERED: DOCUSATE SODIUM 100 MG CAP PO PRN (17:30)
[2018-11-27] MEDS ORDERED: HYDROCODONE/APAP (5/325) TAB PO PRN (17:30)
[2018-11-27] MEDS ORDERED: MAGNESIUM HYDROXIDE 30ML CUP PO PRN (17:30)
[2018-11-27] MEDS ORDERED: ACETAMINOPHEN 325 MG TAB PO PRN ×2 (17:30)
--- NOTE | 2018-11-27 17:32 | ERD ---
ER Documentation Chief Complaint Chief Complaint Sent from clinic to rashid ELIZABETH This is a 53-year-old male with a past medical history of diabetes, hyperlipidemia, diabetic foot ulcers status post partial foot amputation who is presenting with concerns of a foot infection. Several days ago, the patient reportedly stepped on a nail. He took it out immediately, but it developed a small ulcer. The patient was evaluated on November 24 for this and ultimately discharged with a prescription for clindamycin. Despite being on this medication, the patient's foot started to become erythematous and swollen and painful. The patient also developed fever, chills and heart palpitations. The patient has had no headache or vision changes. The patient does not endorse neck or back pain. The patient denies lightheadedness or dizziness. The patient has had no chest pain or trouble breathing. The patient denies nausea or vomiting. The patient denies abdominal pain. The patient denies changes to bowel movements or urination. The patient has had no focal deficits. The patient has had no weakness or numbness or tingling to the face or extremities. ROS All systems reviewed and are negative except as per history of present illness. Medications Home Meds Active Scripts Clindamycin Hcl* (Clindamycin Hcl*) 300 Mg Capsule, 300 MG PO TID for 10 Days, CAP Prov:AURELIO BESS PA-C 11/24/18 Reported Medications Insulin Glargine,Hum.rec.anlog (Carlotta Quinones) 300 Unit/1 Ml Insuln.pen, 0 SQ BID, EA INJ. 14 OR 15 UNITS BID. 11/27/18 Discontinued Reported Medications Ibuprofen* (Ibuprofen*) 600 Mg Tablet, 600 MG PO Q8 PRN for PAIN, TAB 01/17/17 Discontinued Scripts Povidone-Iodine (Betadine) 1 Each Med..swab, 1 EACH TP DAILY, #30 STICK Apply to bilateral foot ulcers. Okay to substitute with Betadine cleansing solution. Prov:JOSHI,ANNE MARIE V. PROVISIONING ANALYST 07/12/17 Clopidogrel Bisulfate (Clopidogrel) 75 Mg Tablet, 75 MG PO DAILY, #30 TAB Prov:JOSHI,ANNE MARIE V. PROVISIONING ANALYST 07/12/17 Metformin* (Glucophage*) 1,000 Mg Tablet, 1000 MG PO WITH BREAKFAST DINNE, #60 TAB Prov:JOSHIANNE MARIE V. PROVISIONING ANALYST 07/09/17 Atorvastatin (Atorvastatin) 10 Mg Tablet, 10 MG PO HS, #30 TAB Prov:ANNE MARIE JOSHI V. PROVISIONING ANALYST 07/09/17 Daptomycin (Cubicin) 500 Mg Vial, 500 MG IVPB Q24H for 42 Days, #42 VIAL Prov:ANNE MARIE JOSHI V. PROVISIONING ANALYST 07/09/17 Levofloxacin* (Levaquin*) 500 Mg Tablet, 500 MG PO DAILY@06, #42 TAB Stop date 08/20/2017 Prov:JOSHIANNE MARIE V. PROVISIONING ANALYST 07/09/17 Ferrous Sulfate* (Ferrous Sulfate*) 325 Mg Tabec, 325 MG PO TID for 30 Days, TAB Prov:DAVID POE MD 01/23/17 Insulin Aspart* (Novolog Insulin Pen*) 100 Unit/Ml Soln, 5 UNIT SC WITH MEALS for 30 Days Prov:DAVID POE MD 01/23/17 Insulin Glargine* (Lantus*) 100 Unit/Ml Soln, 16 UNIT SC DAILY@20 for 30 Days Prov:DAVID POE MD 01/23/17 Allergies Allergies: Coded Allergies: No Known Drug Allergies (Verified Allergy, Unknown, 11/27/18) PMhx/Soc History of Surgery: Yes (Multiple left toe amputations) Anesthesia Reaction: No Hx Neurological Disorder: No Hx Respiratory Disorders: No Hx Cardiac Disorders: Yes (Hyperlipidemia, diabetes) Hx Psychiatric Problems: No Hx Miscellaneous Medical Probl: Yes (Left toe osteomyelitis) Hx Alcohol Use: Yes Hx Substance Use: No Hx Tobacco Use: No Smoking Status: Former smoker FmHx Family History: No diabetes Physical Exam Vitals Vital Signs Date Temp Pulse Resp B/P (MAP) Pulse Ox O2 O2 Flow FiO2 Time Delivery Rate 11/27/18 88 17 115/78 99 Room Air 17:02 (90) 11/27/18 82 18 121/63 99 Room Air 15:30 (82) 11/27/18 101.5 106 20 123/62 97 13:54 (82) Physical Exam Const: No apparent distress, well-developed, well-nourished Head: Normocephalic, Atraumatic Eyes: Normal Conjunctiva. Extraocular movements intact. Pupils equal, round and reactive to light ENT: Normal External Ears, Nose and Mouth. Neck: Full range of motion. No meningismus. Resp: Clear to auscultation bilaterally, No wheezes, rales or rhonchi Cardio: Regular rhythm. Tachycardia. No murmurs, rubs or gallops Abd: Soft, non tender, non distended. Normal bowel sounds Skin: No petechiae or rashes Back: No midline tenderness. No CVA tenderness Ext: No cyanosis. Multiple left toe amputations with an ulcerative lesion to the plantar aspect of the foot with surrounding edema, erythema and induration. Neur: Awake and alert, oriented 4. Cranial nerves intact. No facial droop. Normal strength, sensation and coordination. Psych: Normal Mood and Affect Result Diagram: 11/27/18 1429 11/27/18 1429 Results 24 hrs Laboratory Tests Test 11/27/18 14:19 11/27/18 14:29 11/27/18 14:32 POC Venous Lactate 1.5 mmol/L White Blood Count 13.0 10^3/ul Red Blood Count 3.59 10^6/ul Hemoglobin 10.4 g/dl Hematocrit 30.6 % Mean Corpuscular Volume 85.2 fl Mean Corpuscular Hemoglobin 29.0 pg Mean Corpuscular 34.0 g/dl Hemoglobin Concent Red Cell Distribution Width 12.6 % Platelet Count 215 10^3/UL Mean Platelet Volume 10.4 fl Immature Granulocytes % 0.700 % Neutrophils % 84.5 % Lymphocytes % 8.4 % Monocytes % 5.9 % Eosinophils % 0.3 % Basophils % 0.2 % Nucleated Red Blood Cells % 0.0 /100WBC Immature Granulocytes # 0.090 10^3/ul Neutrophils # 11.0 10^3/ul Lymphocytes # 1.1 10^3/ul Monocytes # 0.8 10^3/ul Eosinophils # 0.0 10^3/ul Basophils # 0.0 10^3/ul Nucleated Red Blood Cells # 0.0 10^3/ul Erythrocyte Sedimentation Rate 60 mm/Hr Prothrombin Time 14.0 Sec Prothrombin Time Ratio 1.1 INR International 1.07 Normalized Ratio Activated Partial Thromboplast 36.8 Sec Time Sodium Level 129 mmol/L Potassium Level 4.5 mmol/L Chloride Level 93 mmol/L Carbon Dioxide Level 29 mmol/L Anion Gap 7 Blood Urea Nitrogen 15 mg/dl Creatinine 1.03 mg/dl Est Glomerular Filtrat > 60 mL/min Rate mL/min Glucose Level 413 mg/dl Calcium Level 8.7 mg/dl Total Bilirubin 0.5 mg/dl Direct Bilirubin 0.00 mg/dl Indirect Bilirubin 0.5 mg/dl Aspartate Amino Transf (AST/SGOT) 23 IU/L Alanine 24 IU/L Aminotransferase (ALT/SGPT) Alkaline Phosphatase 89 IU/L C-Reactive Protein 20.7 mg/dl Total Protein 7.1 g/dl Albumin 3.7 g/dl Globulin 3.40 g/dl Albumin/Globulin Ratio 1.08 Urine Color YELLOW Urine Clarity CLEAR Urine pH 6.0 Urine Specific [place] 1.025 Urine Ketones NEGATIVE mg/dL Urine Nitrite NEGATIVE mg/dL Urine Bilirubin NEGATIVE mg/dL Urine Urobilinogen NEGATIVE mg/dL Urine Leukocyte Esterase NEGATIVE [place]/ul Urine Microscopic RBC 18 /HPF Urine Microscopic WBC 1 /HPF Urine Hemoglobin 2+ mg/dL Urine Glucose 3+ mg/dL Urine Total Protein 1+ mg/dl Current Medications Medications Dose Sig/Deisy Start Time Status Last (Trade) Ordered Route PRN Stop Time Admin Dose Reason Admin Sodium 2,030 ml BOLUS OVER 2 11/27/18 DC 11/27/18 Chloride HOURS STAT 14:25 11/27/18 14:37 (NS) IV* 14:27 Vancomycin 250 ml @ ONCE ONCE 11/27/18 11/27/18 HCl 125 mls/hr IVPB 16:00 11/27/18 16:55 17:59 Cefepime HCl 50 ml @ ONCE ONCE 11/27/18 DC 11/27/18 100 mls/hr IVPB 16:00 11/27/18 15:56 16:29 Procedures/MDM MDM The patient's presentation warrants further investigation. Previous medical records, if available, were reviewed. LABS The patient's laboratory testing was obtained and reviewed. No emergent treatment was required unless described below. CBC: Leukocytosis with shift, concerning for an infection. Mild normocytic anemia, not emergent. Normal platelet count. Chemistry: No E/o severe acidosis or alkalosis or renal failure or liver disease. Hyperglycemia without diabetic ketoacidosis PT/INR: No E/o significant coagulopathy Lactate: No E/o severe sepsis Urine: No E/o acute infection. Hematuria EKG EKG read by me: Rate/Rhythm: Regular rate and rhythm at a rate of 82 bpm Intervals: Normal [place]: Normal Impression: No evidence of acute ischemia or arrhythmia IMAGING Imaging and Radiology interpretation reviewed. CXR FINDINGS: The heart and mediastinum are within normal limits. The lungs are clear. There is no pleural effusion or pneumothorax. IMPRESSION: No acute disease. Electronically viewed and signed by Joselito Harman MD, on 11/27/2018 14:47 XR L Foot FINDINGS: Chronic appearing erosive changes of the great toe with amputation of the distal phalanx. There is also amputation of the third toe middle and distal phalanges. Chronic appearing erosive changes are also present at the second MTP joint. Forefoot predominant soft tissue swelling. Calcaneal spurs. IMPRESSION: Chronic appearing erosive changes of the forefoot which appears sim ilar compared to prior MRI from 07/05/2017. Consider MRI for evaluation of superimposed acute osteomyelitis. Forefoot soft tissue swelling without evidence of soft tissue gas. Electronically viewed and signed by Physician Tae on 11/27/2018 16:08 TREATMENT/DISPOSITION The patient presents for a left foot infection. The patient reportedly stepped on a nail recently and started to develop worsening symptoms over the last several days. The patient was previously provided a tetanus shot 3 days ago. The patient was febrile and tachycardic when he first arrived. The patient does meet criteria for a systemic inflammatory response with an infectious source. The patient was treated for sepsis as described below. The patient has no lactic acidosis. I do not see evidence of endorgan damage. The patient does not meet criteria for severe sepsis. The patient's ESR and CRP are elevated. I am concerned about the possibility of osteomyelitis. I do not see obvious changes on the x-ray. The patient may benefit from having an MRI in the hospital. There is no soft tissue gas. I have decreased suspicion for gangrene or necrotizing fasciitis. The patient will require evaluation from podiatry. Reportedly, he has seen Dr. Welch in the past. The patient was hyperglycemic without evidence of DKA. The patient was given IV fluids in the emergency department which should help to improve this. The patient will require further management of his diabetes in the hospital SEPSIS NOTE SIRS Criteria: Fever, tachycardia, leukocytosis Infectious source: Foot infection End organ damage indicated by: None SEPSIS MANAGEMENT Time to recognize sepsis: Upon arrival. Time to recognize severe sepsis: No severe sepsis at this time. Time to recognize septic shock: No septic shock at this time. 3 HOUR BUNDLE Blood cultures x 2 before abx: Yes 30 ml/kg NS bolus completed Initial lactate 1.5 Repeat lactate not indicated SEPTIC SHOCK ASSESSMENT: NO lactic acid > 4.0 NO persistent hypotension (SBP < 90 or 40 mmHg drop, MAP < 65) despite 30 L/kg IV fluid bolus CRITICAL CARE Critical care time 35 minutes Emergent fluid management while maintaining close respiratory support. Provision of immediate and broad-spectrum antibiotic therapy. Simultaneous assessment for possible sources in order to direct targeted therapy. Consideration for invasive and chemical support to prevent cardiopulmonary collapse. Critical care time is independent of procedures performed. ADMISSION The patient will be admitted to [facility] in accordance with the patient's insuranc e. The patient was accepted by Dr. Sen to [facility] at 5:07 PM on November 27, 2018. Disclaimer: Inadvertent spelling and grammatical errors are likely due to EHR/dictation software use and do not reflect on the overall quality of patient care. Note that the electronic time recorded on this note does not necessarily reflect the actual time of the patient encounter. Departure Diagnosis: Primary Impression: Left foot infection Additional Impressions: Sepsis Sepsis type: sepsis due to unspecified organism Qualified Codes: A41.9 - Sepsis, unspecified organism Fever Fever type: unspecified Qualified Codes: R50.9 - Fever, unspecified Tachycardia Leukocytosis Leukocytosis type: unspecified Qualified Codes: D72.829 - Elevated white blood cell count, unspecified Normocytic anemia Hyperglycemia Elevated erythrocyte sedimentation rate Elevated C-reactive protein (CRP) Condition: Serious MICAH VEGA MD Nov 27, 2018 17:32
[2018-11-27] MEDS ORDERED: PIPER-TAZO 3.375 GM IV (PMX) 100 ML IVPB SCH (18:00)
[2018-11-27 19:00] VITALS: BP 119/61; PULSE 84; RESP 18
[2018-11-27] MEDS ORDERED: GLUCAGON 1 MG INJ IM PRN (19:00)
[2018-11-27] MEDS ORDERED: GLUCOSE GEL 15 GRAM TUBE PO PRN ×2 (19:00)
[2018-11-27] MEDS ORDERED: GLUCOSE GEL 15 GRAM TUBE BUCCAL PRN (19:00)
[2018-11-27] MEDS ORDERED: DEXTROSE 50% 50 ML SYRINGE IV PRN ×2 (19:00)
[2018-11-27] MEDS: INSULIN ASPART [NOVOLOG] 3 ML PEN SC SCH ×2 (19:30→20:45)
[2018-11-27 20:05] VITALS: BP 96/64; PULSE 81; RESP 20
[2018-11-27] MEDS: SOD CHLORIDE 0.9% 1,000 ML IV SCH (20:46)
[2018-11-27] MEDS: FAMOTIDINE 20 MG TAB PO SCH (20:50)
[2018-11-27] MEDS: PIPER-TAZO 3.375 GM IV (PMX) 100 ML IVPB SCH (21:12)
--- NOTE | 2018-11-27 21:27 | CONS ---
Assessment/Plan Assessment/Plan Problems: (1) Puncture wound of left foot with complication (2) Left foot infection Status: Acute (3) Acquired absence of left great toe (4) Diabetes, polyneuropathy Assessment/Plan (Daily) Patient will be scheduled for incision and drainage of his left foot. Consultation Date/Type/Reason Admit Date/Time 11/27/18 1730 Date/Time of Note DATE: 11/27/18 TIME: 21:24 Past Medical History Medical History: diabetes Home Meds Active Scripts Clindamycin Hcl* (Clindamycin Hcl*) 300 Mg Capsule, 300 MG PO TID for 10 Days, CAP Prov:AURELIO BESS PA-C 11/24/18 Reported Medications Insulin Glargine,Hum.rec.anlog (Carlotta Quinones) 300 Unit/1 Ml Insuln.pen, 0 SQ BID, EA INJ. 14 OR 15 UNITS BID. 11/27/18 Discontinued Reported Medications Ibuprofen* (Ibuprofen*) 600 Mg Tablet, 600 MG PO Q8 PRN for PAIN, TAB 01/17/17 Discontinued Scripts Povidone-Iodine (Betadine) 1 Each Med..swab, 1 EACH TP DAILY, #30 STICK Apply to bilateral foot ulcers. Okay to substitute with Betadine cleansing solution. Prov:JOSHI,ANNE MARIE V. DIGITAL MARKETING ASSOCIATE 07/12/17 Clopidogrel Bisulfate (Clopidogrel) 75 Mg Tablet, 75 MG PO DAILY, #30 TAB Prov:JOSHI,ANNE MARIE V. DIGITAL MARKETING ASSOCIATE 07/12/17 Metformin* (Glucophage*) 1,000 Mg Tablet, 1000 MG PO WITH BREAKFAST DINNE, #60 TAB Prov:JOSHI,ANNE MARIE V. DIGITAL MARKETING ASSOCIATE 07/09/17 Atorvastatin (Atorvastatin) 10 Mg Tablet, 10 MG PO HS, #30 TAB Prov:JOSHI,ANNE MARIE V. DIGITAL MARKETING ASSOCIATE 07/09/17 Daptomycin (Cubicin) 500 Mg Vial, 500 MG IVPB Q24H for 42 Days, #42 VIAL Prov:JOSHIANNE MARIE V. DIGITAL MARKETING ASSOCIATE 07/09/17 Levofloxacin* (Levaquin*) 500 Mg Tablet, 500 MG PO DAILY@06, #42 TAB Stop date 08/20/2017 Prov:JOSHI,ANNE MARIE V. DIGITAL MARKETING ASSOCIATE 07/09/17 Ferrous Sulfate* (Ferrous Sulfate*) 325 Mg Tabec, 325 MG PO TID for 30 Days, TAB Prov:DAVID POE MD 01/23/17 Insulin Aspart* (Novolog Insulin Pen*) 100 Unit/Ml Soln, 5 UNIT SC WITH MEALS for 30 Days Prov:DAVID POE MD 01/23/17 Insulin Glargine* (Lantus*) 100 Unit/Ml Soln, 16 UNIT SC DAILY@20 for 30 Days Prov:DAVID POE MD 01/23/17 Medications Current Medications Ondansetron HCl (Zofran Inj) 4 mg BRIDGE ORDER PRN IV NAUSEA/VOMITING; Start 11/27/18 at 17:30; Stop 11/28/18 at 17:29 Acetaminophen (Tylenol Tab) 650 mg ER BRIDGE PRN PO .MILD PAIN 1-3 OR TEMP; Start 11/27/18 at 17:30; Stop 11/28/18 at 17:29 Sodium Chloride 1,000 ml @ 100 mls/hr Q10H IV Last administered on 11/27/18at 20:46; Admin Dose 100 MLS/HR; Start 11/27/18 at 17:19; Stop 11/28/18 at 05:18 IV Flush (NS 3 ml) 3 ml PER PROTOCOL IV ; Start 11/27/18 at 17:30 Ondansetron HCl (Zofran Inj) 4 mg Q6H PRN IV NAUSEA/VOMITING; Start 11/27/18 at 17:30 Acetaminophen (Tylenol Tab) 650 mg Q6H PRN PO .PAIN 1-3 OR TEMP; Start 11/27/18 at 17:30 Acetaminophen/ Hydrocodone Bitart ([place] (5/325)) 1 tab Q6H PRN PO .MOD PAIN 4- 6; Start 11/27/18 at 17:30 Morphine Sulfate (morphine) 2 mg Q4H PRN IV .SEVERE PAIN 7-10; Start 11/27/18 at 17:30 Docusate Sodium (Colace) 100 mg Q12H PRN PO .CONSTIPATION; Start 11/27/18 at 17:30 Magnesium Hydroxide (Milk Of Mag) 30 ml DAILY PRN PO .CONSTIPATION; Start 11/27/18 at 17:30 Famotidine (Pepcid) 20 mg Q12 PO Last administered on 11/27/18at 20:50; Admin Dose 20 MG; Start 11/27/18 at 21:00 Insulin Aspart (Novolog Insulin Pen) NOVOLOG *MILD* ALGORITHM WITH MEALS BEDTIME SC Last administered on 11/27/18at 20:45; Admin Dose 2 UNIT; Start 11/27/18 at 18:00 Vancomycin HCl (Vanco Iv Per Pharmacy) VANCOMYCIN PER PHARMACY PER PROTOCOL XX ; Start 11/27/18 at 17:30 Insulin Glargine (Lantus) 15 units BID@0800,2000 SC ; Start 11/27/18 at 20:00 Miscellaneous Information 1 ea NOTE XX ; Start 11/27/18 at 19:00 Glucose (Glutose) 15 gm Q15M PRN PO DECREASED GLUCOSE; Start 11/27/18 at 19:00 Glucose (Glutose) 22.5 gm Q15M PRN PO DECREASED GLUCOSE; Start 11/27/18 at 19:00 Dextrose (D50w Syringe) 25 ml Q15M PRN IV DECREASED GLUCOSE; Start 11/27/18 at 19:00 Dextrose (D50w Syringe) 50 ml Q15M PRN IV DECREASED GLUCOSE; Start 11/27/18 at 19:00 Glucagon (Glucagen) 1 mg Q15M PRN IM DECREASED GLUCOSE; Start 11/27/18 at 19:00 Glucose (Glutose) 15 gm Q15M PRN BUCCAL DECREASED GLUCOSE; Start 11/27/18 at 19:00 Piperacillin Sod/ Tazobactam Sod 100 ml @ 200 mls/hr Q8 IVPB Last administered on 11/27/18at 21:12; Admin Dose 200 MLS/HR; Start 11/27/18 at 21:00 Allergies: Coded Allergies: No Known Drug Allergies (Verified Allergy, Unknown, 11/27/18) Past Surgical History Past Surgical Hx: other (amputation left great toe and right 4th toe) Social History Alcohol Use: rarely Smoking Status: Former smoker Drug Use: none Exam/Review of Systems Exam Vitals Vital Signs Date Temp Pulse Resp B/P (MAP) Pulse Ox O2 O2 Flow FiO2 Time Delivery Rate 11/27/18 98.1 81 20 96/64 (75) 98 20:05 11/27/18 Room Air 19:00 Results Result Diagram: 11/27/18 1429 11/27/18 1429 Results 24hrs Laboratory Tests Test 11/27/18 14:19 11/27/18 14:29 11/27/18 14:32 11/27/18 20:30 POC Venous Lactate 1.5 White Blood Count 13.0 #H Red Blood Count 3.59 L Hemoglobin 10.4 L Hematocrit 30.6 L Mean Corpuscular Volume 85.2 Mean Corpuscular 29.0 Hemoglobin Mean Corpuscular 34.0 Hemoglobin Concent Red Cell Distribution 12.6 Width Platelet Count 215 # Mean Platelet Volume 10.4 Immature Granulocytes % 0.700 H Neutrophils % 84.5 H Lymphocytes % 8.4 L Monocytes % 5.9 Eosinophils % 0.3 Basophils % 0.2 Nucleated Red Blood 0.0 Cells % Immature Granulocytes # 0.090 H Neutrophils # 11.0 H Lymphocytes # 1.1 Monocytes # 0.8 Eosinophils # 0.0 Basophils # 0.0 Nucleated Red Blood 0.0 Cells # Erythrocyte 60 H Sedimentation Rate Prothrombin Time 14.0 Prothrombin Time Ratio 1.1 INR International 1.07 Normalized Ratio Activated 36.8 H Partial Thromboplast Time Sodium Level 129 L Potassium Level 4.5 Chloride Level 93 L Carbon Dioxide Level 29 Anion Gap 7 Blood Urea Nitrogen 15 Creatinine 1.03 Est Glomerular Filtrat > 60 Rate mL/min Glucose Level 413 *H Hemoglobin A1c 10.9 H Calcium Level 8.7 Total Bilirubin 0.5 Direct Bilirubin 0.00 Indirect Bilirubin 0.5 Aspartate Amino 23 Transf (AST/SGOT) Alanine 24 Aminotransferase (ALT/SG PT) Alkaline Phosphatase 89 C-Reactive Protein 20.7 H Total Protein 7.1 Albumin 3.7 Globulin 3.40 H Albumin/Globulin Ratio 1.08 Urine Color YELLOW Urine Clarity CLEAR Urine pH 6.0 Urine Specific [place] 1.025 Urine Ketones NEGATIVE Urine Nitrite NEGATIVE Urine Bilirubin NEGATIVE Urine Urobilinogen NEGATIVE Urine Leukocyte Esterase NEGATIVE Urine Microscopic RBC 18 H Urine Microscopic WBC 1 Urine Hemoglobin 2+ H Urine Glucose 3+ H Urine Total Protein 1+ H Bedside Glucose 226 H Medications Medication Current Medications Ondansetron HCl (Zofran Inj) 4 mg BRIDGE ORDER PRN IV NAUSEA/VOMITING; Start 11/27/18 at 17:30; Stop 11/28/18 at 17:29 Acetaminophen (Tylenol Tab) 650 mg ER BRIDGE PRN PO .MILD PAIN 1-3 OR TEMP; Start 11/27/18 at 17:30; Stop 11/28/18 at 17:29 Sodium Chloride 1,000 ml @ 100 mls/hr Q10H IV Last administered on 11/27/18at 20:46; Admin Dose 100 MLS/HR; Start 11/27/18 at 17:19; Stop 11/28/18 at 05:18 IV Flush (NS 3 ml) 3 ml PER PROTOCOL IV ; Start 11/27/18 at 17:30 Ondansetron HCl (Zofran Inj) 4 mg Q6H PRN IV NAUSEA/VOMITING; Start 11/27/18 at 17:30 Acetaminophen (Tylenol Tab) 650 mg Q6H PRN PO .PAIN 1-3 OR TEMP; Start 11/27/18 at 17:30 Acetaminophen/ Hydrocodone Bitart ([place] (5/325)) 1 tab Q6H PRN PO .MOD PAIN 4- 6; Start 11/27/18 at 17:30 Morphine Sulfate (morphine) 2 mg Q4H PRN IV .SEVERE PAIN 7-10; Start 11/27/18 at 17:30 Docusate Sodium (Colace) 100 mg Q12H PRN PO .CONSTIPATION; Start 11/27/18 at 17:30 Magnesium Hydroxide (Milk Of Mag) 30 ml DAILY PRN PO .CONSTIPATION; Start 11/27/18 at 17:30 Famotidine (Pepcid) 20 mg Q12 PO Last administered on 11/27/18at 20:50; Admin Dose 20 MG; Start 11/27/18 at 21:00 Insulin Aspart (Novolog Insulin Pen) NOVOLOG *MILD* ALGORITHM WITH MEALS BEDTIME SC Last administered on 11/27/18at 20:45; Admin Dose 2 UNIT; Start 11/27/18 at 18:00 Vancomycin HCl (Vanco Iv Per Pharmacy) VANCOMYCIN PER PHARMACY PER PROTOCOL XX ; Start 11/27/18 at 17:30 Insulin Glargine (Lantus) 15 units BID@0800,2000 SC ; Start 11/27/18 at 20:00 Miscellaneous Information 1 ea NOTE XX ; Start 11/27/18 at 19:00 Glucose (Glutose) 15 gm Q15M PRN PO DECREASED GLUCOSE; Start 11/27/18 at 19:00 Glucose (Glutose) 22.5 gm Q15M PRN PO DECREASED GLUCOSE; Start 11/27/18 at 19:00 Dextrose (D50w Syringe) 25 ml Q15M PRN IV DECREASED GLUCOSE; Start 11/27/18 at 19:00 Dextrose (D50w Syringe) 50 ml Q15M PRN IV DECREASED GLUCOSE; Start 11/27/18 at 19:00 Glucagon (Glucagen) 1 mg Q15M PRN IM DECREASED GLUCOSE; Start 11/27/18 at 19:00 Glucose (Glutose) 15 gm Q15M PRN BUCCAL DECREASED GLUCOSE; Start 11/27/18 at 1 9:00 Piperacillin Sod/ Tazobactam Sod 100 ml @ 200 mls/hr Q8 IVPB Last administered on 11/27/18at 21:12; Admin Dose 200 MLS/HR; Start 11/27/18 at 21:00 STEFANIA GARCIA DPM Nov 27, 2018 21:27
[2018-11-27] MEDS: INSULIN GLARGINE [LANTus] (100 UNITS/ML) SYG SC SCH (22:54)
[2018-11-27 23:25] VITALS: Ht 172.7 cm; Wt 76.5 kg
[2018-11-28] VITALS (8 sets, daily range): BP systolic 103–144; BP diastolic 56–76; PULSE 55–66; RESP 13–20
[2018-11-28] MEDS: SOD CHLORIDE 0.9% 1,000 ML IV SCH (03:19)
[2018-11-28] MEDS: VANCOMYCIN 1 GM 250 ML IVPB SCH ×2 (04:12→13:50)
[2018-11-28] MEDS: PIPER-TAZO 3.375 GM IV (PMX) 100 ML IVPB SCH ×3 (06:43→22:08)
[2018-11-28] MEDS ORDERED: EPHEDrine SULFATE 50 MG/5 ML SYG ONE (07:00)
[2018-11-28] MEDS: FAMOTIDINE 20 MG TAB PO SCH ×2 (08:39→20:55)
[2018-11-28] MEDS: INSULIN GLARGINE [LANTus] (100 UNITS/ML) SYG SC SCH ×2 (08:39→20:56)
[2018-11-28] MEDS: INSULIN ASPART [NOVOLOG] 3 ML PEN SC SCH ×4 (08:41→20:57)
--- NOTE | 2018-11-28 09:13 | PN ---
Date/Time of Note Date/Time of Note DATE: 11/28/18 TIME: 09:13 Assessment/Plan VTE Prophylaxis Risk score (from Nsg)>0 risk: 3 SCD applied (from Nsg): Yes Pharmacological prophylaxis: NA/contraindicated Pharm contraindication: surgical contra Lines/Catheters IV Catheter Type (from Nrsg): Peripheral IV Urinary Cath still in place: No Assessment/Plan Assessment/Plan 1. Sepsis secondary to left foot infection - Podiatry on board and appreciate recommendations. Plans for OR this evening for I&D of left foot - ID on board and appreciate consultation - Xray shows soft tissue infection and MRI suspicious for OM - ESR noted to be elevated - IVF and pain control 2. Diabetes Mellitus with hyperglycemia - A1c noted and will need better glucose control prior to d/c - Continue home Lantus 15 units am and pm - ISS and accuchecks 3. Hyponatremia- resolved - corrected for glucose is 134 4. Anemia - will check iron levels 5. Disposition - Plans for OR this evening for I&D of L foot Result Diagram: 11/28/18 0506 11/28/18 0506 Results 24hrs Laboratory Tests Test 11/27/18 14:19 11/27/18 14:29 11/27/18 14:32 11/27/18 20:30 POC Venous Lactate 1.5 White Blood Count 13.0 #H Red Blood Count 3.59 L Hemoglobin 10.4 L Hematocrit 30.6 L Mean Corpuscular Volume 85.2 Mean Corpuscular 29.0 Hemoglobin Mean Corpuscular 34.0 Hemoglobin Concent Red Cell Distribution 12.6 Width Platelet Count 215 # Mean Platelet Volume 10.4 Immature Granulocytes % 0.700 H Neutrophils % 84.5 H Lymphocytes % 8.4 L Monocytes % 5.9 Eosinophils % 0.3 Basophils % 0.2 Nucleated Red Blood 0.0 Cells % Immature Granulocytes # 0.090 H Neutrophils # 11.0 H Lymphocytes # 1.1 Monocytes # 0.8 Eosinophils # 0.0 Basophils # 0.0 Nucleated Red Blood 0.0 Cells # Erythrocyte 60 H Sedimentation Rate Prothrombin Time 14.0 Prothrombin Time Ratio 1.1 INR International 1.07 Normalized Ratio Activated 36.8 H Partial Thromboplast Time Sodium Level 129 L Potassium Level 4.5 Chloride Level 93 L Carbon Dioxide Level 29 Anion Gap 7 Blood Urea Nitrogen 15 Creatinine 1.03 Est Glomerular Filtrat > 60 Rate mL/min Glucose Level 413 *H Hemoglobin A1c 10.9 H Calcium Level 8.7 Total Bilirubin 0.5 Direct Bilirubin 0.00 Indirect Bilirubin 0.5 Aspartate Amino 23 Transf (AST/SGOT) Alanine 24 Aminotransferase (ALT/SG PT) Alkaline Phosphatase 89 C-Reactive Protein 20.7 H Total Protein 7.1 Albumin 3.7 Globulin 3.40 H Albumin/Globulin Ratio 1.08 Urine Color YELLOW Urine Clarity CLEAR Urine pH 6.0 Urine Specific [place] 1.025 Urine Ketones NEGATIVE Urine Nitrite NEGATIVE Urine Bilirubin NEGATIVE Urine Urobilinogen NEGATIVE Urine Leukocyte Esterase NEGATIVE Urine Microscopic RBC 18 H Urine Microscopic WBC 1 Urine Hemoglobin 2+ H Urine Glucose 3+ H Urine Total Protein 1+ H Bedside Glucose 226 H Test 11/27/18 22:48 11/28/18 03:58 11/28/18 05:06 11/28/18 07:55 Bedside Glucose 295 H 227 H 183 White Blood Count 8.0 # Red Blood Count 3.22 L Hemoglobin 9.4 L Hematocrit 27.2 L Mean Corpuscular Volume 84.5 Mean Corpuscular 29.2 Hemoglobin Mean Corpuscular 34.6 Hemoglobin Concent Red Cell Distribution 12.6 Width Platelet Count 192 Mean Platelet Volume 10.5 H Immature Granulocytes % 0.400 Neutrophils % 74.4 Lymphocytes % 15.8 Monocytes % 7.0 Eosinophils % 2.0 Basophils % 0.4 Nucleated Red Blood 0.0 Cells % Immature Granulocytes # 0.030 Neutrophils # 6.0 Lymphocytes # 1.3 Monocytes # 0.6 Eosinophils # 0.2 Basophils # 0.0 Nucleated Red Blood 0.0 Cells # Sodium Level 137 Potassium Level 3.7 Chloride Level 103 # Carbon Dioxide Level 26 Anion Gap 8 Blood Urea Nitrogen 13 Creatinine 0.83 Est Glomerular Filtrat > 60 Rate mL/min Glucose Level 203 # Calcium Level 8.1 L Phosphorus Level 2.5 Magnesium Level 2.1 Subjective 24 Hr Interval Summary Free Text/Dictation Patient denies any acute issues. Asking if he can eat or drink anything. Discussed plans for OR later and needs to remain NPO. Exam/Review of Systems Exam Vitals Vital Signs Date Temp Pulse Resp B/P (MAP) Pulse Ox O2 O2 Flow FiO2 Time Delivery Rate 11/28/18 98.8 63 18 116/72 97 08:17 (87) 11/27/18 Room Air 19:00 Intake and Output 11/27/18 11/27/18 11/28/18 1515:00 23:00 07:00 IntakeIntake Total 50 ml 780 ml OutputOutput Total 700 ml BalanceBalance 50 ml 80 ml Exam General: Patient is pleasant gentleman, laying in bed and answers questions. no acute distress Respiratory: Clear to auscultation bilaterally. no wheezing or rhonchi Cardiovascular: S1, S2, regular rate and rhythm, no obvious murmurs Gastrointestinal: soft,nontender to palpation, nondistended, bowel sounds heard. no rebound or guarding Neurological: Moves all extremities spontaneously. no focal deficits. motor and sensory intact Results Results 24hrs Laboratory Tests Test 11/27/18 14:19 11/27/18 14:29 11/27/18 14:32 11/27/18 20:30 POC Venous Lactate 1.5 White Blood Count 13.0 #H Red Blood Count 3.59 L Hemoglobin 10.4 L Hematocrit 30.6 L Mean Corpuscular Volume 85.2 Mean Corpuscular 29.0 Hemoglobin Mean Corpuscular 34.0 Hemoglobin Concent Red Cell Distribution 12.6 Width Platelet Count 215 # Mean Platelet Volume 10.4 Immature Granulocytes % 0.700 H Neutrophils % 84.5 H Lymphocytes % 8.4 L Monocytes % 5.9 Eosinophils % 0.3 Basophils % 0.2 Nucleated Red Blood 0.0 Cells % Immature Granulocytes # 0.090 H Neutrophils # 11.0 H Lymphocytes # 1.1 Monocytes # 0.8 Eosinophils # 0.0 Basophils # 0.0 Nucleated Red Blood 0.0 Cells # Erythrocyte 60 H Sedimentation Rate Prothrombin Time 14.0 Prothrombin Time Ratio 1.1 INR International 1.07 Normalized Ratio Activated 36.8 H Partial Thromboplast Time Sodium Level 129 L Potassium Level 4.5 Chloride Level 93 L Carbon Dioxide Level 29 Anion Gap 7 Blood Urea Nitrogen 15 Creatinine 1.03 Est Glomerular Filtrat > 60 Rate mL/min Glucose Level 413 *H Hemoglobin A1c 10.9 H Calcium Level 8.7 Total Bilirubin 0.5 Direct Bilirubin 0.00 Indirect Bilirubin 0.5 Aspartate Amino 23 Transf (AST/SGOT) Alanine 24 Aminotransferase (ALT/SG PT) Alkaline Phosphatase 89 C-Reactive Protein 20.7 H Total Protein 7.1 Albumin 3.7 Globulin 3.40 H Albumin/Globulin Ratio 1.08 Urine Color YELLOW Urine Clarity CLEAR Urine pH 6.0 Urine Specific [place] 1.025 Urine Ketones NEGATIVE Urine Nitrite NEGATIVE Urine Bilirubin NEGATIVE Urine Urobilinogen NEGATIVE Urine Leukocyte Esterase NEGATIVE Urine Microscopic RBC 18 H Urine Microscopic WBC 1 Urine Hemoglobin 2+ H Urine Glucose 3+ H Urine Total Protein 1+ H Bedside Glucose 226 H Test 11/27/18 22:48 11/28/18 03:58 11/28/18 05:06 11/28/18 07:55 Bedside Glucose 295 H 227 H 183 White Blood Count 8.0 # Red Blood Count 3.22 L Hemoglobin 9.4 L Hematocrit 27.2 L Mean Corpuscular Volume 84.5 Mean Corpuscular 29.2 Hemoglobin Mean Corpuscular 34.6 Hemoglobin Concent Red Cell Distribution 12.6 Width Platelet Count 192 Mean Platelet Volume 10.5 H Immature Granulocytes % 0.400 Neutrophils % 74.4 Lymphocytes % 15.8 Monocytes % 7.0 Eosinophils % 2.0 Basophils % 0.4 Nucleated Red Blood 0.0 Cells % Immature Granulocytes # 0.030 Neutrophils # 6.0 Lymphocytes # 1.3 Monocytes # 0.6 Eosinophils # 0.2 Basophils # 0.0 Nucleated Red Blood 0.0 Cells # Sodium Level 137 Potassium Level 3.7 Chloride Level 103 # Carbon Dioxide Level 26 Anion Gap 8 Blood Urea Nitrogen 13 Creatinine 0.83 Est Glomerular Filtrat > 60 Rate mL/min Glucose Level 203 # Calcium Level 8.1 L Phosphorus Level 2.5 Magnesium Level 2.1 Medications Medication Current Medications Ondansetron HCl (Zofran Inj) 4 mg BRIDGE ORDER PRN IV NAUSEA/VOMITING; Start 11/27/18 at 17:30; Stop 11/28/18 at 17:29 Acetaminophen (Tylenol Tab) 650 mg ER BRIDGE PRN PO .MILD PAIN 1-3 OR TEMP; Start 11/27/18 at 17:30; Stop 11/28/18 at 17:29 IV Flush (NS 3 ml) 3 ml PER PROTOCOL IV ; Start 11/27/18 at 17:30 Ondansetron HCl (Zofran Inj) 4 mg Q6H PRN IV NAUSEA/VOMITING; Start 11/27/18 at 17:30 Acetaminophen (Tylenol Tab) 650 mg Q6H PRN PO .PAIN 1-3 OR TEMP; Start 11/27/18 at 17:30 Acetaminophen/ Hydrocodone Bitart ([place] (5/325)) 1 tab Q6H PRN PO .MOD PAIN 4- 6; Start 11/27/18 at 17:30 Morphine Sulfate (morphine) 2 mg Q4H PRN IV .SEVERE PAIN 7-10; Start 11/27/18 at 17:30 Docusate Sodium (Colace) 100 mg Q12H PRN PO .CONSTIPATION; Start 11/27/18 at 17:30 Magnesium Hydroxide (Milk Of Mag) 30 ml DAILY PRN PO .CONSTIPATION; Start 11/27/18 at 17:30 Famotidine (Pepcid) 20 mg Q12 PO Last administered on 11/28/18at 08:39; Admin Dose 20 MG; Start 11/27/18 at 21:00 Insulin Aspart (Novolog Insulin Pen) NOVOLOG *MILD* ALGORITHM WITH MEALS BEDTIME SC Last administered on 11/28/18at 08:41; Admin Dose 2 UNIT; Start 11/27/18 at 18:00 Vancomycin HCl (Vanco Iv Per Pharmacy) VANCOMYCIN PER PHARMACY PER PROTOCOL XX ; Start 11/27/18 at 17:30 Insulin Glargine (Lantus) 15 units BID@0800,2000 SC Last administered on 11/28/18at 08:39; Admin Dose 15 UNITS; Start 11/27/18 at 20:00 Miscellaneous Information 1 ea NOTE XX ; Start 11/27/18 at 19:00 Glucose (Glutose) 15 gm Q15M PRN PO DECREASED GLUCOSE; Start 11/27/18 at 19:00 Glucose (Glutose) 22.5 gm Q15M PRN PO DECREASED GLUCOSE; Start 11/27/18 at 19:00 Dextrose (D50w Syringe) 25 ml Q15M PRN IV DECREASED GLUCOSE; Start 11/27/18 at 19:00 Dextrose (D50w Syringe) 50 ml Q15M PRN IV DECREASED GLUCOSE; Start 11/27/18 at 19:00 Glucagon (Glucagen) 1 mg Q15M PRN IM DECREASED GLUCOSE; Start 11/27/18 at 19:00 Glucose (Glutose) 15 gm Q15M PRN BUCCAL DECREASED GLUCOSE; Start 11/27/18 at 19:00 Piperacillin Sod/ Tazobactam Sod 100 ml @ 200 mls/hr Q8 IVPB Last administered on 11/28/18at 06:43; Admin Dose 200 MLS/HR; Start 11/27/18 at 21:00 Vancomycin HCl 250 ml @ 125 mls/hr Q12H IVPB Last administered on 11/28/18at 04:12; Admin Dose 125 MLS/HR; Start 11/28/18 at 03:00 Influenza Virus Vaccine Quadrival (Fluzone) 0.5 ml ONCE ONCE IM* ; Start 11/29/18 at 10:00; Stop 11/29/18 at 10:01 KAREN CANTRELL MD Nov 28, 2018 09:13
[2018-11-28] MEDS ORDERED: DEXTROSE 5%-0.45% NACL 1,000 ML IV SCH (14:30)
--- NOTE | 2018-11-28 18:20 | CONS ---
DATE OF ADMISSION: 11/27/2018 DATE OF CONSULTATION: 11/28/2018 TYPE OF CONSULTATION: Infectious disease. REQUESTING PHYSICIAN: Taylor Sen MD Thank you Dr. Sen for this consultation. HISTORY OF PRESENT ILLNESS: This is a well-developed, well-nourished, middle- aged man who is awake and looks comfortable. The patient looks older than his age. Past medical history significant for diabetes, anemia, bilateral lower extremities osteomyelitis, right lower extremity DVT. We saw this patient back in 06/2017. At that time, he was treated with IV antibiotics for 6 weeks. The patient is a patient of Dr. Samm Welch, who is seeing him on this admission. He came with punctured left foot wound with cellulitis. LABORATORY DATA: White blood cell count on admission was 13 with neutrophils of 84.5, platelets 215, H and H of 10.4 and 30.6. ESR 60. Glucose 413, sodium 129, BUN 15, creatinine 1.03. Normal bilirubin and LFT. CRP 20.7. MICROBIOLOGY: Blood and urine culture preliminary are negative. DIAGNOSTIC DATA: MRI of the foot revealed plantar soft tissue wound with possible sinus tract adjacent to the 1st MTP joint with mild bone marrow edema and interval increase in erosive changes of the lateral sesamoid concerning for osteomyelitis. Erosive changes at the distal metatarsal and at the 2nd MTP joint appear similar compared to prior MRI, chronic appearing fracture of the 5th proximal phalanx. ANTIMICROBIALS: The patient was started on broad spectrum antibiotics: 1. Vancomycin. 2. Zosyn. ALLERGIES: HE IS NOT ALLERGIC TO ANY MEDICATIONS. SOCIAL HISTORY: The patient denies smoking, alcohol or illicits. REVIEW OF SYSTEMS: As per history of present illness. The patient states he has left foot pain. PAST SURGICAL HISTORY: Left great toe and right 4th toe amputation in the past. PHYSICAL EXAMINATION: GENERAL: Well-developed, well-nourished, middle-aged man who looks older than his age. HEENT: Head is atraumatic, normocephalic. NECK: Supple. CHEST: Rise symmetrical. Breath sounds diminished to bases. HEART: S1, S2. ABDOMEN: Soft. Bowel sounds are present. EXTREMITIES: With left foot edema, erythema. DIAGNOSTIC IMPRESSION: This is a 53-year-old diabetic man admitted with left foot cellulitis with abscess and possible osteomyelitis. The patient is on appropriate antibiotic therapy. Blood cultures are negative. We will order methicillin-resistant Staphylococcus aureus swab. Continue vancomycin, Zosyn. Monitor his renal function. He is going to have I and D. We will follow intraoperative cultures and follow podiatry recommendations. Above was discussed with Dr. Saeed Tamayo. Dictated By: OBINNA MIRAMONTES HOT DIE PICKER for SAEED TAMAYO MD NI/NTS Conf#: [id number] DID#: [id number] CC: TAYLOR SEN MD;*EndCC* MTDD
--- NOTE | 2018-11-28 18:37 | PN ---
Date/Time of Note Date/Time of Note DATE: 11/28/18 TIME: 18:35 Assessment/Plan Lines/Catheters IV Catheter Type (from Nrs): Peripheral IV Naranjo in Place (from Nrsg): No Assessment/Plan Problems: (1) Puncture wound of left foot with complication (2) Acquired absence of left great toe (3) Diabetes, polyneuropathy Assessment/Plan Patient is taken to the OR today for incision and drainage of the left foot with debridement. Subjective 24 Hr Interval Summary Patient denies overnight adverse events. He is scheduled for incision and drainage with debridement of the left foot. Exam/Review of Systems Vital Signs Vitals Vital Signs Date Temp Pulse Resp B/P (MAP) Pulse Ox O2 O2 Flow FiO2 Time Delivery Rate 11/28/18 97.8 55 18 120/56 100 14:00 (77) 11/27/18 Room Air 19:00 Intake and Output 11/27/18 11/27/18 11/28/18 1414:59 22:59 06:59 IntakeIntake Total 50 ml 780 ml OutputOutput Total 700 ml BalanceBalance 50 ml 80 ml Exam Free Text/Dictation Patient is status post partial forefoot amputation with a puncture wound on the plantar aspect of the left forefoot. Edema continues with decrease in temperature gradient. There is erythema which is slightly better than yesterday but continues to exist. Left foot is tender to palpation. Labs reviewed. Imaging reviewed. Results Result Diagram: 11/28/18 0506 11/28/18 0506 STEFANIA GARCIA DPM Nov 28, 2018 18:37
--- NOTE | 2018-11-28 18:37 | HPN ---
Date/Time of Note Date/Time of Note DATE: 11/28/18 TIME: 18:37 Interval H&P Admission Note Pt. seen H&P reviewed: No system changes STEFANIA GARCIA DPM Nov 28, 2018 18:37
--- NOTE | 2018-11-28 18:42 | PREAC ---
Date/Time of Note Date/Time of Note DATE: 11/28/18 TIME: 18:42 Anesthesia Eval and Record Evaluation Time Pre-Procedure Interview DATE: 11/28/18 TIME: 18:42 Age 53 Sex male NPO: 8 hrs Preoperative diagnosis Infected wound, left foot Planned procedure I & D, debridement Past Medical History Past Medical History: Includes Cardio: Dyslipidemia Endo: Diabetes Surgery & Anesthesia Issues No known issue Meds Anticoagulation: No Beta Leatha within 24 hr: No Reason Beta Leatha not given: Pt. not on B-Leatha Active Scripts Clindamycin Hcl* (Clindamycin Hcl*) 300 Mg Capsule, 300 MG PO TID for 10 Days, CAP Prov:AURELIO BESS PA-C 11/24/18 Reported Medications Insulin Glargine,Hum.rec.anlog (Carlotta Soladolph) 300 Unit/1 Ml Insuln.pen, 0 SQ BID, EA INJ. 14 OR 15 UNITS BID. 11/27/18 Discontinued Reported Medications Ibuprofen* (Ibuprofen*) 600 Mg Tablet, 600 MG PO Q8 PRN for PAIN, TAB 01/17/17 Discontinued Scripts Povidone-Iodine (Betadine) 1 Each Med..swab, 1 EACH TP DAILY, #30 STICK Apply to bilateral foot ulcers. Okay to substitute with Betadine cleansing solution. Prov:ANNE MARIE JOSHI V. [employer]NA[employer] 07/12/17 Clopidogrel Bisulfate (Clopidogrel) 75 Mg Tablet, 75 MG PO DAILY, #30 TAB Prov:JOSHIMARCIALA Morris. MANAGER [employer] 07/12/17 Metformin* (Glucophage*) 1,000 Mg Tablet, 1000 MG PO WITH BREAKFAST DINNE, #60 TAB Prov:ANNE MARIE JOSHI [employer]. MANA[employer] 07/09/17 Atorvastatin (Atorvastatin) 10 Mg Tablet, 10 MG PO HS, #30 TAB Prov:JOSHIMARCIALA V. MANAGER [employer] 07/09/17 Daptomycin (Cubicin) 500 Mg Vial, 500 MG IVPB Q24H for 42 Days, #42 VIAL Prov:ANNE MARIE JOSHI [employer]. MANA[employer] 07/09/17 Levofloxacin* (Levaquin*) 500 Mg Tablet, 500 MG PO DAILY@06, #42 TAB Stop date 08/20/2017 Prov:ANNE MARIE JOSHI [employer]. MANA[employer] 07/09/17 Ferrous Sulfate* (Ferrous Sulfate*) 325 Mg Tabec, 325 MG PO TID for 30 Days, TAB Prov:DAVID POE MD 01/23/17 Insulin Aspart* (Novolog Insulin Pen*) 100 Unit/Ml Soln, 5 UNIT SC WITH MEALS for 30 Days Prov:DAVID POE MD 01/23/17 Insulin Glargine* (Lantus*) 100 Unit/Ml Soln, 16 UNIT SC DAILY@20 for 30 Days Prov:DAVID POE MD 01/23/17 Current Medications IV Flush (NS 3 ml) 3 ml PER PROTOCOL IV ; Start 11/27/18 at 17:30 Ondansetron HCl (Zofran Inj) 4 mg Q6H PRN IV NAUSEA/VOMITING; Start 11/27/18 at 17:30 Acetaminophen (Tylenol Tab) 650 mg Q6H PRN PO .PAIN 1-3 OR TEMP; Start 11/27/18 at 17:30 Acetaminophen/ Hydrocodone Bitart ([place] (5/325)) 1 tab Q6H PRN PO .MOD PAIN 4- 6; Start 11/27/18 at 17:30 Morphine Sulfate (morphine) 2 mg Q4H PRN IV .SEVERE PAIN 7-10; Start 11/27/18 at 17:30 Docusate Sodium (Colace) 100 mg Q12H PRN PO .CONSTIPATION; Start 11/27/18 at 17:30 Magnesium Hydroxide (Milk Of Mag) 30 ml DAILY PRN PO .CONSTIPATION; Start 11/27/18 at 17:30 Famotidine (Pepcid) 20 mg Q12 PO Last administered on 11/28/18at 08:39; Admin Dose 20 MG; Start 11/27/18 at 21:00 Insulin Aspart (Novolog Insulin Pen) NOVOLOG *MILD* ALGORITHM WITH MEALS BEDTIME SC Last administered on 11/28/18at 08:41; Admin Dose 2 UNIT; Start 11/27/18 at 18:00 Vancomycin HCl (Vanco Iv Per Pharmacy) VANCOMYCIN PER PHARMACY PER PROTOCOL XX ; Start 11/27/18 at 17:30 Insulin Glargine (Lantus) 15 units BID@0800,2000 SC Last administered on 11/28/18at 08:39; Admin Dose 15 UNITS; Start 11/27/18 at 20:00 Miscellaneous Information 1 ea NOTE XX ; Start 11/27/18 at 19:00 Glucose (Glutose) 15 gm Q15M PRN PO DECREASED GLUCOSE; Start 11/27/18 at 19:00 Glucose (Glutose) 22.5 gm Q15M PRN PO DECREASED GLUCOSE; Start 11/27/18 at 19:00 Dextrose (D50w Syringe) 25 ml Q15M PRN IV DECREASED GLUCOSE; Start 11/27/18 at 19:00 Dextrose (D50w Syringe) 50 ml Q15M PRN IV DECREASED GLUCOSE; Start 11/27/18 at 19:00 Glucagon (Glucagen) 1 mg Q15M PRN IM DECREASED GLUCOSE; Start 11/27/18 at 19:00 Glucose (Glutose) 15 gm Q15M PRN BUCCAL DECREASED GLUCOSE; Start 11/27/18 at 19:00 Piperacillin Sod/ Tazobactam Sod 100 ml @ 200 mls/hr Q8 IVPB Last administered on 11/28/18at 13:04; Admin Dose 200 MLS/HR; Start 11/27/18 at 21:00 Vancomycin HCl 250 ml @ 125 mls/hr Q12H IVPB Last administered on 11/28/18at 13:50; Admin Dose 125 MLS/HR; Start 11/28/18 at 03:00 Influenza Virus Vaccine Quadrival (Fluzone) 0.5 ml ONCE ONCE IM* ; Start 11/29/18 at 10:00; Stop 11/29/18 at 10:01 Dextrose/Sodium Chloride 1,000 ml @ 75 mls/hr [id number] IV Last administered on 11/28/18at 15:51; Admin Dose 75 MLS/HR; Start 11/28/18 at 14:30 Meds reviewed: Yes Allergies Coded Allergies: No Known Drug Allergies (Verified Allergy, Unknown, 11/27/18) Allergies Reviewed: Yes Labs/Studies Labs Reviewed: Reviewed by anesthesiologist Result Diagram: 11/28/18 0506 11/28/18 0506 Laboratory Tests 11/28/18 05:06 test: N/A Pre-procedure Exam Last vitals Vital Signs Date Temp Pulse Resp B/P (MAP) Pulse Ox O2 O2 Flow FiO2 Time Delivery Rate 11/28/18 97.8 55 18 120/56 100 14:00 (77) 11/27/18 Room Air 19:00 Airway: Adequate mouth opening Mallampati: Mallampati I Teeth: Abnormal (Lower denture) Lung: Normal Heart: Normal ASA Physical Status ASA physical status: 2 Emergency: None Planned Anesthetic General/MAC: LMA Planned Pain Management Parenteral pain med Pre-operative Attestations Prior to commencing anesthesia and surgery, the patient was re-evaluated, there was verification of: *The patient's identity *The results of appropriate recent lab work and preoperative vital signs *The above evaluation not changing prior to induction *Anesthetic plan, risk benefits, alternative and complications discussed with patient/family; questions answered; patient/family understands, accepts and wishes to proceed. HONG DOUGLAS MD Nov 28, 2018 18:42
[2018-11-28] MEDS ORDERED: PROPOFOL 20 ML ONE (18:55)
[2018-11-28] MEDS ORDERED: LIDOCAINE 2% (SDV) 5 ML INJ ONE (18:55)
[2018-11-28] MEDS ORDERED: HYDROmorphONE 1 MG/5 ML IV SYRINGE IV PRN ×3 (19:30)
[2018-11-28] MEDS ORDERED: MIDAZOLAM 1 MG/ML 2 ML INJ IV PRN (19:30)
[2018-11-28] MEDS ORDERED: MEPERIDINE 25 MG INJ IV PRN (19:30)
[2018-11-28] MEDS ORDERED: EPHEDrine SULFATE 50 MG/5 ML SYG IV PRN (19:30)
[2018-11-28] MEDS ORDERED: METOCLOPRAMIDE 10 MG INJ IV PRN (19:30)
[2018-11-28] MEDS ORDERED: FENTAnyl 50 MCG/ML VIAL IV PRN ×3 (19:30)
[2018-11-28] MEDS ORDERED: OXYCODONE/ACETAMINOPHEN (5/325) TAB PO PRN ×2 (19:30)
[2018-11-28] MEDS ORDERED: hydrALAzine 20 MG INJ IV PRN (19:30)
[2018-11-28] MEDS ORDERED: DIPHENHYDRAMINE 50 MG INJ IV PRN (19:30)
[2018-11-28] MEDS ORDERED: LABETALOL HCL 20MG INJ IV PRN (19:30)
[2018-11-28] MEDS ORDERED: ONDANSETRON 4 MG INJ IV PRN (19:30)
--- NOTE | 2018-11-28 19:34 | OPR ---
Date/Time of Note Date/Time of Note DATE: 11/28/18 TIME: 19:30 Operative Report Procedure Date: Nov 28, 2018 Preoperative Diagnosis Abscess left foot Puncture wound left foot Previous forefoot partial amputation Diabetes mellitus History of noncompliance Peripheral neuropathy Referral vascular disease Postoperative Diagnosis Abscess left foot Puncture wound left foot Previous forefoot partial amputation Diabetes mellitus History of noncompliance Peripheral neuropathy Referral vascular disease Operation/Procedure Performed Incision and drainage left foot abscess Surgical debridement left foot puncture wound Surgeon see signature line Elastic Yarn Twister Helper None Anesthesia Type: general Estimated Blood Loss: minimal Transfusion none Specimen Wound culture Grafts/Implants none Complications none Pt Condition Post Procedure: stable Disposition: PACU Indications This is a pleasant 53-year-old patient who has been suffering with puncture wound of the left foot recently from work requiring incision and drainage with debridement. Risks and complications of this type of surgery was discussed with patient in great detail. Risks and complications discussed include, but are not limited to, postoperative infection, postoperative pain, chronic pain and disability, hardware failure, failure of surgery to correct the problem, need for additional surgical procedures, deep venous thrombosis, gait disturbance, problems with shoegear, limitation of activities, limb loss and loss of life. Patient understands the discussion and agrees to the procedure. An informed consent was obtained, signed and placed in the chart. No guarantee or warrantee was given or implied as to the outcome of the procedure either in verbal or written form. Procedure Description The patient was seen in the preoperative unit. The proposed surgery was discussed with patient in great detail. Risks and complications of this type of surgery was discussed with patient in great detail. Opportunity was given to patient to ask questions and all questions were answered. The patient acknowledges understanding of the discussion. An informed consent was then obtained, signed and placed in the chart. Patient was taken to the operating room and was placed on the operating table in the supine position. All bony prominences were padded properly. A timeout was called by the circulating nurse. Everyone in the operating room was agreeable to the timeout. The patient was then placed under general anesthesia by the anesthesiologist. The left lower extremity was scrubbed,l prepped, and draped in the usual aseptic manner. Attention was directed to the left foot. Puncture wound was present on the pl jeffery distal aspect with sinus tract going deep about 5 cm at 12:00, 10:00, 6:00 and 9:00. Significant purulent drainage was found with necrotic tissue which was sharply debrided to bleeding tissue. Cultures were obtained. Copious amounts of PB irrigation was used to irrigate the wound. The wound was packed with iodoform packing. Sterile dressing was applied to the left foot. The patient tolerated procedure and anesthesia well. The patient was transferred to the recovery room with vital signs stable and vascular status intact to left lower extremity. The patient will be sent back to the floor after postoperative monitoring. Postoperative orders were written. Patient will be followed up in-house. STEFANIA GARCIA DPM Nov 28, 2018 19:34
--- NOTE | 2018-11-28 20:15 | PAC ---
Date/Time of Note Date/Time of Note DATE: 11/28/18 TIME: 20:15 Post-Anesthesia Notes Post-Anesthesia Note Last documented vital signs Vital Signs Date Temp Pulse Resp B/P (MAP) Pulse Ox O2 O2 Flow FiO2 Time Delivery Rate 11/28/18 64 18 137/76 98 Room Air 19:51 (96) 11/28/18 97.7 19:40 Activity: WNL Respiratory function: WNL Cardiovascular function: WNL Mental status: Baseline Pain reasonably controlled: Yes Hydration appropriate: Yes Nausea/Vomiting absent: Yes HONG DOUGLAS MD Nov 28, 2018 20:15
[2018-11-29] MEDS: VANCOMYCIN 1 GM 250 ML IVPB SCH (02:39)
[2018-11-29 02:55] VITALS: BP 111/58; PULSE 68; RESP 20
[2018-11-29] MEDS: PIPER-TAZO 3.375 GM IV (PMX) 100 ML IVPB SCH ×3 (05:47→22:28)
[2018-11-29] MEDS: INSULIN ASPART [NOVOLOG] 3 ML PEN SC SCH ×4 (08:00→20:46)
[2018-11-29] MEDS: FAMOTIDINE 20 MG TAB PO SCH ×2 (08:11→20:46)
[2018-11-29] MEDS: INSULIN GLARGINE [LANTus] (100 UNITS/ML) SYG SC SCH ×2 (08:12→20:47)
[2018-11-29 08:36] VITALS: BP 144/90; PULSE 70; RESP 18
--- NOTE | 2018-11-29 09:05 | PN ---
Date/Time of Note Date/Time of Note DATE: 11/29/18 TIME: 09:05 Assessment/Plan VTE Prophylaxis Risk score (from Ns)>0 risk: 8 SCD applied (from Ns): Yes Pharmacological prophylaxis: NA/contraindicated Pharm contraindication: surgical contra Lines/Catheters [facility] Type (from [facility] Saline Lock Urinary Cath still in place: No Assessment/Plan Assessment/Plan 1. Sepsis secondary to left foot infection s/p I& D 11/28/18 - WBC nl and patient remains afebrile - Podiatry on board and appreciate recommendations. - ID on board and appreciate consultation. awaiting intraoperative cx results - Xray shows soft tissue infection and MRI suspicious for OM - ESR noted to be elevated - IVF and pain control 2. Diabetes Mellitus with hyperglycemia - A1c noted - Continue home Lantus 15 units am and pm - ISS and accuchecks 3. Hyponatremia- resolved 4. Anemia, iron deficient - PO iron started 5. Disposition - Awaiting culture results s/p I&D Result Diagram: 11/29/1851811/29/18 0139 Results 24hrs Laboratory Tests Test 11/28/18 11:56 11/28/18 17:22 11/28/18 20:54 11/29/18 01:39 Bedside Glucose 134 124 195 Blood Urea Nitrogen 12 Creatinine 0.87 Vancomycin Level Trough 7.6 L Test 11/29/18 02:21 11/29/18 05:19 11/29/18 08:07 Bedside Glucose 184 113 White Blood Count 8.8 Red Blood Count 3.44 L Hemoglobin 10.0 L Hematocrit 29.5 L Mean Corpuscular Volume 85.8 Mean Corpuscular 29.1 Hemoglobin Mean Corpuscular 33.9 Hemoglobin Concent Red Cell Distribution 12.5 Width Platelet Count 224 Mean Platelet Volume 10.5 H Immature Granulocytes % 0.500 H Neutrophils % 73.9 Lymphocytes % 16.0 Monocytes % 6.1 Eosinophils % 3.2 Basophils % 0.3 Nucleated Red Blood 0.0 Cells % Immature Granulocytes # 0.040 H Neutrophils # 6.5 Lymphocytes # 1.4 Monocytes # 0.5 Eosinophils # 0.3 Basophils # 0.0 Nucleated Red Blood 0.0 Cells # Subjective 24 Hr Interval Summary Free Text/Dictation Patient underwent surgical intervention yesterday and tolerated well. no acute overnight events. Exam/Review of Systems Exam Vitals Vital Signs Date Temp Pulse Resp B/P (MAP) Pulse Ox O2 O2 Flow FiO2 Time Delivery Rate 11/29/18 98.2 70 18 144/90 96 Room Air 08:36 (108) Intake and Output 11/28/18 11/28/18 11/29/18 1515:00 23:00 07:00 IntakeIntake Total 690 ml 750 ml 940 ml OutputOutput Total 10 ml 2100 ml BalanceBalance 690 ml 740 ml -1160 ml Exam General: Patient is pleasant gentleman, laying in bed and answers questions. no acute distress Respiratory: Clear to auscultation bilaterally. no wheezing or rhonchi Cardiovascular: S1, S2, regular rate and rhythm, no obvious murmurs Gastrointestinal: soft,nontender to palpation, nondistended, bowel sounds heard. no rebound or guarding Neurological: Moves all extremities spontaneously. no focal deficits. motor and sensory intact Skin: dressing present left foot with no discharge or drainage Results Results 24hrs Laboratory Tests Test 11/28/18 11:56 11/28/18 17:22 11/28/18 20:54 11/29/18 01:39 Bedside Glucose 134 124 195 Blood Urea Nitrogen 12 Creatinine 0.87 Vancomycin Level Trough 7.6 L Test 11/29/18 02:21 11/29/18 05:19 11/29/18 08:07 Bedside Glucose 184 113 White Blood Count 8.8 Red Blood Count 3.44 L Hemoglobin 10.0 L Hematocrit 29.5 L Mean Corpuscular Volume 85.8 Mean Corpuscular 29.1 Hemoglobin Mean Corpuscular 33.9 Hemoglobin Concent Red Cell Distribution 12.5 Width Platelet Count 224 Mean Platelet Volume 10.5 H Immature Granulocytes % 0.500 H Neutrophils % 73.9 Lymphocytes % 16.0 Monocytes % 6.1 Eosinophils % 3.2 Basophils % 0.3 Nucleated Red Blood 0.0 Cells % Immature Granulocytes # 0.040 H Neutrophils # 6.5 Lymphocytes # 1.4 Monocytes # 0.5 Eosinophils # 0.3 Basophils # 0.0 Nucleated Red Blood 0.0 Cells # Medications Medication Current Medications IV Flush (NS 3 ml) 3 ml PER PROTOCOL IV ; Start 11/27/18 at 17:30 Ondansetron HCl (Zofran Inj) 4 mg Q6H PRN IV NAUSEA/VOMITING; Start 11/27/18 at 17:30 Acetaminophen (Tylenol Tab) 650 mg Q6H PRN PO .PAIN 1-3 OR TEMP; Start 11/27/18 at 17:30 Acetaminophen/ Hydrocodone Bitart ([place] (5/325)) 1 tab Q6H PRN PO .MOD PAIN 4- 6 Last administered on 11/29/18at 02:17; Admin Dose 1 TAB; Start 11/27/18 at 17:30 Morphine Sulfate (morphine) 2 mg Q4H PRN IV .SEVERE PAIN 7-10; Start 11/27/18 at 17:30 Docusate Sodium (Colace) 100 mg Q12H PRN PO .CONSTIPATION; Start 11/27/18 at 17:30 Magnesium Hydroxide (Milk Of Mag) 30 ml DAILY PRN PO .CONSTIPATION; Start 11/27/18 at 17:30 Famotidine (Pepcid) 20 mg Q12 PO Last administered on 11/29/18at 08:11; Admin Dose 20 MG; Start 11/27/18 at 21:00 Insulin Aspart (Novolog Insulin Pen) NOVOLOG *MILD* ALGORITHM WITH MEALS BEDTIME SC Last administered on 11/28/18at 20:57; Admin Dose 1 UNIT; Start 11/27/18 at 18:00 Vancomycin HCl (Vanco Iv Per Pharmacy) VANCOMYCIN PER PHARMACY PER PROTOCOL XX ; Start 11/27/18 at 17:30 Insulin Glargine (Lantus) 15 units BID@0800,2000 SC Last administered on 11/29/18at 08:12; Admin Dose 15 UNITS; Start 11/27/18 at 20:00 Miscellaneous Information 1 ea NOTE XX ; Start 11/27/18 at 19:00 Glucose (Glutose) 15 gm Q15M PRN PO DECREASED GLUCOSE; Start 11/27/18 at 19:00 Glucose (Glutose) 22.5 gm Q15M PRN PO DECREASED GLUCOSE; Start 11/27/18 at 19:00 Dextrose (D50w Syringe) 25 ml Q15M PRN IV DECREASED GLUCOSE; Start 11/27/18 at 19:00 Dextrose (D50w Syringe) 50 ml Q15M PRN IV DECREASED GLUCOSE; Start 11/27/18 at 19:00 Glucagon (Glucagen) 1 mg Q15M PRN IM DECREASED GLUCOSE; Start 11/27/18 at 19:00 Glucose (Glutose) 15 gm Q15M PRN BUCCAL DECREASED GLUCOSE; Start 11/27/18 at 19:00 Piperacillin Sod/ Tazobactam Sod 100 ml @ 200 mls/hr Q8 IVPB Last administered on 11/29/18at 05:47; Admin Dose 200 MLS/HR; Start 11/27/18 at 21:00 Influenza Virus Vaccine Quadrival (Fluzone) 0.5 ml ONCE ONCE IM* ; Start 11/29/18 at 10:00; Stop 11/29/18 at 10:01 Vancomycin/Sodium Chloride 250 ml @ 125 mls/hr Q8H IVPB ; Start 11/29/18 at 11:00 Miscellaneous Information (*Rx Drug Level Order Reminder*) VANCO TROUGH @ 1,000 ONCE ONCE XX ; Start 11/30/18 at 10:00; Stop 11/30/18 at 10:01 KAREN CANTRELL MD Nov 29, 2018 09:05
[2018-11-29] MEDS: VANCOMYCIN 750 MG (PMX) 250 ML IVPB SCH ×2 (11:12→18:36)
[2018-11-29 14:15] VITALS: BP 118/66; PULSE 58; RESP 20
--- NOTE | 2018-11-29 17:12 | CONS ---
Consultation Date/Type/Reason Admit Date/Time Nov 27, 2018 at 17:17 Initial Consult Date SUBJECTIVE: Pt is awake, alert, afebrile. No acute events over night. VS:sstable T: 98.0 LABS: REviewed. WBC- 8.8 MICROBIOLOGY: Blood and urine culture preliminary are negative. URINE CULTURE Final Organism 1 MIXED GRAM POSITIVE ORGANISMS COLONY COUNT 10,000 - 20,000 CFU/ml DIAGNOSTIC DATA: MRI of the foot revealed plantar soft tissue wound with possible sinus tract adjacent to the 1st MTP joint with mild bone marrow edema and interval increase in erosive changes of the lateral sesamoid concerning for osteomyelitis. Erosive changes at the distal metatarsal and at the 2nd MTP joint appear similar compared to prior MRI, chronic appearing fracture of the 5th proximal phalanx. ANTIMICROBIALS: The patient was started on broad spectrum antibiotics: 1. Vancomycin. 2. Zosyn. ALLERGIES: HE IS NOT ALLERGIC TO ANY MEDICATIONS. PAST SURGICAL HISTORY: Left great toe and right 4th toe amputation in the past. PHYSICAL EXAMINATION: GENERAL: Well-developed, well-nourished, middle-aged man who looks older than his age. HEENT: Head is atraumatic, normocephalic. NECK: Supple. CHEST: Rise symmetrical. Breath sounds diminished to bases. HEART: S1, S2. ABDOMEN: Soft. Bowel sounds are present. EXTREMITIES: With left foot edema, erythema. ASSESSMENT: 1. Left foot cellulitis with abscess and possible osteomyelitis. 2. DM 2 3. Anemia of CD , 4. Hx of bilateral lower extremities osteomyelitis. 5. Hx of right lower extremity DVT. 6. Sepsis Plan: Pt is stable. Continue current antbx, wound care and pain management. Podiatry recommendations. Intraop culture pending. Date/Time of Note DATE: 11/29/18 TIME: 17:06 Exam/Review of Systems Exam Vitals Vital Signs Date Temp Pulse Resp B/P (MAP) Pulse Ox O2 O2 Flow FiO2 Time Delivery Rate 11/29/18 98.0 58 20 118/66 99 Room Air 14:15 (83) Intake and Output 11/28/18 11/28/18 11/29/18 1515:00 23:00 07:00 IntakeIntake Total 690 ml 750 ml 940 ml OutputOutput Total 10 ml 2100 ml BalanceBalance 690 ml 740 ml -1160 ml Results Result Diagram: 11/29/18 0519 11/29/18 0139 Results 24hrs Laboratory Tests Test 11/28/18 17:22 11/28/18 20:54 11/29/18 01:39 11/29/18 02:21 Bedside Glucose 124 195 184 Blood Urea Nitrogen 12 Creatinine 0.87 Vancomycin Level Trough 7.6 L Test 11/29/18 05:19 11/29/18 08:07 11/29/18 11:17 White Blood Count 8.8 Red Blood Count 3.44 L Hemoglobin 10.0 L Hematocrit 29.5 L Mean Corpuscular Volume 85.8 Mean Corpuscular 29.1 Hemoglobin Mean Corpuscular 33.9 Hemoglobin Concent Red Cell Distribution 12.5 Width Platelet Count 224 Mean Platelet Volume 10.5 H Immature Granulocytes % 0.500 H Neutrophils % 73.9 Lymphocytes % 16.0 Monocytes % 6.1 Eosinophils % 3.2 Basophils % 0.3 Nucleated Red Blood 0.0 Cells % Immature Granulocytes # 0.040 H Neutrophils # 6.5 Lymphocytes # 1.4 Monocytes # 0.5 Eosinophils # 0.3 Basophils # 0.0 Nucleated Red Blood 0.0 Cells # Bedside Glucose 113 142 Medications Medication Current Medications IV Flush (NS 3 ml) 3 ml PER PROTOCOL IV ; Start 11/27/18 at 17:30 Ondansetron HCl (Zofran Inj) 4 mg Q6H PRN IV NAUSEA/VOMITING; Start 11/27/18 at 17:30 Acetaminophen (Tylenol Tab) 650 mg Q6H PRN PO .PAIN 1-3 OR TEMP; Start 11/27/18 at 17:30 Acetaminophen/ Hydrocodone Bitart ([place] (5/325)) 1 tab Q6H PRN PO .MOD PAIN 4- 6 Last administered on 11/29/18at 02:17; Admin Dose 1 TAB; Start 11/27/18 at 17:30 Morphine Sulfate (morphine) 2 mg Q4H PRN IV .SEVERE PAIN 7-10; Start 11/27/18 at 17:30 Docusate Sodium (Colace) 100 mg Q12H PRN PO .CONSTIPATION; Start 11/27/18 at 17:30 Magnesium Hydroxide (Milk Of Mag) 30 ml DAILY PRN PO .CONSTIPATION; Start 11/27/18 at 17:30 Famotidine (Pepcid) 20 mg Q12 PO Last administered on 11/29/18at 08:11; Admin Dose 20 MG; Start 11/27/18 at 21:00 Insulin Aspart (Novolog Insulin Pen) NOVOLOG *MILD* ALGORITHM WITH MEALS BEDTIME SC Last administered on 11/29/18at 11:28; Admin Dose 1 UNIT; Start 11/27/18 at 18:00 Vancomycin HCl (Vanco Iv Per Pharmacy) VANCOMYCIN PER PHARMACY PER PROTOCOL XX ; Start 11/27/18 at 17:30 Insulin Glargine (Lantus) 15 units BID@0800,2000 SC Last administered on 11/29/18at 08:12; Admin Dose 15 UNITS; Start 11/27/18 at 20:00 Miscellaneous Information 1 ea NOTE XX ; Start 11/27/18 at 19:00 Glucose (Glutose) 15 gm Q15M PRN PO DECREASED GLUCOSE; Start 11/27/18 at 19:00 Glucose (Glutose) 22.5 gm Q15M PRN PO DECREASED GLUCOSE; Start 11/27/18 at 19:00 Dextrose (D50w Syringe) 25 ml Q15M PRN IV DECREASED GLUCOSE; Start 11/27/18 at 19:00 Dextrose (D50w Syringe) 50 ml Q15M PRN IV DECREASED GLUCOSE; Start 11/27/18 at 19:00 Glucagon (Glucagen) 1 mg Q15M PRN IM DECREASED GLUCOSE; Start 11/27/18 at 19:00 Glucose (Glutose) 15 gm Q15M PRN BUCCAL DECREASED GLUCOSE; Start 11/27/18 at 19:00 Piperacillin Sod/ Tazobactam Sod 100 ml @ 200 mls/hr Q8 IVPB Last administered on 11/29/18at 14:42; Admin Dose 200 MLS/HR; Start 11/27/18 at 21:00 Vancomycin/Sodium Chloride 250 ml @ 125 mls/hr Q8H IVPB Last administered on 11/29/18at 11:12; Admin Dose 125 MLS/HR; Start 11/29/18 at 11:00 Miscellaneous Information (*Rx Drug Level Order Reminder*) VANCO TROUGH @ 1,000 ONCE ONCE XX ; Start 11/30/18 at 10:00; Stop 11/30/18 at 10:01 Ferrous Sulfate (Ferrous Sulfate (Ec)) 325 mg DAILY PO ; Start 11/30/18 at 09:00 WILLIAM JOHN 9, 2019 17:12
[2018-11-29 20:00] VITALS: BP 116/72; PULSE 68; RESP 19
[2018-11-30 02:00] VITALS: BP 104/56; PULSE 68; RESP 19
[2018-11-30] MEDS: VANCOMYCIN 750 MG (PMX) 250 ML IVPB SCH ×3 (03:14→19:47)
[2018-11-30] MEDS: PIPER-TAZO 3.375 GM IV (PMX) 100 ML IVPB SCH ×3 (05:47→22:52)
[2018-11-30] MEDS: INSULIN ASPART [NOVOLOG] 3 ML PEN SC SCH ×4 (08:00→20:37)
[2018-11-30] MEDS: FAMOTIDINE 20 MG TAB PO SCH ×2 (08:10→20:39)
[2018-11-30] MEDS: FERROUS SULFATE (EC) 325 MG TAB PO SCH (08:11)
[2018-11-30] MEDS: INSULIN GLARGINE [LANTus] (100 UNITS/ML) SYG SC SCH ×2 (08:12→20:39)
[2018-11-30 08:31] VITALS: BP 114/72; PULSE 68; RESP 18
--- NOTE | 2018-11-30 09:07 | PN ---
Date/Time of Note Date/Time of Note DATE: 11/30/18 TIME: 09:07 Assessment/Plan VTE Prophylaxis Risk score (from [facility] risk: 9 SCD applied (from [facility] [place] No SCD contraindicated: other Pharmacological prophylaxis: NA/contraindicated Pharm contraindication: surgical contra Lines/Catheters [facility] Saline Lock Urinary Cath still in place: No Assessment/Plan Assessment/Plan 1. Sepsis secondary to left foot infection s/p I& D 11/28/18 - Podiatry on board and appreciate recommendations. - ID on board and appreciate consultation. awaiting final cx results - Xray shows soft tissue infection and MRI suspicious for OM - ESR noted to be elevated - IVF and pain control 2. Diabetes Mellitus with hyperglycemia - A1c noted - Continue home Lantus 15 units am and pm - ISS and accuchecks 3. Hyponatremia- resolved 4. Anemia, iron deficient - PO iron started 5. Disposition - Awaiting culture results s/p I&D Result Diagram: 11/30/18 0617 11/29/18 0139 Results 24hrs Laboratory Tests Test 11/29/18 11:17 11/29/18 17:02 11/29/18 20:45 11/30/18 06:17 Bedside Glucose 142 126 148 White Blood Count 9.1 Red Blood Count 3.78 L Hemoglobin 11.1 L Hematocrit 32.2 L Mean Corpuscular 85.2 Volume Mean Corpuscular 29.4 Hemoglobin Mean Corpuscular 34.5 Hemoglobin Concent Red Cell Distribution 12.8 Width Platelet Count 273 # Mean Platelet Volume 9.8 Immature Granulocytes 0.400 % Neutrophils % 69.5 Lymphocytes % 20.1 Monocytes % 6.3 Eosinophils % 3.3 Basophils % 0.4 Nucleated Red Blood 0.0 Cells % Immature Granulocytes 0.040 H # Neutrophils # 6.3 Lymphocytes # 1.8 Monocytes # 0.6 Eosinophils # 0.3 Basophils # 0.0 Nucleated Red Blood 0.0 Cells # Test 11/30/18 08:09 Bedside Glucose 95 Subjective 24 Hr Interval Summary Free Text/Dictation Patient denies any acute issues but requesting to speak with Dr. Welch when in house. No acute overnight events. Exam/Review of Systems Exam Vitals Vital Signs Date Temp Pulse Resp B/P (MAP) Pulse Ox O2 O2 Flow FiO2 Time Delivery Rate 11/30/18 98.3 68 18 114/72 97 08:31 (86) 11/29/18 Room Air 14:15 Intake and Output 11/29/18 11/29/18 11/30/18 1515:00 23:00 07:00 IntakeIntake Total 970 ml 670 ml 1290 ml OutputOutput Total 600 ml 700 ml 1250 ml BalanceBalance 370 ml -30 ml 40 ml Exam General: Patient is pleasant gentleman, laying in bed and answers questions. no acute distress Respiratory: Clear to auscultation bilaterally. no wheezing or rhonchi Cardiovascular: S1, S2, regular rate and rhythm, no obvious murmurs Gastrointestinal: soft,nontender to palpation, nondistended, bowel sounds heard Skin: dressing present left foot with no discharge or drainage Results Results 24hrs Laboratory Tests Test 11/29/18 11:17 11/29/18 17:02 11/29/18 20:45 11/30/18 06:17 Bedside Glucose 142 126 148 White Blood Count 9.1 Red Blood Count 3.78 L Hemoglobin 11.1 L Hematocrit 32.2 L Mean Corpuscular 85.2 Volume Mean Corpuscular 29.4 Hemoglobin Mean Corpuscular 34.5 Hemoglobin Concent Red Cell Distribution 12.8 Width Platelet Count 273 # Mean Platelet Volume 9.8 Immature Granulocytes 0.400 % Neutrophils % 69.5 Lymphocytes % 20.1 Monocytes % 6.3 Eosinophils % 3.3 Basophils % 0.4 Nucleated Red Blood 0.0 Cells % Immature Granulocytes 0.040 H # Neutrophils # 6.3 Lymphocytes # 1.8 Monocytes # 0.6 Eosinophils # 0.3 Basophils # 0.0 Nucleated Red Blood 0.0 Cells # Test 11/30/18 08:09 Bedside Glucose 95 Medications Medication Current Medications IV Flush (NS 3 ml) 3 ml PER PROTOCOL IV ; Start 11/27/18 at 17:30 Ondansetron HCl (Zofran Inj) 4 mg Q6H PRN IV NAUSEA/VOMITING; Start 11/27/18 at 17:30 Acetaminophen (Tylenol Tab) 650 mg Q6H PRN PO .PAIN 1-3 OR TEMP; Start 11/27/18 at 17:30 Acetaminophen/ Hydrocodone Bitart ([place] (5/325)) 1 tab Q6H PRN PO .MOD PAIN 4- 6 Last administered on 11/29/18at 02:17; Admin Dose 1 TAB; Start 11/27/18 at 17:30 Morphine Sulfate (morphine) 2 mg Q4H PRN IV .SEVERE PAIN 7-10; Start 11/27/18 at 17:30 Docusate Sodium (Colace) 100 mg Q12H PRN PO .CONSTIPATION; Start 11/27/18 at 17:30 Magnesium Hydroxide (Milk Of Mag) 30 ml DAILY PRN PO .CONSTIPATION; Start 11/27/18 at 17:30 Famotidine (Pepcid) 20 mg Q12 PO Last administered on 11/30/18at 08:10; Admin Dose 20 MG; Start 11/27/18 at 21:00 Insulin Aspart (Novolog Insulin Pen) NOVOLOG *MILD* ALGORITHM WITH MEALS BEDTIME SC Last administered on 11/29/18at 11:28; Admin Dose 1 UNIT; Start 11/27/18 at 18:00 Vancomycin HCl (Vanco Iv Per Pharmacy) VANCOMYCIN PER PHARMACY PER PROTOCOL XX ; Start 11/27/18 at 17:30 Insulin Glargine (Lantus) 15 units BID@0800,2000 SC Last administered on 11/30/18at 08:12; Admin Dose 15 UNITS; Start 11/27/18 at 20:00 Miscellaneous Information 1 ea NOTE XX ; Start 11/27/18 at 19:00 Glucose (Glutose) 15 gm Q15M PRN PO DECREASED GLUCOSE; Start 11/27/18 at 19:00 Glucose (Glutose) 22.5 gm Q15M PRN PO DECREASED GLUCOSE; Start 11/27/18 at 19:00 Dextrose (D50w Syringe) 25 ml Q15M PRN IV DECREASED GLUCOSE; Start 11/27/18 at 19:00 Dextrose (D50w Syringe) 50 ml Q15M PRN IV DECREASED GLUCOSE; Start 11/27/18 at 19:00 Glucagon (Glucagen) 1 mg Q15M PRN IM DECREASED GLUCOSE; Start 11/27/18 at 19:00 Glucose (Glutose) 15 gm Q15M PRN BUCCAL DECREASED GLUCOSE; Start 11/27/18 at 19:00 Piperacillin Sod/ Tazobactam Sod 100 ml @ 200 mls/hr Q8 IVPB Last administered on 11/30/18at 05:47; Admin Dose 200 MLS/HR; Start 11/27/18 at 21:00 Vancomycin/Sodium Chloride 250 ml @ 125 mls/hr Q8H IVPB Last administered on 11/30/18at 03:14; Admin Dose 125 MLS/HR; Start 11/29/18 at 11:00 Miscellaneous Information (*Rx Drug Level Order Reminder*) VANCO TROUGH @ 1,000 ONCE ONCE XX ; Start 11/30/18 at 10:00; Stop 11/30/18 at 10:01 Ferrous Sulfate (Ferrous Sulfate (Ec)) 325 mg DAILY PO Last administered on 11/30/18at 08:11; Admin Dose 325 MG; Start 11/30/18 at 09:00 KAREN CANTRELL MD Nov 30, 2018 09:07
--- NOTE | 2018-11-30 13:00 | CONS ---
Consultation Date/Type/Reason Admit Date/Time Nov 27, 2018 at 17:17 Initial Consult Date SUBJECTIVE: Pt is awake, alert, afebrile. No acute events over night. VS:sstable T: 98.3 LABS: REviewed. WBC- 9.1 MICROBIOLOGY: Blood and urine culture preliminary are negative. URINE CULTURE Final URINE CULTURE Final Organism 1 MIXED GRAM POSITIVE ORGANISMS COLONY COUNT 10,000 - 20,000 CFU/ml LEFT FOOT WOUND CULTURE: GRAM STAIN Final POLYMORPH. LEUKOCYTE 1+ . NO ORGANISM SEEN WOUND CULTURE Preliminary Organism 1 STREP AGALACTIAE - (GROUP B) QUANTITY 2+ Organism 2 STAPHYLOCOCCUS AUREUS QUANTITY 1+ S AGA(GR B Zone Size RX --------- --- * CEFOTAXIME S * CLINDAMYCIN S * ERYTHROMYCIN S * PENICILLIN S * VANCOMYCIN S DIAGNOSTIC DATA: MRI of the foot revealed plantar soft tissue wound with possible sinus tract adjacent to the 1st MTP joint with mild bone marrow edema and interval increase in erosive changes of the lateral sesamoid concerning for osteomyelitis. Erosive changes at the distal metatarsal and at the 2nd MTP joint appear similar compared to prior MRI, chronic appearing fracture of the 5th proximal phalanx. ANTIMICROBIALS: The patient was started on broad spectrum antibiotics: 1. Vancomycin. 2. Zosyn. ALLERGIES: HE IS NOT ALLERGIC TO ANY MEDICATIONS. PAST SURGICAL HISTORY: Left great toe and right 4th toe amputation in the past. PHYSICAL EXAMINATION: GENERAL: Well-developed, well-nourished, middle-aged man who looks older than his age. HEENT: Head is atraumatic, normocephalic. NECK: Supple. CHEST: Rise symmetrical. Breath sounds diminished to bases. HEART: S1, S2. ABDOMEN: Soft. Bowel sounds are present. EXTREMITIES: With left foot edema, erythema. ASSESSMENT: 1. Left foot cellulitis with abscess and possible osteomyelitis. 2. DM 2 3. Anemia of CD , 4. Hx of bilateral lower extremities osteomyelitis. 5. Hx of right lower extremity DVT. 6. Sepsis Plan: Pt is stable. Continue current antbx, wound care and pain management. Podiatry recommendations. Final cultures pending. Date/Time of Note DATE: 11/30/18 TIME: 12:58 Exam/Review of Systems Exam Vitals Vital Signs Date Temp Pulse Resp B/P (MAP) Pulse Ox O2 O2 Flow FiO2 Time Delivery Rate 11/30/18 98.3 68 18 114/72 97 08:31 (86) 11/29/18 Room Air 14:15 Intake and Output 11/29/18 11/29/18 11/30/18 1515:00 23:00 07:00 IntakeIntake Total 970 ml 670 ml 1290 ml OutputOutput Total 600 ml 700 ml 1250 ml BalanceBalance 370 ml -30 ml 40 ml Results Result Diagram: 11/30/18 0617 11/29/18 0139 Results 24hrs Laboratory Tests Test 11/29/18 17:02 11/29/18 20:45 11/30/18 06:17 11/30/18 08:09 Bedside Glucose 126 148 95 White Blood Count 9.1 Red Blood Count 3.78 L Hemoglobin 11.1 L Hematocrit 32.2 L Mean Corpuscular 85.2 Volume Mean Corpuscular 29.4 Hemoglobin Mean Corpuscular 34.5 Hemoglobin Concent Red Cell 12.8 Distribution Width Platelet Count 273 # Mean Platelet Volume 9.8 Immature 0.400 Granulocytes % Neutrophils % 69.5 Lymphocytes % 20.1 Monocytes % 6.3 Eosinophils % 3.3 Basophils % 0.4 Nucleated Red Blood 0.0 Cells % Immature 0.040 H Granulocytes # Neutrophils # 6.3 Lymphocytes # 1.8 Monocytes # 0.6 Eosinophils # 0.3 Basophils # 0.0 Nucleated Red Blood 0.0 Cells # Test 11/30/18 09:56 11/30/18 11:26 Vancomycin Level 13.3 Trough Bedside Glucose 136 Medications Medication Current Medications IV Flush (NS 3 ml) 3 ml PER PROTOCOL IV ; Start 11/27/18 at 17:30 Ondansetron HCl (Zofran Inj) 4 mg Q6H PRN IV NAUSEA/VOMITING; Start 11/27/18 at 17:30 Acetaminophen (Tylenol Tab) 650 mg Q6H PRN PO .PAIN 1-3 OR TEMP; Start 11/27/18 at 17:30 Acetaminophen/ Hydrocodone Bitart ([place] (5/325)) 1 tab Q6H PRN PO .MOD PAIN 4- 6 Last administered on 11/29/18at 02:17; Admin Dose 1 TAB; Start 11/27/18 at 17:30 Morphine Sulfate (morphine) 2 mg Q4H PRN IV .SEVERE PAIN 7-10; Start 11/27/18 at 17:30 Docusate Sodium (Colace) 100 mg Q12H PRN PO .CONSTIPATION; Start 11/27/18 at 17:30 Magnesium Hydroxide (Milk Of Mag) 30 ml DAILY PRN PO .CONSTIPATION; Start 11/27/18 at 17:30 Famotidine (Pepcid) 20 mg Q12 PO Last administered on 11/30/18at 08:10; Admin Dose 20 MG; Start 11/27/18 at 21:00 Insulin Aspart (Novolog Insulin Pen) NOVOLOG *MILD* ALGORITHM WITH MEALS BEDTIME SC Last administered on 11/29/18at 11:28; Admin Dose 1 UNIT; Start 11/27/18 at 18:00 Vancomycin HCl (Vanco Iv Per Pharmacy) VANCOMYCIN PER PHARMACY PER PROTOCOL XX ; Start 11/27/18 at 17:30 Insulin Glargine (Lantus) 15 units BID@0800,2000 SC Last administered on 11/30/18at 08:12; Admin Dose 15 UNITS; Start 11/27/18 at 20:00 Miscellaneous Information 1 ea NOTE XX ; Start 11/27/18 at 19:00 Glucose (Glutose) 15 gm Q15M PRN PO DECREASED GLUCOSE; Start 11/27/18 at 19:00 Glucose (Glutose) 22.5 gm Q15M PRN PO DECREASED GLUCOSE; Start 11/27/18 at 19:00 Dextrose (D50w Syringe) 25 ml Q15M PRN IV DECREASED GLUCOSE; Start 11/27/18 at 19:00 Dextrose (D50w Syringe) 50 ml Q15M PRN IV DECREASED GLUCOSE; Start 11/27/18 at 19:00 Glucagon (Glucagen) 1 mg Q15M PRN IM DECREASED GLUCOSE; Start 11/27/18 at 19:00 Glucose (Glutose) 15 gm Q15M PRN BUCCAL DECREASED GLUCOSE; Start 11/27/18 at 19:00 Piperacillin Sod/ Tazobactam Sod 100 ml @ 200 mls/hr Q8 IVPB Last administered on 11/30/18at 05:47; Admin Dose 200 MLS/HR; Start 11/27/18 at 21:00 Vancomycin/Sodium Chloride 250 ml @ 125 mls/hr Q8H IVPB Last administered on 11/30/18at 12:29; Admin Dose 125 MLS/HR; Start 11/29/18 at 11:00 Ferrous Sulfate (Ferrous Sulfate (Ec)) 325 mg DAILY PO Last administered on 11/30/18at 08:11; Admin Dose 325 MG; Start 11/30/18 at 09:00 WILLIAM JOHN Nov 30, 2018 13:00
[2018-11-30 14:00] VITALS: BP 118/59; PULSE 70; RESP 18
[2018-11-30 14:21] VITALS: BP 111/62; PULSE 66; RESP 18
[2018-11-30 20:00] VITALS: BP 131/77; PULSE 70; RESP 18
--- NOTE | 2018-11-30 22:22 | PN ---
Date/Time of Note Date/Time of Note DATE: 11/30/18 TIME: 22:17 Assessment/Plan Lines/Catheters IV Catheter Type (from Nrs): Saline Lock Naranjo in Place (from Nrs): No Assessment/Plan Problems: (1) Osteomyelitis of left foot (2) Puncture wound of left foot with complication (3) Acquired absence of left great toe (4) Non-pressure chronic ulcer of other part of right foot with necrosis of bone (5) Diabetes, polyneuropathy Assessment/Plan -- bandages were removed along with the packing -- sterile dressing applied -- daily dressing change -- daily flush of the wound with 1/4 strength Dakin's solution -- NON weight bearing on the LEFT foot -- JANUARY D/C HOME; follow up in [facility] clinic in one week -- prognosis is guarded; at risk for infection and possible limb loss Subjective 24 Hr Interval Summary POD 2 s/p incision and drainage of LEFT foot puncture wound. Patient reports that he opened hi bandages yesterday because he "wanted to see the surgery". Patient denies overnight adverse events. He denies fever, chills, nausea, or vomiting. Patient denies recent trauma. Constitutional: no complaints Pain Control: well controlled Exam/Review of Systems Vital Signs Vitals Vital Signs Date Temp Pulse Resp B/P (MAP) Pulse Ox O2 O2 Flow FiO2 Time Delivery Rate 11/30/18 97.2 70 18 131/77 98 20:00 (95) 11/30/18 Room Air 14:21 Intake and Output 11/29/18 11/29/18 11/30/18 1414:59 22:59 06:59 IntakeIntake Total 970 ml 670 ml 1290 ml OutputOutput Total 600 ml 700 ml 1250 ml BalanceBalance 370 ml -30 ml 40 ml Results Result Diagram: 11/30/18 0617 11/29/18 0139 STEFANIA GARCIA DPM Nov 30, 2018 22:22
[2018-12-01 02:00] VITALS: BP 97/55; PULSE 63; RESP 17
[2018-12-01] MEDS: VANCOMYCIN 750 MG (PMX) 250 ML IVPB SCH ×2 (03:04→10:42)
[2018-12-01] MEDS: PIPER-TAZO 3.375 GM IV (PMX) 100 ML IVPB SCH (06:16)
[2018-12-01] MEDS: INSULIN ASPART [NOVOLOG] 3 ML PEN SC SCH ×4 (08:00→21:11)
[2018-12-01] MEDS: FAMOTIDINE 20 MG TAB PO SCH ×2 (08:11→21:10)
[2018-12-01] MEDS: FERROUS SULFATE (EC) 325 MG TAB PO SCH (08:11)
[2018-12-01] MEDS: INSULIN GLARGINE [LANTus] (100 UNITS/ML) SYG SC SCH ×2 (08:12→21:10)
[2018-12-01 08:21] VITALS: BP 91/53; PULSE 67; RESP 18
[2018-12-01] MEDS: SODIUM HYPOCHLORITE (1/40) 1 APPLIC BTL IRR SCH (08:32)
--- NOTE | 2018-12-01 12:55 | CONS ---
Assessment/Plan Assessment/Plan Hospital Course (Demo Recall) Patient is alert and feels good denies pain no fevers overnight WBC 7.6, no shift no bands BUN 12 creatinine 0.87 Microbiology: Wound culture growing staph aureus and strep Antimicrobials: Vanco Zosyn PHYSICAL EXAMINATION: GENERAL: Well-developed, well-nourished, middle-aged man who looks older than his age. HEENT: Head is atraumatic, normocephalic. NECK: Supple. CHEST: Rise symmetrical. Breath sounds diminished to bases. HEART: S1, S2. ABDOMEN: Soft. Bowel sounds are present. EXTREMITIES: Left foot dressing clean dry and intact Assessment: 1. Left foot cellulitis/OM with abscess status post I&D 2. Diabetes 3. Peripheral neuropathy 4. History of medical noncompliance Plan: Patient remained stable he is being followed by podiatry, he will require IV antibiotics for 6 weeks for treatment of osteomyelitis we can change him to IV Rocephin Consultation Date/Type/Reason Admit Date/Time Nov 27, 2018 at 17:17 Initial Consult Date Type of Consult id Date/Time of Note DATE: 12/01/18 TIME: 12:52 Exam/Review of Systems Exam Vitals Vital Signs Date Temp Pulse Resp B/P (MAP) Pulse Ox O2 O2 Flow FiO2 Time Delivery Rate 12/01/18 97.8 67 18 91/53 (66) 96 Room Air 08:21 Intake and Output 11/30/18 11/30/18 12/01/18 1414:59 22:59 06:59 IntakeIntake Total 720 ml 960 ml 450 ml OutputOutput Total 450 ml 1050 ml 300 ml BalanceBalance 270 ml -90 ml 150 ml Results Result Diagram: 12/01/18 0522 11/29/18 0139 Results 24hrs Laboratory Tests Test 11/30/18 17:09 11/30/18 20:36 12/01/18 05:22 12/01/18 08:10 Bedside Glucose 137 144 103 White Blood Count 7.6 Red Blood Count 4.15 L Hemoglobin 12.1 L Hematocrit 36.0 L Mean Corpuscular 86.7 Volume Mean Corpuscular 29.2 Hemoglobin Mean Corpuscular 33.6 Hemoglobin Concent Red Cell 12.7 Distribution Width Platelet Count 278 Mean Platelet Volume 10.7 H Immature 0.500 H Granulocytes % Neutrophils % 65.0 Segmented 57 Neutrophils % (Manual) Band Neutrophils % 3 (Manual) Lymphocytes % 23.7 Lymphocytes % 25 (Manual) Reactive Lymphocytes 5 H % (Manual) Monocytes % 6.7 Monocytes % (Manual) 5 Eosinophils % 3.4 Eosinophils % 3 (Manual) Basophils % 0.7 Myelocytes % 2 H (Manual) Nucleated Red Blood 0.0 Cells % Immature 0.040 H Granulocytes # Neutrophils # 5.0 Neutrophils # 4.3 (Manual) Band Neutrophils # 0.2 Lymphocytes (Manual) 1.9 Lymphocytes # 1.8 Reactive Lymphocytes 0.3 H # Monocytes # 0.5 Monocytes # (Manual) 0.3 Eosinophils # 0.3 Basophils # 0.1 Myelocytes # 0.1 H Nucleated Red Blood 0.0 Cells # Platelet Estimate NORMAL Giant Platelets 1 H Polychromasia 2+ Anisocytosis 1+ Microcytosis 1+ Test 12/01/18 12:06 Bedside Glucose 249 H Medications Medication Current Medications IV Flush (NS 3 ml) 3 ml PER PROTOCOL IV ; Start 11/27/18 at 17:30 Ondansetron HCl (Zofran Inj) 4 mg Q6H PRN IV NAUSEA/VOMITING; Start 11/27/18 at 17:30 Acetaminophen (Tylenol Tab) 650 mg Q6H PRN PO .PAIN 1-3 OR TEMP; Start 11/27/18 at 17:30 Acetaminophen/ Hydrocodone Bitart ([place] (5/325)) 1 tab Q6H PRN PO .MOD PAIN 4- 6 Last administered on 11/29/18at 02:17; Admin Dose 1 TAB; Start 11/27/18 at 17:30 Morphine Sulfate (morphine) 2 mg Q4H PRN IV .SEVERE PAIN 7-10; Start 11/27/18 at 17:30 Docusate Sodium (Colace) 100 mg Q12H PRN PO .CONSTIPATION; Start 11/27/18 at 17:30 Magnesium Hydroxide (Milk Of Mag) 30 ml DAILY PRN PO .CONSTIPATION; Start 11/27/18 at 17:30 Famotidine (Pepcid) 20 mg Q12 PO Last administered on 12/01/18at 08:11; Admin Dose 20 MG; Start 11/27/18 at 21:00 Insulin Aspart (Novolog Insulin Pen) NOVOLOG *MILD* ALGORITHM WITH MEALS BEDTIME SC Last administered on 12/01/18at 12:28; Admin Dose 3 UNIT; Start 11/27/18 at 18:00 Vancomycin HCl (Vanco Iv Per Pharmacy) VANCOMYCIN PER PHARMACY PER PROTOCOL XX ; Start 11/27/18 at 17:30 Insulin Glargine (Lantus) 15 units BID@0800,2000 SC Last administered on 12/01/18at 08:12; Admin Dose 15 UNITS; Start 11/27/18 at 20:00 Miscellaneous Information 1 ea NOTE XX ; Start 11/27/18 at 19:00 Glucose (Glutose) 15 gm Q15M PRN PO DECREASED GLUCOSE; Start 11/27/18 at 19:00 Glucose (Glutose) 22.5 gm Q15M PRN PO DECREASED GLUCOSE; Start 11/27/18 at 19:00 Dextrose (D50w Syringe) 25 ml Q15M PRN IV DECREASED GLUCOSE; Start 11/27/18 at 19:00 Dextrose (D50w Syringe) 50 ml Q15M PRN IV DECREASED GLUCOSE; Start 11/27/18 at 19:00 Glucagon (Glucagen) 1 mg Q15M PRN IM DECREASED GLUCOSE; Start 11/27/18 at 19:00 Glucose (Glutose) 15 gm Q15M PRN BUCCAL DECREASED GLUCOSE; Start 11/27/18 at 19:00 Piperacillin Sod/ Tazobactam Sod 100 ml @ 200 mls/hr Q8 IVPB Last administered on 12/01/18at 06:16; Admin Dose 200 MLS/HR; Start 11/27/18 at 21:00 Vancomycin/Sodium Chloride 250 ml @ 125 mls/hr Q8H IVPB Last administered on 12/01/18at 10:42; Admin Dose 125 MLS/HR; Start 11/29/18 at 11:00 Ferrous Sulfate (Ferrous Sulfate (Ec)) 325 mg DAILY PO Last administered on 12/01/18at 08:11; Admin Dose 325 MG; Start 11/30/18 at 09:00 Sodium Hypochlorite (Dakin'S (Dilute )) 1 applic DAILY IRR Last administered on 12/01/18at 08:32; Admin Dose 1 APPLIC; Start 12/01/18 at 09:00 OBINNA MIRAMONTES NP Dec 01, 2018 12:55
[2018-12-01] MEDS: CEFTRIAXONE 1 GM/50 ML (PMX) 50 ML IVPB SCH (14:03)
[2018-12-01 14:41] VITALS: BP 140/65; RESP 18
--- NOTE | 2018-12-01 15:49 | PN ---
Date/Time of Note Date/Time of Note DATE: 12/01/18 TIME: 15:48 Objective Vitals Vital Signs Date Temp Pulse Resp B/P (MAP) Pulse Ox O2 O2 Flow FiO2 Time Delivery Rate 12/01/18 98.5 18 140/65 99 Room Air 14:41 (90) 12/01/18 67 08:21 Intake and Output 11/30/18 11/30/18 12/01/18 1515:00 23:00 07:00 IntakeIntake Total 720 ml 960 ml 450 ml OutputOutput Total 600 ml 900 ml 300 ml BalanceBalance 120 ml 60 ml 150 ml Results Result Diagram: 12/01/18 0522 11/29/18 0139 Medications Medications Current Medications IV Flush (NS 3 ml) 3 ml PER PROTOCOL IV ; Start 11/27/18 at 17:30 Ondansetron HCl (Zofran Inj) 4 mg Q6H PRN IV NAUSEA/VOMITING; Start 11/27/18 at 17:30 Acetaminophen (Tylenol Tab) 650 mg Q6H PRN PO .PAIN 1-3 OR TEMP; Start 11/27/18 at 17:30 Acetaminophen/ Hydrocodone Bitart ([place] (5/325)) 1 tab Q6H PRN PO .MOD PAIN 4- 6 Last administered on 11/29/18at 02:17; Admin Dose 1 TAB; Start 11/27/18 at 17:30 Morphine Sulfate (morphine) 2 mg Q4H PRN IV .SEVERE PAIN 7-10; Start 11/27/18 at 17:30 Docusate Sodium (Colace) 100 mg Q12H PRN PO .CONSTIPATION; Start 11/27/18 at 17:30 Magnesium Hydroxide (Milk Of Mag) 30 ml DAILY PRN PO .CONSTIPATION; Start 11/27/18 at 17:30 Famotidine (Pepcid) 20 mg Q12 PO Last administered on 12/01/18at 08:11; Admin Dose 20 MG; Start 11/27/18 at 21:00 Insulin Aspart (Novolog Insulin Pen) NOVOLOG *MILD* ALGORITHM WITH MEALS BEDTIME SC Last administered on 12/01/18at 12:28; Admin Dose 3 UNIT; Start 11/27/18 at 18:00 Insulin Glargine (Lantus) 15 units BID@0800,2000 SC Last administered on 12/01/18at 08:12; Admin Dose 15 UNITS; Start 11/27/18 at 20:00 Miscellaneous Information 1 ea NOTE XX ; Start 11/27/18 at 19:00 Glucose (Glutose) 15 gm Q15M PRN PO DECREASED GLUCOSE; Start 11/27/18 at 19:00 Glucose (Glutose) 22.5 gm Q15M PRN PO DECREASED GLUCOSE; Start 11/27/18 at 19:00 Dextrose (D50w Syringe) 25 ml Q15M PRN IV DECREASED GLUCOSE; Start 11/27/18 at 19:00 Dextrose (D50w Syringe) 50 ml Q15M PRN IV DECREASED GLUCOSE; Start 11/27/18 at 19:00 Glucagon (Glucagen) 1 mg Q15M PRN IM DECREASED GLUCOSE; Start 11/27/18 at 19:00 Glucose (Glutose) 15 gm Q15M PRN BUCCAL DECREASED GLUCOSE; Start 11/27/18 at 19:00 Ferrous Sulfate (Ferrous Sulfate (Ec)) 325 mg DAILY PO Last administered on 12/01/18at 08:11; Admin Dose 325 MG; Start 11/30/18 at 09:00 Sodium Hypochlorite (Dakin'S (Dilute 40)) 1 applic DAILY IRR Last administered on 12/01/18at 08:32; Admin Dose 1 APPLIC; Start 12/01/18 at 09:00 Ceftriaxone Sodium 50 ml @ 100 mls/hr Q24H IVPB Last administered on 12/01/18at 14:03; Admin Dose 100 MLS/HR; Start 12/01/18 at 13:00 Lidocaine (Xylocaine 1% (Mpf)) 5 ml ONCE ONCE SC ; Start 12/01/18 at 16:00; Stop 12/01/18 at 16:01; Status UNV VTE Prophylaxis Risk score (from Nsg)>0 risk: 3 SCD applied (from Ns): Yes SCD contraindication: other Lines/Catheters IV Catheter Type: Naranjo in Place: No Assessment/Plan Hospital Course Subjective No acute complaints Objective Physical exam General: Patient is laying in bed and answers questions appropriately Mentation: Patient is alert and oriented 4, Head: Normocephalic atraumatic Eyes: EOMI, pupils reactive to light Neck: Supple, nontender, midline Respiratory: Clear to auscultation bilaterally Cardiovascular: regular rate, no obvious murmurs Gastrointestinal: non-tender to palpation, bowel sounds heard. Neurological: Moves all extremities spontaneously Skin: Left foot bandaged, CDI Assessment/Plan 1. Sepsis secondary to left foot infection s/p I& D 11/28/18 - Podiatry on board and appreciate recommendations. - ID on board and appreciate consultation. awaiting final cx results - Xray shows soft tissue infection and MRI suspicious for OM - ESR noted to be elevated - IVF and pain control 2. Diabetes Mellitus with hyperglycemia - A1c noted - Continue home Lantus 15 units am and pm - ISS and accuchecks 3. Hyponatremia- resolved 4. Anemia, iron deficient - PO iron started 5. Disposition - HHIV ordered, DC tomorrow after everything arranged and PICC line in NASREEN DOUGLAS Dec 01, 2018 15:49
[2018-12-01] MEDS ORDERED: LIDOCAINE 1% (MPF) 5 ML VIAL SC ONE (16:00)
[2018-12-01 19:42] VITALS: BP 115/66; PULSE 72; RESP 18
[2018-12-02 02:02] VITALS: BP 105/59; PULSE 74; RESP 18
[2018-12-02 08:00] VITALS: BP 112/72; PULSE 62; RESP 18
[2018-12-02] MEDS: FAMOTIDINE 20 MG TAB PO SCH ×2 (08:48→21:32)
[2018-12-02] MEDS: FERROUS SULFATE (EC) 325 MG TAB PO SCH (08:49)
[2018-12-02] MEDS: SODIUM HYPOCHLORITE (1/40) 1 APPLIC BTL IRR SCH (08:49)
[2018-12-02] MEDS: INSULIN ASPART [NOVOLOG] 3 ML PEN SC SCH ×4 (08:50→21:35)
[2018-12-02] MEDS: INSULIN GLARGINE [LANTus] (100 UNITS/ML) SYG SC SCH ×2 (08:52→21:33)
--- NOTE | 2018-12-02 10:09 | PN ---
Date/Time of Note Date/Time of Note DATE: 12/02/18 TIME: 10:09 Objective Vitals Vital Signs Date Temp Pulse Resp B/P (MAP) Pulse Ox O2 O2 Flow FiO2 Time Delivery Rate 12/02/18 97.8 62 18 112/72 99 Room Air 08:00 (85) Intake and Output 12/01/18 12/01/18 12/02/18 1515:00 23:00 07:00 IntakeIntake Total 1020 ml 240 ml OutputOutput Total 1050 ml 400 ml BalanceBalance -30 ml 240 ml -400 ml Results Result Diagram: 12/02/1843 12/02/1843 Medications Medications Current Medications IV Flush (NS 3 ml) 3 ml PER PROTOCOL IV ; Start 11/27/18 at 17:30 Ondansetron HCl (Zofran Inj) 4 mg Q6H PRN IV NAUSEA/VOMITING; Start 11/27/18 at 17:30 Acetaminophen (Tylenol Tab) 650 mg Q6H PRN PO .PAIN 1-3 OR TEMP; Start 11/27/18 at 17:30 Acetaminophen/ Hydrocodone Bitart ([place] (5/325)) 1 tab Q6H PRN PO .MOD PAIN 4- 6 Last administered on 11/29/18at 02:17; Admin Dose 1 TAB; Start 11/27/18 at 17:30 Morphine Sulfate (morphine) 2 mg Q4H PRN IV .SEVERE PAIN 7-10; Start 11/27/18 at 17:30 Docusate Sodium (Colace) 100 mg Q12H PRN PO .CONSTIPATION; Start 11/27/18 at 17:30 Magnesium Hydroxide (Milk Of Mag) 30 ml DAILY PRN PO .CONSTIPATION; Start 11/27/18 at 17:30 Famotidine (Pepcid) 20 mg Q12 PO Last administered on 12/02/18at 08:48; Admin Dose 20 MG; Start 11/27/18 at 21:00 Insulin Aspart (Novolog Insulin Pen) NOVOLOG *MILD* ALGORITHM WITH MEALS BEDTIME SC Last administered on 12/02/18at 08:50; Admin Dose 2 UNIT; Start 11/27/18 at 18:00 Insulin Glargine (Lantus) 15 units BID@0800,2000 SC Last administered on 12/02/18at 08:52; Admin Dose 15 UNITS; Start 11/27/18 at 20:00 Miscellaneous Information 1 ea NOTE XX ; Start 11/27/18 at 19:00 Glucose (Glutose) 15 gm Q15M PRN PO DECREASED GLUCOSE; Start 11/27/18 at 19:00 Glucose (Glutose) 22.5 gm Q15M PRN PO DECREASED GLUCOSE; Start 11/27/18 at 19:00 Dextrose (D50w Syringe) 25 ml Q15M PRN IV DECREASED GLUCOSE; Start 11/27/18 at 19:00 Dextrose (D50w Syringe) 50 ml Q15M PRN IV DECREASED GLUCOSE; Start 11/27/18 at 19:00 Glucagon (Glucagen) 1 mg Q15M PRN IM DECREASED GLUCOSE; Start 11/27/18 at 19:00 Glucose (Glutose) 15 gm Q15M PRN BUCCAL DECREASED GLUCOSE; Start 11/27/18 at 19:00 Ferrous Sulfate (Ferrous Sulfate (Ec)) 325 mg DAILY PO Last administered on 12/02/18at 08:49; Admin Dose 325 MG; Start 11/30/18 at 09:00 Sodium Hypochlorite (Dakin'S (Dilute 1/40)) 1 applic DAILY IRR Last administered on 12/02/18at 08:49; Admin Dose 1 APPLIC; Start 12/01/18 at 09:00 Ceftriaxone Sodium 50 ml @ 100 mls/hr Q24H IVPB Last administered on 12/01/18at 14:03; Admin Dose 100 MLS/HR; Start 12/01/18 at 13:00 VTE Prophylaxis Risk score (from Ns)>0 risk: 3 SCD applied (from Ns): Yes Lines/Catheters IV Catheter Type: Naranjo in Place: No Assessment/Plan Hospital Course Subjective No acute complaints Objective Physical exam General: Patient is laying in bed and answers questions appropriately Mentation: Patient is alert and oriented 4, Head: Normocephalic atraumatic Eyes: EOMI, pupils reactive to light Neck: Supple, nontender, midline Respiratory: Clear to auscultation bilaterally Cardiovascular: regular rate, no obvious murmurs Gastrointestinal: non-tender to palpation, bowel sounds heard. Neurological: Moves all extremities spontaneously Skin: Left foot bandaged, CDI Assessment/Plan 1. Sepsis secondary to left foot infection s/p I& D 11/28/18 - Podiatry on board and appreciate recommendations. - ID on board and appreciate consultation. awaiting final cx results - Xray shows soft tissue infection and MRI suspicious for OM - ESR noted to be elevated - IVF and pain control 2. Diabetes Mellitus with hyperglycemia - A1c noted - Continue home Lantus 15 units am and pm - ISS and accuchecks 3. Hyponatremia- resolved 4. Anemia, iron deficient - PO iron started 5. Disposition - HHIV ordered, DC held up due to patient being self pay, currently medi-ronnie pending, once it goes through can send home for alf IV abx NASREEN DOUGLAS Dec 02, 2018 10:09
[2018-12-02] MEDS: CEFTRIAXONE 1 GM/50 ML (PMX) 50 ML IVPB SCH (12:44)
--- NOTE | 2018-12-02 13:08 | CONS ---
Assessment/Plan Assessment/Plan Hospital Course (Demo Recall) No acute changes, awake, looks comfortable, no fevers Microbiology: Wound culture growing staph aureus and strep Antimicrobials: Rocephin PHYSICAL EXAMINATION: GENERAL: Well-developed, well-nourished, middle-aged man who looks older than his age. HEENT: Head is atraumatic, normocephalic. NECK: Supple. CHEST: Rise symmetrical. Breath sounds diminished to bases. HEART: S1, S2. ABDOMEN: Soft. Bowel sounds are present. EXTREMITIES: Left foot dressing clean dry and intact Assessment: 1. Left foot cellulitis/OM with abscess status post I&D 2. Diabetes 3. Peripheral neuropathy 4. History of medical noncompliance Plan: Patient remained stable, continue on current abx for 6 weeks for treatment of osteomyelitis, s/p PICC Consultation Date/Type/Reason Admit Date/Time Nov 27, 2018 at 17:17 Initial Consult Date Type of Consult id Date/Time of Note DATE: 12/02/18 TIME: 13:07 Exam/Review of Systems Exam Vitals Vital Signs Date Temp Pulse Resp B/P (MAP) Pulse Ox O2 O2 Flow FiO2 Time Delivery Rate 12/02/18 97.8 62 18 112/72 99 Room Air 08:00 (85) Intake and Output 12/01/18 12/01/18 12/02/18 1515:00 23:00 07:00 IntakeIntake Total 1020 ml 240 ml OutputOutput Total 1050 ml 400 ml BalanceBalance -30 ml 240 ml -400 ml Results Result Diagram: 12/02/18 0543 12/02/18 0543 Results 24hrs Laboratory Tests Test 12/01/18 17:39 12/01/18 21:09 12/02/18 01:58 12/02/18 05:43 Bedside Glucose 207 238 H 174 White Blood Count 7.3 Red Blood Count 4.36 L Hemoglobin 12.6 L Hematocrit 37.5 L Mean Corpuscular 86.0 Volume Mean Corpuscular 28.9 L Hemoglobin Mean Corpuscular 33.6 Hemoglobin Concent Red Cell 12.7 Distribution Width Platelet Count 345 # Mean Platelet Volume 10.0 Immature 0.800 H Granulocytes % Neutrophils % Segmented 61 Neutrophils % (Manual) Band Neutrophils % 2 (Manual) Lymphocytes % Lymphocytes % 21 (Manual) Reactive Lymphocytes 12 H % (Manual) Monocytes % Monocytes % (Manual) 3 Eosinophils % Eosinophils % 1 (Manual) Basophils % Nucleated Red Blood 0.0 Cells % Immature 0.060 H Granulocytes # Neutrophils # Neutrophils # 4.5 (Manual) Band Neutrophils # 0.1 Lymphocytes (Manual) 1.5 Lymphocytes # Reactive Lymphocytes 0.8 H # Monocytes # Monocytes # (Manual) 0.2 L Eosinophils # Basophils # Nucleated Red Blood Cells # Platelet Estimate NORMAL Polychromasia 1+ Poikilocytosis 1+ Anisocytosis 1+ Sodium Level 138 Potassium Level 4.9 Chloride Level 97 Carbon Dioxide Level 31 Anion Gap 10 Blood Urea Nitrogen 26 H Creatinine 0.90 Est Glomerular > 60 Filtrat Rate mL/min Glucose Level 180 Calcium Level 9.8 Phosphorus Level 4.4 Magnesium Level 2.1 Test 12/02/18 08:47 12/02/18 12:23 Bedside Glucose 185 156 Medications Medication Current Medications IV Flush (NS 3 ml) 3 ml PER PROTOCOL IV ; Start 11/27/18 at 17:30 Ondansetron HCl (Zofran Inj) 4 mg Q6H PRN IV NAUSEA/VOMITING; Start 11/27/18 at 17:30 Acetaminophen (Tylenol Tab) 650 mg Q6H PRN PO .PAIN 1-3 OR TEMP; Start 11/27/18 at 17:30 Acetaminophen/ Hydrocodone Bitart ([place] (5/325)) 1 tab Q6H PRN PO .MOD PAIN 4- 6 Last administered on 11/29/18at 02:17; Admin Dose 1 TAB; Start 11/27/18 at 17:30 Morphine Sulfate (morphine) 2 mg Q4H PRN IV .SEVERE PAIN 7-10; Start 11/27/18 at 17:30 Docusate Sodium (Colace) 100 mg Q12H PRN PO .CONSTIPATION; Start 11/27/18 at 17:30 Magnesium Hydroxide (Milk Of Mag) 30 ml DAILY PRN PO .CONSTIPATION; Start 11/27/18 at 17:30 Famotidine (Pepcid) 20 mg Q12 PO Last administered on 12/02/18at 08:48; Admin Dose 20 MG; Start 11/27/18 at 21:00 Insulin Aspart (Novolog Insulin Pen) NOVOLOG *MILD* ALGORITHM WITH MEALS BEDTIME SC Last administered on 12/02/18at 12:42; Admin Dose 1 UNIT; Start 11/27/18 at 18:00 Insulin Glargine (Lantus) 15 units BID@0800,2000 SC Last administered on 12/02/18at 08:52; Admin Dose 15 UNITS; Start 11/27/18 at 20:00 Miscellaneous Information 1 ea NOTE XX ; Start 11/27/18 at 19:00 Glucose (Glutose) 15 gm Q15M PRN PO DECREASED GLUCOSE; Start 11/27/18 at 19:00 Glucose (Glutose) 22.5 gm Q15M PRN PO DECREASED GLUCOSE; Start 11/27/18 at 19:00 Dextrose (D50w Syringe) 25 ml Q15M PRN IV DECREASED GLUCOSE; Start 11/27/18 at 19:00 Dextrose (D50w Syringe) 50 ml Q15M PRN IV DECREASED GLUCOSE; Start 11/27/18 at 19:00 Glucagon (Glucagen) 1 mg Q15M PRN IM DECREASED GLUCOSE; Start 11/27/18 at 19:00 Glucose (Glutose) 15 gm Q15M PRN BUCCAL DECREASED GLUCOSE; Start 11/27/18 at 19:00 Ferrous Sulfate (Ferrous Sulfate (Ec)) 325 mg DAILY PO Last administered on 12/02/18at 08:49; Admin Dose 325 MG; Start 11/30/18 at 09:00 Sodium Hypochlorite (Dakin'S (Dilute )) 1 applic DAILY IRR Last administered on 12/02/18at 08:49; Admin Dose 1 APPLIC; Start 12/01/18 at 09:00 Ceftriaxone Sodium 50 ml @ 100 mls/hr Q24H IVPB Last administered on 12/02/18at 12:44; Admin Dose 100 MLS/HR; Start 12/01/18 at 13:00 OBINNA MIRAMONTES NP Dec 02, 2018 13:08
[2018-12-02 14:00] VITALS: BP 107/65; PULSE 67; RESP 17
[2018-12-02 19:38] VITALS: BP 104/66; PULSE 71; RESP 17
[2018-12-03 02:00] VITALS: BP 96/56; PULSE 66; RESP 17
[2018-12-03 07:44] VITALS: BP 113/68; PULSE 70; RESP 18
[2018-12-03] MEDS: INSULIN ASPART [NOVOLOG] 3 ML PEN SC SCH ×4 (08:00→21:22)
[2018-12-03] MEDS: FERROUS SULFATE (EC) 325 MG TAB PO SCH (08:38)
[2018-12-03] MEDS: FAMOTIDINE 20 MG TAB PO SCH ×2 (08:38→21:16)
[2018-12-03] MEDS: SODIUM HYPOCHLORITE (1/40) 1 APPLIC BTL IRR SCH (08:39)
[2018-12-03] MEDS: INSULIN GLARGINE [LANTus] (100 UNITS/ML) SYG SC SCH ×2 (08:41→20:04)
[2018-12-03] MEDS: CEFTRIAXONE 1 GM/50 ML (PMX) 50 ML IVPB SCH (12:23)
--- NOTE | 2018-12-03 14:11 | CONS ---
Assessment/Plan Assessment/Plan Hospital Course (Demo Recall) No acute events Microbiology: Wound culture growing staph aureus and strep Antimicrobials: Rocephin PHYSICAL EXAMINATION: GENERAL: Well-developed, well-nourished, middle-aged man who looks older than his age. HEENT: Head is atraumatic, normocephalic. NECK: Supple. CHEST: Rise symmetrical. Breath sounds diminished to bases. HEART: S1, S2. ABDOMEN: Soft. Bowel sounds are present. EXTREMITIES: Left foot dressing clean dry and intact Assessment: 1. Left foot cellulitis/OM with abscess status post I&D 2. Diabetes 3. Peripheral neuropathy 4. History of medical noncompliance Plan: Patient remained stable, continue on current abx for 6 weeks for treatment of osteomyelitis ==> last dose January 10 Consultation Date/Type/Reason Admit Date/Time Nov 27, 2018 at 17:17 Initial Consult Date Type of Consult id Date/Time of Note DATE: 12/03/18 TIME: 14:10 Exam/Review of Systems Exam Vitals Vital Signs Date Temp Pulse Resp B/P (MAP) Pulse Ox O2 O2 Flow FiO2 Time Delivery Rate 12/03/18 98.0 70 18 113/68 99 Room Air 07:44 (83) Intake and Output 12/02/18 12/02/18 12/03/18 1515:00 23:00 07:00 IntakeIntake Total 50 ml 800 ml BalanceBalance 50 ml 800 ml Results Result Diagram: 12/03/18 0511 12/03/18 0511 Results 24hrs Laboratory Tests Test 12/02/18 17:13 12/02/18 18:38 12/02/18 21:26 12/03/18 01:51 Bedside Glucose 166 201 228 H 129 Test 12/03/18 05:11 12/03/18 08:17 12/03/18 12:19 White Blood Count 8.0 Red Blood Count 4.19 L Hemoglobin 12.0 L Hematocrit 36.4 L Mean Corpuscular 86.9 Volume Mean Corpuscular 28.6 L Hemoglobin Mean Corpuscular 33.0 Hemoglobin Concent Red Cell 12.6 Distribution Width Platelet Count 355 Mean Platelet Volume 9.8 Immature 0.600 H Granulocytes % Neutrophils % 65.3 Lymphocytes % 25.8 Monocytes % 5.3 Eosinophils % 2.4 Basophils % 0.6 Nucleated Red Blood 0.0 Cells % Immature 0.050 H Granulocytes # Neutrophils # 5.2 Lymphocytes # 2.1 Monocytes # 0.4 Eosinophils # 0.2 Basophils # 0.1 Nucleated Red Blood 0.0 Cells # Sodium Level 140 Potassium Level 4.9 Chloride Level 99 Carbon Dioxide Level 32 H Anion Gap 9 Blood Urea Nitrogen 32 H Creatinine 1.00 Est Glomerular > 60 Filtrat Rate mL/min Glucose Level 133 # Calcium Level 9.9 Phosphorus Level 4.4 Magnesium Level 2.1 Bedside Glucose 109 163 Medications Medication Current Medications IV Flush (NS 3 ml) 3 ml PER PROTOCOL IV ; Start 11/27/18 at 17:30 Ondansetron HCl (Zofran Inj) 4 mg Q6H PRN IV NAUSEA/VOMITING; Start 11/27/18 at 17:30 Acetaminophen (Tylenol Tab) 650 mg Q6H PRN PO .PAIN 1-3 OR TEMP; Start 11/27/18 at 17:30 Acetaminophen/ Hydrocodone Bitart ([place] (5/325)) 1 tab Q6H PRN PO .MOD PAIN 4- 6 Last administered on 11/29/18at 02:17; Admin Dose 1 TAB; Start 11/27/18 at 17:30 Morphine Sulfate (morphine) 2 mg Q4H PRN IV .SEVERE PAIN 7-10; Start 11/27/18 at 17:30 Docusate Sodium (Colace) 100 mg Q12H PRN PO .CONSTIPATION; Start 11/27/18 at 17:30 Magnesium Hydroxide (Milk Of Mag) 30 ml DAILY PRN PO .CONSTIPATION; Start 11/27/18 at 17:30 Famotidine (Pepcid) 20 mg Q12 PO Last administered on 12/03/18at 08:38; Admin Dose 20 MG; Start 11/27/18 at 21:00 Insulin Aspart (Novolog Insulin Pen) NOVOLOG *MILD* ALGORITHM WITH MEALS BEDTIME SC Last administered on 12/03/18at 12:25; Admin Dose 1 UNIT; Start 11/27/18 at 18:00 Insulin Glargine (Lantus) 15 units BID@0800,2000 SC Last administered on 12/03/18at 08:41; Admin Dose 15 UNITS; Start 11/27/18 at 20:00 Miscellaneous Information 1 ea NOTE XX ; Start 11/27/18 at 19:00 Glucose (Glutose) 15 gm Q15M PRN PO DECREASED GLUCOSE; Start 11/27/18 at 19:00 Glucose (Glutose) 22.5 gm Q15M PRN PO DECREASED GLUCOSE; Start 11/27/18 at 19:00 Dextrose (D50w Syringe) 25 ml Q15M PRN IV DECREASED GLUCOSE; Start 11/27/18 at 19:00 Dextrose (D50w Syringe) 50 ml Q15M PRN IV DECREASED GLUCOSE; Start 11/27/18 at 19:00 Glucagon (Glucagen) 1 mg Q15M PRN IM DECREASED GLUCOSE; Start 11/27/18 at 19:00 Glucose (Glutose) 15 gm Q15M PRN BUCCAL DECREASED GLUCOSE; Start 11/27/18 at 19:00 Ferrous Sulfate (Ferrous Sulfate (Ec)) 325 mg DAILY PO Last administered on 12/03/18at 08:38; Admin Dose 325 MG; Start 11/30/18 at 09:00 Sodium Hypochlorite (Dakin'S (Dilute )) 1 applic DAILY IRR Last administered on 12/03/18at 08:39; Admin Dose 1 APPLIC; Start 12/01/18 at 09:00 Ceftriaxone Sodium 50 ml @ 100 mls/hr Q24H IVPB Last administered on 12/03/18at 12:23; Admin Dose 100 MLS/HR; Start 12/01/18 at 13:00 IV Flush (NS 10 ml) 10 ml PRN PRN IV FLUSH LINE; Start 12/02/18 at 14:30 OBINNA MIRAMONTES NP Dec 03, 2018 14:11
[2018-12-03 14:23] VITALS: BP 111/69; PULSE 69; RESP 18
--- NOTE | 2018-12-03 14:45 | PN ---
Date/Time of Note Date/Time of Note DATE: 12/03/18 TIME: 14:45 Objective Vitals Vital Signs Date Temp Pulse Resp B/P (MAP) Pulse Ox O2 O2 Flow FiO2 Time Delivery Rate 12/03/18 97.9 69 18 111/69 99 Room Air 14:23 (83) Intake and Output 12/02/18 12/02/18 12/03/18 1515:00 23:00 07:00 IntakeIntake Total 50 ml 800 ml BalanceBalance 50 ml 800 ml Results Result Diagram: 12/03/1811 12/03/1811 Medications Medications Current Medications IV Flush (NS 3 ml) 3 ml PER PROTOCOL IV ; Start 11/27/18 at 17:30 Ondansetron HCl (Zofran Inj) 4 mg Q6H PRN IV NAUSEA/VOMITING; Start 11/27/18 at 17:30 Acetaminophen (Tylenol Tab) 650 mg Q6H PRN PO .PAIN 1-3 OR TEMP; Start 11/27/18 at 17:30 Acetaminophen/ Hydrocodone Bitart ([place] (5/325)) 1 tab Q6H PRN PO .MOD PAIN 4- 6 Last administered on 11/29/18at 02:17; Admin Dose 1 TAB; Start 11/27/18 at 17:30 Morphine Sulfate (morphine) 2 mg Q4H PRN IV .SEVERE PAIN 7-10; Start 11/27/18 at 17:30 Docusate Sodium (Colace) 100 mg Q12H PRN PO .CONSTIPATION; Start 11/27/18 at 1 7:30 Magnesium Hydroxide (Milk Of Mag) 30 ml DAILY PRN PO .CONSTIPATION; Start 11/27/18 at 17:30 Famotidine (Pepcid) 20 mg Q12 PO Last administered on 12/03/18at 08:38; Admin Dose 20 MG; Start 11/27/18 at 21:00 Insulin Aspart (Novolog Insulin Pen) NOVOLOG *MILD* ALGORITHM WITH MEALS BEDTIME SC Last administered on 12/03/18at 12:25; Admin Dose 1 UNIT; Start 11/27/18 at 18:00 Insulin Glargine (Lantus) 15 units BID@0800,2000 SC Last administered on 12/03/18at 08:41; Admin Dose 15 UNITS; Start 11/27/18 at 20:00 Miscellaneous Information 1 ea NOTE XX ; Start 11/27/18 at 19:00 Glucose (Glutose) 15 gm Q15M PRN PO DECREASED GLUCOSE; Start 11/27/18 at 19:00 Glucose (Glutose) 22.5 gm Q15M PRN PO DECREASED GLUCOSE; Start 11/27/18 at 19:00 Dextrose (D50w Syringe) 25 ml Q15M PRN IV DECREASED GLUCOSE; Start 11/27/18 at 19:00 Dextrose (D50w Syringe) 50 ml Q15M PRN IV DECREASED GLUCOSE; Start 11/27/18 at 1 9:00 Glucagon (Glucagen) 1 mg Q15M PRN IM DECREASED GLUCOSE; Start 11/27/18 at 19:00 Glucose (Glutose) 15 gm Q15M PRN BUCCAL DECREASED GLUCOSE; Start 11/27/18 at 19:00 Ferrous Sulfate (Ferrous Sulfate (Ec)) 325 mg DAILY PO Last administered on 12/03/18at 08:38; Admin Dose 325 MG; Start 11/30/18 at 09:00 Sodium Hypochlorite (Dakin'S (Dilute )) 1 applic DAILY IRR Last administered on 12/03/18at 08:39; Admin Dose 1 APPLIC; Start 12/01/18 at 09:00 Ceftriaxone Sodium 50 ml @ 100 mls/hr Q24H IVPB Last administered on 12/03/18at 12:23; Admin Dose 100 MLS/HR; Start 12/01/18 at 13:00 IV Flush (NS 10 ml) 10 ml PRN PRN IV FLUSH LINE; Start 12/02/18 at 14:30 VTE Prophylaxis Risk score (from Ns)>0 risk: 7 SCD applied (from Ns): Yes Lines/Catheters IV Catheter Type: Naranjo in Place: No Assessment/Plan Hospital Course Subjective No acute complaints Objective Physical exam General: Patient is laying in bed and answers questions appropriately Mentation: Patient is alert and oriented 4, Head: Normocephalic atraumatic Eyes: EOMI, pupils reactive to light Neck: Supple, nontender, midline Respiratory: Clear to auscultation bilaterally Cardiovascular: regular rate, no obvious murmurs Gastrointestinal: non-tender to palpation, bowel sounds heard. Neurological: Moves all extremities spontaneously Skin: Left foot bandaged, CDI Assessment/Plan 1. Sepsis secondary to left foot infection s/p I& D 11/28/18 - Podiatry on board and appreciate recommendations. - ID on board and appreciate consultation. awaiting final cx results - Xray shows soft tissue infection and MRI suspicious for OM - ESR noted to be elevated - IVF and pain control 2. Diabetes Mellitus with hyperglycemia - A1c noted - Continue home Lantus 15 units am and pm - ISS and accuchecks 3. Hyponatremia- resolved 4. Anemia, iron deficient - PO iron started 5. 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
[2018-12-03 20:46] VITALS: BP 98/60; PULSE 72; RESP 16
[2018-12-04 02:57] VITALS: BP 100/62; PULSE 73; RESP 18
[2018-12-04] MEDS: INSULIN ASPART [NOVOLOG] 3 ML PEN SC SCH ×4 (07:49→20:29)
[2018-12-04] MEDS: INSULIN GLARGINE [LANTus] (100 UNITS/ML) SYG SC SCH ×2 (07:51→20:31)
[2018-12-04 08:24] VITALS: BP 112/72; PULSE 73; RESP 18
[2018-12-04] MEDS: FERROUS SULFATE (EC) 325 MG TAB PO SCH (08:28)
[2018-12-04] MEDS: FAMOTIDINE 20 MG TAB PO SCH ×2 (08:28→20:30)
[2018-12-04] MEDS: SODIUM HYPOCHLORITE (1/40) 1 APPLIC BTL IRR SCH (08:29)
[2018-12-04] MEDS: CEFTRIAXONE 1 GM/50 ML (PMX) 50 ML IVPB SCH (12:41)
--- NOTE | 2018-12-04 14:34 | PN ---
Date/Time of Note Date/Time of Note DATE: 12/04/18 TIME: 14:33 Objective Vitals Vital Signs Date Temp Pulse Resp B/P (MAP) Pulse Ox O2 O2 Flow FiO2 Time Delivery Rate 12/04/18 97.8 73 18 112/72 94 Room Air 08:24 (85) Intake and Output 12/03/18 12/03/18 12/04/18 1414:59 22:59 06:59 IntakeIntake Total 50 ml OutputOutput Total 300 ml BalanceBalance 50 ml -300 ml Results Result Diagram: 12/04/18 0611 12/04/18 0611 Medications Medications Current Medications IV Flush (NS 3 ml) 3 ml PER PROTOCOL IV ; Start 11/27/18 at 17:30 Ondansetron HCl (Zofran Inj) 4 mg Q6H PRN IV NAUSEA/VOMITING; Start 11/27/18 at 17:30 Acetaminophen (Tylenol Tab) 650 mg Q6H PRN PO .PAIN 1-3 OR TEMP; Start 11/27/18 at 17:30 Acetaminophen/ Hydrocodone Bitart ([place] (5/325)) 1 tab Q6H PRN PO .MOD PAIN 4- 6 Last administered on 11/29/18at 02:17; Admin Dose 1 TAB; Start 11/27/18 at 17:30 Morphine Sulfate (morphine) 2 mg Q4H PRN IV .SEVERE PAIN 7-10; Start 11/27/18 at 17:30 Docusate Sodium (Colace) 100 mg Q12H PRN PO .CONSTIPATION; Start 11/27/18 at 17:30 Magnesium Hydroxide (Milk Of Mag) 30 ml DAILY PRN PO .CONSTIPATION; Start 11/27/18 at 17:30 Famotidine (Pepcid) 20 mg Q12 PO Last administered on 12/04/18at 08:28; Admin Dose 20 MG; Start 11/27/18 at 21:00 Insulin Aspart (Novolog Insulin Pen) NOVOLOG *MILD* ALGORITHM WITH MEALS BEDTIME SC Last administered on 12/04/18at 11:52; Admin Dose 1 UNIT; Start 11/27/18 at 18:00 Insulin Glargine (Lantus) 15 units BID@0800,2000 SC Last administered on 12/04/18at 07:51; Admin Dose 15 UNITS; Start 11/27/18 at 20:00 Miscellaneous Information 1 ea NOTE XX ; Start 11/27/18 at 19:00 Glucose (Glutose) 15 gm Q15M PRN PO DECREASED GLUCOSE; Start 11/27/18 at 19:00 Glucose (Glutose) 22.5 gm Q15M PRN PO DECREASED GLUCOSE; Start 11/27/18 at 19:00 Dextrose (D50w Syringe) 25 ml Q15M PRN IV DECREASED GLUCOSE; Start 11/27/18 at 19:00 Dextrose (D50w Syringe) 50 ml Q15M PRN IV DECREASED GLUCOSE; Start 11/27/18 at 19:00 Glucagon (Glucagen) 1 mg Q15M PRN IM DECREASED GLUCOSE; Start 11/27/18 at 19:00 Glucose (Glutose) 15 gm Q15M PRN BUCCAL DECREASED GLUCOSE; Start 11/27/18 at 19:00 Ferrous Sulfate (Ferrous Sulfate (Ec)) 325 mg DAILY PO Last administered on 12/04/18at 08:28; Admin Dose 325 MG; Start 11/30/18 at 09:00 Sodium Hypochlorite (Dakin'S (Dilute 40)) 1 applic DAILY IRR Last adminis tered on 12/04/18at 08:29; Admin Dose 1 APPLIC; Start 12/01/18 at 09:00 Ceftriaxone Sodium 50 ml @ 100 mls/hr Q24H IVPB Last administered on 12/04/18at 12:41; Admin Dose 100 MLS/HR; Start 12/01/18 at 13:00 IV Flush (NS 10 ml) 10 ml PRN PRN IV FLUSH LINE; Start 12/02/18 at 14:30 VTE Prophylaxis Risk score (from Nsg)>0 risk: 1 SCD applied (from Ns): No SCD contraindication: other Lines/Catheters IV Catheter Type: Naranjo in Place: No Assessment/Plan Hospital Course Subjective No acute complaints Objective Physical exam General: Patient is laying in bed and answers questions appropriately Mentation: Patient is alert and oriented 4, Head: Normocephalic atraumatic Eyes: EOMI, pupils reactive to light Neck: Supple, nontender, midline Respiratory: Clear to auscultation bilaterally Cardiovascular: regular rate, no obvious murmurs Gastrointestinal: non-tender to palpation, bowel sounds heard. Neurological: Moves all extremities spontaneously Skin: Left foot bandaged, CDI Assessment/Plan 1. Sepsis secondary to left foot infection s/p I& D 11/28/18 - Podiatry on board and appreciate recommendations. - ID on board and appreciate consultation. awaiting final cx results - Xray shows soft tissue infection and MRI suspicious for OM - ESR noted to be elevated - IVF and pain control 2. Diabetes Mellitus with hyperglycemia - A1c noted - Continue home Lantus 15 units am and pm - ISS and accuchecks 3. Hyponatremia- resolved 4. Anemia, iron deficient - PO iron started 5. Disposition - HHIV abx ordered, DC held up due to patient being self pay, currently medi-ronnie pending, once it goes through, can send home for [facility] IV abx NASREEN DOUGLAS Dec 04, 2018 14:34
--- NOTE | 2018-12-04 16:41 | CONS ---
Assessment/Plan Assessment/Plan Hospital Course (Demo Recall) No acute events, sleeping, no fevers, nad Microbiology: Wound culture growing staph aureus and strep Antimicrobials: Rocephin PHYSICAL EXAMINATION: GENERAL: Well-developed, well-nourished, middle-aged man who looks older than his age. HEENT: Head is atraumatic, normocephalic. NECK: Supple. CHEST: Rise symmetrical. Breath sounds diminished to bases. HEART: S1, S2. ABDOMEN: Soft. Bowel sounds are present. EXTREMITIES: Left foot dressing clean dry and intact Assessment: 1. Left foot cellulitis/OM with abscess status post I&D 2. Diabetes 3. Peripheral neuropathy 4. History of medical noncompliance Plan: Patient remained stable, continue on current abx for 6 weeks for treatment of osteomyelitis ==> last dose January 10 Consultation Date/Type/Reason Admit Date/Time Nov 27, 2018 at 17:17 Initial Consult Date Type of Consult id Date/Time of Note DATE: 12/04/18 TIME: 16:40 Exam/Review of Systems Exam Vitals Vital Signs Date Temp Pulse Resp B/P (MAP) Pulse Ox O2 O2 Flow FiO2 Time Delivery Rate 12/04/18 97.8 73 18 112/72 94 Room Air 08:24 (85) Intake and Output 12/03/18 12/03/18 12/04/18 1515:00 23:00 07:00 IntakeIntake Total 50 ml OutputOutput Total 300 ml BalanceBalance 50 ml -300 ml Results Result Diagram: 12/04/18 0611 12/04/18 0611 Results 24hrs Laboratory Tests Test 12/03/18 17:30 12/03/18 20:02 12/03/18 21:19 12/04/18 06:11 Bedside Glucose 195 173 197 White Blood Count 8.3 Red Blood Count 4.23 L Hemoglobin 12.1 L Hematocrit 37.0 L Mean Corpuscular 87.5 Volume Mean Corpuscular 28.6 L Hemoglobin Mean Corpuscular 32.7 Hemoglobin Concent Red Cell 12.6 Distribution Width Platelet Count 361 Mean Platelet Volume 10.0 Immature 0.700 H Granulocytes % Neutrophils % 59.5 Lymphocytes % 30.7 Monocytes % 6.0 Eosinophils % 2.4 Basophils % 0.7 Nucleated Red Blood 0.0 Cells % Immature 0.060 H Granulocytes # Neutrophils # 4.9 Lymphocytes # 2.5 Monocytes # 0.5 Eosinophils # 0.2 Basophils # 0.1 Nucleated Red Blood 0.0 Cells # Sodium Level 137 Potassium Level 4.4 Chloride Level 99 Carbon Dioxide Level 29 Anion Gap 9 Blood Urea Nitrogen 28 H Creatinine 0.88 Est Glomerular > 60 Filtrat Rate mL/min Glucose Level 142 Calcium Level 9.7 Phosphorus Level 4.2 Magnesium Level 2.1 Test 12/04/18 07:48 12/04/18 11:50 Bedside Glucose 122 162 Medications Medication Current Medications IV Flush (NS 3 ml) 3 ml PER PROTOCOL IV ; Start 11/27/18 at 17:30 Ondansetron HCl (Zofran Inj) 4 mg Q6H PRN IV NAUSEA/VOMITING; Start 11/27/18 at 17:30 Acetaminophen (Tylenol Tab) 650 mg Q6H PRN PO .PAIN 1-3 OR TEMP; Start 11/27/18 at 17:30 Acetaminophen/ Hydrocodone Bitart ([place] (5/325)) 1 tab Q6H PRN PO .MOD PAIN 4- 6 Last administered on 11/29/18at 02:17; Admin Dose 1 TAB; Start 11/27/18 at 17:30 Morphine Sulfate (morphine) 2 mg Q4H PRN IV .SEVERE PAIN 7-10; Start 11/27/18 at 17:30 Docusate Sodium (Colace) 100 mg Q12H PRN PO .CONSTIPATION; Start 11/27/18 at 17:30 Magnesium Hydroxide (Milk Of Mag) 30 ml DAILY PRN PO .CONSTIPATION; Start 11/27/18 at 17:30 Famotidine (Pepcid) 20 mg Q12 PO Last administered on 12/04/18at 08:28; Admin Dose 20 MG; Start 11/27/18 at 21:00 Insulin Aspart (Novolog Insulin Pen) NOVOLOG *MILD* ALGORITHM WITH MEALS BEDTIME SC Last administered on 12/04/18at 11:52; Admin Dose 1 UNIT; Start 11/27/18 at 18:00 Insulin Glargine (Lantus) 15 units BID@0800,2000 SC Last administered on 12/04/18at 07:51; Admin Dose 15 UNITS; Start 11/27/18 at 20:00 Miscellaneous Information 1 ea NOTE XX ; Start 11/27/18 at 19:00 Glucose (Glutose) 15 gm Q15M PRN PO DECREASED GLUCOSE; Start 11/27/18 at 19:00 Glucose (Glutose) 22.5 gm Q15M PRN PO DECREASED GLUCOSE; Start 11/27/18 at 19:00 Dextrose (D50w Syringe) 25 ml Q15M PRN IV DECREASED GLUCOSE; Start 11/27/18 at 19:00 Dextrose (D50w Syringe) 50 ml Q15M PRN IV DECREASED GLUCOSE; Start 11/27/18 at 19:00 Glucagon (Glucagen) 1 mg Q15M PRN IM DECREASED GLUCOSE; Start 11/27/18 at 19:00 Glucose (Glutose) 15 gm Q15M PRN BUCCAL DECREASED GLUCOSE; Start 11/27/18 at 19:00 Ferrous Sulfate (Ferrous Sulfate (Ec)) 325 mg DAILY PO Last administered on 12/04/18at 08:28; Admin Dose 325 MG; Start 11/30/18 at 09:00 Sodium Hypochlorite (Dakin'S (Dilute )) 1 applic DAILY IRR Last administered on 12/04/18at 08:29; Admin Dose 1 APPLIC; Start 12/01/18 at 09:00 Ceftriaxone Sodium 50 ml @ 100 mls/hr Q24H IVPB Last administered on 12/04/18at 12:41; Admin Dose 100 MLS/HR; Start 12/01/18 at 13:00 IV Flush (NS 10 ml) 10 ml PRN PRN IV FLUSH LINE; Start 12/02/18 at 14:30 OBINNA MIRAMONTES NP Dec 04, 2018 16:41
[2018-12-04 20:00] VITALS: BP 103/53; PULSE 74; RESP 18
[2018-12-05 02:00] VITALS: BP 103/67; PULSE 63; RESP 17
[2018-12-05] MEDS: INSULIN ASPART [NOVOLOG] 3 ML PEN SC SCH ×2 (07:58→12:05)
[2018-12-05] MEDS: INSULIN GLARGINE [LANTus] (100 UNITS/ML) SYG SC SCH (08:00)
[2018-12-05] MEDS: FERROUS SULFATE (EC) 325 MG TAB PO SCH (08:38)
[2018-12-05] MEDS: FAMOTIDINE 20 MG TAB PO SCH (08:38)
[2018-12-05] MEDS: SODIUM HYPOCHLORITE (1/40) 1 APPLIC BTL IRR SCH (08:40)
[2018-12-05 09:11] VITALS: BP 126/76; PULSE 67; RESP 18
[2018-12-05] MEDS ORDERED: FER325 PO (10:09)
[2018-12-05] MEDS ORDERED: HYDR-3601 PO (10:09)
--- NOTE | 2018-12-05 10:10 | PDOCDIS ---
Discharge Instructions CONDITION [id number] Patient Condition: [id number] Stable FOLLOW UP/APPOINTMENTS Follow-up Plan 1. Please follow-up with your mixer wet pour, Dr. lauro grady within 1 week. Please make appointment as soon as possible 2. Please comply with antibiotic regimen now be given at home daily 3. Please follow-up with your primary care provider as soon as possible. NASREEN DOUGLAS Dec 05, 2018 10:10
--- NOTE | 2018-12-05 10:21 | DS ---
Date/Time of Note Date/Time of Note DATE: 12/05/18 TIME: 10:21 Discharge Summary Admission/Discharge Info Admit Date/Time Nov 27, 2018 at 17:17 Discharge Date/Time Patient Condition: Stable Hospital Course Patient is a male with a past medical history significant for diabetes mellitus who presents to [facility] for left foot infection. Patient was diagnosed with osteomyelitis by infectious disease and podiatry and also received incision and debridement by podiatry. Patient had a extended stay due to patient not having insurance however over time patient's insurance status was corrected and patient will be arranged with IV antibiotics for a total of 6 weeks including time spent here. Patient will be sent home with strict instructions of left foot nonweightbearing with front wheel walker. Patient is ambulating very well by himself and not in need of a physical therapist at this time and when physical therapy was offered to the patient, patient stated that he also does not need physical therapy and would like to go home instead. Patient was given strict instructions to follow-up with podiatry in 1 week and home health will also be provided for the patient. Discharge diagnosis Sepsis, resolved Left foot osteomyelitis, resolving Left foot wound, status post incision and debridement Diabetes mellitus Hyponatremia, resolved Anemia no clearly Home Meds Active Scripts Hydrocodone Bit-Acetaminophen (Hydrocodone Bit-APAP) 5-325MG Tablet, 1 TAB PO Q6H PRN for PAIN, #21 TAB Prov:NASREEN DOUGLAS 12/05/18 Ferrous Sulfate* (Ferrous Sulfate*) 325 Mg Tabec, 325 MG PO DAILY for 30 Days, #30 TAB 2 Refills Prov:NASREEN DOUGLAS 12/05/18 Reported Medications Insulin Glargine,Hum.rec.anlog ([place] Solostar) 300 Unit/1 Ml Insuln.pen, 0 SQ BID, EA INJ. 14 OR 15 UNITS BID. 11/27/18 Discontinued Scripts Clindamycin Hcl* (Clindamycin Hcl*) 300 Mg Capsule, 300 MG PO TID for 10 Days, CAP Prov:AURELIO BESS PA-C 11/24/18 Follow-up Plan 1. Please follow-up with your transit manager, Dr. lauro grady within 1 week. Please make appointment as soon as possible 2. Please comply with antibiotic regimen now be given at home daily 3. Please follow-up with your primary care provider as soon as possible. Primary Care Provider Zakia Raphael DO Time spent on discharge: > 30 minutes Pending Labs Laboratory Tests Test 12/04/18 11:50 12/04/18 17:29 12/04/18 20:29 12/05/18 07:57 Bedside 162 183 174 134 Glucose mg/dL (70-220) mg/dL (70-220) mg/dL (70-220) mg/dL (70-220) NASREEN DOUGLAS Dec 05, 2018 10:21
[2018-12-05] MEDS: CEFTRIAXONE 1 GM/50 ML (PMX) 50 ML IVPB SCH (13:09)
--- NOTE | 2018-12-05 15:16 | CONS ---
Assessment/Plan Assessment/Plan Hospital Course (Demo Recall) No acute events no changes Microbiology: Wound culture growing staph aureus and strep Antimicrobials: Rocephin PHYSICAL EXAMINATION: GENERAL: Well-developed, well-nourished, middle-aged man who looks older than his age. HEENT: Head is atraumatic, normocephalic. NECK: Supple. CHEST: Rise symmetrical. Breath sounds diminished to bases. HEART: S1, S2. ABDOMEN: Soft. Bowel sounds are present. EXTREMITIES: Left foot dressing clean dry and intact Assessment: 1. Left foot cellulitis/OM with abscess status post I&D 2. Diabetes 3. Peripheral neuropathy 4. History of medical noncompliance Plan: Patient remained stable, continue on current abx for 6 weeks for treatment of osteomyelitis ==> last dose January 10 Consultation Date/Type/Reason Admit Date/Time Nov 27, 2018 at 17:17 Initial Consult Date Type of Consult id Date/Time of Note DATE: 12/05/18 TIME: 15:16 Exam/Review of Systems Exam Vitals Vital Signs Date Temp Pulse Resp B/P (MAP) Pulse Ox O2 O2 Flow FiO2 Time Delivery Rate 12/05/18 97.7 67 18 126/76 100 Room Air 09:11 (93) Intake and Output 12/04/18 12/04/18 12/05/18 1515:00 23:00 07:00 IntakeIntake Total 730 ml 240 ml OutputOutput Total 700 ml BalanceBalance 730 ml 240 ml -700 ml Results Result Diagram: 12/04/18 0611 12/04/18 0611 Results 24hrs Laboratory Tests Test 12/04/18 17:29 12/04/18 20:29 12/05/18 07:57 12/05/18 12:03 Bedside Glucose 183 174 134 173 OBINNA MIRAMONTES NP Dec 05, 2018 15:16
== END 2018-12-05 14:23 | disposition home health service (06) | DRG 854 ==
LOC: E/R 13:48 → PP2 17:17
PROVIDERS: ADMIT Internal Medicine; ATTEND Internal Medicine
PROC: 0QBP0ZZ Excision of Left Metatarsal, Open Approach (ICD-10-PCS; principal; 2018-11-28 19:30)
PROC: 02H633Z Insertion of Infusion Device into Right Atrium, Percutaneous Approach (ICD-10-PCS; 2018-12-02)
DX: A41.9 Sepsis, unspecified organism (principal); E87.1 Hypo-osmolality and hyponatremia; M86.8X7 Other osteomyelitis, ankle and foot; L03.116 Cellulitis of left lower limb; L02.612 Cutaneous abscess of left foot; M87.275 Osteonecrosis due to previous trauma, left foot; E78.5 Hyperlipidemia, unspecified; S91.332A Puncture wound without foreign body, left foot, initial encounter; E11.42 Type 2 diabetes mellitus with diabetic polyneuropathy; E11.65 Type 2 diabetes mellitus with hyperglycemia; D50.9 Iron deficiency anemia, unspecified; Z91.14 Patient's other noncompliance with medication regimen; Z89.412 Acquired absence of left great toe
CPT/HCPCS: 36415; 36569; 71045; 73718; 76937; 80048; 80053; 80202; 81001; 82565; 82962; 83036; 83540; 83605; 83735; 84100; 84520; 85025; 85610; 85651; 85730; 86140; 87040; 87070; 87086; 90686; 93005; 96365; 96375; C1769; J0692; J0696; J1815; J2543; J3370; J7030; J7042

== ENCOUNTER 2019-01-27 10:40 | Emergency (ER) | payer MEDICAID ==
[~2019-01-27] VITALS: Ht 172.7 cm; Wt 71.6 kg
[~2019-01-27 10:40] MED LIST changes: -ATOR10TA65 PO; -CLIN300C10 PO; -CLOP75TA28 PO; -DAPT500V5 IVPB; +HYDR-3601 PO; -IBUP-1542 PO; +INSU300I SQ; -LANT3I SC; -LEVO500T48 PO; -MTF1000T PO; -NOVO3I SC; -POVI1MED TP
[2019-01-27 10:43] VITALS: Ht 172.7 cm; Wt 71.6 kg
[2019-01-27 12:10] VITALS: BP 128/67; PULSE 78; RESP 18
--- NOTE | 2019-01-27 13:58 | ERD ---
ER Documentation Chief Complaint Chief Complaint PICC LINE REMOVAL HPI This is a 53-year-old female with a recent diagnosis 6 weeks prior to arrival with a ostium mellitus infection of his left foot. The patient received antibiotics for the past 6 weeks through PICC line the left upper extremity. The patient is requesting his PICC line to be removed. He has no fevers or shaking or chills. He denies any foot pain. He has a history of insulin- dependent diabetes mellitus. He denies any polyuria polydipsia. ROS All systems reviewed and are negative except as per history of present illness. Medications Home Meds Active Scripts Ferrous Sulfate* (Ferrous Sulfate*) 325 Mg Tabec, 325 MG PO DAILY for 30 Days, #30 TAB 2 Refills Prov:NASREEN DOUGLAS 12/05/18 Reported Medications Insulin Glargine,Hum.rec.anlog (Toukarlao Solostar) 300 Unit/1 Ml Insuln.pen, 15 UNITS SQ BID, EA 11/27/18 Discontinued Scripts Hydrocodone Bit-Acetaminophen (Hydrocodone Bit-APAP) 5-325MG Tablet, 1 TAB PO Q6H PRN for PAIN, #21 TAB Prov:NASREEN DOUGLAS 12/05/18 Allergies Allergies: Coded Allergies: No Known Drug Allergies (Verified Allergy, Unknown, 01/27/19) PMhx/Soc History of Surgery: Yes (LT BIG TOE AMPUTATION ) Anesthesia Reaction: No Hx Neurological Disorder: Yes Hx Respiratory Disorders: No Hx Cardiac Disorders: No Hx Psychiatric Problems: No Hx Miscellaneous Medical Probl: Yes (DM ) Hx Alcohol Use: Yes Hx Substance Use: No Hx Tobacco Use: No Smoking Status: Never smoker Physical Exam Vitals Vital Signs Date Temp Pulse Resp B/P (MAP) Pulse Ox O2 O2 Flow FiO2 Time Delivery Rate 01/27/19 98.1 78 18 128/67 98 Room Air 12:10 (87) 01/27/19 97.3 72 18 132/75 98 10:43 (94) Physical Exam Constitutional:Well-developed. Well-nourished. Respiratory: Not using accessory muscles of respiration.Lungs were clear to auscultation bilaterally. No rhonchi. No rales. No wheezing. Cardiovascular: Regular rate regular rhythm.No murmurs. No rubs were appreciated.S1, S2 normal. Distal pulses are palpable 2+ bilaterally. Muscle skeletal: Full range of motion of both the upper and lower extremities bilaterally.Normal muscle tone.No assymetrical calf tenderness or swelling. Left upper extremity PICC line surrounding site is clean dry and intact. Compartments are soft of the bilateral upper extremities. Skin: No petechia, no purpura. No lesions on the palms or the soles of the feet. No maculopapular rash. NEURO: Patient was alert, awake, orientated x3.No facial droop. Gait observed and normal with no ataxia.Speech had regular rate and rhythm. No focal neuro logical deficits. Procedures/MDM Is a 53-year-old male that presented to the emergency department requesting PICC line removal. This was performed by myself. This was done under sterile conditions. The patient tolerated the procedure well. There is no signs of overlying skin infection. A dressing was applied over the inoculation site where the PICC line had been. Hemostasis controlled. The patient was discharged home in fair condition. They were instructed to return to the emergency department at any time if there was any worsening of their condition. The patient stated they would follow up with their PCP in the next 24-48 hours to initiate a suitable medication regimen under the care of their PCP as well as to allow their PCP to monitor any drug reactions. The patient was discharged home with prescriptions after they gave informed consent to the new medication. They were also fully informed by myself on the adverse effects and adverse drug interactions in order to provide adequate safeguards to prevent possible adverse reactions to medications. Departure Diagnosis: Primary Impression: PIC line (peripherally inserted central catheter) removal Condition: Fair Patient Instructions: Picc Line Care AMADO VILLEDA MD January 27, 2019 13:58
== END 2019-01-27 12:57 | disposition home or self-care (01) ==
LOC: E/R 10:40
DX: Z45.2 Encounter for adjustment and management of vascular access device (principal); E11.9 Type 2 diabetes mellitus without complications; Z79.4 Long term (current) use of insulin
CPT/HCPCS: 99282

== ENCOUNTER 2019-04-14 08:26 | Inpatient (IN) | payer MEDICAID, OTHER ==
[~2019-04-14] VITALS: Ht 172.7 cm; Wt 70.9 kg
[~2019-04-14 08:26] MED LIST changes: +CEPH-443 PO; -HYDR-3601 PO; +Insulin Glargine SC; +SULF1TAB31 PO
[2019-04-14] MEDS ORDERED: SOD CHLORIDE 0.9% 1,000 ML IV STA ×2 (08:43→10:10)
--- NOTE | 2019-04-14 09:03 | ERD ---
ER Documentation Chief Complaint Chief Complaint feels tired, dillon foot wounds x 2 mos, HPI This is a very pleasant 53-year-old male. The patient is Mauritian-speaking. He has a history of insulin-dependent diabetes mellitus and hypertension. He states his been compliant with his medications. He states for the past 2 months he has noticed wounds on the he denied any purulent drainage. He states he has decreased sensation of his lower extremities from diabetic neuropathy. He said no fevers or shaking no chills. He denies any chest pain. He denies a headache. He denies any abdominal pain. He has no shortness of breath at rest or exertion. He denies any polyuria or polydipsia. Plantar surface of his right foot. These have progressively worsened. He does state over the past several months he has been more tired but denies any hemoptysis hematemesis or melanotic stools. No fevers or shaking or chills. ROS All systems reviewed and are negative except as per history of present illness. Medications Home Meds Reported Medications Insulin Glargine,Hum.rec.anlog (Carlotta Soladolph) 300 Unit/1 Ml Insuln.pen, 15 UNITS SQ BID, EA 11/27/18 Discontinued Scripts Ferrous Sulfate* (Ferrous Sulfate*) 325 Mg Tabec, 325 MG PO DAILY for 30 Days, #30 TAB 2 Refills Prov:NASREEN DOUGLAS 12/05/18 Allergies Allergies: Coded Allergies: No Known Drug Allergies (Verified Allergy, Unknown, 04/14/19) PMhx/Soc History of Surgery: Yes (LT BIG TOE AMPUTATION ) Anesthesia Reaction: No Hx Neurological Disorder: Yes Hx Respiratory Disorders: No Hx Cardiac Disorders: No Hx Psychiatric Problems: No Hx Miscellaneous Medical Probl: Yes (DM ) Hx Alcohol Use: Yes Hx Substance Use: No Hx Tobacco Use: No Physical Exam Vitals Vital Signs Date Temp Pulse Resp B/P (MAP) Pulse Ox O2 O2 Flow FiO2 Time Delivery Rate 04/14/19 67 16 137/74 98 Room Air 10:28 (95) 04/14/19 97.6 60 18 131/82 99 08:31 (98) Physical Exam Constitutional:Well-developed. Disheveled HEENT:Normocephalic. Atraumatic.Pupils were equal round reactive to light. Moist mucous membranes.No tonsillar exudates. Neck: No nuchal rigidity. No lymphadenopathy. No posterior cervical spine tenderness or step-offs. Respiratory: Not using accessory muscles of respiration.Lungs were clear to auscultation bilaterally. No rhonchi. No rales. No wheezing. Cardiovascular: Regular rate regular rhythm.No murmurs. No rubs were appreciated.S1, S2 normal. Distal pulses are palpable 2+ bilaterally. GI: Abdomen was soft. Nontender. Non Distended. No pulsatile abdominal masses or bruits. No rebound. No guarding. Bowel sounds were present and normal. Muscle skeletal: Full range of motion of both the upper and lower extremities bilaterally.Normal muscle tone.No assymetrical calf tenderness or swelling. Skin: No petechia, no purpura. Stage I diabetic ulcer on the plantar surface of the right foot on the distal first meta tarsal measuring 2 cm x 3 cm. No tenderness. No surrounding purulent drainage, fluctuance or induration. Erythremia surrounding the plantar foot ulcer. No maculopapular rash. NEURO: Patient was alert, awake, orientated x3.No facial droop. Gait observed and normal with no ataxia.Speech had regular rate and rhythm. No focal neurological deficits. Result Diagram: 04/14/19 0845 04/14/19 0845 Results 24 hrs Laboratory Tests Test 04/14/19 08:45 04/14/19 11:49 White Blood Count 7.0 10^3/ul Red Blood Count 4.40 10^6/ul Hemoglobin 12.6 g/dl Hematocrit 37.7 % Mean Corpuscular Volume 85.7 fl Mean Corpuscular Hemoglobin 28.6 pg Mean Corpuscular Hemoglobin Concent 33.4 g/dl Red Cell Distribution Width 12.5 % Platelet Count 202 10^3/UL Mean Platelet Volume 10.4 fl Immature Granulocytes % 0.300 % Neutrophils % 70.0 % Lymphocytes % 23.1 % Monocytes % 5.0 % Eosinophils % 1.0 % Basophils % 0.6 % Nucleated Red Blood Cells % 0.0 /100WBC Immature Granulocytes # 0.020 10^3/ul Neutrophils # 4.9 10^3/ul Lymphocytes # 1.6 10^3/ul Monocytes # 0.4 10^3/ul Eosinophils # 0.1 10^3/ul Basophils # 0.0 10^3/ul Nucleated Red Blood Cells # 0.0 10^3/ul Prothrombin Time 13.2 Sec Prothrombin Time Ratio 1.0 INR International Normalized Ratio 0.99 Activated Partial Thromboplast Time 31.6 Sec Sodium Level 135 mmol/L Potassium Level 4.7 mmol/L Chloride Level 98 mmol/L Carbon Dioxide Level 27 mmol/L Anion Gap 10 Blood Urea Nitrogen 23 mg/dl Creatinine 0.92 mg/dl Est Glomerular Filtrat Rate mL/min > 60 mL/min Glucose Level 418 mg/dl Calcium Level 9.3 mg/dl Total Bilirubin 0.4 mg/dl Direct Bilirubin 0.00 mg/dl Indirect Bilirubin 0.4 mg/dl Aspartate Amino Transf (AST/SGOT) 20 IU/L Alanine Aminotransferase (ALT/SGPT) 17 IU/L Alkaline Phosphatase 92 IU/L Troponin I < 0.012 ng/ml Total Protein 7.9 g/dl Albumin 4.1 g/dl Globulin 3.80 g/dl Albumin/Globulin Ratio 1.07 Amylase Level 103 U/L Lipase 75 U/L Bedside Glucose 281 mg/dL Current Medications Medications Dose Sig/Deisy Start Time Status Last (Trade) Ordered Route PRN Stop Time Admin Dose Reason Admin Sodium 1,000 ml @ Q1H STAT 04/14/19 DC 04/14/19 Chloride 1,000 mls/hr IV 08:43 09:07 04/14/19 09:42 Cefazolin 50 ml @ ONCE IVPB 04/14/19 DC 04/14/19 Sodium 100 mls/hr 09:30 09:12 04/14/19 09:59 Insulin 10 unit ONCE STAT 04/14/19 Cancel Human IV 10:10 Regular 04/14/19 10:11 (Humulin R) Sodium 1,000 ml @ Q1H STAT 04/14/19 DC 04/14/19 Chloride 1,000 mls/hr IV 10:10 11:50 04/14/19 11:09 1 ea NOTE XX 04/14/19 Miscellaneous 10:30 Information Glucose 15 gm Q15M PRN 04/14/19 Cancel (Glutose) PO DECREASED 10:30 GLUCOSE Glucose 22.5 gm Q15M PRN 04/14/19 Cancel (Glutose) PO DECREASED 10:30 GLUCOSE Dextrose 25 ml Q15M PRN 04/14/19 Cancel (D50w IV DECREASED 10:30 Syringe) GLUCOSE Dextrose 50 ml Q15M PRN 04/14/19 Cancel (D50w IV DECREASED 10:30 Syringe) GLUCOSE Glucagon 1 mg Q15M PRN 04/14/19 Cancel (Glucagen) IM DECREASED 10:30 GLUCOSE Glucose 15 gm Q15M PRN 04/14/19 Cancel (Glutose) BUCCAL 10:30 DECREASED GLUCOSE Procedures/MDM The patient presented to the emergency department with a spreading erythematous superficial infection of the skin and subcutaneous tissues. My differential diagnosis included but was not limited to necrotizing fasciitis, lymphangitis, thrombophlebitis, deep vein thrombosis, allergic reaction, neoplasm, gout or abscess. Predisposing factors of the progressive spread of erythema, warmth, pain and tenderness was considered such as lymphedema, tinea pedis, open wounds, prior trauma or surgery, pre-existing skin lesion (furuncle), retained foreign body, injection drug use or vascular or immune compromise. The patient was placed on antibiotics to cover Staphylococcus aureus, including resistant strains such as community-acquired methicillin-resistant S. aureus. The pain was given IV Ancef in the emergency department. I did obtain radiographic imaging the patient's right foot given that he states this has been present for several months. This was reviewed by the radiologist and indicate the following: Joint space narrowing involving the distal interphalangeal joint of the right hallux with associated soft tissue swelling and subchondral sclerosis. Underlying osteomyelitis cannot be excluded. Follow-up MRI is recommended. Moderate posterior and plantar calcaneal spurs. My clinical suspicion was low for ostium mellitus but I did obtain an MRI which is currently pending. Not suggest osteomyelitis the patient will be subsequently discharged home with antibiotics for the next 10 days. The patient was hyperglycemic in the emergency department no evidence of ketosis. The patient received IV fluids with resolution of his blood glucose. Critical Care: Time: 45 minutes Treatments/Evaluations: Close monitoring and treatment of unstable vital signs, cardiorespiratory, and neurologic status, while maintaining tight balance of fluid, respiratory, and cardiac interventions. Time does not include performing any of the above billable procedures. Departure Diagnosis: Primary Impression: Ulcer Additional Impression: Hyperglycemia without ketosis Condition: AMADO Dickinson MD Apr 14, 2019 09:03
[2019-04-14] MEDS ORDERED: CEFAZOLIN 1 GM/50 ML (PMX) 50 ML IVPB SCH (09:30)
[2019-04-14] MEDS ORDERED: INSULIN REGULAR, HUMAN 100 UNIT/1 ML 3ML VIAL IV STA (10:10)
[2019-04-14] MEDS ORDERED: GLUCAGON 1 MG INJ IM PRN ×2 (10:30→17:30)
[2019-04-14] MEDS ORDERED: DEXTROSE 50% 50 ML SYRINGE IV PRN ×4 (10:30→17:30)
[2019-04-14] MEDS ORDERED: GLUCOSE GEL 15 GRAM TUBE BUCCAL PRN ×2 (10:30→17:30)
[2019-04-14] MEDS ORDERED: GLUCOSE GEL 15 GRAM TUBE PO PRN ×4 (10:30→17:30)
[2019-04-14] MEDS ORDERED: VANCOMYCIN 1 GM (PMX) 250 ML IVPB ONE (16:00)
[2019-04-14] MEDS ORDERED: ACETAMINOPHEN 325 MG TAB PO PRN ×2 (16:30→17:00)
[2019-04-14] MEDS ORDERED: ONDANSETRON 4 MG INJ IV PRN (16:30)
--- NOTE | 2019-04-14 16:40 | QN ---
Documentation Comment Patient endorsed pending MRI imaging. MRI concerning for osteomyelitis. Vancomycin added to antibiotic regimen. Patient will be admitted for further management. Hemodynamically stable. Accepting care team and consultations: I discussed the current laboratory data, diagnostic imaging and emergency care provided. Admitting team: Panel team notified Admitting team indication: Insurance directed LIZ FLORES MD Apr 14, 2019 16:40
[2019-04-14] MEDS ORDERED: NACL 0.9% 3 ML SYG IV SCH (17:00)
--- NOTE | 2019-04-14 17:21 | HP ---
Date/Time of Note Date/Time of Note DATE: 04/14/19 TIME: 17:12 Assessment/Plan VTE Prophylaxis SCD applied (from Nsg): Yes Pharmacological prophylaxis: heparin Lines/Catheters IV Catheter Type (from Nrsg): Saline Lock Assessment/Plan Assessment/Plan 53 yo homeless diabetic man presents with diabetic foot ulcer # Diabetic foot ulcer - Clean based, no surrounding erythema or discharge - MRI on admission looks the same or better than MRI R foot 06/2017. - Will start empiric zosyn - No signs or symptoms of sepsis. - Consulted podiatry for debridement - Consulted ID as well. #Diabetes - Continue glargine 15 BID - Insulin sliding scale. DVT: heparin GI: None Result Diagram: 04/14/19 0845 04/14/19 0845 HPI/ROS Admit Date/Time Admit Date/Time 14 April 2019 Hx of Present Illness Mr. Orozco is a 53 yo homeless diabetic Thai-speaking man who presents w ith a diabetic foot ulcer. He has had multiple toe amputations and foot dbridements for ulcers at this hospital in the past. Also had prolonged courses of antibiotics for osteomyelitis, most recently completed 01/10/2019. He noticed an ulcer on the plantar surface of his great R toe had opened. It is painless and he has not noticed unusual drainage. He came to the ED "to get it checked out". In the ED he was afebrile, vitals normal. Blood sugar 418 on admission otherwise CB and BMP unremarkable. R foot MRI was done which is similar to a R foot MRI done in 06/2017 which shows R great toe osteolysis. ROS 12 point review of systems done, negative except per HPI. PMH/Family/Social Past Medical History Type II diabetes, insulin-dependent. Medications Current Medications Miscellaneous Information 1 ea NOTE XX ; Start 04/14/19 at 10:30 Vancomycin HCl 250 ml @ 125 mls/hr ONCE ONCE IVPB Last administered on 04/14/19at 15:43; Admin Dose 125 MLS/HR; Start 04/14/19 at 16:00; Stop 04/14/19 at 17:59 Ondansetron HCl (Zofran Inj) 4 mg BRIDGE ORDER PRN IV NAUSEA/VOMITING; Start 04/14/19 at 16:30; Stop 04/15/19 at 16:29 Acetaminophen (Tylenol Tab) 650 mg ER BRIDGE PRN PO .MILD PAIN 1-3 OR TEMP; Start 04/14/19 at 16:30; Stop 04/15/19 at 16:29 IV Flush (NS 3 ml) 3 ml PER PROTOCOL IV ; Start 04/14/19 at 17:00; Status UNV Acetaminophen (Tylenol Tab) 650 mg Q6H PRN PO .PAIN 1-3 OR TEMP; Start 04/14/19 at 17:00; Status UNV Heparin Sodium (Porcine) (Heparin (5000 Units/1ml)) 5,000 unit Q12 SC ; Start 04/14/19 at 21:00; Status UNV Insulin Glargine (Lantus) 15 units BID@0800,2000 SC ; Start 04/14/19 at 20:00; Status UNV Miscellaneous Information (* Miscellaneous Pharmacy Order) Discontinue current oral sulfonylur... ONCE ONCE XX ; Start 04/14/19 at 17:30; Stop 04/14/19 at 17:31; Status UNV Diagnostic Test (Pha) (Accu-Chek) 1 ea 02 XX ; Start 04/15/19 at 02:00; Status UNV Miscellaneous Information (* Miscellaneous Pharmacy Order) HYPOGLYCEMIA PROTOCOL w... ONCE ONCE XX ; Start 04/14/19 at 17:30; Stop 04/14/19 at 17:31; Status UNV Insulin Aspart (Novolog Insulin Pen) NOVOLOG *MODERATE* ALGORITHM WITH MEALS BEDTIME SC ; Start 04/14/19 at 18:00; Status UNV Coded Allergies: No Known Drug Allergies (Verified Allergy, Unknown, 04/14/19) Past Surgical History Multiple foot dbridements and amputations. Past Surgical Hx: other Family History Significant Family History: no pertinent family hx, other Social History Homeless. [address] in [place]. 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 Alcohol Use: rarely (avg 1 drink per week) Smoking Status: Never smoker Drug Use: none Exam/Review of Systems Vital Signs Vitals Vital Signs Date Temp Pulse Resp B/P (MAP) Pulse Ox O2 O2 Flow FiO2 Time Delivery Rate 04/14/19 69 16 114/69 98 Room Air 16:30 (84) 04/14/19 97.6 08:31 Exam Exam Gen: Dirty appearing man lying in gurney, awake alert and cooperative. Eyes: PERRL, no icterus HEENT: Moist mucous membranes, clear oropharynx Neck: No lymphadenopathy, supple. Card: For some reason I cannot auscultate heart sounds on him. Peripheral pulses 2+, regular rate and rhythm. Pulm: Clear to auscultation bilaterally Abd: Soft, nontender, nondistended. Ext: R great toe plantar ulcer, clean based, no surrounding erythema, no discharge. Multiple bilateral toe amputations. Skin: Very dirty. Warm and well perfused. SERA MARINO MD Apr 14, 2019 17:21
[2019-04-14] MEDS: INSULIN ASPART [NOVOLOG] 3 ML PEN SC SCH ×2 (17:56→21:00)
[2019-04-14] MEDS: PIPER-TAZO 3.375 GM IV (PMX) 100 ML IVPB SCH (17:56)
[2019-04-14] MEDS ORDERED: VANCOMYCIN IV PER PHARMACY XX SCH (18:00)
[2019-04-14 18:44] VITALS: Ht 172.7 cm; Wt 70.9 kg
--- NOTE | 2019-04-14 18:57 | CONS ---
DATE OF ADMISSION: 04/14/2019 DATE OF CONSULTATION: 04/14/2019 TYPE OF CONSULTATION: Infectious Disease. REASON FOR CONSULTATION: Antibiotic management. HISTORY OF PRESENT ILLNESS: Adithya is a 53-year-old male who comes in with bilateral foot wounds x2 mo nths. His problems include: 1. Insulin-dependent diabetes mellitus. 2. Hypertension. He states that over the last 2 months he has noted wounds on his feet and has decr eased sensation of his lower extremities from diabetic neuropathy. He has no fever or chills or ches t pain plantar surface of the right foot has become progressively worse. He has a history of left bi g foot amputation. He has had multiple toe amputations and debridements for ulcers at this hospital in the past. He had a prolonged courses of antibiotics for osteomyelitis, Most recently completed . He noted an ulcer on the plantar surface of his right toe that opened. Since he has diabe tic neuropathy, it was painless and he has not noticed any unusual drainage. His blood sugar was 41. White count 7000, H and H of 12.6 and 37.7, platelet count 202,000. BUN and creatinine 23/0.92. In the emergency room, he was afebrile. Right foot MRI was done which is similar to the right foot MRI done in 06/2017, which shows right great toe osteolysis. The MRI was read with findings consistent w ith osteomyelitis of the great toe with overlying soft tissue wound/ulcer sinus tract and phlegmonous material as above. The joint space narrowing involving the distal interphalangeal joint on the righ t hallux with associated soft tissue swelling and subchondral sclerosis. Underlying osteomyelitis ca nnot be excluded. Follow up MRI is recommended. Moderate posterior and plantar calcaneal spurs. PAST MEDICAL HISTORY: As outlined. FAMILY HISTORY: Noncontributory. SOCIAL HISTORY: He does drink. He does not smoke or abuse drugs. ALLERGIES: NONE TO PENICILLIN, SULFA OR FOODS. MEDICATIONS: Per chart. REVIEW OF SYSTEMS: Noncontributory. The patient is homeless. PHYSICAL EXAMINATION: GENERAL: The patient appears disheveled. SKIN: Without generalized rash. HEENT: Within normal limits. NECK: Supple. LYMPH NODES: None palpable. CHEST: Decreased breath sounds at the bases. HEART: Without murmur or gallop. ABDOMEN: Soft, nontender, without organosplenomegaly or masses. EXTREMITIES: He has stage I diabetic ulcer on the plantar surface of the right foot on the distal fi rst metatarsal measuring 2 x 3 cm without tenderness or significant drainage, fluctuance, or indurati on. There is erythema surrounding the plantar foot ulcer. RECTAL AND GENITAL: Deferred. NEUROLOGIC: The patient has decreased sensation in the distal extremities. IMPRESSION AND PLAN: The patient was started on cefazolin. He presented with spreading erythematous superficial infection of the skin and subcutaneous tissues. The patient currently is on Zosyn and V ancomycin. There seems to be a debate as to whether this is old osteomyelitis or whether this is new since the previous films were very similar to the current films in order to ascertain this. I think that we should get a sed rate, CRP, and I will review the films with the radiologist in the morning. I will dictate my findings to the hospitalist. Dictated By: ROMI TAMAYO MD, JD/KIKI Conf#: [id number] DID#: [id number]
[2019-04-14 20:00] VITALS: BP 107/61; PULSE 69; RESP 18
--- NOTE | 2019-04-14 20:08 | CONS ---
DATE OF ADMISSION: 04/14/2019 DATE OF CONSULTATION: 04/14/2019 REFERRING PHYSICIAN: Daryl Kenney MD REASON FOR CONSULTATION: Bilateral diabetic foot ulceration, osteomyelitis. HISTORY OF PRESENT ILLNESS: This is a 53-year-old gentleman with a history of osteomyelitis. He has been initiated on vancomycin. The patient has radiographic imaging which revealed osteolysis. Wounds have not improved. The patient with poor access to care. He is currently homeless. PAST MEDICAL HISTORY: Diabetes type 2. PAST SURGICAL HISTORY: Right second toe amputation, history of left hallux amputation, multiple prior debridements. MEDICATIONS: Reviewed. ALLERGIES: NO KNOWN DRUG ALLERGIES. SOCIAL HISTORY: The patient homeless. Denies tobacco or alcohol use. PHYSICAL EXAMINATION: VITAL SIGNS: Temperature is 97.6, pulse 60, respiratory 18, blood pressure 131/82, pulse oximetry is 99%. GENERAL: The patient is alert, oriented, in no acute distress. Regular respiration. EXTREMITIES: 2+ DP, PT pulse bilateral. Left hallux amputation. Ulceration, plantar aspect, with fissure, heavy hyperkeratotic tissue formation, right foot, with partial right second toe amputation. Ulceration, plantar, right hallux, with undermining of skin as well as serous drainage, likely from the hallux IPJ joint. There is malodor, localized erythema. The patient with absent protective sensation. No signs of pressure ulceration. LABORATORIES: WBC 7, hemoglobin 12.6, hematocrit 37.7, platelets 202. Sed rate is 26. Sodium 135, potassium 4.7, chloride 98, CO2 of 27, BUN 23, creatinine 0.92, glucose 264. MRI, 04/14/2019, findings consistent with osteomyelitis of the great toe with overlying ulceration and phlegmon material. Right foot x- ray: Joint space narrowing of the distal IPJ of the right hallux with swelling and subchondral sclerosis. Wound cultures pending. ASSESSMENT: 1. Bilateral diabetic foot ulceration. 2. Osteomyelitis, right hallux. 3. History of toe amputation, bilateral. PLAN: Discussed ulceration. The patient would benefit from debridement. Given chronicity of ulceration and osteomyelitis, possible right hallux amputation. We will examine intraoperatively and if any intramedullary abscess, would benefit from hallux amputation. Obtain wound cultures. The patient n.p.o. Initiate b.i.d. Dakin's irrigation. We will schedule him at mutually agreeable time. Dictated By: YADIRA WITT/KIKI Conf#: [id number] [facility]#: [id number] MTDD
[2019-04-14] MEDS: INSULIN GLARGINE [LANTus] (100 UNITS/ML) SYG SC SCH (20:42)
[2019-04-14] MEDS: VANCOMYCIN 750 MG (PMX) 250 ML IVPB SCH (20:43)
[2019-04-14] MEDS: HEPARIN 5,000 UNIT/1 ML VIAL SC SCH (21:00)
[2019-04-15] VITALS (9 sets, daily range): BP systolic 109–155; BP diastolic 56–75; PULSE 52–69; RESP 6–18
[2019-04-15] MEDS: INSULIN ASPART [NOVOLOG] 3 ML PEN SC SCH ×5 (01:06→17:00)
[2019-04-15] MEDS: ACCU-CHEK XX SCH (02:00)
[2019-04-15] MEDS ORDERED: PENDING SANTYL ORDER FOR WOUND CARE XX PRN (02:30)
[2019-04-15] MEDS: PIPER-TAZO 3.375 GM IV (PMX) 100 ML IVPB SCH ×4 (05:21→20:57)
[2019-04-15] MEDS: VANCOMYCIN 750 MG (PMX) 250 ML IVPB SCH ×3 (06:05→21:52)
[2019-04-15] MEDS: HEPARIN 5,000 UNIT/1 ML VIAL SC SCH ×2 (08:11→21:53)
[2019-04-15] MEDS: INSULIN GLARGINE [LANTus] (100 UNITS/ML) SYG SC SCH ×2 (08:35→20:00)
--- NOTE | 2019-04-15 16:25 | HPN ---
Date/Time of Note Date/Time of Note DATE: 04/15/19 TIME: 16:25 Interval H&P Admission Note Pt. seen H&P reviewed: No system changes ANGIE FORREST DPM Apr 15, 2019 16:25
--- NOTE | 2019-04-15 17:11 | PREAC ---
Date/Time of Note Date/Time of Note DATE: 04/15/19 TIME: 17:08 Anesthesia Eval and Record Evaluation Time Pre-Procedure Interview DATE: 04/15/19 TIME: 17:08 Age 53 Sex male NPO: 8 hrs Preoperative diagnosis Bilateral diabetic foot ulceration, osteomyelitis. Planned procedure bilateral foot debriedment, possible allograft application possible right hallux amputation Past Medical History Past Medical History: Includes Endo: Diabetes Surgery & Anesthesia Issues No known issue Meds Anticoagulation: No Beta Leatha within 24 hr: No Reason Beta Leatha not given: Pt. not on B-Leatha Active Scripts Sulfamethoxazole/Trimethoprim* (Bactrim Ds* Tablet) 1 Each Tablet, 1 TAB PO BID, #20 TAB Prov:AMADO VILLEDA MD 04/14/19 Cephalexin* (Keflex*) 500 Mg Capsule, 500 MG PO QID for 10 Days, CAP Prov:AMADO VILLEDA MD 04/14/19 Reported Medications Insulin Glargine,Hum.rec.anlog (Carlotta Soladolph) 300 Unit/1 Ml Insuln.pen, 15 UNITS SQ BID, EA 11/27/18 Discontinued Scripts Ferrous Sulfate* (Ferrous Sulfate*) 325 Mg Tabec, 325 MG PO DAILY for 30 Days, #30 TAB 2 Refills Prov:NASREEN DOUGLAS 12/05/18 Current Medications IV Flush (NS 3 ml) 3 ml PER PROTOCOL IV ; Start 04/14/19 at 17:00 Acetaminophen (Tylenol Tab) 650 mg Q6H PRN PO .PAIN 1-3 OR TEMP; Start 04/14/19 at 17:00 Heparin Sodium (Porcine) (Heparin (5000 Units/1ml)) 5,000 unit Q12 SC ; Start 04/14/19 at 21:00 Insulin Glargine (Lantus) 15 units BID@0800,2000 SC Last administered on 03/24 01/09at 08:35; Admin Dose 15 UNITS; Start 04/14/19 at 20:00 Diagnostic Test (Pha) (Accu-Chek) 1 ea 02 XX ; Start 04/15/19 at 02:00 Piperacillin Sod/ Tazobactam Sod 100 ml @ 200 mls/hr Q6 IVPB Last administered on 04/15/19at 12:26; Admin Dose 200 MLS/HR; Start 04/14/19 at 18:00 Miscellaneous Information 1 ea NOTE XX ; Start 04/14/19 at 17:30 Glucose (Glutose) 15 gm Q15M PRN PO DECREASED GLUCOSE; Start 04/14/19 at 17:30 Glucose (Glutose) 22.5 gm Q15M PRN PO DECREASED GLUCOSE; Start 04/14/19 at 1 7:30 Dextrose (D50w Syringe) 25 ml Q15M PRN IV DECREASED GLUCOSE; Start 04/14/19 at 17:30 Dextrose (D50w Syringe) 50 ml Q15M PRN IV DECREASED GLUCOSE; Start 04/14/19 at 17:30 Glucagon (Glucagen) 1 mg Q15M PRN IM DECREASED GLUCOSE; Start 04/14/19 at 17:30 Glucose (Glutose) 15 gm Q15M PRN BUCCAL DECREASED GLUCOSE; Start 04/14/19 at 17:30 Vancomycin HCl (Vanco Iv Per Pharmacy) VANCOMYCIN PER PHARMACY PER PROTOCOL XX ; Start 04/14/19 at 18:00 Vancomycin/Sodium Chloride 250 ml @ 125 mls/hr Q8H IVPB Last administered on 04/15/19at 13:53; Admin Dose 125 MLS/HR; Start 04/14/19 at 21:00 Dextrose/Sodium Chloride 1,000 ml @ 70 mls/hr [id number] IV Last administered on 04/15/19at 00:00; Admin Dose 70 MLS/HR; Start 04/15/19 at 00:00 Insulin Aspart (Novolog Insulin Pen) NOVOLOG *MILD* ALGORI... Q4 SC Last administered on 04/15/19at 05:37; Admin Dose 3 UNIT; Start 04/15/19 at 01:00 Miscellaneous Information (Pending Santyl Order For Wound Care) This patient guillory... PRN PRN XX WOUND CARE; Start 04/15/19 at 02:30 Miscellaneous Information (*Rx Drug Level Order Reminder*) VANCO TROUGH @ 2,000 2000 ONCE XX ; Start 04/15/19 at 20:00; Stop 04/15/19 at 20:01 Meds reviewed: Yes Allergies Coded Allergies: No Known Drug Allergies (Verified Allergy, Unknown, 04/14/19) Allergies Reviewed: Yes Labs/Studies Labs Reviewed: Reviewed by anesthesiologist Result Diagram: 04/15/19 0517 04/15/19 0517 Laboratory Tests 04/15/19 05:17 test: N/A Studies: ECG (SR 1st degree AVB), CXR Pre-procedure Exam Last vitals Vital Signs Date Temp Pulse Resp B/P (MAP) Pulse Ox O2 O2 Flow FiO2 Time Delivery Rate 04/15/19 98.1 67 14 109/60 98 14:00 (76) 04/14/19 Room Air 17:16 Airway: Adequate mouth opening Mallampati: Mallampati II Teeth: Normal Lung: Normal Heart: Normal ASA Physical Status ASA physical status: 2 Emergency: None Planned Anesthetic General/MAC: MAC Pre-operative Attestations Prior to commencing anesthesia and surgery, the patient was re-evaluated, there was verification of: *The patient's identity *The results of appropriate recent lab work and preoperative vital signs *The above evaluation not changing prior to induction *Anesthetic plan, risk benefits, alternative and complications discussed with patient/family; questions answered; patient/family understands, accepts and wishes to proceed. ALMAZ HOLDEN Apr 15, 2019 17:10
[2019-04-15] MEDS ORDERED: BACITRACIN 50000 UNITS INJ ONE (17:13)
[2019-04-15] MEDS ORDERED: POLYMYXIN B 500000 UNIT INJ ONE (17:14)
[2019-04-15] MEDS ORDERED: FENTAnyl 50 MCG/ML VIAL ONE (17:27)
[2019-04-15] MEDS ORDERED: LIDOCAINE 100 MG SYRINGE ONE (17:27)
[2019-04-15] MEDS ORDERED: PROPOFOL 40 ML ONE (17:27)
[2019-04-15] MEDS ORDERED: MIDAZOLAM 1 MG/ML 2 ML INJ ONE (17:27)
[2019-04-15] MEDS ORDERED: EPHEDrine 25 MG/5 ML SYG ONE (17:27)
[2019-04-15] MEDS ORDERED: BUPIVACAINE 0.5% (SDV) 30 ML INJ ONE (17:38)
[2019-04-15] MEDS ORDERED: LIDOCAINE 1% (MPF) 30 ML INJ ONE (17:38)
[2019-04-15] MEDS ORDERED: FENTAnyl 50 MCG/ML VIAL IV PRN ×2 (18:00)
[2019-04-15] MEDS ORDERED: ONDANSETRON 4 MG INJ IV PRN (18:00)
[2019-04-15] MEDS ORDERED: hydrALAzine 20 MG INJ IV PRN (18:00)
[2019-04-15] MEDS ORDERED: METOCLOPRAMIDE 10 MG INJ IV PRN (18:00)
[2019-04-15] MEDS ORDERED: HYDROmorphONE 1 MG/5 ML IV SYRINGE IV PRN ×2 (18:00)
[2019-04-15] MEDS ORDERED: LABETALOL HCL 20MG INJ IV PRN (18:00)
--- NOTE | 2019-04-15 18:18 | PN ---
Date/Time of Note Date/Time of Note DATE: 04/15/19 TIME: 18:16 Assessment/Plan VTE Prophylaxis Risk score (from Ns)>0 risk: 1 SCD applied (from Ns): No SCD contraindicated: low risk/ambulating Pharmacological prophylaxis: heparin Lines/Catheters IV [facility]from [facility] [place] Assessment/Plan Assessment/Plan 53 yo homeless diabetic man presents with diabetic foot ulcer # Diabetic foot ulcer - Clean based, no surrounding erythema or discharge - MRI on admission looks the same or better than MRI R foot 06/2017. - Empiric zosyn - No signs or symptoms of sepsis. - Consulted podiatry. Going for debridement today. - Consulted ID as well. #Diabetes - Continue glargine 15 BID - Insulin sliding scale. DVT: heparin GI: None Result Diagram: 04/15/1951604/15/19516 Subjective 24 Hr Interval Summary Free Text/Dictation No acute overnight events. Patient doing well. To OR today for debridement. Exam/Review of Systems Exam Vitals Vital Signs Date Temp Pulse Resp B/P (MAP) Pulse Ox O2 O2 Flow FiO2 Time Delivery Rate 04/15/19 98.1 67 14 109/60 98 14:00 (76) 04/14/19 Room Air 17:16 Intake and Output 04/14/19 04/14/19 04/15/19 1414:59 22:59 06:59 IntakeIntake Total 350 ml 550 ml OutputOutput Total 300 ml BalanceBalance 350 ml 250 ml Exam Gen: Dirty appearing man lying in gurney, awake alert and cooperative. Eyes: PERRL, no icterus HEENT: Moist mucous membranes, clear oropharynx Neck: No lymphadenopathy, supple. Card: For some reason I cannot auscultate heart sounds on him. Peripheral pulses 2+, regular rate and rhythm. Pulm: Clear to auscultation bilaterally Abd: Soft, nontender, nondistended. Ext: R great toe plantar ulcer, clean based, no surrounding erythema, no discharge. Multiple bilateral toe amputations. Skin: Very dirty. Warm and well perfused. Results Results 24hrs Laboratory Tests Test 04/14/19 20:39 04/15/19 01:03 04/15/19 05:17 04/15/19 05:25 Bedside Glucose 178 257 H 199 White Blood Count 6.5 Red Blood Count 4.23 L Hemoglobin 12.2 L Hematocrit 36.6 L Mean Corpuscular 86.5 Volume Mean Corpuscular 28.8 L Hemoglobin Mean Corpuscular 33.3 Hemoglobin Concent Red Cell 12.7 Distribution Width Platelet Count 187 Mean Platelet Volume 10.0 Immature 0.300 Granulocytes % Neutrophils % 72.4 Lymphocytes % 19.5 Monocytes % 5.7 Eosinophils % 1.5 Basophils % 0.6 Nucleated Red Blood 0.0 Cells % Immature 0.020 Granulocytes # Neutrophils # 4.7 Lymphocytes # 1.3 Monocytes # 0.4 Eosinophils # 0.1 Basophils # 0.0 Nucleated Red Blood 0.0 Cells # Sodium Level 137 Potassium Level 4.7 Chloride Level 100 Carbon Dioxide Level 32 H Anion Gap 5 Blood Urea Nitrogen 21 H Creatinine 0.90 Est Glomerular > 60 Filtrat Rate mL/min Glucose Level 224 #H Hemoglobin A1c Calcium Level 9.0 Phosphorus Level 3.6 Magnesium Level 1.9 Total Bilirubin 0.4 Direct Bilirubin 0.00 Indirect Bilirubin 0.4 Aspartate Amino 17 Transf (AST/SGOT) Alanine 17 Aminotransferase (AL T/SGPT) Alkaline Phosphatase 69 C-Reactive Protein 0.7 Total Protein 6.5 # Albumin 3.6 Globulin 2.90 Albumin/Globulin 1.24 Ratio Thyroid Stimulating 1.610 Hormone (TSH) Test 04/15/19 08:32 04/15/19 12:32 Bedside Glucose 134 130 Medications Medication Current Medications IV Flush (NS 3 ml) 3 ml PER PROTOCOL IV ; Start 04/14/19 at 17:00 Acetaminophen (Tylenol Tab) 650 mg Q6H PRN PO .PAIN 1-3 OR TEMP; Start 04/14/19 at 17:00 Heparin Sodium (Porcine) (Heparin (5000 Units/1ml)) 5,000 unit Q12 SC ; Start 04/14/19 at 21:00 Insulin Glargine (Lantus) 15 units BID@0800,2000 SC Last administered on 04/15/19at 08:35; Admin Dose 15 UNITS; Start 04/14/19 at 20:00 Diagnostic Test (Pha) (Accu-Chek) 1 ea 02 XX ; Start 04/15/19 at 02:00 Piperacillin Sod/ Tazobactam Sod 100 ml @ 200 mls/hr Q6 IVPB Last administered on 04/15/19at 12:26; Admin Dose 200 MLS/HR; Start 04/14/19 at 18:00 Miscellaneous Information 1 ea NOTE XX ; Start 04/14/19 at 17:30 Glucose (Glutose) 15 gm Q15M PRN PO DECREASED GLUCOSE; Start 04/14/19 at 17:30 Glucose (Glutose) 22.5 gm Q15M PRN PO DECREASED GLUCOSE; Start 04/14/19 at 17:30 Dextrose (D50w Syringe) 25 ml Q15M PRN IV DECREASED GLUCOSE; Start 04/14/19 at 17:30 Dextrose (D50w Syringe) 50 ml Q15M PRN IV DECREASED GLUCOSE; Start 04/14/19 at 17:30 Glucagon (Glucagen) 1 mg Q15M PRN IM DECREASED GLUCOSE; Start 04/14/19 at 17:30 Glucose (Glutose) 15 gm Q15M PRN BUCCAL DECREASED GLUCOSE; Start 04/14/19 at 17:30 Vancomycin HCl (Vanco Iv Per Pharmacy) VANCOMYCIN PER PHARMACY PER PROTOCOL XX ; Start 04/14/19 at 18:00 Vancomycin/Sodium Chloride 250 ml @ 125 mls/hr Q8H IVPB Last administered on 04/15/19at 13:53; Admin Dose 125 MLS/HR; Start 04/14/19 at 21:00 Dextrose/Sodium Chloride 1,000 ml @ 70 mls/hr [id number] IV Last administered on 04/15/19at 00:00; Admin Dose 70 MLS/HR; Start 04/15/19 at 00:00 Insulin Aspart (Novolog Insulin Pen) NOVOLOG *MILD* ALGORI... Q4 SC Last administered on 04/15/19at 05:37; Admin Dose 3 UNIT; Start 04/15/19 at 01:00 Miscellaneous Information (Pending Santyl Order For Wound Care) This patient guillory... PRN PRN XX WOUND CARE; Start 04/15/19 at 02:30 Miscellaneous Information (*Rx Drug Level Order Reminder*) VANCO TROUGH @ 2,000 2000 ONCE XX ; Start 04/15/19 at 20:00; Stop 04/15/19 at 20:01 Hydromorphone HCl (Dilaudid) 0.2 mg PACU PRN IV MILD PAIN 1-3; Start 04/15/19 at 18:00; Stop 04/15/19 at 23:00 Hydromorphone HCl (Dilaudid) 0.4 mg PACU PRN IV MOD PAIN 4-6; Start 04/15/19 at 18:00; Stop 04/15/19 at 23:00 Fentanyl (Sublimaze) 25 mcg PACU ORDER PRN IV MILD PAIN 1-3; Start 04/15/19 at 18:00; Stop 04/15/19 at 23:00 Fentanyl (Sublimaze) 50 mcg PACU ORDER PRN IV MOD PAIN 4-6; Start 04/15/19 at 18:00; Stop 04/15/19 at 23:00 Ondansetron HCl (Zofran Inj) 4 mg PACU ORDER PRN IV NAUSEA/VOMITING; Start 04/15/19 at 18:00; Stop 04/15/19 at 23:00 Metoclopramide HCl (Reglan) 10 mg PACU ORDER PRN IV NAUSEA/VOMITING; Start 04/15/19 at 18:00; Stop 04/15/19 at 23:00 Labetalol HCl (Labetalol) 5 mg PACU ORDER PRN IV HIGH BLOOD PRESSURE; Start 04/15/19 at 18:00; Stop 04/15/19 at 23:00 Hydralazine HCl (Apresoline) 5 mg PACU ORDER PRN IV HIGH BLOOD PRESSURE; Start 04/15/19 at 18:00; Stop 04/15/19 at 23:00 SERA MARINO MD Apr 15, 2019 18:18
--- NOTE | 2019-04-15 18:48 | SIPON ---
Date/Time of Note Date/Time of Note DATE: 04/15/19 TIME: 18:45 Operative Report Preoperative Diagnosis Left foot ulceration h/o left partial hallux amputation Right foot hallux osteomyelitis Pt refusal for hallux amputation Bilateral diabetic foot ulceration DM2 with PN Postoperative Diagnosis same Operation/Procedure Performed Left foot excision of ulceration Left foot local rotational flap closure Right foot excisional debridement of bone Right foot application of allograft Surgeon see signature line medical assistant supervisor none Anesthesia: MAC Estimated blood loss: 10 - 50 ml's Transfusion Required none Specimen bone culture right hallux Grafts/Implants none Complications none YADIRA NEW DPM Apr 15, 2019 18:48
--- NOTE | 2019-04-15 18:48 | PAC ---
Date/Time of Note Date/Time of Note DATE: 04/15/19 TIME: 18:48 Post-Anesthesia Notes Post-Anesthesia Note Last documented vital signs Vital Signs Date Temp Pulse Resp B/P (MAP) Pulse Ox O2 O2 Flow FiO2 Time Delivery Rate 04/15/19 98.1 67 14 109/60 98 14:00 (76) 04/14/19 Room Air 17:16 Activity: WNL Respiratory function: WNL Cardiovascular function: WNL Mental status: Baseline Pain reasonably controlled: Yes Hydration appropriate: Yes Nausea/Vomiting absent: Yes ALMAZ HOLDNE Apr 15, 2019 18:48
[2019-04-15] MEDS: DEXTROSE 5%-0.45% NACL 1,000 ML IV SCH ×2 (21:00)
[2019-04-16] MEDS: PIPER-TAZO 3.375 GM IV (PMX) 100 ML IVPB SCH ×3 (00:25→12:17)
[2019-04-16] MEDS: ACCU-CHEK XX SCH (02:00)
[2019-04-16 02:57] VITALS: BP 125/72; PULSE 60; RESP 18
--- NOTE | 2019-04-16 04:09 | OPR ---
DATE OF OPERATION: 04/15/2019 SURGEON: Yadira Alba DPM. IMPLEMENTATION ENGINEER: None. PREOPERATIVE DIAGNOSES: 1. Right foot osteomyelitis of hallux. 2. Bilateral diabetic foot ulceration. 3. The patient refusal for a hallux amputation. 4. History of left foot partial hallux amputation. 5. Diabetes type 2 peripheral neuropathy. POSTOPERATIVE DIAGNOSES: 1. Right foot osteomyelitis of hallux 2. Bilateral diabetic foot ulceration. 3. patient refusal for a hallux amputation. 4. History of left foot partial hallux amputation. 5. Diabetes type 2 peripheral neuropathy. PROCEDURES PERFORMED: 1. Left foot excision of ulceration. 2. Left foot local rotation of flap closure. 3. Right foot excisional debridement of bone, less than 20 cm2. 4. Right foot application of allograft. PATHOLOGY: Bone, right hallux. ANESTHESIA: MAC with local 10 mL of 0.5% Marcaine plain and 1% lidocaine plain. HEMOSTASIS: Compression. ESTIMATED BLOOD LOSS: 20 mL. MATERIALS: 3-0 nylon, skin edison and Integra allograft. COMPLICATIONS: None. INDICATION FOR PROCEDURE: A nonhealing ulceration, admitted for further management of osteomyelitis. The patient initially had been amenable to amputation of hallux, however, today he was refusing and only wants a debridement. I discussed planned procedure. The patient likely to require subsequent debridement and amputation at a later date if wound does not heal. All his questions were answered to his satisfaction. The foot was marked in the preoperative holding area. The patient has been on preoperative antibiotics. PROCEDURE IN DETAIL: The patient brought into the operating room and placed in the supine position. Formal timeout was performed. The foot was properly marked, confirmed by the surgical team, prepped and draped in the usual sterile fashion. Attention was directed to the left foot. The patient had a callus and fissure upon removal of the callus, the ulceration actually probed down to the metatarsophalangeal joint to the sesamoids. The ulcer was excised, had a defect that could not be closed primarily. At this time a local rotational flap closure was designed, the defect measured 1 x 1 cm and each of the arms measured 1.5 cm, which were rotated and closed primarily with 3-0 nylon. The wound had been debrided with pickup scissors, curette and rongeur and irrigated with pulse lavage. Attention was directed to the right foot. The patient had an ulceration, which measured 5 x 3 cm at the IPJ. There was some serous drainage. At this probed to bone. Using a rongeur, bone fragments were excised, a sample of the bone was sent for bone culture, aerobic, anaerobic, fungal, AFB. The phalanx was further debrided with a curette and was pulse irrigated. Attempts were made to advance the granulation tissue to the surrounding skin edge with 3- 0 nylon. The patient had a remaining defect of approximately 3 x 2 cm and the Integra allograft was then applied, secured with skin edison. The patient had an estimated blood loss of 20 mL. Hemostasis had been achieved with compression. Both surgical sites were covered with Betadine soaked 4 x 4 gauze, Kerlix and bias. The patient transferred to PACU with vital signs stable. POSTOPERATIVE PLAN: Recommend elevation of extremities. Bed rest with bathroom privileges. Recommend tight glycemic control. Continue antibiotics. Suspect need for long-term antibiotics. We will follow up on the culture results when they become available. Dictated By: YADIRA WITT/KIKI Conf#: [id number] DID#: [id number] CC: SERA MARINO MD;*EndCC* MTDD
[2019-04-16] MEDS: DEXTROSE 5%-0.45% NACL 1,000 ML IV SCH ×3 (04:36→22:50)
[2019-04-16] MEDS: VANCOMYCIN 750 MG (PMX) 250 ML IVPB SCH (05:06)
--- NOTE | 2019-04-16 07:27 | PN ---
DATE: 04/15/2019 SUBJECTIVE: The patient is sleeping, looks comfortable, no fevers overnight. WBC 6.5, no shift, no bands. ESR on admission was 26, BUN 21, creatinine 0.90. MICROBIOLOGY: Right foot wound culture growing gram-negative rods. ANTIMICROBIALS: The patient is on: 1. Vancomycin. 2. Zosyn. PHYSICAL EXAMINATION: GENERAL: Well-developed elderly man who is in no distress. HEENT: Head atraumatic, normocephalic. NECK: Supple. CHEST: Rise symmetrical. Breath sounds diminished to bases. HEART: S1, S2. ABDOMEN: Soft, bowel sounds present. EXTREMITIES: With right foot dressing intact. ASSESSMENT: 1. Osteomyelitis of right great toe, ongoing. 2. Diabetic foot ulcerations, bilateral 3. Diabetes. 4. Status post toe amputation on the left. PLAN: The patient remains stable. Podiatry on case. Continue present care and antibiotics. Octavio cerda debridement. Dictated By: OBINNA MIRAMONTES MOLECULAR GENETIC PATHOLOGIST for ROMI TAMAYO MD NI/NTS Conf#: [id number] DID#: [id number] CC: SERA MARINO MD;*EndCC*
[2019-04-16] MEDS: INSULIN ASPART [NOVOLOG] 3 ML PEN SC SCH ×4 (07:57→20:41)
[2019-04-16] MEDS: INSULIN GLARGINE [LANTus] (100 UNITS/ML) SYG SC SCH ×2 (07:59→20:40)
[2019-04-16 08:11] VITALS: BP 131/88; PULSE 66; RESP 18
[2019-04-16] MEDS: HEPARIN 5,000 UNIT/1 ML VIAL SC SCH (08:50)
--- NOTE | 2019-04-16 12:46 | CONS ---
Assessment/Plan Assessment/Plan Hospital Course (Demo Recall) SUBJECTIVE: looks comfortable, no fevers overnight. MICROBIOLOGY: Right foot Wwound culture growing Corynebacterium group JK and haemophilus influenza ANTIMICROBIALS: The patient is on: 1. Vancomycin. 2. Zosyn. PHYSICAL EXAMINATION: GENERAL: Well-developed elderly man who is in no distress. HEENT: Head atraumatic, normocephalic. NECK: Supple. CHEST: Rise symmetrical. Breath sounds diminished to bases. HEART: S1, S2. ABDOMEN: Soft, bowel sounds present. EXTREMITIES: With right foot dressing intact. ASSESSMENT: 1. Osteomyelitis of right great toe, status post I&D 2. Diabetic foot ulcerations, bilateral 3. Diabetes. PLAN: The patient remains stable. We will change Zosyn to Rocephin continue vancomycin, await for final cultures and pathology report, follow podiatry recommendations Consultation Date/Type/Reason Admit Date/Time Apr 14, 2019 at 16:06 Initial Consult Date Type of Consult id Date/Time of Note DATE: 04/16/19 TIME: 12:44 Exam/Review of Systems Exam Vitals Vital Signs Date Temp Pulse Resp B/P (MAP) Pulse Ox O2 O2 Flow FiO2 Time Delivery Rate 04/16/19 98.4 66 18 131/88 97 Room Air 08:11 (102) Intake and Output 04/15/19 04/15/19 04/16/19 1515:00 23:00 07:00 IntakeIntake Total 350 ml 2350 ml 1035 ml OutputOutput Total 20 ml 900 ml BalanceBalance 350 ml 2330 ml 135 ml Results Result Diagram: 04/15/19 0517 04/15/19 0517 Results 24hrs Laboratory Tests Test 04/15/19 19:55 04/15/19 20:26 04/15/19 21:55 04/16/19 07:56 Vancomycin Level 11.8 Trough Bedside Glucose 98 152 98 Test 04/16/19 12:12 Bedside Glucose 272 H Medications Medication Current Medications IV Flush (NS 3 ml) 3 ml PER PROTOCOL IV ; Start 04/14/19 at 17:00 Acetaminophen (Tylenol Tab) 650 mg Q6H PRN PO .PAIN 1-3 OR TEMP; Start 04/14/19 at 17:00 Heparin Sodium (Porcine) (Heparin (5000 Units/1ml)) 5,000 unit Q12 SC Last administered on 04/15/19at 21:53; Admin Dose 5,000 UNIT; Start 04/14/19 at 21:00; Status Hold Insulin Glargine (Lantus) 15 units BID@0800,2000 SC Last administered on 04/16/19at 07:59; Admin Dose 15 UNITS; Start 04/14/19 at 20:00 Diagnostic Test (Pha) (Accu-Chek) 1 ea 02 XX ; Start 04/15/19 at 02:00 Piperacillin Sod/ Tazobactam Sod 100 ml @ 200 mls/hr Q6 IVPB Last administered on 04/16/19at 12:17; Admin Dose 200 MLS/HR; Start 04/14/19 at 18:00 Miscellaneous Information 1 ea NOTE XX ; Start 04/14/19 at 17:30 Glucose (Glutose) 15 gm Q15M PRN PO DECREASED GLUCOSE; Start 04/14/19 at 17:30 Glucose (Glutose) 22.5 gm Q15M PRN PO DECREASED GLUCOSE; Start 04/14/19 at 17:30 Dextrose (D50w Syringe) 25 ml Q15M PRN IV DECREASED GLUCOSE; Start 04/14/19 at 17:30 Dextrose (D50w Syringe) 50 ml Q15M PRN IV DECREASED GLUCOSE; Start 04/14/19 at 17:30 Glucagon (Glucagen) 1 mg Q15M PRN IM DECREASED GLUCOSE; Start 04/14/19 at 17:30 Glucose (Glutose) 15 gm Q15M PRN BUCCAL DECREASED GLUCOSE; Start 04/14/19 at 17:30 Vancomycin HCl (Vanco Iv Per Pharmacy) VANCOMYCIN PER PHARMACY PER PROTOCOL XX ; Start 04/14/19 at 18:00 Dextrose/Sodium Chloride 1,000 ml @ 70 mls/hr [id number] IV Last administered on 04/15/19at 21:00; Admin Dose 70 MLS/HR; Start 04/15/19 at 00:00 Miscellaneous Information (Pending [facility] Order For Wound Care) This patient guillory... PRN PRN XX WOUND CARE; Start 04/15/19 at 02:30 Insulin Aspart (Novolog Insulin Pen) NOVOLOG *MILD* ALGORITHM WITH MEALS BEDTIME SC Last administered on 04/16/19at 12:16; Admin Dose 4 UNIT; Start 04/16/19 at 08:00 Vancomycin HCl 250 ml @ 125 mls/hr Q8H IVPB ; Start 04/16/19 at 14:00 Miscellaneous Information (*Rx Drug Level Order Reminder*) 1 1300 ONCE XX ; Start 04/17/19 at 13:00; Stop 04/17/19 at 13:01 OBINNA MIRAMONTES NP Apr 16, 2019 12:46
--- NOTE | 2019-04-16 13:32 | CONS ---
Assessment/Plan Assessment/Plan Assessment/Plan (Daily) Left foot ulceration h/o left partial hallux amputation Right foot hallux osteomyelitis Bilateral diabetic foot ulceration DM2 with PN Plan Patient is s/p bilateral foot wound debridement, allograft application and wound flap closure. Patient refusing amputation of right hallux and at this time wants to pursue salvage. Despite explaining poor prognosis we will attempt to salvage. Patient to remain non weight bearing b/l feet. Patient would benefit from bedside commode and wheelchair. Keep dressings clean dry and intact, no need to change. Abx per ID recommendations. Intra op cultures/path pending. Consultation Date/Type/Reason Admit Date/Time Apr 14, 2019 at 16:06 Initial Consult Date Date/Time of Note DATE: 04/16/19 TIME: 13:31 24 HR Interval Summary Free Text/Dictation No acute events overnight. Exam/Review of Systems Exam Vitals Vital Signs Date Temp Pulse Resp B/P (MAP) Pulse Ox O2 O2 Flow FiO2 Time Delivery Rate 04/16/19 98.4 66 18 131/88 97 Room Air 08:11 (102) Intake and Output 04/15/19 04/15/19 04/16/19 1515:00 23:00 07:00 IntakeIntake Total 350 ml 2350 ml 1035 ml OutputOutput Total 20 ml 900 ml BalanceBalance 350 ml 2330 ml 135 ml Exam 2+ DP, PT pulse bilateral. Left hallux amputation. Right foot allograft secured in placed with no sign of dehiscence or gapping Left foot wound closure site well approximated with no sign of dehiscence or gapping CFT less than 3 seconds to b/l feet digits and surgical site Absent protective sensations. Results Result Diagram: 04/15/19 0517 04/15/19 0517 Results 24hrs Laboratory Tests Test 04/15/19 19:55 04/15/19 20:26 04/15/19 21:55 04/16/19 07:56 Vancomycin Level 11.8 Trough Bedside Glucose 98 152 98 Test 04/16/19 12:12 04/16/19 12:53 Bedside Glucose 272 H Lab Scanned Report REFERENCE LAB Medications Medication Current Medications IV Flush (NS 3 ml) 3 ml PER PROTOCOL IV ; Start 04/14/19 at 17:00 Acetaminophen (Tylenol Tab) 650 mg Q6H PRN PO .PAIN 1-3 OR TEMP; Start 04/14/19 at 17:00 Heparin Sodium (Porcine) (Heparin (5000 Units/1ml)) 5,000 unit Q12 SC Last administered on 04/15/19at 21:53; Admin Dose 5,000 UNIT; Start 04/14/19 at 21:00; Status Hold Insulin Glargine (Lantus) 15 units BID@0800,2000 SC Last administered on 04/16/19at 07:59; Admin Dose 15 UNITS; Start 04/14/19 at 20:00 Diagnostic Test (Pha) (Accu-Chek) 1 ea 02 XX ; Start 04/15/19 at 02:00 Miscellaneous Information 1 ea NOTE XX ; Start 04/14/19 at 17:30 Glucose (Glutose) 15 gm Q15M PRN PO DECREASED GLUCOSE; Start 04/14/19 at 17:30 Glucose (Glutose) 22.5 gm Q15M PRN PO DECREASED GLUCOSE; Start 04/14/19 at 17:30 Dextrose (D50w Syringe) 25 ml Q15M PRN IV DECREASED GLUCOSE; Start 04/14/19 at 17:30 Dextrose (D50w Syringe) 50 ml Q15M PRN IV DECREASED GLUCOSE; Start 04/14/19 at 17:30 Glucagon (Glucagen) 1 mg Q15M PRN IM DECREASED GLUCOSE; Start 04/14/19 at 17:30 Glucose (Glutose) 15 gm Q15M PRN BUCCAL DECREASED GLUCOSE; Start 04/14/19 at 17:30 Vancomycin HCl (Vanco Iv Per Pharmacy) VANCOMYCIN PER PHARMACY PER PROTOCOL XX ; Start 04/14/19 at 18:00 Dextrose/Sodium Chloride 1,000 ml @ 70 mls/hr [id number] IV Last administered on 04/15/19at 21:00; Admin Dose 70 MLS/HR; Start 04/15/19 at 00:00 Miscellaneous Information (Pending [facility] Order For Wound Care) This patient guillory... PRN PRN XX WOUND CARE; Start 04/15/19 at 02:30 Insulin Aspart (Novolog Insulin Pen) NOVOLOG *MILD* ALGORITHM WITH MEALS BEDTIME SC Last administered on 04/16/19at 12:16; Admin Dose 4 UNIT; Start 04/16/19 at 08:00 Vancomycin HCl 250 ml @ 125 mls/hr Q8H IVPB ; Start 04/16/19 at 14:00 Miscellaneous Information (*Rx Drug Level Order Reminder*) 1 1300 ONCE XX ; Start 04/17/19 at 13:00; Stop 04/17/19 at 13:01 Ceftriaxone Sodium 50 ml @ 100 mls/hr Q24H IVPB ; Start 04/16/19 at 13:00 ANGIE FORREST DPM Apr 16, 2019 13:32
[2019-04-16] MEDS: CEFTRIAXONE 1 GM/50 ML (PMX) 50 ML IVPB SCH (13:39)
[2019-04-16 14:00] VITALS: BP 134/76; PULSE 67; RESP 17
--- NOTE | 2019-04-16 14:17 | PN ---
Date/Time of Note Date/Time of Note DATE: 04/16/19 TIME: 14:15 Assessment/Plan VTE Prophylaxis Risk score (from Ns)>0 risk: 4 SCD applied (from Ns): No SCD contraindicated: other (no) Pharmacological prophylaxis: heparin Lines/Catheters IV Catheter Type (from Nrs): Peripheral IV Urinary Cath still in place: No Assessment/Plan Assessment/Plan 53 yo diabetic man presents with diabetic foot ulcer # Diabetic foot ulcer - Clean based, no surrounding erythema or discharge - MRI on admission looks the same or better than MRI R foot 06/2017. - No signs or symptoms of sepsis. - s/p bilateral foot debridement 04/15. - Podiatry and ID following #Diabetes - Continue glargine 15 BID - Insulin sliding scale. DVT: heparin GI: None Result Diagram: 04/15/1951604/15/19516 Subjective 24 Hr Interval Summary Free Text/Dictation No acute overnight events. Exam/Review of Systems Exam Vitals Vital Signs Date Temp Pulse Resp B/P (MAP) Pulse Ox O2 O2 Flow FiO2 Time Delivery Rate 04/16/19 98.4 66 18 131/88 97 Room Air 08:11 (102) Intake and Output 04/15/19 04/15/19 04/16/19 1515:00 23:00 07:00 IntakeIntake Total 350 ml 2350 ml 1035 ml OutputOutput Total 20 ml 900 ml BalanceBalance 350 ml 2330 ml 135 ml Exam Gen: Well appearing man sleeping comfortably. Eyes: PERRL, no icterus HEENT: Moist mucous membranes, clear oropharynx Neck: No lymphadenopathy, supple. Card: For some reason I cannot auscultate heart sounds on him. Peripheral pulses 2+, regular rate and rhythm. Pulm: Clear to auscultation bilaterally Abd: Soft, nontender, nondistended. Ext: Both feet bandaged Results Results 24hrs Laboratory Tests Test 04/15/19 19:55 04/15/19 20:26 04/15/19 21:55 04/16/19 07:56 Vancomycin Level 11.8 Trough Bedside Glucose 98 152 98 Test 04/16/19 12:12 04/16/19 12:53 Bedside Glucose 272 H Lab Scanned Report REFERENCE LAB Medications Medication Current Medications IV Flush (NS 3 ml) 3 ml PER PROTOCOL IV ; Start 04/14/19 at 17:00 Acetaminophen (Tylenol Tab) 650 mg Q6H PRN PO .PAIN 1-3 OR TEMP; Start 04/14/19 at 17:00 Heparin Sodium (Porcine) (Heparin (5000 Units/1ml)) 5,000 unit Q12 SC Last administered on 04/15/19at 21:53; Admin Dose 5,000 UNIT; Start 04/14/19 at 21:00; Status Hold Insulin Glargine (Lantus) 15 units BID@0800,2000 SC Last administered on 04/16/19at 07:59; Admin Dose 15 UNITS; Start 04/14/19 at 20:00 Diagnostic Test (Pha) (Accu-Chek) 1 ea 02 XX ; Start 04/15/19 at 02:00 Miscellaneous Information 1 ea NOTE XX ; Start 04/14/19 at 17:30 Glucose (Glutose) 15 gm Q15M PRN PO DECREASED GLUCOSE; Start 04/14/19 at 17:30 Glucose (Glutose) 22.5 gm Q15M PRN PO DECREASED GLUCOSE; Start 04/14/19 at 17:30 Dextrose (D50w Syringe) 25 ml Q15M PRN IV DECREASED GLUCOSE; Start 04/14/19 at 17:30 Dextrose (D50w Syringe) 50 ml Q15M PRN IV DECREASED GLUCOSE; Start 04/14/19 at 17:30 Glucagon (Glucagen) 1 mg Q15M PRN IM DECREASED GLUCOSE; Start 04/14/19 at 17:30 Glucose (Glutose) 15 gm Q15M PRN BUCCAL DECREASED GLUCOSE; Start 04/14/19 at 17:30 Vancomycin HCl (Vanco Iv Per Pharmacy) VANCOMYCIN PER PHARMACY PER PROTOCOL XX ; Start 04/14/19 at 18:00 Dextrose/Sodium Chloride 1,000 ml @ 70 mls/hr [id number] IV Last administered on 04/15/19at 21:00; Admin Dose 70 MLS/HR; Start 04/15/19 at 00:00 Miscellaneous Information (Pending [facility] Order For Wound Care) This patient guillory... PRN PRN XX WOUND CARE; Start 04/15/19 at 02:30 Insulin Aspart (Novolog Insulin Pen) NOVOLOG *MILD* ALGORITHM WITH MEALS BEDTIME SC Last administered on 04/16/19at 12:16; Admin Dose 4 UNIT; Start 04/16/19 at 08:00 Vancomycin HCl 250 ml @ 125 mls/hr Q8H IVPB ; Start 04/16/19 at 14:00 Miscellaneous Information (*Rx Drug Level Order Reminder*) 1 1300 ONCE XX ; Start 04/17/19 at 13:00; Stop 04/17/19 at 13:01 Ceftriaxone Sodium 50 ml @ 100 mls/hr Q24H IVPB Last administered on 04/16/19at 13:39; Admin Dose 100 MLS/HR; Start 04/16/19 at 13:00 SERA MARINO MD Apr 16, 2019 14:17
[2019-04-16] MEDS: VANCOMYCIN 1 GM 250 ML IVPB SCH ×2 (14:27→22:39)
[2019-04-16 20:00] VITALS: BP 141/75; PULSE 62; RESP 18
[2019-04-17 02:00] VITALS: BP 108/60; PULSE 68; RESP 16
[2019-04-17] MEDS: ACCU-CHEK XX SCH (02:18)
[2019-04-17] MEDS: VANCOMYCIN 1 GM 250 ML IVPB SCH ×2 (06:27→14:20)
[2019-04-17] MEDS: INSULIN ASPART [NOVOLOG] 3 ML PEN SC SCH ×4 (08:00→20:21)
[2019-04-17 08:23] VITALS: BP 127/76; PULSE 62; RESP 16
[2019-04-17] MEDS: INSULIN GLARGINE [LANTus] (100 UNITS/ML) SYG SC SCH ×2 (08:58→20:21)
[2019-04-17] MEDS: HEPARIN 5,000 UNIT/1 ML VIAL SC SCH ×3 (10:17→23:52)
--- NOTE | 2019-04-17 11:06 | CONS ---
Assessment/Plan Assessment/Plan Hospital Course (Demo Recall) SUBJECTIVE: l no fevers overnight. MICROBIOLOGY: Right foot Wwound culture growing Corynebacterium group JK and haemophilus influenza ANTIMICROBIALS: The patient is on: 1. Vancomycin. 2. Rocephin PHYSICAL EXAMINATION: GENERAL: Well-developed elderly man who is in no distress. HEENT: Head atraumatic, normocephalic. NECK: Supple. CHEST: Rise symmetrical. Breath sounds diminished to bases. HEART: S1, S2. ABDOMEN: Soft, bowel sounds present. EXTREMITIES: With right foot dressing intact. ASSESSMENT: 1. Osteomyelitis of right great toe, status post I&D 2. Diabetic foot ulcerations, bilateral 3. Diabetes. PLAN: The patient remains stable. Per dw podiatry will keep on current abx for 6 weeks ROQUE Juarez Consultation Date/Type/Reason Admit Date/Time Apr 14, 2019 at 16:06 Initial Consult Date Type of Consult id Date/Time of Note DATE: 04/17/19 TIME: 11:05 Exam/Review of Systems Exam Vitals Vital Signs Date Temp Pulse Resp B/P (MAP) Pulse Ox O2 O2 Flow FiO2 Time Delivery Rate 04/17/19 98.0 62 16 127/76 98 08:23 (93) 04/16/19 Room Air 14:00 Intake and Output 04/16/19 04/16/19 04/17/19 1515:00 23:00 07:00 IntakeIntake Total 1360 ml 750 ml 1230 ml OutputOutput Total 2500 ml 320 ml 1200 ml BalanceBalance -1140 ml 430 ml 30 ml Results Result Diagram: 04/15/19 0517 04/15/19 0517 Results 24hrs Laboratory Tests Test 04/16/19 12:12 04/16/19 12:53 04/16/19 17:25 04/16/19 20:32 Bedside Glucose 272 H 163 262 H Lab Scanned Report REFERENCE LAB Test 04/17/19 02:12 04/17/19 07:54 Bedside Glucose 134 99 Medications Medication Current Medications IV Flush (NS 3 ml) 3 ml PER PROTOCOL IV ; Start 04/14/19 at 17:00 Acetaminophen (Tylenol Tab) 650 mg Q6H PRN PO .PAIN 1-3 OR TEMP; Start 04/14/19 at 17:00 Heparin Sodium (Porcine) (Heparin (5000 Units/1ml)) 5,000 unit Q12 SC Last administered on 04/17/19at 10:17; Admin Dose 5,000 UNIT; Start 04/14/19 at 21:00 Insulin Glargine (Lantus) 15 units BID@0800,2000 SC Last administered on 04/17/19at 08:58; Admin Dose 15 UNITS; Start 04/14/19 at 20:00 Diagnostic Test (Pha) (Accu-Chek) 1 ea 02 XX Last administered on 04/17/19at 02:18; Admin Dose 1 EA; Start 04/15/19 at 02:00 Miscellaneous Information 1 ea NOTE XX ; Start 04/14/19 at 17:30 Glucose (Glutose) 15 gm Q15M PRN PO DECREASED GLUCOSE; Start 04/14/19 at 17:30 Glucose (Glutose) 22.5 gm Q15M PRN PO DECREASED GLUCOSE; Start 04/14/19 at 17:30 Dextrose (D50w Syringe) 25 ml Q15M PRN IV DECREASED GLUCOSE; Start 04/14/19 at 17:30 Dextrose (D50w Syringe) 50 ml Q15M PRN IV DECREASED GLUCOSE; Start 04/14/19 at 17:30 Glucagon (Glucagen) 1 mg Q15M PRN IM DECREASED GLUCOSE; Start 04/14/19 at 17:30 Glucose (Glutose) 15 gm Q15M PRN BUCCAL DECREASED GLUCOSE; Start 04/14/19 at 17:30 Vancomycin HCl (Vanco Iv Per Pharmacy) VANCOMYCIN PER PHARMACY PER PROTOCOL XX ; Start 04/14/19 at 18:00 Dextrose/Sodium Chloride 1,000 ml @ 70 mls/hr [id number] IV Last administered on 04/16/19at 22:50; Admin Dose 70 MLS/HR; Start 04/15/19 at 00:00 Miscellaneous Information (Pending [facility] Order For Wound Care) This patient guillory... PRN PRN XX WOUND CARE; Start 04/15/19 at 02:30 Insulin Aspart (Novolog Insulin Pen) NOVOLOG *MILD* ALGORITHM WITH MEALS BEDTIME SC Last administered on 04/16/19at 20:41; Admin Dose 3 UNIT; Start at 08:00 Vancomycin HCl 250 ml @ 125 mls/hr Q8H IVPB Last administered on 04/17/19at 06:27; Admin Dose 125 MLS/HR; Start 04/16/19 at 14:00 Miscellaneous Information (*Rx Drug Level Order Reminder*) 1 1300 ONCE XX ; Start 04/17/19 at 13:00; Stop 04/17/19 at 13:01 Ceftriaxone Sodium 50 ml @ 100 mls/hr Q24H IVPB Last administered on 04/16/19at 13:39; Admin Dose 100 MLS/HR; Start 04/16/19 at 13:00 OBINNA MRIAMONTES NP Apr 17, 2019 11:06
[2019-04-17] MEDS: CEFTRIAXONE 1 GM/50 ML (PMX) 50 ML IVPB SCH (12:13)
[2019-04-17] MEDS ORDERED: LIDOCAINE 1% (MPF) 5 ML VIAL SC ONE (14:30)
--- NOTE | 2019-04-17 14:35 | PN ---
Date/Time of Note Date/Time of Note DATE: 04/17/19 TIME: 14:33 Assessment/Plan VTE Prophylaxis Risk score (from Ns)>0 risk: 2 SCD applied (from Nsg): Yes Pharmacological prophylaxis: NA/contraindicated Pharm contraindication: low risk/ambulating Lines/Catheters IV Catheter Type (from Nrsg): Peripheral IV Urinary Cath still in place: No Assessment/Plan Assessment/Plan 53 yo diabetic man presents with diabetic foot ulcer # Diabetic foot ulcer - Clean based, no surrounding erythema or discharge - s/p bilateral foot debridement 04/15. - Podiatry and ID following - Plan to discharge with IV vanco and ceftriaxone for 6 weeks. - PICC line ordered. - Case management working on home health for antibiotics. #Diabetes - Continue glargine 15 BID - Insulin sliding scale. DVT: heparin GI: None Result Diagram: 04/15/1951604/15/19516 Subjective 24 Hr Interval Summary Free Text/Dictation No acute overnight events. Patient feeling well. Exam/Review of Systems Exam Vitals Vital Signs Date Temp Pulse Resp B/P (MAP) Pulse Ox O2 O2 Flow FiO2 Time Delivery Rate 04/17/19 98.0 62 16 127/76 98 08:23 (93) 04/16/19 Room Air 14:00 Intake and Output 04/16/19 04/16/19 04/17/19 1515:00 23:00 07:00 IntakeIntake Total 1360 ml 750 ml 1230 ml OutputOutput Total 2500 ml 320 ml 1200 ml BalanceBalance -1140 ml 430 ml 30 ml Exam Gen: Well appearing man sleeping comfortably. Eyes: PERRL, no icterus HEENT: Moist mucous membranes, clear oropharynx Neck: No lymphadenopathy, supple. Card: For some reason I cannot auscultate heart sounds on him. Peripheral pulses 2+, regular rate and rhythm. Pulm: Clear to auscultation bilaterally Abd: Soft, nontender, nondistended. Ext: Both feet bandaged Results Results 24hrs Laboratory Tests Test 04/16/19 17:25 04/16/19 20:32 04/17/19 02:12 04/17/19 07:54 Bedside Glucose 163 262 H 134 99 Test 04/17/19 12:07 04/17/19 13:17 Bedside Glucose 162 Vancomycin Level 19.3 Trough Medications Medication Current Medications IV Flush (NS 3 ml) 3 ml PER PROTOCOL IV ; Start 04/14/19 at 17:00 Acetaminophen (Tylenol Tab) 650 mg Q6H PRN PO .PAIN 1-3 OR TEMP; Start 04/14/19 at 17:00 Heparin Sodium (Porcine) (Heparin (5000 Units/1ml)) 5,000 unit Q12 SC Last administered on 04/17/19at 10:17; Admin Dose 5,000 UNIT; Start 04/14/19 at 21:00 Insulin Glargine (Lantus) 15 units BID@0800,2000 SC Last administered on 04/17/19at 08:58; Admin Dose 15 UNITS; Start 04/14/19 at 20:00 Diagnostic Test (Pha) (Accu-Chek) 1 ea 02 XX Last administered on 04/17/19at 02:18; Admin Dose 1 EA; Start 04/15/19 at 02:00 Miscellaneous Information 1 ea NOTE XX ; Start 04/14/19 at 17:30 Glucose (Glutose) 15 gm Q15M PRN PO DECREASED GLUCOSE; Start 04/14/19 at 17:30 Glucose (Glutose) 22.5 gm Q15M PRN PO DECREASED GLUCOSE; Start 04/14/19 at 17: 30 Dextrose (D50w Syringe) 25 ml Q15M PRN IV DECREASED GLUCOSE; Start 04/14/19 at 17:30 Dextrose (D50w Syringe) 50 ml Q15M PRN IV DECREASED GLUCOSE; Start 04/14/19 at 17:30 Glucagon (Glucagen) 1 mg Q15M PRN IM DECREASED GLUCOSE; Start 04/14/19 at 17:30 Glucose (Glutose) 15 gm Q15M PRN BUCCAL DECREASED GLUCOSE; Start 04/14/19 at 17:30 Vancomycin HCl (Vanco Iv Per Pharmacy) VANCOMYCIN PER PHARMACY PER PROTOCOL XX ; Start 04/14/19 at 18:00 Dextrose/Sodium Chloride 1,000 ml @ 70 mls/hr [id number] IV Last administered on 04/16/19at 22:50; Admin Dose 70 MLS/HR; Start 04/15/19 at 00:00 Miscellaneous [facility] This patient guillory... PRN PRN XX WOUND CARE; Start 04/15/19 at 02:30 Insulin Aspart (Novolog Insulin Pen) NOVOLOG *MILD* ALGORITHM WITH MEALS BEDTIME SC Last administered on 04/17/19at 12:14; Admin Dose 1 UNIT; Start 04/16/19 at 08:00 Vancomycin HCl 250 ml @ 125 mls/hr Q8H IVPB Last administered on 04/17/19 14:20; Admin Dose 125 MLS/HR; Start 04/16/19 at 14:00 Ceftriaxone Sodium 50 ml @ 100 mls/hr Q24H IVPB Last administered on 04/17/19at 12:13; Admin Dose 100 MLS/HR; Start 04/16/19 at 13:00 SERA MARINO MD Apr 17, 2019 14:35
[2019-04-17] MEDS: DEXTROSE 5%-0.45% NACL 1,000 ML IV SCH (17:57)
[2019-04-17 20:00] VITALS: BP 127/77; PULSE 71; RESP 17
[2019-04-17] MEDS: VANCOMYCIN 750 MG (PMX) 250 ML IVPB SCH (23:51)
[2019-04-18 02:00] VITALS: BP 124/74; PULSE 71; RESP 15
[2019-04-18] MEDS: ACCU-CHEK XX SCH (02:11)
[2019-04-18 08:00] VITALS: BP 147/91; PULSE 75; RESP 20
[2019-04-18] MEDS: INSULIN ASPART [NOVOLOG] 3 ML PEN SC SCH ×4 (08:00→20:39)
[2019-04-18] MEDS: INSULIN GLARGINE [LANTus] (100 UNITS/ML) SYG SC SCH ×2 (08:07→20:38)
[2019-04-18] MEDS: VANCOMYCIN 750 MG (PMX) 250 ML IVPB SCH ×2 (08:08→15:37)
[2019-04-18] MEDS: HEPARIN 5,000 UNIT/1 ML VIAL SC SCH ×2 (08:39→20:38)
[2019-04-18] MEDS: CEFTRIAXONE 1 GM/50 ML (PMX) 50 ML IVPB SCH (12:29)
--- NOTE | 2019-04-18 12:35 | PN ---
Date/Time of Note Date/Time of Note DATE: 04/18/19 TIME: 12:34 Assessment/Plan VTE Prophylaxis Risk score (from Nsg)>0 risk: 1 Pharmacological prophylaxis: heparin Lines/Catheters IV Catheter Type (from Nrsg): Peripheral IV Urinary Cath still in place: No Assessment/Plan Hospital Course 53 yo diabetic man presents with diabetic foot ulcer # Diabetic foot ulcer - Clean based, no surrounding erythema or discharge - s/p bilateral foot debridement 04/15. - Podiatry and ID following - Plan to discharge with IV vanco and ceftriaxone for 6 weeks. - PICC line ordered. - Case management working on home health for antibiotics. #Diabetes - Continue glargine 15 BID - Insulin sliding scale. DVT: heparin DC planning: Home health pending Result Diagram: 04/15/19 0517 04/18/19 0657 Results 24hrs Laboratory Tests Test 04/17/19 13:17 04/17/19 16:52 04/17/19 20:16 04/18/19 01:13 Vancomycin Level 19.3 Trough Bedside Glucose 194 259 H 192 Test 04/18/19 06:57 04/18/19 08:03 04/18/19 12:21 Blood Urea Nitrogen 19 Creatinine 0.92 Bedside Glucose 119 245 H Subjective 24 Hr Interval Summary Constitutional: no complaints Exam/Review of Systems Exam Vitals Vital Signs Date Temp Pulse Resp B/P (MAP) Pulse Ox O2 O2 Flow FiO2 Time Delivery Rate 04/18/19 98.6 75 20 147/91 96 08:00 (109) 04/16/19 Room Air 14:00 Intake and Output 04/17/19 04/17/19 04/18/19 1515:00 23:00 07:00 IntakeIntake Total 1020 ml 1430 ml 850 ml OutputOutput Total 1000 ml 600 ml 900 ml BalanceBalance 20 ml 830 ml -50 ml Constitutional: alert, oriented Respiratory: clear to auscultation Cardiovascular: regular rate and rhythm Gastrointestinal: soft; No distended Musculoskeletal: No nl extremities to inspection Results Results 24hrs Laboratory Tests Test 04/17/19 13:17 04/17/19 16:52 04/17/19 20:16 04/18/19 01:13 Vancomycin Level 19.3 Trough Bedside Glucose 194 259 H 192 Test 04/18/19 06:57 04/18/19 08:03 04/18/19 12:21 Blood Urea Nitrogen 19 Creatinine 0.92 Bedside Glucose 119 245 H Medications Medication Current Medications IV Flush (NS 3 ml) 3 ml PER PROTOCOL IV ; Start 04/14/19 at 17:00 Acetaminophen (Tylenol Tab) 650 mg Q6H PRN PO .PAIN 1-3 OR TEMP; Start 04/14/19 at 17:00 Heparin Sodium (Porcine) (Heparin (5000 Units/1ml)) 5,000 unit Q12 SC Last administered on 04/18/19at 08:39; Admin Dose 5,000 UNIT; Start 04/14/19 at 21:00 Insulin Glargine (Lantus) 15 units BID@0800,2000 SC Last administered on 04/18/19at 08:07; Admin Dose 15 UNITS; Start 04/14/19 at 20:00 Diagnostic Test (Pha) (Accu-Chek) 1 ea 02 XX Last administered on 04/18/19at 02:11; Admin Dose 1 EA; Start 04/15/19 at 02:00 Miscellaneous Information 1 ea NOTE XX ; Start 04/14/19 at 17:30 Glucose (Glutose) 15 gm Q15M PRN PO DECREASED GLUCOSE; Start 04/14/19 at 17:30 Glucose (Glutose) 22.5 gm Q15M PRN PO DECREASED GLUCOSE; Start 04/14/19 at 17:30 Dextrose (D50w Syringe) 25 ml Q15M PRN IV DECREASED GLUCOSE; Start 04/14/19 at 17:30 Dextrose (D50w Syringe) 50 ml Q15M PRN IV DECREASED GLUCOSE; Start 04/14/19 at 17:30 Glucagon (Glucagen) 1 mg Q15M PRN IM DECREASED GLUCOSE; Start 04/14/19 at 17:30 Glucose (Glutose) 15 gm Q15M PRN BUCCAL DECREASED GLUCOSE; Start 04/14/19 at 17:30 Vancomycin HCl (Vanco Iv Per Pharmacy) VANCOMYCIN PER PHARMACY PER PROTOCOL XX ; Start 04/14/19 at 18:00 Miscellaneous Information (Pending [facility] Order For Wound Care) This patient guillory... PRN PRN XX WOUND CARE; Start 04/15/19 at 02:30 Insulin Aspart (Novolog Insulin Pen) NOVOLOG *MILD* ALGORITHM WITH MEALS BEDTIME SC Last administered on 04/18/19at 12:24; Admin Dose 3 UNIT; Start 04/16/19 at 08:00 Ceftriaxone Sodium 50 ml @ 100 mls/hr Q24H IVPB Last administered on 04/18/19at 12:29; Admin Dose 100 MLS/HR; Start 04/16/19 at 13:00 Vancomycin/Sodium Chloride 250 ml @ 125 mls/hr Q8H IVPB Last administered on 04/18/19at 08:08; Admin Dose 125 MLS/HR; Start 04/18/19 at 00:00 Miscellaneous Information (*Rx Drug Level Order Reminder*) 1 2300 ONCE XX ; Start 04/18/19 at 23:00; Stop 04/18/19 at 23:01 SHAUN GARCIA Apr 18, 2019 12:35
--- NOTE | 2019-04-18 13:20 | CONS ---
Consultation Date/Type/Reason Admit Date/Time Apr 14, 2019 at 16:06 Initial Consult Date SUBJECTIVE: Pt is awake, resting in bed, afebrile. VS: stable T: 98.6 LABS: Reviewed. MICROBIOLOGY: Right foot Wwound culture growing Corynebacterium group JK and haemophilus influenza ANTIMICROBIALS: The patient is on: 1. Vancomycin. 2. Rocephin PHYSICAL EXAMINATION: GENERAL: Well-developed elderly man who is in no distress. HEENT: Head atraumatic, normocephalic. NECK: Supple. CHEST: Rise symmetrical. Breath sounds diminished to bases. HEART: S1, S2. ABDOMEN: Soft, bowel sounds present. EXTREMITIES: With right foot dressing intact. ASSESSMENT: 1. Osteomyelitis of right great toe, status post I&D 2. Diabetic foot ulcerations, bilateral 3. Diabetes. PLAN: The patient remains stable. Plan to D/C home with current IV abx for 6 weeks. Date/Time of Note DATE: 04/18/19 TIME: 13:17 Exam/Review of Systems Exam Vitals Vital Signs Date Temp Pulse Resp B/P (MAP) Pulse Ox O2 O2 Flow FiO2 Time Delivery Rate 04/18/19 98.6 75 20 147/91 96 08:00 (109) 04/16/19 Room Air 14:00 Intake and Output 04/17/19 04/17/19 04/18/19 1515:00 23:00 07:00 IntakeIntake Total 1020 ml 1430 ml 850 ml OutputOutput Total 1000 ml 600 ml 900 ml BalanceBalance 20 ml 830 ml -50 ml Results Result Diagram: 04/15/19 0517 04/18/19 0657 Results 24hrs Laboratory Tests Test 04/17/19 16:52 04/17/19 20:16 04/18/19 01:13 04/18/19 06:57 Bedside Glucose 194 259 H 192 Blood Urea Nitrogen 19 Creatinine 0.92 Test 04/18/19 08:03 04/18/19 12:21 Bedside Glucose 119 245 H Medications Medication Current Medications IV Flush (NS 3 ml) 3 ml PER PROTOCOL IV ; Start 04/14/19 at 17:00 Acetaminophen (Tylenol Tab) 650 mg Q6H PRN PO .PAIN 1-3 OR TEMP; Start 04/14/19 at 17:00 Heparin Sodium (Porcine) (Heparin (5000 Units/1ml)) 5,000 unit Q12 SC Last administered on 04/18/19at 08:39; Admin Dose 5,000 UNIT; Start 04/14/19 at 21:00 Diagnostic Test (Pha) (Accu-Chek) 1 ea 02 XX Last administered on 04/18/19at 02:11; Admin Dose 1 EA; Start 04/15/19 at 02:00 Miscellaneous Information 1 ea NOTE XX ; Start 04/14/19 at 17:30 Glucose (Glutose) 15 gm Q15M PRN PO DECREASED GLUCOSE; Start 04/14/19 at 17:30 Glucose (Glutose) 22.5 gm Q15M PRN PO DECREASED GLUCOSE; Start 04/14/19 at 17:30 Dextrose (D50w Syringe) 25 ml Q15M PRN IV DECREASED GLUCOSE; Start 04/14/19 at 17:30 Dextrose (D50w Syringe) 50 ml Q15M PRN IV DECREASED GLUCOSE; Start 04/14/19 at 17:30 Glucagon (Glucagen) 1 mg Q15M PRN IM DECREASED GLUCOSE; Start 04/14/19 at 17:30 Glucose (Glutose) 15 gm Q15M PRN BUCCAL DECREASED GLUCOSE; Start 04/14/19 at 17:30 Vancomycin HCl (Vanco Iv Per Pharmacy) VANCOMYCIN PER PHARMACY PER PROTOCOL XX ; Start 04/14/19 at 18:00 Miscellaneous Information (Pending [facility] Order For Wound Care) This patient guillory... PRN PRN XX WOUND CARE; Start 04/15/19 at 02:30 Insulin Aspart (Novolog Insulin Pen) NOVOLOG *MILD* ALGORITHM WITH MEALS BEDTIME SC Last administered on 04/18/19at 12:24; Admin Dose 3 UNIT; Start 04/16/19 at 08:00 Ceftriaxone Sodium 50 ml @ 100 mls/hr Q24H IVPB Last administered on 04/18/19at 12:29; Admin Dose 100 MLS/HR; Start 04/16/19 at 13:00 Vancomycin/Sodium Chloride 250 ml @ 125 mls/hr Q8H IVPB Last administered on 04/18/19at 08:08; Admin Dose 125 MLS/HR; Start 04/18/19 at 00:00 Miscellaneous Information (*Rx Drug Level Order Reminder*) 1 2300 ONCE XX ; Start 7/27/19 at 23:00; Stop 04/18/19 at 23:01 Insulin Glargine (Lantus) 16 units BID@0800,2000 SC ; Start 04/18/19 at 20:00 WILLIAM JOHN Apr 18, 2019 13:20
[2019-04-18 14:00] VITALS: BP 136/72; PULSE 84; RESP 18
--- NOTE | 2019-04-18 16:53 | PDOCDIS ---
Discharge Instructions CONDITION [id number] Patient Condition: [id number] Good HOME CARE INSTRUCTIONS: [id number] Special Diet: [id number] DIABETIC ACTIVITY: [id number] Activity Restrictions: [id number] No Restrictions FOLLOW UP/APPOINTMENTS Follow-up Plan FOLLOW UP WITH YOUR PCP AND HOME HEALTH SHAUN GARCIA Apr 18, 2019 16:53
[2019-04-18 20:00] VITALS: BP 105/58; PULSE 65; RESP 18
[2019-04-19] MEDS: VANCOMYCIN 750 MG (PMX) 250 ML IVPB SCH ×3 (01:27→15:52)
[2019-04-19 02:00] VITALS: BP 114/63; PULSE 64; RESP 17
[2019-04-19] MEDS: ACCU-CHEK XX SCH (02:00)
[2019-04-19] MEDS: INSULIN ASPART [NOVOLOG] 3 ML PEN SC SCH ×3 (08:00→17:24)
[2019-04-19 08:02] VITALS: BP 84/52; PULSE 60; RESP 17
[2019-04-19] MEDS: INSULIN GLARGINE [LANTus] (100 UNITS/ML) SYG SC SCH (08:13)
[2019-04-19] MEDS: HEPARIN 5,000 UNIT/1 ML VIAL SC SCH (08:59)
[2019-04-19 09:43] VITALS: BP 102/56; PULSE 62
[2019-04-19] MEDS: CEFTRIAXONE 1 GM/50 ML (PMX) 50 ML IVPB SCH (12:48)
--- NOTE | 2019-04-19 13:41 | CONS ---
Consultation Date/Type/Reason Admit Date/Time Apr 14, 2019 at 16:06 Initial Consult Date SUBJECTIVE: Pt is awake, resting in bed, afebrile. S/P PICC line insertion. VS: stable T: 98.1 LABS: Reviewed. MICROBIOLOGY: Right foot Wound culture growing Corynebacterium group JK and haemophilus influenza ANTIMICROBIALS: The patient is on: 1. Vancomycin. 2. Rocephin PHYSICAL EXAMINATION: GENERAL: Well-developed elderly man who is in no distress. HEENT: Head atraumatic, normocephalic. NECK: Supple. CHEST: Rise symmetrical. Breath sounds diminished to bases. HEART: S1, S2. ABDOMEN: Soft, bowel sounds present. EXTREMITIES: With right foot dressing intact. ASSESSMENT: 1. Osteomyelitis of right great toe, status post I&D 2. Diabetic foot ulcerations, bilateral 3. Diabetes. PLAN: The patient remains stable. Plan to D/C home with current IV abx for 6 weeks. Date/Time of Note DATE: 04/19/19 TIME: 13:36 Exam/Review of Systems Exam Vitals Vital Signs Date Temp Pulse Resp B/P (MAP) Pulse Ox O2 O2 Flow FiO2 Time Delivery Rate 04/19/19 62 102/56 09:43 (71) 04/19/19 98.1 17 99 08:02 04/18/19 Room Air 20:00 Intake and Output 04/18/19 04/18/19 04/19/19 1515:00 23:00 07:00 IntakeIntake Total 650 ml 600 ml 750 ml OutputOutput Total 400 ml BalanceBalance 650 ml 600 ml 350 ml Results Result Diagram: 04/15/19 0517 04/18/19 0657 Results 24hrs Laboratory Tests Test 04/18/19 17:17 04/18/19 20:37 04/18/19 23:06 04/19/19 01:27 Bedside Glucose 225 H 216 186 Vancomycin Level 14.3 Trough Test 04/19/19 08:10 04/19/19 12:00 Bedside Glucose 126 225 H Medications Medication Current Medications IV Flush (NS 3 ml) 3 ml PER PROTOCOL IV ; Start 04/14/19 at 17:00 Acetaminophen (Tylenol Tab) 650 mg Q6H PRN PO .PAIN 1-3 OR TEMP; Start 04/14/19 at 17:00 Heparin Sodium (Porcine) (Heparin (5000 Units/1ml)) 5,000 unit Q12 SC Last administered on 04/19/19at 08:59; Admin Dose 5,000 UNIT; Start 04/14/19 at 21:00 Diagnostic Test (Pha) (Accu-Chek) 1 ea 02 XX Last administered on 04/18/19at 02:11; Admin Dose 1 EA; Start 04/15/19 at 02:00 Miscellaneous Information 1 ea NOTE XX ; Start 04/14/19 at 17:30 Glucose (Glutose) 15 gm Q15M PRN PO DECREASED GLUCOSE; Start 04/14/19 at 17:30 Glucose (Glutose) 22.5 gm Q15M PRN PO DECREASED GLUCOSE; Start 04/14/19 at 17:30 Dextrose (D50w Syringe) 25 ml Q15M PRN IV DECREASED GLUCOSE; Start 04/14/19 at 17:30 Dextrose (D50w Syringe) 50 ml Q15M PRN IV DECREASED GLUCOSE; Start 04/14/19 at 17:30 Glucagon (Glucagen) 1 mg Q15M PRN IM DECREASED GLUCOSE; Start 04/14/19 at 17:30 Glucose (Glutose) 15 gm Q15M PRN BUCCAL DECREASED GLUCOSE; Start 04/14/19 at 17:30 Vancomycin HCl (Vanco Iv Per Pharmacy) VANCOMYCIN PER PHARMACY PER PROTOCOL XX ; Start 04/14/19 at 18:00 Miscellaneous Information [facility] This patient guillory... PRN PRN XX WOUND CARE; Start 04/15/19 at 02:30 Insulin Aspart (Novolog Insulin Pen) NOVOLOG *MILD* ALGORITHM WITH MEALS BEDTIME SC Last administered on 04/19/19at 12:04; Admin Dose 3 UNIT; Start 04/16/19 at 08:00 Ceftriaxone Sodium 50 ml @ 100 mls/hr Q24H IVPB Last administered on 04/19/19at 12:48; Admin Dose 100 MLS/HR; Start 04/16/19 at 13:00 Vancomycin/Sodium Chloride 250 ml @ 125 mls/hr Q8H IVPB Last administered on 04/19/19at 08:14; Admin Dose 125 MLS/HR; Start 04/18/19 at 00:00 Insulin Glargine (Lantus) 16 units BID@0800,2000 SC Last administered on 04/19/19at 08:13; Admin Dose 16 UNITS; Start 04/18/19 at 20:00 WILLIAM JOHN Apr 19, 2019 13:41
--- NOTE | 2019-04-19 14:35 | PN ---
Date/Time of Note Date/Time of Note DATE: 04/19/19 TIME: 14:34 Assessment/Plan VTE Prophylaxis Risk score (from Nsg)>0 risk: 1 Pharmacological prophylaxis: heparin Lines/Catheters Urinary Cath still in place: No Assessment/Plan Hospital Course 53 yo diabetic man presents with diabetic foot ulcer # Diabetic foot ulcer - Clean based, no surrounding erythema or discharge - s/p bilateral foot debridement 04/15. - Podiatry and ID following - Plan to discharge with IV vanco and ceftriaxone for 6 weeks. - PICC line ordered. - Case management working on home health for antibiotics. #Diabetes - Continue glargine 15 BID - Insulin sliding scale. DVT: heparin DC planning: Home health pending Result Diagram: 04/15/19 0517 04/18/19 0657 Results 24hrs Laboratory Tests Test 04/18/19 17:17 04/18/19 20:37 04/18/19 23:06 04/19/19 01:27 Bedside Glucose 225 H 216 186 Vancomycin Level 14.3 Trough Test 04/19/19 08:10 04/19/19 12:00 Bedside Glucose 126 225 H Subjective 24 Hr Interval Summary Constitutional: no complaints Exam/Review of Systems Exam Vitals Vital Signs Date Temp Pulse Resp B/P (MAP) Pulse Ox O2 O2 Flow FiO2 Time Delivery Rate 04/19/19 62 102/56 09:43 (71) 04/19/19 98.1 17 99 08:02 04/18/19 Room Air 20:00 Intake and Output 04/18/19 04/18/19 04/19/19 1515:00 23:00 07:00 IntakeIntake Total 650 ml 600 ml 750 ml OutputOutput Total 400 ml BalanceBalance 650 ml 600 ml 350 ml Constitutional: alert, oriented Cardiovascular: regular rate and rhythm Gastrointestinal: No distended Musculoskeletal: nl extremities to inspection Results Results 24hrs Laboratory Tests Test 04/18/19 17:17 04/18/19 20:37 04/18/19 23:06 04/19/19 01:27 Bedside Glucose 225 H 216 186 Vancomycin Level 14.3 Trough Test 04/19/19 08:10 04/19/19 12:00 Bedside Glucose 126 225 H Medications Medication Current Medications IV Flush (NS 3 ml) 3 ml PER PROTOCOL IV ; Start 04/14/19 at 17:00 Acetaminophen (Tylenol Tab) 650 mg Q6H PRN PO .PAIN 1-3 OR TEMP; Start 04/14/19 at 17:00 Heparin Sodium (Porcine) (Heparin (5000 Units/1ml)) 5,000 unit Q12 SC Last administered on 04/19/19at 08:59; Admin Dose 5,000 UNIT; Start 04/14/19 at 21:00 Diagnostic Test (Pha) (Accu-Chek) 1 ea 02 XX Last administered on 04/18/19at 02:11; Admin Dose 1 EA; Start 04/15/19 at 02:00 Miscellaneous Information 1 ea NOTE XX ; Start 04/14/19 at 17:30 Glucose (Glutose) 15 gm Q15M PRN PO DECREASED GLUCOSE; Start 04/14/19 at 17:30 Glucose (Glutose) 22.5 gm Q15M PRN PO DECREASED GLUCOSE; Start 04/14/19 at 17:3 0 Dextrose (D50w Syringe) 25 ml Q15M PRN IV DECREASED GLUCOSE; Start 04/14/19 at 17:30 Dextrose (D50w Syringe) 50 ml Q15M PRN IV DECREASED GLUCOSE; Start 04/14/19 at 17:30 Glucagon (Glucagen) 1 mg Q15M PRN IM DECREASED GLUCOSE; Start 04/14/19 at 17:30 Glucose (Glutose) 15 gm Q15M PRN BUCCAL DECREASED GLUCOSE; Start 04/14/19 at 17:30 Vancomycin HCl (Vanco Iv Per Pharmacy) VANCOMYCIN PER PHARMACY PER PROTOCOL XX ; Start 04/14/19 at 18:00 Miscellaneous Information [facility] This patient guillory... PRN PRN XX WOUND CARE; Start 04/15/19 at 02:30 Insulin Aspart (Novolog Insulin Pen) NOVOLOG *MILD* ALGORITHM WITH MEALS BEDTIME SC Last administered on 04/19/19at 12:04; Admin Dose 3 UNIT; Start 04/16/19 at 08:00 Ceftriaxone Sodium 50 ml @ 100 mls/hr Q24H IVPB Last administered on 04/19/19at 12:48; Admin Dose 100 MLS/HR; Start 04/16/19 at 13:00 Vancomycin/Sodium Chloride 250 ml @ 125 mls/hr Q8H IVPB Last administered on 04/19/19at 08:14; Admin Dose 125 MLS/HR; Start 04/18/19 at 00:00 Insulin Glargine (Lantus) 16 units BID@0800,2000 SC Last administered on 9at 08:13; Admin Dose 16 UNITS; Start 04/18/19 at 20:00 SHAUN GARCIA Apr 19, 2019 14:35
[2019-04-19 15:04] VITALS: BP 101/77; PULSE 62; RESP 18
--- NOTE | 2019-04-20 16:50 | DS ---
Date/Time of Note Date/Time of Note DATE: 04/20/19 TIME: 16:47 Discharge Summary Admission/Discharge Info Admit Date/Time Apr 14, 2019 at 16:06 Discharge Date/Time Apr 19, 2019 at 18:32 Discharge Diagnosis 53 yo diabetic man presents with diabetic foot ulcer # Diabetic foot ulcer with osteomyelitis of right great toe - Clean based, no surrounding erythema or discharge - s/p bilateral foot debridement 04/15. - Podiatry and ID consultations appreciated -DC with IV vanco and ceftriaxone for 6 weeks. - PICC line and home health for IV antibiotics arranged #Diabetes -DC with Lantus 16 twice daily -Patient also prescribed glucometer, test strips and insulin needles Patient Condition: Good Hospital Course Patient is a 53 yo diabetic man presents with diabetic foot ulcer, patient was seen by ID and podiatry underwent bilateral foot debridement on April 15. Patient was diagnosed with osteomyelitis of right great toe and recommendation was for 6 weeks of vancomycin and Rocephin, PICC line was placed and home health was arranged. Patient was given new instructions for home insulin, glucometer, test strips and insulin needles. On the day of discharge patient's vitals, labs and physical exam are stable. Home Meds Active Scripts [Insulin Glargine] 100 UNITS/ML MINERVA No Conflict Check, 16 UNITS SC BID@0800,2000, #1 VIAL 2 Refills Prov:SHAUN GARCIA 04/19/19 Discontinued Reported Medications Insulin Glargine,Hum.rec.anlog (Carlotta Ashwiniadolph) 300 Unit/1 Ml Insuln.pen, 15 UNITS SQ BID, EA 11/27/18 Discontinued Scripts Sulfamethoxazole/Trimethoprim* (Bactrim Ds* Tablet) 1 Each Tablet, 1 TAB PO BID, #20 TAB Prov:AMADO VILLEDA MD 04/14/19 Cephalexin* (Keflex*) 500 Mg Capsule, 500 MG PO QID for 10 Days, CAP Prov:AMADO VILLEDA MD 04/14/19 Ferrous Sulfate* (Ferrous Sulfate*) 325 Mg Tabec, 325 MG PO DAILY for 30 Days, #30 TAB 2 Refills Prov:NASREEN DOUGLAS 12/05/18 Follow-up Plan FOLLOW UP WITH YOUR PCP AND HOME HEALTH Primary Care Provider Care Physician No Primary Time spent on discharge: > 30 minutes SHAUN GARCIA Apr 20, 2019 16:50
== END 2019-04-19 18:32 | disposition home health service (06) | DRG 623 ==
LOC: E/R 08:26 → PP2 16:06
PROVIDERS: ADMIT Internal Medicine; ATTEND Internal Medicine
PROC: 0QBP0ZZ Excision of Left Metatarsal, Open Approach (ICD-10-PCS; 2019-04-15)
PROC: 0QBQ0ZZ Excision of Right Toe Phalanx, Open Approach (ICD-10-PCS; 2019-04-15)
PROC: 0HRMXK3 Replacement of Right Foot Skin with Nonautologous Tissue Substitute, Full Thickness, External Approach (ICD-10-PCS; 2019-04-15)
PROC: 0HXNXZZ Transfer Left Foot Skin, External Approach (ICD-10-PCS; principal; 2019-04-15 17:00)
PROC: 02HV33Z Insertion of Infusion Device into Superior Vena Cava, Percutaneous Approach (ICD-10-PCS; 2019-04-18)
DX: E11.69 Type 2 diabetes mellitus with other specified complication (principal); M86.8X7 Other osteomyelitis, ankle and foot; E11.621 Type 2 diabetes mellitus with foot ulcer; L97.519 Non-pressure chronic ulcer of other part of right foot with unspecified severity; L97.529 Non-pressure chronic ulcer of other part of left foot with unspecified severity; E11.42 Type 2 diabetes mellitus with diabetic polyneuropathy; Z59.0 Homelessness; Z89.412 Acquired absence of left great toe; Z89.421 Acquired absence of other right toe(s); Z79.4 Long term (current) use of insulin
CPT/HCPCS: 36569; 71045; 73630; 73718; 80053; 80202; 81001; 82150; 82565; 82962; 83690; 83735; 84100; 84443; 84484; 84520; 85025; 85610; 85651; 85730; 86140; 87070; 87075; 87086; 87102; 87116; 93005; 96374; 96375; 97162; 97530; 97542; J0690; J0696; J1644; J1815; J2001; J2250; J2543; J3010; J3370; J7030; J7042; Q4104-JC